=== PATIENT | female | born 1970 | race Caucasian/White ===

== ENCOUNTER 2024-07-17 12:43 | Emergency (ER) | payer OTHER, SELFPAY ==
--- NOTE | ~2024-07-17 | XR_ITS ---
EXAMINATION: XR chest 1V portable DATE: 07/17/2024 13:08 INDICATION: Cough and congestion and shortness of breath. TECHNIQUE: A single frontal view of the chest was obtained. COMPARISON: Chest view 07/08/2024, chest CT 09/29/2015 FINDINGS: There is no pneumonia, pleural effusion, or pneumothorax. The heart size is normal. Calcifi ed mediastinal lymph nodes are consistent with old granulomatous disease. IMPRESSION: 1. No acute cardiopulmonary disease. Reviewed, dictated and finalized at location A. US SECURITY DIRECTOR
[2024-07-17 12:47] VITALS: BP 153/96; PULSE 75; RESP 18; TEMP 36.6; O2SAT 93
[2024-07-17 13:25] LABS: Strep Group A RT-PCR NOT DETECTED (Negative)
[2024-07-17 13:37] LABS: SARS-CoV-2 RNA PCR Negative (Negative)
[2024-07-17 13:38] LABS: Influenza A QL RT-PCR Negative (Negative); Influenza B QL RT-PCR Negative (Negative); RSV RNA, RT-PCR Negative (Negative)
--- NOTE | 2024-07-17 13:50 | ED.URI ---
HPI - URI/Sore Throat General Chief Complaint: Upper Respiratory Infection Stated Complaint: cough Time Seen by Provider: 07/17/24 12:59 Source: patient and family Mode of arrival: ambulatory Limitations: no limitations History of Present Illness HPI Narrative: this is a 53-year-old female that recently diagnosed with an upper respiratory tract infection and finished a course of antibiotics continues to have a cough that is nonproductive with no shortness of breath no wheezing no fever chills. MD elicited complaint: cough Onset (ago): day(s) Consistency: constant Severity: mild Related Data Allergies Allergy/AdvReac Type Severity Reaction Status Date / Time No Known Allergies Allergy Unverified 06/16/17 14:01 Review of Systems Review of Systems: All systems reviewed & are unremarkable except as noted in HPI and below PMFSH Past Medical History Medical History Patient denies medical problems Exam Const: General: healthy appearing Nutritional Appearance: well nourished Orientation/consciousness: patient oriented x3 Limitations: no limitations HENMT: Head: normal to inspection Chest: Chest palpation & inspection: normal inspection of the chest Resp: Effort & Inspection: normal respiratory effort Auscultation: clear to auscultation bilaterally Cardio: Rate: regular rate Rhythm: regular rhythm GI: GI Palp: Yes Soft to palpation Auscultation: normal bowel sounds Course Course Emergency Course: patient had a chest x-ray that shows no acute cardiopulmonary abnormalities, COVID RSV influenza and strep are negative patient recently finished a course of antibiotics and will prescribed Medrol Dosepak ProAir and advised patient to continue cough pills. Vital Signs Vital signs: Vital Signs Temperature 36.6 C 07/17/24 12:47 Pulse Rate 75 07/17/24 12:47 Respiratory Rate 18 07/17/24 12:47 Blood Pressure 153/96 H 07/17/24 12:47 Pulse Oximetry 93 07/17/24 12:47 Oxygen Delivery Room Air 07/17/24 12:47 Temperature 36.6 C 07/17/24 12:47 Pulse Rate 75 07/17/24 12:47 Respiratory Rate 18 07/17/24 12:47 Blood Pressure 153/96 H 07/17/24 12:47 Pulse Oximetry 93 07/17/24 12:47 Oxygen Delivery Room Air 07/17/24 13:21 MDM - URI/Sore Throat Lab Data Labs: Lab Results 07/17/24 Range/Units 13:00 Influenza A (RT-PCR) Negative (Negative) Influenza B (RT-PCR) Negative (Negative) RSV (RT-PCR) Negative (Negative) SARS-CoV-2 RNA (RT-PCR) Negative (Negative) Group A Strep (PCR) Not detected (Negative) Critical Care Time Critical Care Time Critical Care Time: No Discharge Plan Discharge Clinical Impression: Viral infection Patient Disposition: Home, Self-Care Condition: Stable Instructions: Antibiotic Form, Viral Syndrome (ED) Additional Instructions: Advised patient to take medication as prescribed and follow-up with primary symptoms persist or worsen. Patient Language: Thai Prescriptions: New methylprednisolone [Medrol (Arian)] 4 mg tablets,dose pack See Rx Instructions .ROUTE .COMPLEX Qty: 21 0RF Rx Instructions: orally per package directions ProAir RespiClick 90 mcg/actuation aerosol powdr breath activated 2 inh inhalation QID PRN (Reason: shortness of breath) Qty: 1 0RF Follow-up/Referrals: UNKNOWN,DOCTOR [Primary Care Provider] - Time of Disposition: 13:54
[2024-07-17 13:56] VITALS: BP 135/80; PULSE 72; RESP 18; TEMP 36.7; O2SAT 95
--- OUTSIDE RECORDS SUMMARY | 2024-07-24 19:55 | XMS_ITS | Clinical Summary ---
Author Organization [facility] [employer] Address [address] [place] [address] Care Team Providers Care Franchise Broker Name Role Phone Shabnam Clayton MD Primary Care Provider Source Comments [facility] [employer]non-owned Affiliates and Associated Physician Practices is amultiple site organization consisting of ambulatory clinics and hospital sitesin [place], [place], [place] and [place]. This disclosure is being madepursuant to the Care Everywhere program and may not contain all information available regarding this patient. Last updated 18.[facility] [employer] Allergies No known active allergies Medications * Be aware that medications may not be up to date on this document. Alwaysverify current medications with the patient. Medication Sig Dispensed Refills Start Date End Date Status citalopram (CELEXA) 10 MG tablet Take 10 mg by mouth once daily Active Lurasidone HCl (LATUDA PO) Take 10 mg by mouth Acti ve ketoconazole (NIZORAL) 2 % shampooIndications:Ot her seborrheic dermatitis Apply to wet hair, leave on for 3 minutes, then rinse; at least three times weekly. 30 days supply 120 mL 11 06/02/2019 Active fluocinonide (LIDEX) 0.05 % solutionIndications:O ther seborrheic dermatitis Apply to affected area on scalp twice daily as needed. 30 day supply. 60 mL 4 06/02/2019 Active pimecrolimus (ELIDEL) 1 % creamIndications:Rash Apply to face twice a day. 30 days supply. 60 g 5 06/02/2019 Active Active Problems No known active problems Family History Medical History Relation Name Comments Asthma Neg Hx CVA Neg Hx Cancer - Breast Neg Hx Cancer - Other Neg Hx Cancer - Skin, Melanoma Neg Hx Cancer - Skin, Non Melanoma Neg Hx Eczema Neg Hx Hemophilia Neg Hx Psoriasis Neg Hx Social History Tobacco Use Types Packs/Day Years Used Date Smoking Tobacco: Never Smokeless Tobacco: Never Alcohol Use Standard Drinks/Week Comments Not Currently 0 (1 standard drink = 0.6 oz pur e alcohol) Sex and Gender Information Value Date Recorded Sex Assigned at Not on file Gender Identity Not on file Sexual Orientation Not on file Plan of Treatment Health Maintenance Due Date Last Done Comments COLOGUARD (AGES 45-75) - COL ON CA SCREENING 1968 COLON MONITORING 1968 COLONOSCOPY - COLON CA SCREENING 1968 CT COLONOGRAPHY - COLON CA SCREENING 1968 Colorectal Cancer Screening 1968 FIT - COLON CA SCREENING 1968 FLEX SIG - COLON CA SCREENING 1968 LIPID TESTING 1968 MAMMOGRAM 1968 PAP SMEAR 1968 HIV SCREENING 10/08/1983 HEPATITIS C SCREENING 10/03/1986 DTAP/TDAP/TD VACCINES (1 - Tdap) 10/08/1987 HEPATITIS B VACCINE (1 of 3 - 19+ 3-dose series) 10/08/1987 ZOSTER VACCINE (1 of 2) 2018 DEPRESSION SCREENING 07/28/2023 COVID-19 VACCINE (1 - 2023-2 5 season) 2024 INFLUENZA VACCINE (#1) 2024 07/01/2022 HIB VACCINE Aged Out No longer eligi ble based on patient's age to complete this topic HPV VACCINE Aged Out No longer eligi ble based on patient's age to complete this topic MENINGOCOCCAL VACCINE Aged Out No bart juno eligible based on patient's age to complete this topic PNEUMOCOCCAL VACCINE Aged Out No long er eligible based on patient's age to complete this topic Care Teams Franchise Broker Relationship Specialty Start Date End Date Shabnam Clayton MD [address] [place] [phone] PCP - General 05/28/19
--- OUTSIDE RECORDS SUMMARY | 2024-07-24 19:55 | XMS_ITS | Referral Summary ---
Author Organization [facility] [employer] Address [address] [place] [address] Care Team Providers Care Java Programmer Analyst Name Role Phone Shabnam Clayton MD Primary Care Provider [phone] Source Comments [facility],non-owned Affiliates and Associated Physician Practices is amultiple site organization consisting of ambulatory clinics and hospital sitesin [place], [place], [place] and [place]. This disclosure is being madepursuant to the Care Everywhere program and may not contain all information available regarding this patient. Last updated 18.[facility] [employer] Allergies No known active allergies Medications * [...] Active Active Problems No known active problems Social History Tobacco Use Types Packs/Day Years Used Date Smoking Tobacco: Never Smokeless Tobacco: Never Alcohol Use Standard Drinks/Week Comments Not Currently 0 (1 standard drink = 0.6 oz pur e alcohol) Sex and Gender Information Value Date Recorded Sex Assigned at Not on file Gender Identity Not on file Sexual Orientation Not on file Plan of Treatment Not on file Care Teams Java Programmer Analyst Relationship Specialty Start Date End Date Shabnam Clayton MD [address] [place] [phone] PCP - General 05/28/19
--- OUTSIDE RECORDS SUMMARY | 2024-07-24 19:56 | XMS_ITS | Continuity of Care Document ---
Author Organization [facility] Address [address] [place] [address] Phone Care Team Providers Care Carbon Furnace Operator Name Role Phone Yevgeniy Alvarado Unavailable Unavailable Advance Directives Directive Yes / No Effective Date File Name No Information Encounters Encounter Description Practice Location Reason(s) For Visit Diagnoses Date Provider Providers Copied on Encounter [facility], [address], [place], [place], [id number], [place] tel:[phone] [facility] No Information Mar-0 7-200 1 Christiano Vuong. [address] , [address], [place], [address], [place]. tel:[phone] Family History Family Member Type Diagnosis Age At Onset No Information Payers Payer name Insurance type Covered alliance party ID Authoriza tion(s) No Information Social History Type Description Quantity Date Captured Comments Sex Female Smoking Status No Information Chief Complaint And Reason For Visit No Information Reason For Referral Reason For Referral No Information History Of Present Illness Encounter Date Complaint History Of Prese nt Illness No Information Functional Status Date Functional Assessmen t No Information Instructions Date Instruction Additional Infor mation No Information Assessments Type Assessment Date No Information Patient Care Teams Name Effective Dates (start - stop) Status Members No Information
--- OUTSIDE RECORDS SUMMARY | 2024-07-24 19:56 | XMS_ITS | Patient Health Summary ---
Author Organization [facility] Address [address] [place] [address] Care Team Providers Care Water Hauler Name Role Phone Shabnam Clayton MD Primary Care Provider [phone] [facility],non-owned Affiliates and Associated Physician Practices is amultiple site organization consisting of ambulatory clinics and hospital sitesin [place], [place], [place] and [place]. This disclosure is being madepursuant to the Care Everywhere program and may not contain all information available regarding this patient. Last updated 18.[facility] Allergies No known active allergies Medications * Be aware that medications may not be up to date on this document. Alwaysverify current medications with the patient. * citalopram (CELEXA) 10 MG tablet Take 10 mg by mouth once daily * Lurasidone HCl (LATUDA PO) Take 10 mg by mouth * ketoconazole (NIZORAL) 2 % shampoo(Started 06/02/2019) Apply to wet hair, leave on for 3 minutes, then rinse; at least three times weekly. 30 days supply 11 refills remaining * fluocinonide (LIDEX) 0.05 % solution(Started 06/02/2019) Apply to affected area on scalp twice daily as needed. 30 day supply. 4 refills remaining * pimecrolimus (ELIDEL) 1 % cream(Started 06/02/2019) Apply to face twice a day. 30 days supply. 5 refills remaining Active Problems No known active problems Social History Tobacco Use Types Packs/Day Years Used Date Smoking Tobacco: Never Smokeless Tobacco: Never Alcohol Use Standard Drinks/Week Comments Not Currently 0 (1 standard drink = 0.6 oz pur e alcohol) Sex and Gender Information Value Date Recorded Sex Assigned at Not on file Gender Identity Not on file Sexual Orientation Not on file Care Teams Water Hauler Relationship Specialty Start Date End Date Shabnam Clayton MD [address] [place] [phone] PCP - General 05/28/19
--- OUTSIDE RECORDS SUMMARY | 2024-07-24 19:56 | XMS_ITS | Clinical Summary ---
Author Organization [facility] Address [address] [place] [address]. [place] [address] [place] [address] Care Team Providers Care Polls Or Surveys Interviewer Name Role Phone Lynda Duarte NP Primary Care Provider [phone] Allergies No known active allergies Medications lisinopril 10 MG tablet Take 10 mg by mouth daily. Active simvastatin 10 MG tablet Take 10 mg by mouth nightly at bedtime. Active albuterol sulfate HFA (PROAIR HFA) 108 (90 Base) MCG/ACT inhaler Inhale 2 puffs into the lungs every 6 (six) hours as needed for Wheezing. Active omeprazole 40 MG capsule Take 1 capsule (40 mg total) by mouth daily. 30 capsule 02/12/2021 Active Social History Tobacco Use Types Packs/Day Years Used Date Smoking Tobacco: Never Smokeless Tobacco: Never Alcohol Use Standard Drinks/Week Comments Never 0 (1 standard drink = 0.6 oz pur e alcohol) AUDIT-C Answer Date Recorded Q1: How often do you have a drink containing alc ohol? Never 02/11/2021 Average Number of Drinks Not on file 021 Frequency of Binge Drinking Not on file 01/25 Comments No Sex and Gender Information Value Date Recorded Sex Assigned at Not on file Legal Sex Female 5:52 PM CDT Gender Identity Not on file Sexual Orientation Not on file Last Filed Vital Signs Vital Sign Reading Time Taken Comments Blood Pressure 126/58 02/12/2021 12:00 AM CDT Pulse 75 02/12/2021 12:00 AM CDT Temperature 36.2 ??C (97.1 ??F) 02/11/2021 10:57 PM C DT Respiratory Rate 21 02/12/2021 12:00 AM CDT Oxygen Saturation 96% 02/12/2021 12:00 AM CDT Inhaled Oxygen Concentration - - Weight 110.2 kg (243 lb) 02/11/2021 10:57 PM CDT Height 170.2 cm (5' 7 ) 02/11/2021 10:57 PM CDT Body Mass Index 38.06 02/11/2021 10:57 PM CDT Plan of Treatment Health Maintenance Due Date Last Done Comments Cervical Cancer Screening Pa p Smear (Age 30 to 64) Every 3 Years 1968 Colorectal Cancer Screening Colonoscopy (10 Years) 1968 Annual Physical 10/08/1971 Hepatitis C 1986 DTaP, Tdap and Td Vaccines ( 1 - Tdap) 10/08/1987 Hepatitis B Vaccines (1 of 3 - 19+ 3-dose series) 10/08/1987 Cervical Cancer Screening Pa p with HPV Testing (Age 30 to 64) Every 5 Years 1998 Cervical Cancer Screening with HPV 1998 Mammogram Screening 2008 Zoster Vaccines (1 of 2) 2018 COVID-19 Vaccine (2023-2 5 season) 2024 Influenza Adult (#1) 2024 Meningococcal Vaccine Aged Out No bart juno eligible based on patient's age to complete this topic Pneumococcal Vaccine: Pediat rics (0 to 5 Years) and At-Risk Patients (6 to 64 Years) Aged Out No longer eligible b ased on patient's age to complete this topic RSV Immunizations Under 20 Months Aged Out No longer eligible based on patient's age to complete this topic Insurance [facility] Care Teams Polls Or Surveys Interviewer Relationship Specialty Start Date End Date Lynda Duarte NP PCP - General NURSE PRACTITIONER 02/11/21
--- OUTSIDE RECORDS SUMMARY | 2024-07-24 19:56 | XMS_ITS | Encounter Summary ---
Author Organization [facility] Address [address] [place] [address] [place] [address] Care Team Providers Care Cfa Name Role Phone GeraldLynda RECRUITMENT COORDINATOR Primary Care Provider [phone] Reason for Visit * Reason Comments Chest Pain Patient ambulates in with c/o pain in her chest that's happened off and on today. Had 3 episodes in past, feels like pleurisy pain. PCP told her if pains are short, probably not cardiac. Eating dinner tonight, pain would come and go, and getting more frequent. Described the pain as squeezing in her chest. Pain is left chest and into left arm and neck. Pain is dull on arrival. Wants to get heart checked out. Encounter Details Date Type Department Care Team (Late st Contact Info) Description 02/11/2021 10:47 PM CDT - 02/12/2021 12:[address] [facility] Emergency Room [address] [place] [address] [id number] Jose Ramon Rodarte MD [address] [place] [address] Chest Pain (Patient ambulates in with c/o pain in her chest that's happened off and on today. Had 3 episodes in past, feels like pleurisy pain. PCP told her if pains are short, probably not cardiac. Eating dinner tonight, pain would come and go, and getting more frequent. Described the pain as squeezing in her chest. Pain is left chest and into left arm and neck. Pain is dull on arrival. Wants to get heart checked out.) Discharge Disposition: Home or Self Care (Routine Discharge) Social History Tobacco Use Types Packs/Day Years [...] on file Sexual Orientation Not on file COVID-19 Exposure Response Date Recorded In the last month, have you been in contact with someone who was confirmed or suspected to have Coronavirus / COVID-19? No / Unsure 02/11/2021 10:57 PM CDT documented as of this encounter Last Filed Vital Signs Vital Sign Reading [...] Mass Index 38.06 02/11/2021 10:57 PM CDT documented in this encounter Discharge Instructions * Discharge Instructions* Jose Ramon Rodarte MD - 02/12/2021 12:14 AM CDT You should fill the prescription tomorrow and begin taking it at that time. Follow up with your primary care doctor if you have ongoing symptoms despite treatment. * Attachments The following attachments cannot be sent through Care Everywhere. * Acid Reflux and Gastroesophageal Reflux Disease in Adults (Hebrew) documented in this encounter Medications at Time of Discharge albuterol sulfate HFA (PROAIR HFA) 108 (90 Base) MCG/ACT inhaler Inhale 2 puffs into the lungs every 6 (six) hours as needed for Wheezing. lisinopril 10 MG tablet Take 10 mg by mouth daily. omeprazole 40 MG capsule Take 1 capsule (40 mg total) by mouth daily. 30 capsule 02/12/2021 simvastatin 10 MG tablet Take 10 mg by mouth nightly at bedtime. documented as of this encounter ED Notes * Jose Ramon Rodarte MD - 02/12/2021 12:25 AM CDT Chief Complaint Chief Complaint Patient presents with ??? Chest Pain Patient ambulates in with c/o pain in her chest that's happened off and on today. Had 3 episodes inpast, feels like pleurisy pain. PCP told her if pains are short, probably not cardiac. Eating dinner tonight, pain would come and go, and getting more frequent. Described the pain as squeezing in herchest. Pain is left chest and into left arm and neck. Pain is dull on arrival. Wants to get heart checked out. History of Present Illness 50 yo female here with complaints of several days of increasing burning/cramping in chest. Denies fever, dyspnea, nausea, vomiting. Pt has had constant pain since 1030. Pain was worse when drinking hot tea this afternoon. Pain currently 3/10, radiating to left upper chest and neck. Medical History ALLERGIES: No Known Allergies MEDICATIONS: Prior to Admission medications Medication Sig Start Date End Date Taking? Authorizing Provider albuterol sulfate HFA (PROAIR HFA) 108 (90 Base) MCG/ACT inhaler Inhale 2 puffs into the lungs every 6 (six) hours as needed for Wheezing. Yes Doc Abstract lisinopril 10 MG tablet Take 10 mg by mouth daily. Yes Doc Abstract omeprazole 40 MG capsule Take 1 capsule (40 mg total) by mouth daily. 02/12/21 Yes Jose Ramon Rodarte MD simvastatin 10 MG tablet Take 10 mg by mouth nightly at bedtime. Yes Doc Abstract PAST MEDICAL HISTORY: Past Medical History: Diagnosis Date ??? High cholesterol ??? Hypertension PAST SURGICAL HISTORY: History reviewed. No pertinent surgical history. FAMILY HISTORY: No family history on file. SOCIAL HISTORY: Social History Tobacco Use ??? Smoking status: Never Smoker ??? Smokeless tobacco: Never Used Substance Use Topics ??? Alcohol use: Never ??? Drug use: Never Review of Systems Review of Systems Constitutional: Negative. Negative for fever. HENT: Negative. Respiratory: Negative for cough, chest tightness and shortness of breath. Cardiovascular: Positive for chest pain. Gastrointestinal: Negative for abdominal distention and abdominal pain. Musculoskeletal: Negative. Neurological: Negative for seizures and syncope. Psychiatric/Behavioral: Negative. All other systems reviewed and are negative. Physical Exam Filed Vitals: 02/11/21 2257 02/11/21 2300 02/11/21 2330 02/12/21 0000 BP: (!) 146/78 140/78 122/75 126/58 Pulse: 78 81 72 75 Resp: Temp: 97.1 ??F (36.2 ??C) TempSrc: Temporal SpO2: 98% 96% 95% 96% Weight: 110.2 kg (243 lb) Height: 5' 7 (1.702 m) Physical Exam Vitals and nursing note reviewed. Constitutional: General: She is not in acute distress. Appearance: Normal appearance. She is well-developed. HENT: Head: Normocephalic and atraumatic. Right Ear: External ear normal. Left Ear: External ear normal. Nose: Nose normal. Eyes: General: No scleral icterus. Pupils: Pupils are equal, round, and reactive to light. Cardiovascular: Rate and Rhythm: Normal rate and regular rhythm. Pulses: Normal pulses. Heart sounds: Normal heart sounds. Pulmonary: Effort: Pulmonary effort is normal. No respiratory distress. Breath sounds: Normal breath sounds. No stridor. No wheezing. Comments: No ttp of chest. Chest: Chest wall: No tenderness. Abdominal: General: Bowel sounds are normal. There is no distension. Palpations: Abdomen is soft. Musculoskeletal: General: No deformity. Normal range of motion. Cervical back: Normal range of motion and neck supple. Skin: General: Skin is warm and dry. Capillary Refill: Capillary refill takes less than 2 seconds. Findings: No rash. Neurological: Mental Status: She is alert and oriented to person, place, and time. Cranial Nerves: No cranial nerve deficit. Psychiatric: Mood and Affect: Mood normal. Behavior: Behavior normal. Diagnostic Studies / Procedures ELECTROCARDIOGRAMS: Results for orders placed or performed during the hospital encounter of 02/11/21 [address] [facility] Test Date: 2021-02-11 Pat Name: OH CASILLAS Department: Room: [facility] Gender: Female Safety And Occupational Health Manager: PRANAV : 1970 Requested By: JOSE RAMON RODARTE Order Number: [id number] Reading MD: Measurements Intervals [place] Rate: 80 P: 0 [place]: 136 QRS: 7 QRSD: 90 T: 30 QT: 382 QTc: 441 Interpretive Statements SINUS RHYTHM No previous ECG available for comparison EKG interpreted by me at the time of acquisition. NSR. Rate 80, no ectopy. No ischemic change. LABORATORY STUDIES: Results for orders placed or performed during the hospital encounter of 02/11/21 CBC W/DIFF AUTOMATED Result Value Ref Range WBC 8.3 4.8 - 10.8 x10'3/uL RBC 4.01 (L) 4.10 - 5.10 x10'6/uL HGB 12.3 12.0 - 16.0 G/DL HCT 36.9 36 - 46 % MCV 92.0 80 - 100 FL MCH 30.7 26.0 - 34.0 PG MCHC 33.3 31.0 - 37.0 G/DL RDW 12.7 11.5 - 14.5 % PLT 346 150 - 350 x10'3/uL CBC COMMENT AUTOMATED RBC MORPHOLOGY AND PLATELET EVALUATION NORMAL NEUTROPHILS 43.3 (L) 50 - 70 % LYMPHOCYTES 34.5 18 - 42 % MONOCYTES 9.8 2.0 - 11.0 % EOSINOPHILS 11.4 (H) 1.0 - 3.0 % BASOPHILS 1.0 0.0 - 1.0 % ABS. NEUTROPHILS TOTAL 3.57 1.69 - 7.81 x10'3/uL COMPREHENSIVE METABOLIC PANEL Result Value Ref Range GLUCOSE 90 70 - 99 MG/DL BUN 15 7 - 18 MG/DL CREATININE S/P/B 1.00 0.55 - 1.02 MG/DL SODIUM 141 136 - 145 MMOL/L POTASSIUM 4.1 3.5 - 5.1 MMOL/L CHLORIDE S/P/B 105 100 - 108 MMOL/L CO2 29.6 21 - 32 MMOL/L CALCIUM 9.4 8.5 - 10.1 MG/DL BILIRUBIN TOTAL S/P/B 0.6 0.2 - 1.2 MG/DL TOTAL PROTEIN S/P/B 7.4 6.4 - 8.2 G/DL ALBUMIN S/P/B 3.7 3.4 - 5.0 G/DL AST 23 15 - 37 U/L ALT 44 14 - 55 U/L ALKALINE PHOSPHATASE S/P/B 100 50 - 136 U/L ANION GAP 6.4 5 - 15 MMOL/L BUN CREATININE RATIO 15.0 6 - 26 A/G RATIO 1.0 1.0 - 2.0 RATIO eGFR Non-Afr. Amer. 65 (L) >90 ML/MIN/1.73 M2 eGFR Afr. Amer. 75 (L) >90 ML/MIN/1.73 M2 TROPONIN, QUANT Result Value Ref Range TROPONIN I <0.017 0.000 - 0.056 ng/mL. IMAGING STUDIES XR CHEST PORTABLE Final Result by User, [id number] (02/11 8510) Examination: Chest radiograph Exam time: 02/11/2021 10:56 PM Clinical history: Chest pain Comparison: None Technique: One view of the chest obtained. Findings: Lungs are adequately inflated and clear. No pneumothorax or pleural effusions evident. The cardiac silhouette, mediastinal contours, and pulmonary vessels appear within normal limits. No acute osseous abnormality. IMPRESSION: No radiographic evidence of active disease of the chest. Referred By: JOSE RAMON RODARTE Interpreted By: Carmon Lindo MD, 02/11/2021 11:16 PM ED Course / Medical Decision Making 50 yo female here with complaints of chest pain increasing over time. Given brief and unpredictablepattern not associated with exertion ACS is less likely. Heart score 2. Negative trop, cxr and ekg.Pt had complete resolution of symptoms after GI cocktail. Started on omeprazole. Will d/c to home. Clinical Impression Reflux esophagitis (Primary) Disposition: Discharge Jose Ramon Rodarte MD 02/12/21 0128 * Alma Barroso RN - 02/12/2021 12:12 AM CDT Patient states pain in chest improved after GI cocktail, will discontinue toradol. Patient agreeable with plan. * Alma Barroso RN - 02/11/2021 11:[address] Rodarte to bedside to discuss results and plans to medicate for pain. Patient agreeable with plan of care. documented in this encounter Plan of Treatment Not on file documented as of this encounter Procedures Procedure Name Priority Date/Time Associated Diagnosis Comments XR CHEST PORTABLE STAT 02/11/2021 11: 18 PM CDT COMPREHENSIVE METABOLIC PANEL STAT 02/11/2021 11:05 PM CDT CBC W/DIFF AUTOMATED STAT 02/11/2021 11:05 PM CDT TROPONIN, QUANT STAT 02/11/2021 11:05 PM CDT ECG 12-LEAD Routine 02/11/2021 10:58 PM CDT documented in this encounter Results * XR CHEST PORTABLE (02/11/2021 11:18 PM CDT) Anatomical Region Laterality Modality Chest Radiographic Dora ging 02/11/2021 11:1 6 PM CDT Impressions 02/11/2021 11:16 PM CDT IMPRESSION: No radiographic evidence of active disease of the chest. Referred By: JOSE RAMON RODARTE Interpreted By: Camron Lindo MD, 02/11/2021 11:16 PM Narrative 02/11/2021 11:16 PM CDT Examination: Chest radiograph Exam time: 02/11/2021 10:56 PM Clinical history: Chest pain Comparison: None Technique: ??One view of the chest obtained. Findings: Lungs are adequately inflated and clear. No pneumothorax or pleural effusions evident. The cardiac silhouette, mediastinal contours, and pulmonary vessels appear within normal limits. No acute osseous abnormality. ?? Procedure Note Camron Lindo MD - 02/11/2021 Examination: Chest radiograph Exam time: 02/11/2021 10:56 PM Clinical history: Chest pain Comparison: None Technique: One view of the chest obtained. Findings: Lungs are adequately inflated and clear. No pneumothorax orpleural effusions evident. The cardiac silhouette, mediastinal contours,and pulmonary vessels appear within normal limits. No acute osseousabnormality. IMPRESSION: No radiographic evidence of active disease of the chest. Referred By: JOSE RAMON RODARTE Interpreted By: Camron Lindo MD, 02/11/2021 11:16 PM Jose Ramon Rodarte MD GENERAL IMAGING Final Resu lt * TROPONIN, QUANT (02/11/2021 11:05 PM CDT) TROPONIN I <0.017 0.000 - 0.056 ng/mL. 02/11/2021 11:40 PM CDT [facility] Comment: NORMAL: LESS THAN OR EQUAL TO 0.056 NG/ML INDETERMINATE ZONE: 0.057 TO 0.599 NG/ML CONDITIONS RESULTING IN MYOCARDIAL CELL DAMAGE CAN POTENTIALLY INCREASE LEVELS ABOVE THE EXPECTED RANGE. HIGH DOSES OF BIOTIN MAY INTERFERE WITH THIS TEST RESULT. CORRELATION TO CLINICAL HISTORY AND PRESENTATION RECOMMENDED. 02/11/2021 11:0 5 PM CDT us Jose Ramon Rodarte MD LABORATORY Final Resu lt [facility] [address] [place] [address], [place] [phone] * (ABNORMAL) COMPREHENSIVE METABOLIC PANEL (02/11/2021 11:05 PM CDT) [facility] GLUCOSE 90 70 - 99 MG/DL 02/11/2021 11:28 PM T [facility] BUN 15 7 - 18 MG/DL 02/11/2021 11:28 PM T [facility] CREATININE S/P/B 1.00 0.55 - 1.02 MG/DL 02/11/2021 11:28 PM T [facility] SODIUM S/P/B 141 136 - 145 MMOL/L 02/11/2021 11:28 PM T [facility] POTASSIUM S/P/B 4.1 3.5 - 5.1 MMOL/L 02/11/2021 11:28 PM T [facility] CHLORIDE S/P/B 105 100 - 108 MMOL/L 02/11/2021 11:28 PM T [facility] CO2 29.6 21 - 32 MMOL/L 02/11/2021 11:28 PM T [facility] CALCIUM S/P/B 9.4 8.5 - 10.1 MG/DL 02/11/2021 11:28 PM T [facility] BILIRUBIN TOTAL S/P/B 0.6 0.2 - 1.2 MG/DL 02/11/2021 11:28 PM T [facility] Comment: THIS ASSAY IS NOT RECOMMENDED FOR PATIENTS UNDERGOING TREATMENT WITH ELTROMBOPAG DUE TO THE POTENTIAL FOR FALSELY ELEVATED RESULTS. TOTAL PROTEIN S/P/B 7.4 6.4 - 8.2 G/DL 02/11/2021 11:28 PM T [facility] ALBUMIN S/P/B 3.7 3.4 - 5.0 G/DL 02/11/2021 11:28 PM T [facility] AST 23 15 - 37 U/L 02/11/2021 11:28 PM CDT [facility] ALT 44 14 - 55 U/L 02/11/2021 11:28 PM CDT [facility] ALKALINE PHOSPHATASE S/P/B 100 50 - 136 U/L 02/11/2021 11:28 PM CDT [facility] ANION GAP 6.4 5 - 15 MMOL/L 02/11/2021 11:28 PM CDT [facility] BUN CREATININE RATIO 15.0 6 - 26 02/11/2021 11:28 PM T [facility] A/G RATIO 1.0 1.0 - 2.0 RATIO 02/11/2021 11:28 PM T [facility] EGFR NON-AFR. AMER. 65(L) >90 ML/MIN/1.7 3 M2 02/11/2021 11:28 PM T [facility] EGFR AFR. AMER. 75(L) >90 ML/MIN/1.7 3 M2 02/11/2021 11:28 PM T [facility] Comment: NOTE: eGFR is not calculated for patients <18 years of age. This is an estimated GFR (CKD EPI) and should not be used for calculating drug doses. 02/11/2021 11:0 5 PM CDT Jose Ramon Rodarte MD LABORATORY Final Resu lt [facility] [address] [id number], [place] [phone] * (ABNORMAL) CBC W/DIFF AUTOMATED (02/11/2021 11:05 PM CDT) WBC 8.3 4.8 - 10.8 x10'3/uL 02/11/2021 11:19 PM CDT [facility] RBC 4.01(L) 4.10 - 5.10 x10'6/uL 02/11/2021 11:19 PM CDT [facility] HGB 12.3 12.0 - 16.0 G/DL 02/11/2021 11:19 PM CDT [facility] HCT 36.9 36 - 46 % 02/11/2021 11:19 PM CDT [facility] MCV 92.0 80 - 100 FL 02/11/2021 11:19 PM CDT [facility] MCH 30.7 26.0 - 34.0 PG 02/11/2021 11:19 PM CDT [facility] MCHC 33.3 31.0 - 37.0 G/DL 02/11/2021 11:19 PM CDT [facility] RDW 12.7 11.5 - 14.5 % 02/11/2021 11:19 PM CDT [facility] PLT 346 150 - 350 x10'3/uL 02/11/2021 11:19 PM T [facility] CBC COMMENT AUTOMATED RBC MORPHOLOGY AND PLATELET EVALUATION NORMAL 02/11/2021 11:19 PM T [facility] NEUTROPHILS % 43.3(L) 50 - 70 % 02/11/2021 11:19 PM CDT [facility] LYMPHOCYTES % 34.5 18 - 42 % 02/11/2021 11:19 PM CDT [facility] MONOCYTES % 9.8 2.0 - 11.0 % 02/11/2021 11:19 PM T [facility] EOSINOPHILS 11.4(H) 1.0 - 3.0 % 02/11/2021 11:19 PM CDT [facility] BASOPHILS 1.0 0.0 - 1.0 % 02/11/2021 11:19 PM CDT [facility] ABS. NEUTROPHILS TOTAL 3.57 1.69 - 7.81 x10'3/uL 02/11/2021 11:19 PM CDT [facility] 02/11/2021 11:0 5 PM CDT Jose Ramon Rodarte MD LABORATORY Final Resu lt [facility] [address] [place] [address], * ECG 12 lead (02/11/2021 10:58 PM CDT) 02/11/2021 10:5 8 PM CDT Narrative [facility] - 02/13/2021 6:24 AM CDT ?[facility] ? Test Date: ?2021-02-11 Pat Name: ? [place] Department: ? Room: ? T1TR1 Gender: ? F ?Safety And Occupational Health Manager: ?? PHTK : ?1970 ? Requested By: JOSE RAMON RODARTE Order Number: [id number] ? Reading : ?? Inder Garrido ? Measurements Intervals ?[place] ? Rate: ? 80 ? P: ?0 [place]: ? 136 ?QRS: ?7 QRSD: ? 90 ? T: ?30 QT: ? 382 ? QTc: ?441 ? Interpretive Statements SINUS RHYTHM No previous ECG available for comparison Procedure Note Inder Garrido MD - 02/13/2021 [facility] Test Date: 2021-02-11 Pat Name: OH CASILLAS Department: Room: [facility] Gender: F Safety And Occupational Health Manager: ENRIQUETPaulina : 1970 Requested By: JOSE RAMON RODARTE Order Number: [id number] Reading MD: Inder Garrido Measurements Intervals [place] Rate: 80 P: 0 [place]: 136 QRS: 7 QRSD: 90 T: 30 QT: 382 QTc: 441 Interpretive Statements SINUS RHYTHM No previous ECG available for comparison us Jose Ramon Rodarte MD ECG ORDERABLES Final Resu lt [facility] documented in this encounter Visit Diagnoses Diagnosis Reflux esophagitis- Primary documented in this encounter Administered Medications Inactive Administered Medications - up to 3 most recent administrations Medication Order MAR Action Action Date Dose Rate Site aspirin chewable tablet 324 mg 324 mg, Oral, Once, 1 dose, On 02/11/21 at 2300 Given 02/11/2021 11:08 PM CDT 324 mg maalox plus-lidocaine viscous (GI [place]) 45 mL suspension Oral, Once, 1 dose, On 02/12/21 at 0000 Given 02/11/2021 11:59 PM CDT documented in this encounter Active and Recently Administered Medications Times are shown in CDT. Scheduled Medication Order 02/10/2021 02/11/2021 02/12/2021 aspirin chewable tablet 324 mg (COMPLETED) 324 mg, Oral, Once, 1 dose, On 02/11/21 at 2300 2308 (Given - Provider: Alma Barroso, KE) maalox plus-lidocaine viscous (GI [place]) 45 mL suspension (COMPLETED) Oral, Once, 1 dose, On Fri02/12/21 at 0000 2359 (Given - Provider: Alma Barroso RN) documented in this encounter Care Teams Cfa Relationship Specialty Start Date End Date Lynda Duarte NP PCP - General NURSE PRACTITIONER 02/11/21 documented as of this encounter
--- OUTSIDE RECORDS SUMMARY | 2024-07-24 19:56 | XMS_ITS | Encounter Summary ---
Author Organization [facility] Address [facility] [place] [address] [place] [address] Care Team Providers Care Restaurant Assistant Name Role Phone Unavailable Primary Care Provider Unavailabl e Encounter Details Date Type Department Care Team (Late st Contact Info) Description 07/14/1995 Abstract [facility] CONVERSION [address] [place] [address] , Generic Conversion, Social History Tobacco Use Types Packs/Day Years Used Date Smoking Tobacco: Never Assessed Comments Unknown Sex and Gender Information Value Date Recorded Sex Assigned at Not on file Legal Sex Female 5:52 PM CDT Gender Identity Not on file Sexual Orientation Not on file documented as of this encounter Plan of Treatment Not on file documented as of this encounter Visit Diagnoses Not on filedocumented in this encounter
--- OUTSIDE RECORDS SUMMARY | 2024-07-24 19:56 | XMS_ITS | Encounter Summary ---
Author Organization [facility] Address Count includes the [facility] [place] [address] [place] [address] Care Team Providers Care Railroad Signal Operator Name Role Phone Unavailable Primary Care Provider Unavailabl e Encounter Details Date Type Department Care Team (Late st Contact Info) Description 12/01/1995 Abstract [facility] CONVERSION [address] [place] [address] , Generic Conversion, Social History Tobacco Use [...]
--- OUTSIDE RECORDS SUMMARY | 2024-07-24 19:56 | XMS_ITS | Clinical Summary ---
Author Organization [facility] Address [address] [place] [address] Phone Care Team Providers Care Supply Chain Buyer Name Role Phone Darnell Peters MD Primary Care Provider [phone] Allergies No known active allergies Medications Medication Sig Dispensed Refills Start Date End Date Status OLANZapine (ZyPREXA) 10 mg tablet Take 1 Tablet (10 mg) by mouth daily at bedtime. 30 Tablet 2 06/21/2017 Active citalopram (CeleXA) 20 mg tablet Take 1 Tablet (20 mg) by mouth daily. 30 Tablet 2 06/22/2017 Active traZODone (DESYREL) 50 mg tablet Take 1 Tablet (50 mg) by mouth nightly as needed for Insomnia. 30 Tablet 2 06/21/2017 Active Active Problems Problem Noted Date Diagnosed Date Major depressive disorder, s shaheen episode, severe with atypical features 06/18/2017 Routine medical exam 06/18/2017 Social History Tobacco Use Types Packs/Day Years Used Date Smoking Tobacco: Never Smokeless Tobacco: Never Alcohol Use Standard Drinks/Week Comments No 0 (1 standard drink = 0.6 oz pur e alcohol) Sex and Gender Information Value Date Recorded Sex Assigned at Not on file Gender Identity Not on file Sexual Orientation Not on file Last Filed Vital Signs Vital Sign Reading Time Taken Comments Blood Pressure 160/76 06/21/2017 7:59 AM AUTO PARTS COUNTER PERSON Pulse 90 06/21/2017 7:59 AM AUTO PARTS COUNTER PERSON Temperature 36.9 ??C (98.4 ??F) 06/21/2017 7:59 AM CS T Respiratory Rate 18 06/21/2017 7:59 AM AUTO PARTS COUNTER PERSON Oxygen Saturation 96% 06/21/2017 7:59 AM AUTO PARTS COUNTER PERSON Inhaled Oxygen Concentration - - Weight 90.7 kg (200 lb) 06/17/2017 3:55 PM AUTO PARTS COUNTER PERSON Height 170.2 cm (5' 7 ) 06/17/2017 3:55 PM AUTO PARTS COUNTER PERSON Body Mass Index 31.32 06/17/2017 3:55 PM AUTO PARTS COUNTER PERSON Plan of Treatment Health Maintenance Due Date Last Done Comments DTAP/TDAP/TD VACCINES (1 - Tdap) 10/08/1987 HEPATITIS B VACCINES (1 of 3 - 19+ 3-dose series) 10/08/1987 CERVICAL CANCER SCREENING 1998 BREAST CANCER SCREENING 2008 COLORECTAL SCREENING 2013 Colorectal Cancer Screening 2013 FIT-DNA Q 3 years 2013 FIT/FOBT Q 1 year 2013 Flex Sig/CT Colonography Q 5 years 2013 ZOSTER VACCINE (1 of 2) 2018 INFLUENZA VACCINE (#1) 2024 PNEUMOCOCCAL VACCINE 0-64 YEARS Aged Out No longer eligible based on patient's age to complete this topic Care Teams Supply Chain Buyer Relationship Specialty Start Date End Date Darnell Peters MD [address] [place] [address] PCP - General Family Practice 06/17/17
--- OUTSIDE RECORDS SUMMARY | 2024-07-24 19:56 | XMS_ITS | Continuity of Care Document ---
Author Organization [facility] Address [address] [place] [address] Phone Care Team Providers Care Environmental Designer Name Role Phone Unavailable Unavailable Unavailable Procedures Procedure Date Periodontal Scaling And Root Planing- 1- 3 Teeth Per Quadrant Periodontal Scaling And Root Planing- 1- 3 Teeth Per Quadrant Periodontal Scaling And Root Planing- 1- 3 Teeth Per Quadrant Periodontal Scaling And Root Planing- 1- 3 Teeth Per Quadrant Periodontal Scaling And Root Planing- 1- 3 Teeth Per Quadrant Resin Composite, 2 Surfaces, Posterior A Resin Composite, 2 Surfaces, Posterior A Caries Risk Assess & Doc High Risk Comprehensive Oral Evaluation-New/Est Pt Intra-Oral - Complete Series Of Radiogra phic Images Dental Panoramic Radiographic Image Advance Directives Directive Yes / No Effective Date File Name No Information Encounters Encounter Description Practice Location Reason(s) For Visit Diagnoses Date Provider Providers Copied on Encounter [facility] , [address], [place], [place], [id number], tel:[phone] [facility] Encounter for dental exam and cleaning w abnormal findings No Information Referring Provider: Neo Pate, [address], [place], [address] . tel:[phone] [facility] , [address], [place], [place], [id number], tel:[phone] [facility] Encounter for dental exam and cleaning w abnormal findings No Information Referring Provider: Neo [facility], [address], [place], [address] . tel:[phone] [facility] , [address], [place], [place], [id number], tel:[phone] [facility] Encounter for dental exam and cleaning w abnormal findings No Information Referring Provider: Neo Pate, [address], [place], [address] . tel:[phone] [facility] , [address], [place], [place], [id number], [place] tel:[phone] [facility] Dental caries, unspecified No Information [facility] , [address], [place], [place], [id number], [place] tel:[phone] [facility] Encounter for dental exam and cleaning w abnormal findings No Information [facility] , [address], [place], [place], [id number], [place] tel:[phone] Care Guidelines No Information Family History Family Member Type Diagnosis Age At Onset No Information Payers Payer name Insurance type Covered constitution party ID Bob huitron(s) Rebeca [facility] [id number] Social History Type Description Quantity Date Captured [...]
--- OUTSIDE RECORDS SUMMARY | 2024-07-24 19:56 | XMS_ITS | Encounter Summary ---
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 General Dermatology [address] [place] [address] Teresa Justin MD No Information available Other seborrheic dermatitis (Primary Dx); Rash Social History Tobacco Use Types Packs/Day Years Used Date Smoking Tobacco: Never Smokeless Tobacco: Never Alcohol Use Standard Drinks/Week Comments Not Currently 0 (1 standard drink = 0.6 oz pur e alcohol) Sex and Gender Information Value Date Recorded Sex Assigned at Not on file Gender Identity Not on file Sexual Orientation Not on file documented as of this encounter Patient Instructions * Patient Instructions* Charissa Posey MD - 06/02/2019 8:42 AM PRODUCTION LAPPING MACHINE OPERATOR We will start elidel to the face twice daily as needed for itchy, flaky, pink spots. It may burn a bit at first, but that will go away with time. If it is too expensive, please let us know, we have aspecial pharmacy we can send it to. Please use cerave or cetaphil products for cleansing and moisturizing. Do not use anything with salacid or hyaluronic acid in it. We will stop the under eye creams that may have allergens in them For your scalp, we will have you wash scalp with ketoconazole shampoo and then use lidex solution as needed for itch It was a pleasure seeing you in the office today. Please follow up in 6 weeks UCTION LAPPING MACHINE OPERATOR documented in this encounter Progress Notes * Charissa Posey MD - 06/02/2019 8:25 AM CST Chief Complaint Patient presents with ??? Establish Care dry facial skin HPI: Rebecca Patiño a 48 year old female presents for skin rash evaluation. Concerns: Dry skin Patient states that she has had dry skin on face since childhood which use to crack and bleed in childhood Over past two months, face has got considerably worse with dry skin around eyes and on chin Using OTC lotion Denies itching or burning Has never used elidel Also gets dry spots on arms, in winter uses carmen Also had asthma and allergies as a child, never dx as eczema but 'almost ' from itching Concerns: Spots on scalp persistent throughout life, used coal tar shampoo in the past Now using robert giovany oil Very itchy Personal history of skin cancer: none Has a history of psoriasis in daughter who gets it from fathers side Allergies and medications were reviewed and verified. Past medical history, social history and family history were reviewed. ROS: As per HPI above. Patient denies fever, chills; sees OBGYN for night sweats. PE: No acute distress. Mood clear/affect appropriate. Alert and oriented. Mucous membranes moist. Sclera anicteric. Visible skin exam was conducted to include the scalp, face, lips/teeth, lids/conjunctiva, ears, neck, right and left hands and forearms and was normal with the following exceptions: [place] ill defined hyperkeratotic scaly plaque on nuchal scalp with greasy scale throughout scalp Ill defined pink nummular eczematous thin plaques on chin, R cheek, lower eyelids with scattered crusted papule s on chin A/P: Rebecca was seen today for establish care. Diagnoses and all orders for this visit: Other seborrheic dermatitis -discussed disease process - START ketoconazole (NIZORAL) 2 % shampoo; Apply to wet hair, leave on for 3 minutes, then rinse; at least three times weekly. 30 days supply - START fluocinonide (LIDEX) 0.05 % solution; Apply to affected area on scalp twice daily as needed. 30 day supply. Rash, face -suspect ACD/ICD, stop anti aging creams to face, etc -other considerations include periorificial dermatitis (related to ICD), tinea less likely due to appearance and negative AMIE despite daughter's recent diagnosis -discussed bland skin care, switch to cerave only without SA or hyaluronic acid - FUNGUS AMIE - POINT OF CARE (AMB) [facility] - pimecrolimus (ELIDEL) 1 % cream; Apply to face twice a day. 30 days supply. >50% time spent face to face councelling with patient RTC in 6 weeks Charissa Posey MD Dermatology Resident PGY-3 UCTION LAPPING MACHINE OPERATOR Associated attestation - Teresa Justin MD - 06/02/2019 10:46 AM PRODUCTION LAPPING MACHINE OPERATOR I have seen and examined the patient with the resident and I agree with the findings and plan of care as documented by the resident. Date of Service: 06/02/2019 Teresa Justin MD documented in this encounter Plan of Treatment Not on file documented as of this encounter Visit Diagnoses Diagnosis Other seborrheic dermatitis- Primary Rash Rash and other nonspecific skin eruption documented in this encounter Care Teams Adult Live In Caregiver Relationship Specialty Start Date End Date Shabnam Clayton MD [address] [place] [id number] PCP - General 05/28/19 documented as of this encounter
--- OUTSIDE RECORDS SUMMARY | 2024-07-24 19:56 | XMS_ITS | Encounter Summary ---
Author Organization [facility] Address [address] [place] [address] Care Team Providers Care Kitchen Work Supervisor Name Role Phone Darnell Peters MD Primary Care Provider [phone]- [phone] Reason for Visit * Reason Comments Delusional Pt tearful in triage . Pt states she isn't herself. Pt reports increase stress and exhaustion. Pt states yesterday she thought her was trying to kill her and she thought her brother was trying to kill her today, states she feels delusional. Denies SI/ HI. Pt was seen at [facility] yesterday for these same symptoms. Pt calm and cooperative. * Auth/Cert Specialty Diagnoses / Procedures Referred By Katherin cartagena Referred To Contact Emergency Medicine [facility] Emergency Dept [address] [place] [address] Referral ID Status Reason Start Date Expiration Date Visits Re quested Visits Authorized [id number] 1 1 Encounter Details Date Type Department Care Team (Latest Contact Info) Description 06/17/2017 11:12 AM RETORT LOAD EXPEDITER - 06/21/2017 11:45 AM RETORT LOAD EXPEDITER Hospital Encounter [facility] [place] [address] [place] [address] Hussein Linda, Damaso Silverio MD [address] [facility] [place] [address] Akiko Campbell MD NO ADDRESS ON FILE Clovis Johnson MD [address] [place] [address] Major depressive disorder, single episode, severe with atypical features Discharge Disposition: Home or Self Care Social History Tobacco Use Types Packs/Day Years Used Date Smoking Tobacco: Never Smokeless Tobacco: Never Alcohol Use Standard Drinks/Week Comments No 0 (1 standard drink = 0.6 oz pur e alcohol) Sex and Gender Information Value Date Recorded Sex Assigned at Not on file Gender Identity Not on file Sexual Orientation Not on file documented as of this encounter Last Filed Vital Signs Vital Sign Reading Time Taken Comments Blood Pressure 160/76 06/21/2017 7:59 AM RETORT LOAD EXPEDITER Pulse 90 06/21/2017 7:59 AM RETORT LOAD EXPEDITER Temperature 36.9 ??C (98.4 ??F) 06/21/2017 7:59 AM CS T Respiratory Rate 18 06/21/2017 7:59 AM RETORT LOAD EXPEDITER Oxygen Saturation 96% 06/21/2017 7:59 AM RETORT LOAD EXPEDITER Inhaled Oxygen Concentration - - Weight 90.7 kg (200 lb) 06/17/2017 3:55 PM RETORT LOAD EXPEDITER Height 170.2 cm (5' 7 ) 06/17/2017 3:55 PM RETORT LOAD EXPEDITER Body Mass Index 31.32 06/17/2017 3:55 PM RETORT LOAD EXPEDITER documented in this encounter Discharge Summaries * Akiko Campbell MD - 06/21/2017 10:42 AM CST Discharge Summary: ADMIT: 06/17/2017 DISCHARGE: 06/21/2017 Assessment: For specifics prior to admission please refer to admission History & Physical, and Medical consultation. Reason For Hospitalization: paranoia Discharge DX:.Major depressive disorder, single episode, severe with atypical features Labs: No results found for: WBC, MANUALWBC, HGB, HGBPOC, HCT, HCTPOC, PLT, MCV No results found for: NA, K, CL, CO2, CA, BUN, CREAT, GLUCOSE, TOTALPROTEIN, ALBUMIN, BILITOTAL, ALKPHOS, AST, ALT, ANIONGAP, BCRATIO No results found for: CHOLTOT, HDL, LDLCALC, LDLDIRECT, TRIGLYCERIDE Hospital course: Patient was admitted. Patient was treated with individual psychotherapy, group therapy, and inpatient milieu. Patient showed a good response with stabilization of symptoms. Patient was felt to be able to transition to a lower level of care. Patient was provided with education regarding medication effects/ side effects- potential risks/benefits to increase knowledge and understanding to help insure compliance following discharge. Patient was able to contract to safety. Patient agreed to crisis plan. Agreed to return to hospital if signs of decompensation occurs.Patient has available family support. Client is willing to participate in after care plan. Patient was given action/safety plan of resources that are available if an emergency arises after discharge. MSE: Alert O X 3, friendly, cooperative. No psychomotor retardation. No agitation. Speech: normal in tone, volume, rate, and spontaneous. Mood : good Affect: appropriate Thought process: goal directed, logical, no flight of ideas or looseness of association. Thought content: No suicidal ideation, plan , or intent. No Homicidal ideation, plan, or intent. Nodelusions. No auditory or visual hallucinations. Insight: improved. Judgement: improved. Medication List START taking these medications citalopram 20 mg tablet Commonly known as: CeleXA Take 1 Tablet (20 mg) by mouth daily. Start taking on: 06/22/2017 Signed by: Akiko Campbell MD Quantity: 30 Tablet Refills: 2 OLANZapine 10 mg tablet Commonly known as: ZyPREXA Take 1 Tablet (10 mg) by mouth daily at bedtime. Signed by: Akiko Campbell MD Quantity: 30 Tablet Refills: 2 traZODone 50 mg tablet Commonly known as: DESYREL Take 1 Tablet (50 mg) by mouth nightly as needed for Insomnia. Signed by: Akiko Campbell MD Quantity: 30 Tablet Refills: 2 Where to Get Your Medications Information about where to get these medications is not yet available Ask your nurse or doctor about these medications ?? citalopram 20 mg tablet ?? OLANZapine 10 mg tablet ?? traZODone 50 mg tablet Outcome: stable Prognosis: satisfactory Patient Discharged to: home Discharging Physician: Akiko Campbell MD Time Spent: 35 Minutes. Next Level of Care Recommendations: Per brock RT LOAD EXPEDITER documented in this encounter Discharge Instructions * Discharge Instructions* Sherley Vargas LCSW - 06/18/2017 3:08 PM RETORT LOAD EXPEDITER It is recommended that you follow up with an outpatient psychiatrist for medication management. It is recommended that you call to schedule an appointment 1-2 days after discharge. LOCATION: [facility] [address] [place] [address] Option 2 It is recommended that you follow up with an outpatient therapist for additional mental health support. It is recommended that you call to schedule an appointment 1-2 days after discharge. Below is a list of providers who are in-network with your insurance. [facility] [place], [place] [address] [facility] [address] [place], [place] [address] Call Jacqui Funes [phone] [facility], [address] [place], [place] [id number] [facility] [address] [place], [place] [address] Carmen Maya, [facility] [address] [place], [place] [id number] Suicide Prevention/Crisis Hotlines [place] - Behavioral Health Intake Department [phone] [facility] Behavioral Health Intake Department is professionally staffed and offers free, confidential evaluations for anyone needing assistance with a psychiatric, behavioral or addictive disorder. Evaluations, as well as referrals to physicians or community resources, are available 24 hoursa day, 7 days a week. [facility] [phone] ([phone]) [facility] is one of the [facility] suicide prevention and crisis hotlines. [facility] operates 24 hours a day, 7 days a week, 365 days a year. [facility] ([facility]) [phone] (toll free) [facility] ([facility]) is a professionally staffed crisis response service. R provides expert behavioral health, crisis response, and outreach services, 24 hours a day, seven days a week to agencies and companies worldwide. National Suicide Prevention Hotline 2-447-328-TALK (8280) A free, 24-hour hotline available to anyone in suicidal crisis or emotional distress. Your call will be routed to the nearest crisis center to you. National [facility] 0-202-BRCARAK KUTO (Kids Under Twenty-One) Crisis Helpline 9-390-344-NATE (5648) Youth staffed every day after 4pm RETORT LOAD EXPEDITER The [facility] Crisis Helpline is a confidential telephone hotline available to any youth who may be in need of assistance, referral information or crisis services. The [facility] Helpline is one of a handful [facility] staffed exclusively by youth volunteers. [facility] on Mental [facility] ([facility]) [phone] RT LOAD EXPEDITER documented in this encounter Medications at Time of Discharge Medication Sig Dispensed Refills Start Date End Date OLANZapine (ZyPREXA) 10 mg tablet Take 1 Tablet (10 mg) by mouth daily at bedtime. 30 Tablet 2 06/21/2017 citalopram (CeleXA) 20 mg tablet Take 1 Tablet (20 mg) by mouth daily. 30 Tablet 2 06/22/2017 traZODone (DESYREL) 50 mg tablet Take 1 Tablet (50 mg) by mouth nightly as needed for Insomnia. 30 Tablet 2 06/21/2017 documented as of this encounter Progress Notes * Lucila Jacinto RN - 06/21/2017 12:14 PM CST DISCHARGE NOTE Per O/P appointments were not possible because its a week end and therefore the patient was advised to call and make appointments during regular working hours The following items have been completed prior to discharge: []Discharge follow up plan completed by social work, and present in AVS. []Specific follow up appointment made by social work, and contact information in AVS. If the above 2 points are not marked as complete, the following action has been completed. []If discharge plan is incomplete, and group social worker unavailable to see patient prior to discharge,clinical supervisor adult education/charge nurse notified for review of discharge prior to patient leaving. Standard Suicide Risk Assessment (Developed from the [place] Suicide Rating Scale) Rebecca agrees to participate in the following risk assessment. *If Rebecca refuses to cooperate with risk assessment, consider notification of her psychiatrist and the clinical supervisor adult education, also Rebecca may be placed in staff view to provide for a safe environment. 1. Do you wish you were , or could go to sleep and not wake up? no 2. Do you currently have any thoughts of killing yourself? no . (If yes to 2, proceed with a-c. If no proceed to question 3.) a. Are you currently thinking about ways you would kill yourself? No If yes, explain. Not Applicable b. Do you have a detailed plan in place (time, place, method)? No If yes, explain. Not Applicable c. Do you have some intention of acting on this plan? No 3. Have you done anything, started to do anything, or prepared to do anything to end your life? no.If yes, explain. Not Applicable If yes to question 2-a, 2-b, or 2-c proceed to, and complete, High Risk Shift Assessment, and notify psychiatrist. If yes to question 3, consider use of High Risk suicide Assessment. Rebecca???s progress toward care plan and treatment plan goals are adequate for discharge, or have been resolved. Education has been provided to Rebecca in verbal and written form regarding discharge medications, follow up appointments, and outpatient and/or crisis resources available to her. Rebecca and/or caregiver relay understanding of instructions, and she is discharged with belongings to via private means. For patients discharged to an inpatient facility, we have discussed the following four elements with the receiving facility: 24-hour/7-day contact information Contact information pending studies Plan for follow-up care Primary physician, other healthcare professional, or site designated for follow up care RT LOAD EXPEDITER * Akiko Campbell MD - 06/20/2017 11:07 AM CST Chief Complaint: better Subjective: Patient seen - says she feels better - had a good nights sleep -- Less anxious - calmer -- Mood: appropriate to circumstances. Anhedonia: no. Appetite normal. Activity is normal. Sleep normal. Concentration: reduced . Fatigue is varying. Restlessness: none. Suicidal Ideation: no. Plan: no. Intent: no. Homicidal Ideation: no. Hallucinations: no. Delusions:yes. BP (!) 158/72 (BP Location: Left arm, Patient Position (BP): Sitting) Pulse 87 Temp 98.4 ??F (36.9 ??C) (Temporal) Resp 18 Ht 5' 7 (1.702 m) Wt 90.7 kg (200 lb) SpO2 95% ?No BMI 31.32 kg/m?? Mental Status Evaluation: Appearance: age appropriate Behavior: cooperative with exam Speech: pressured Mood: better Affect: approprtiate Thought Process: goal directed Thought Content: appropriate responses to questions asked Sensorium: person and place Cognition: grossly intact Insight & Judgement: limited Assessment: Patient Active Problem List Diagnosis Code ??? Major depressive disorder, single episode, severe with atypical features F32.2 ??? Routine medical exam Z00.00 Paranoia , delusional Plan: Support given. Patient still needs continued inpatient treatment due to above. Patient is tolerating current Medications, and continues to consent to treatment plan. Discussed severity/complexity of Her illness. Time spent: 35 minutes.This may include time with patient , family , nursing staff, social service,consulting physician, treatment team, counseling&/or activities to coordinate the care of the patient . Spent more than 50% time with patient providing support. RT LOAD EXPEDITER * Akiko Campbell MD - 06/19/2017 10:16 AM CST Chief Complaint: not sure Subjective: Patient seen - says not sure if family visited -- says she makes up things inher head says she needs to get grounded -- feels her foundation not secure Mood: anxious. Anhedonia: no. Appetite normal. Activity is normal. Sleep normal. Concentration: reduced . Fatigue is varying. Restlessness: none. Suicidal Ideation: no. Plan: no. Intent: no. Homicidal Ideation: no. Hallucinations: no. Delusions:yes. BP (!) 161/68 (BP Location: Right arm, Patient Position (BP): Sitting) Comment: Notified nurse. Pulse 88 Temp 97.4 ??F (36.3 ??C) (Temporal) Resp 16 Ht 5' 7 (1.702 m) Wt 90.7 kg (200 lb) SpO2 96% ? No BMI 31.32 kg/m?? Mental Status Evaluation: Appearance: age appropriate Behavior: cooperative with exam Speech: pressured Mood: constricted Affect: constricted Thought Process: goal directed and tangential Thought Content: appropriate responses to questions asked Sensorium: person and place Cognition: grossly intact Insight & Judgement: limited Assessment: Patient Active Problem List Diagnosis Code ??? Major depressive disorder, single episode, severe with atypical features F32.2 ??? Routine medical exam Z00.00 Paranoia , delusional Plan: Support given. Patient still needs continued inpatient treatment due to above. Patient is tolerating current Medications, and continues to consent to treatment plan. Discussed severity/complexity of Her illness. Time spent: 35 minutes.This may include time with patient , family , nursing staff, social service,consulting physician, treatment team, counseling&/or activities to coordinate the care of the patient . Spent more than 50% time with patient providing support. RT LOAD EXPEDITER * Taylor Justin - 06/17/2017 2:07 PM CST Intake Evaluation Start Time: 7 Rebecca Patiño is a 46 y.o. female who presents for Behavioral Health intake. Location of eval: ED (06/17/171357). Patient presents:: ( and [id number]) (06/17/171357) and Information obtained from:: Patient;Family member (06/17/171357) Transportation Mode: Family/Friend (06/17/171357) Name of Program Coordinator(s) : (06/17/17 1053) Collateral information obtained from Program Coordinator: Yes; Explain:Spoke with Collateral information obtained from:: Spouse/significant other;Other ([id number]) (06/17/17 135): Yes; Explain:Spoke with and [id number] Release of Info Signed: KHANH signed: No (patient refused) (06/17/171357) Referral Source: Other (Comment) (medical doctor) (06/17/171357) Legal Custody/Guardianship/Durable Power of Revenue Officer: Legal Custody: Self (06/17/171357) CC/RFV: Patient has not been sleeping and is delusional (06/17/17 1354) Narrative Summary/History of Present Illness: Precipitating event(s) within past 24-72 hours leading to presentation to the hospital: states that patient has been under a lot of pressure. 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 alsostates that patient's father has cancer and her sister has breast cancer. Patient states that she has become very paranoid at work and told the er doctor that she has thought about shooting up the place. Patient states that yesterday she was very paranoid of her . Patient states that she washaving feelings that her was going to kill her. states that the paranoia got so badthat the patient went to her brothers and stayed the night with him and his . When the patient got up this morning she thought that her brother was going to kill her so she went back to her . Patient states that she knows when her paranoia is coming. Patient states that I get all tingling , then comes the paranoia. states that patient has not been sleeping and states that she h as not been eating. states that patient has no history of mental health treatment. states that patient got so paranoid yesterday that she [facility] she [facility]. Patient states that they are all out to get me . Patient also states that she believes that her has secret bank accounts, and he is out to kill me . Patient was very suspicious thinking that her and brother were trying to send her away. Major Change/Loss/Stressor: other (work and family) (06/17/17 7093) Risk Assessment Suicidal Ideation (Most Severe in Past Month) 1. Do you currently wish you were or wished you could go to sleep and not wake up? : No (06/17/17 1400) 2. Have you actually had any thoughts of killing yourself? : No (06/17/171399) 3. Have you been thinking about how you might kill yourself? : No (06/17/171399) 4. Have you had these thoughts and had some intention of acting on them? : No (06/17/171399) 5. Have you started to work out or worked out the details of how to kill yourself? Do you intend tocarry out this plan? : No (06/17/171399) 6. Have you ever done anything, started to do anything, or prepared to do anything to end your life?: No (06/17/171399) Suicidal and Self-Injurious Behavior Actual suicide attempt (Past 3 Months): No (06/17/171399) Actual suicide attempt (Lifetime): No (06/17/171399) Interrupted attempt (Past 3 Months): No (06/17/171399) Interrupted attempt (Lifetime): No (06/17/171399) Aborted or Self-Interrupted attempt (Past 3 Months): No (06/17/171399) Aborted or Self-Interrupted attempt (Lifetime): No (06/17/171399) Other preparatory acts to kill self (Past 3 Months): No (06/17/171399) Other preparatory acts to kill self (Lifetime): No (06/17/171399) Self-injurious behavior without suicidal intent (Past 3 Months): No (06/17/171399) Self-injurious behavior without suicidal intent (Lifetime): No (06/17/171399) Activating Events (Recent) Recent loss(es) or other significant negative event(s) (legal, financial, relationship, etc.): Yes (06/17/171399) Description: stress with her parents who are ick and work (06/17/171399) Pending incarceration or homelessness: No (06/17/171399) Current or pending isolation or feeling alone: No (06/17/171399) Treatment History Previous psychiatric diagnoses and treatments: No (06/17/171399) Hopeless or dissatisfied with treatment : No (06/17/171399) Non-compliant with treatment : No (06/17/171399) Not receiving treatment: No (06/17/171399) Clinical Status (Recent) Hopelessness: Yes (06/17/171399) Major depressive episode: Yes (06/17/171399) Mixed affective episode: No (06/17/171399) Command hallucinations to hurt self: No (06/17/171399) Highly impulsive behavior: Yes (06/17/171399) Substance abuse or dependence: No (06/17/171399) Agitation or severe anxiety: Yes (06/17/171399) Perceived burden on family or others: Yes (06/17/171399) Chronic physical pain or other acute medical problem : No (06/17/171399) Aggressive behavior towards others: No (06/17/171399) Method for suicide available: No (06/17/171399) Refuses or feels unable to agree to safety plan: No (06/17/171399) Family history of suicide (lifetime): No (06/17/171399) Protective Factors (Recent) Identifies reasons for living: Yes (06/17/171399) Responsibility to family or others; living with family: Yes (06/17/171399) Supportive social network or family: Yes (06/17/171399) Fear of or dying due to pain and suffering: No (06/17/171399) Belief that suicide is immoral; high spirituality: Yes (06/17/171399) Engaged in work or school: Yes (work) (06/17/171399) Access to Firearms/Weapons: no (06/17/171401) If yes, plan to limit access: denies . Homicidal Ideation: No Impairment in Functioning: moderate Support Sytem: Support System:extended family Family/Support System Program Coordinator(s) : (06/17/171404) Current Providers/(Phone # if available): Psychiatrist: none Therapist: none Other services: none Current diagnosis: none Medical Care Provider: Darnell Peters MD Past Treatment History: Previous psychiatric diagnoses and treatments: No (06/17/171399) Has patient been discharged from a hospital within the last 30 days:no All Current Home Medications (per parent/caregiver report): none Family History of Mental Illness: none Pertinent Psychosocial History: Employment Status: working [employer] or [place] [employer] KHANH Signed: No (06/17/171402) Major Change/Loss/Stressor: other (work and family) (06/17/171402) Current Abuse: abuse screen: Patient refused to answer History of abuse/trauma/agency involvement: refused Explain: refused to answer any questions Substance Abuse Screening: Patient Reported Chemical Use Type of Other Chemicals Use (Chemical #1): (denies) (06/17/171401) Type of Other Chemicals Use (Chemical #2): (denies) (06/17/171401) Type of Other Chemicals Use (Chemical #3): (denies) (06/17/171401) Type of Other Chemicals Use (Chemical #4): (denies) (06/17/171401) Mental Status Evaluation: Appearance: Disheveled (06/17/171402) Behavior: Agitated;Hyperactive;Guarded;Fidgety;Intrusive;Restless (06/17/171402) Observed Emotional State: afraid/fearful;agitated;anxious;sad;restless;frustrated;overwhelmed (06/17/171402) Speech: Pressured speech (06/17/171402) Thought Processes: Blocking;Confused;Racing;Preoccupied;Obsessions;Suspicious (06/17/171402) Social Judgement: Difficulty in problem solving;Poor decisions;Indecisive (06/17/171402) Sensorium/Orientation:person, place, time/date, situation, day of week, month of year and year Cognition:higher than level of education Depression: Symptoms: Appetite change;Change in energy level;Crying;Isolative;Increased irritability;Impaired concentration (06/17/17 135) Anxiety: Symptoms: Generalized;Panic attack;Palpitations;Obsessions (06/17/17 135) Ana: Symptoms: No problems reported or observed (06/17/17 135) Eating Disorders: Hallucination Type: Auditory (06/17/171358) Delusion Type: Persecutory (06/17/171358) Quality of Sleep:fair to poor with difficulty falling asleep and nightime awakenings Sleep Patterns: has not slept in 1 week (06/17/17 1359) Hours of Sleep: 2-3 Changes in Appetite:decreased Special Needs and Services: Plan/Disposition as directed by physician: Recommended Level of Care: Inpatient (06/17/171405) Consulting Physician: Dr. Keating (06/17/171405) Admitted to: Dr. Campbell (06/17/171405) Hand-Off Report Given: yes Provisional Diagnoses: ?? Primary Diagnosis: Major Depression with psychotic features. (F32.3) ?? Additional Diagnosis(es): none ?? Acute Medical: none ?? Psychosocial: occupational, primary Legal Status: Voluntary (06/17/17 1406) Suicide Hotline Resources Provided: no Patient is being admitted. RT LOAD EXPEDITER documented in this encounter H&P Notes * Akiko Campbell MD - 06/18/2017 11:02 AM CST Patient's Name: Rebecca Patiño ADMISSION DATE: 06/17/2017 CHIEF COMPLAINT: ??? paranoia HISTORY OF PRESENT ILLNESS: This is a case of a 46 y.o., female who presents with depression - paranoia - says she is stressed - could not handler everything -- very vague -- present for about days. Patient was admitted to psychiatric unit voluntarily. Per initial assessment, per software developer mid level- states that patient has been under a lot of pressure. 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 also states that patient's father has cancer and her sister has breast cancer. Patient states that she has become very paranoid at work and told the er doctor that she has thought about shooting up the place. Patient states that yesterday she was very paranoid of her . Patient statesthat she was having feelings that her was going to kill her. states that the paranoia got so bad that the patient went to her brothers and stayed the night with him and his . Whenthe patient got up this morning she thought that her brother was going to kill her so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 and response to teaching: Verbalizes understanding RT LOAD EXPEDITER * Care Plan - Oralia Rodriguez RN - 06/20/2017 4:11 PM CST Shift Narrative: Rebecca is cooperative and showing mannerism. Patient is med and meal compliant. Pt went to groups session today. Pt is quiet and not very social with other peers on the unit. Patient is ADL's independent. Encourage shower and oral care. Patient denies SI/HI thoughts. Patient denies thoughts of self harm or harm to others. Patient rates anxiety 0/10; depression 0/10; pain 0/10 at this time. Patient denies hallucinations. And none noted at this time. Patient denies delusions. And none noted at this time. During 1:1 interview, patient states I feel safe . Patient agrees to notify the nurse of any symptoms or when she is not feeling safe. Patient is A&O x 4 and is ambulatory. Encourage patient to attend groups. Precautions/Behavioral Health Precautions: Suicide precautions (06/20/17 153) Summary of Rebecca's problems and interventions: (See flowsheets for more detailed summary) Plan of Care Reviewed with: patient (06/19/17 1200) Patient's Individualized Goal: see doctor and talk with counselor (06/19/17 1200) Rebecca's response to interventions this shift: Accepting Rebecca's perception of symptoms and progress toward goals: improved Discharge follow up plan reviewed/discussed during the 1:1 shift interview: yes Mental Health Assessment:: Since you were last asked, have you actually had thoughts about killing yourself? : No (06/20/17 1535); If yes, see full assessment in flowsheets. Mental Health Assess Major Change/Loss/Stressor: other (work and family) (06/17/17 1403) Behavior: Cooperative (06/20/17 1535) Verbalized Emotional State: acceptance (06/20/17 1535) Observed Emotional State: accepting;cooperative (06/20/17 1535) Speech: Pressured speech (06/17/17 1403) Thought Processes: Alert;Coherent (06/20/17 153) Social Judgement: Difficulty in problem solving (06/20/171534) Appearance: Within normal limits (06/20/171534) Depressive Symptoms: No problems reported or observed (06/20/171534) Anxiety Symptoms: Generalized (06/20/171534) Manic Symptoms: No problems reported or observed (06/20/171534) Hallucination Type: No problems reported or observed (06/20/171534) Delusions (describe): that is trying to kill her (06/17/17 1626) Sleep Hours Night (6p-6a): 9.5 (06/20/17 0600) Medical Issues/New Medication Teaching Rebecca was informed about benefits and any potential clinically significant side effects or other concerns regarding the administration of the medication she was given. See separate notes for any prn medications provided during shift. RT LOAD EXPEDITER * Care Plan - Daiana Quinn (Two) - 06/20/2017 4:11 PM CST Problem: Suicide Risk/Attempt Intervention: Promote Coping Process Group Note Group Topic: art therapy/mandala Length of Group: 1 hour and 30 minutes. During this group, Rebecca discussed issues related to primary treatment goal(s) for this hospitalization/goal of the group:no Staff intervention(s) provided that support in achieving stated goal(s) were as follows: art therapy/mandala process group Narrative of group process and patient's participation: Rebecca fully participated in the creative process by creating a mandala, a tool for easing stress, developing focus, achieving centeredness, lowering blood pressure, stimulating creativity, problem solving and spiritual enlightenment,healing m essage within her mandala; earth- all seeing eye- peaceful inside and chaos outside The following observations were made during this process group: level of participation in this group was excellent, affect was appropriate, behavior was normal, and response to teaching was Verbalizes understanding. RT LOAD EXPEDITER * Care Plan - Missy Malik - 06/20/2017 1:12 PM CST Problem: Suicide Risk/Attempt Intervention: Promote Coping Didactic/Psychoeducation Group: Group topic: goals group Length of Group: 45 minutes During this group, Rebecca discussed issues related to her primary treatment goal(s) for this hospitalization/goal of the group: goal- take a shower-brush my teeth Staff intervention(s) provided that support Rebecca in achieving her stated goal(s) were as follows: offered opportunity to express feelings and set daily goal. The following observations were made during this group: It was noted that Rebecca is making progress toward achieving their stated goal. Rebecca's level of participation in this group was good, affect was appropriate, behavior was normal, and response to teaching was Verbalizes understanding. RT LOAD EXPEDITER * Care Plan - Oralia Rodriguez RN - 06/20/2017 9:47 AM CST Shift Narrative: Rebecca is cooperative and showing mannerism. Patient is med and meal compliant. Patient ate breakfast. Pt states her appetite is okay. Patient is ADL's independent. Encourage shower and oral care. Patient denies SI/HI thoughts. Patient denies thoughts of self harm or harm to others. Patient rates anxiety 0/10; depression 0/10; pain 0/10 at this time. Patient denies hallucinations. And none noted at this time. Patient denies delusions. And none noted at this time. Patient denies any changes in sleep, stated that she feels well rested at this time. During 1:1 interview, patient states I feel safe . Patient agrees to notify the nurse of any symptoms or when she is not feeling safe. Patient is A&O x 4 and is ambulatory. Patient is currently in morning Goal's group session. Encourage patient to attend groups. Precautions/Behavioral Health Precautions: Suicide precautions (06/20/17 0815) Summary of Rebecca's problems and interventions: (See flowsheets for more detailed summary) Plan of Care Reviewed with: patient (06/19/17 1200) Patient's Individualized Goal: see doctor and talk with counselor (06/19/17 1200) Rebecca's response to interventions this shift: Accepting Rebecca's perception of symptoms and progress toward goals: improved Discharge follow up plan reviewed/discussed during the 1:1 shift interview: yes Mental Health Assessment:: Since you were last asked, have you actually had thoughts about killing yourself? : No (06/20/17814); If yes, see full assessment in flowsheets. Mental Health Assess Major Change/Loss/Stressor: other (work and family) (06/17/17 1403) Behavior: Cooperative (06/20/17814) Verbalized Emotional State: acceptance (06/20/17814) Observed Emotional State: accepting;cooperative (06/20/17814) Speech: Pressured speech (06/17/17 1403) Thought Processes: Alert (06/20/17814) Social Judgement: Difficulty in problem solving;Poor decisions (06/20/17814) Appearance: Within normal limits (06/20/17814) Depressive Symptoms: No problems reported or observed (06/20/17814) Anxiety Symptoms: Generalized (06/20/17814) Manic Symptoms: No problems reported or observed (06/20/17814) Hallucination Type: No problems reported or observed (06/20/17814) Delusions (describe): that is trying to kill her (06/17/17 1626) Sleep Hours Night (6p-6a): 9.5 (06/20/17 0600) Medical Issues/New Medication Teaching Rebecca was informed about benefits and any potential clinically significant side effects or other concerns regarding the administration of the medication she was given. See separate notes for any prn medications provided during shift. RT LOAD EXPEDITER * Care Plan - Shira Bhat RN - 06/20/2017 6:29 AM CST Rebecca remained free from harm throughout shift. No signs or reports of discomfort or distress. Rebecca maintained on rounds every fifteen minutes for safety. Staff will continue to monitor Rebecca for safety and provide support as needed. Sleep Hours Night (6p-6a): 9.5 (06/20/17 0600) Sleep/Rest/Relaxation: no problem identified (06/20/17 0600) RT LOAD EXPEDITER * Care Plan - Hanna Fajardo RN - 06/19/2017 7:39 PM CST Shift Narrative: pt and brother visited Went well Pleasant polite manner In room reading Quiet manner Ate well at dinner Reading in room Denies SI Smiles on approach No delusional thoughts voiced Precautions/Behavioral Health Precautions: Suicide precautions (06/19/17 1200) Summary of Rebecca's problems and interventions: (See flowsheets for more detailed summary) Plan of Care Reviewed with: patient (06/19/17 1200) Patient's Individualized Goal: see doctor and talk with counselor (06/19/171199) Rebecca's response to interventions this shift: Accepting Rebecca's perception of symptoms and progress toward goals: improved Discharge follow up plan reviewed/discussed during the 1:1 shift interview: yes Mental Health Assessment:: Since you were last asked, have you actually had thoughts about killing yourself? : No (06/19/17 1200); If yes, see full assessment in flowsheets. Mental Health Assess Major Change/Loss/Stressor: other (work and family) (06/17/17 1403) Behavior: Cooperative (06/19/17 1535) Verbalized Emotional State: acceptance (06/19/17 1535) Observed Emotional State: accepting (06/19/17 1535) Speech: Pressured speech (06/17/17 1403) Thought Processes: Alert (06/19/17 1535) Social Judgement: Difficulty in problem solving (06/19/17 1535) Appearance: Within normal limits (06/19/17 1535) Depressive Symptoms: Change in energy level;Appetite change;Isolative;Loss of interest (06/19/17 1200) Anxiety Symptoms: Generalized;Panic attack (06/19/17 1200) Manic Symptoms: No problems reported or observed (06/19/17 1200) Hallucination Type: No problems reported or observed (06/19/17 1200) Delusions (describe): that is trying to kill her (06/17/17 1626) Sleep Hours Night (6p-6a): 9 (06/19/17 0600) Medical Issues/New Medication Teaching Rebecca was informed about benefits and any potential clinically significant side effects or other concerns regarding the administration of the medication she was given. See separate notes for any prn medications provided during shift. RT LOAD EXPEDITER * Care Plan - Leah Vivar RN - 06/19/2017 12:30 PM CST Shift Narrative: Rebecca denies SI/HI/H anxiety and depression. Her mood is calm, quiet, and cooperative. She does not attend groups or socialize much with other peers. She stays in her room most of the day. She isn't talkative with this RN but answers direct questions. Rebecca is med/meal compliant. No pain or discomfort voiced by patient or observed by staff. Rebecca remained free from harm during shift. Patient rounds maintained every 15 mins for safety. Staff will continue to monitor and provide support. Precautions/Behavioral Health Precautions: Suicide precautions (06/19/17 1200) Summary of Rebecca's problems and interventions: (See flowsheets for more detailed summary) Plan of Care Reviewed with: patient (06/19/171199) Patient's Individualized Goal: see doctor and talk with counselor (06/19/171199) Rebecca's response to interventions this shift: Accepting Rebecca's perception of symptoms and progress toward goals: improved Discharge follow up plan reviewed/discussed during the 1:1 shift interview: yes Mental Health Assessment:: Since you were last asked, have you actually had thoughts about killing yourself? : No (06/19/17 1200); If yes, see full assessment in flowsheets. Mental Health Assess Major Change/Loss/Stressor: other (work and family) (06/17/17 1403) Behavior: Cooperative;Appropriate to situation (06/19/17 1200) Verbalized Emotional State: acceptance (06/19/17 1200) Observed Emotional State: accepting;calm;quiet (06/19/17 1200) Speech: Pressured speech (06/17/17 1403) Thought Processes: Alert (06/19/17 1200) Social Judgement: Difficulty in problem solving (06/19/17 1200) Appearance: Within normal limits (06/19/17 1200) Depressive Symptoms: Change in energy level;Appetite change;Isolative;Loss of interest (06/19/17 1200) Anxiety Symptoms: Generalized;Panic attack (06/19/17 1200) Manic Symptoms: No problems reported or observed (06/19/17 1200) Hallucination Type: No problems reported or observed (06/19/17 1200) Delusions (describe): that is trying to kill her (06/17/17 1626) Sleep Hours Night (6p-6a): 9 (06/19/17 0600) Medical Issues/New Medication Teaching Rebecca was informed about benefits and any potential clinically significant side effects or other concerns regarding the administration of the medication she was given. See separate notes for any prn medications provided during shift. RT LOAD EXPEDITER * Care Plan - Eulalia Green RN - 06/19/2017 6:37 AM CST Rebecca remained free from harm throughout shift. No signs or reports of discomfort or distress. Rebecca maintained on rounds every fifteen minutes for safety. Staff will continue to monitor Rebecca for safety and provide support as needed. Sleep Hours Night (6p-6a): 9 (06/19/17 06) Sleep/Rest/Relaxation: no problem identified (06/19/17599) RT LOAD EXPEDITER * Care Plan - Eulalia Green RN - 06/18/2017 9:40 PM CST During this shift, Rebecca was given the prn medication Trazodone for insomnia, as demonstrated by the following behavior: difficulty falling asleep (See MAR for administration time.) Approximately 1hour after medication administration, Rebecca appeared or reported the following: pt appeared to besleeping RT LOAD EXPEDITER * Care Plan - Leah Vivar RN - 06/18/2017 6:10 PM CST Shift Narrative: Rebecca denies SI/HI/H anxiety and depression. She denies having thoughts of family wanting to hurt her. Her mood and behavior remains unchanged from previous shift note. She is med/meal compliant. Rebecca does not attend groups this afternoon. She keeps to herself but is appropriate with other peers and staff. No pain or discomfort voiced by patient or observed by staff. Pt remained free from harm during the shift. Patient rounds maintained every 15 mins for safety. Staff willcontinue to monitor and provide support. Precautions/Behavioral Health Precautions: Suicide precautions (06/18/171758) Summary of Rebecca's problems and interventions: (See flowsheets for more detailed summary) Plan of Care Reviewed with: patient (06/18/171758) Patient's Individualized Goal: keep getting better (06/18/17945) Rebecca's response to interventions this shift: Accepting Rebecca's perception of symptoms and progress toward goals: not changed Discharge follow up plan reviewed/discussed during the 1:1 shift interview: yes Mental Health Assessment:: Since you were last asked, have you actually had thoughts about killing yourself? : No (06/18/171758); If yes, see full assessment in flowsheets. Mental Health Assess Major Change/Loss/Stressor: other (work and family) (06/17/17 140) Behavior: Cooperative;Appropriate to situation (06/18/171758) Verbalized Emotional State: acceptance (06/18/171758) Observed Emotional State: accepting;calm;cooperative;pleasant;quiet (06/18/171758) Speech: Pressured speech (06/17/17 140) Thought Processes: Alert (06/18/171758) Social Judgement: Difficulty in problem solving (06/18/171758) Appearance: Disheveled (06/18/171758) Depressive Symptoms: Change in energy level;Isolative;Loss of interest;Feelings of helplessness (06/18/171758) Anxiety Symptoms: Generalized;Panic attack (06/18/171758) Manic Symptoms: No problems reported or observed (06/18/171758) Hallucination Type: No problems reported or observed (06/18/171758) Delusions (describe): that is trying to kill her (06/17/17 1626) Sleep Hours Night (6p-6a): 7.5 (06/18/17 5059) Medical Issues/New Medication Teaching Rebecca was informed about benefits and any potential clinically significant side effects or other concerns regarding the administration of the medication she was given. See separate notes for any prn medications provided during shift. RT LOAD EXPEDITER * Care Plan - Sherley Vargas LCSW - 06/18/2017 2:08 PM CST Problem: Discharge Planning Goal: Identify discharge needs upon admission and through discharge Outcome: Progressing Initial Discharge Planning Assessment completed. SW met with pt to review the psychosocial assessment, develop treatment goals as well as initiate dc plans. Patient was agreeable to meet with this jingle writer and reports he/she was referred by PCP for admission. Patient's reported reason for admission and psychosocial stressors include: Pt reports the past couple weeks, things have not been right in my head. Pt reports she has had a lot of things on her plate and it has just been building up. Sw asks pt if she has been feeling overwhelmed and pt responded, I wouldn't say that I've been overwhelmed, but more concerned that I haven't been feeling that way. Per chart, pt and her work in [employer] which is a very stressful environment. In addition to this pt's father and sister are both fighting cancer currently. Per chart pt has become veryparanoid at work and told the ED doctor she was thinking about shooting up the place. Pt denies HI to this jingle writer. Per chart, pt has also been having paranoia in regards to her killing her. Per chart, pt's paranoia got so bad she went to stay at her brother's home with his , and woke upthe next morning paranoid he was going to kill her as well so she went back home. Per chart, pt's reports poor sleep and appetite. Per chart, pt's pt has no hx of mental health tx. Per chart, states pt was so paranoid just prior to admission that she went to a [employer] where she would feel safe due to people being out to get her. Substance Abuse issues: None per pt Hx of substance abuse treatment: None per pt. Patient denies hx of sexual, physical, emotional abuse. Outpatient providers: None per pt/chart Patient reports she/he is compliant with medications. PCP verified as Darnell Peters MD. Patient's insurance verified as Payor: [employer] / Plan: [employer] EPO / Product Type: Commercial / Preferred pharmacy: [facility] in [place], [place] Prior to admission, patient resided at home. Patient lives with her and 3 children. Patient reports that he/she intends to return to this residence at discharge. Patient has /family for transportation at discharge. Support System includes: Supportive family Primary Emergency Contact: Wilber Patiño, Giovanny Legal Custody/Guardianship/Durable Power of Revenue Officer: Pt is her own guardian LG/DPOA Name/Number:??N/A Have legal documents been obtained: N/A If no, explain steps taken to obtain them: N/A Program Coordinator Name and Number: Pt refused to provide CP information and KHANH KHANH Signed: Pt refused Collateral Information from [facility]: Pt refused. Collateral information from other source: Employment/Disability Status: Per chart pt is currently working. Prior to admission, patient's functional level: Decreasing due to increase in mental health symptoms. Prior to admission, patient received assistance no assistance in the home. Durable medical equipment at home: None Patient has not had a stay at an acute care hospital in the last 30 days. Patient is admitted as Voluntary/Involuntary Access to Firearms/Weapons Access to Firearms/Weapons: no (06/17/17 140) Reported by:: family (06/17/17 140) If yes, plan to limit access: N/A Notification Needed: (Duty to Warn, Hotlines, etc): N/A Discussed ELOS and unit programming, pt was willing to sign the tx plan and it was placed in chart. Discharge goals and Needs include: Pt will follow up with an outpatient psychiatrist for medicationmanagement. Pt will follow up with an outpatient therapist for additional mental health support. Char Puller contact information provided. Char Puller will continue to follow and assist as needed. RT LOAD EXPEDITER * Care Plan - Leah Vivar RN - 06/18/2017 9:59 AM CST Shift Narrative: Rebecca denies SI/HI/H anxiety and depression. When asked if she had thoughts/feelings of family wanting to kill her she replied , sorta . Her mood is calm and pleasant and she is appropriate with peers and staff. Rebecca did not attend groups this AM. She is meal compliant and did not have any morning meds. She states she slept like a rock . No pain or discomfort voiced by pt or observed by staff. Patient rounds maintained every 15 mins for safety. Staff will continue to monitor and provide support. Precautions/Behavioral Health Precautions: Suicide precautions (06/18/17945) Summary of Rebecca's problems and interventions: (See flowsheets for more detailed summary) Plan of Care Reviewed with: patient (06/18/17945) Patient's Individualized Goal: keep getting better (06/18/17945) Rebecca's response to interventions this shift: Accepting Rebecca's perception of symptoms and progress toward goals: improved Discharge follow up plan reviewed/discussed during the 1:1 shift interview: yes Mental Health Assessment:: Since you were last asked, have you actually had thoughts about killing yourself? : No (06/18/17945); If yes, see full assessment in flowsheets. Mental Health Assess Major Change/Loss/Stressor: other (work and family) (06/17/171402) Behavior: Cooperative;Appropriate to situation (06/18/17945) Verbalized Emotional State: acceptance (06/18/17945) Observed Emotional State: accepting;calm;cooperative;pleasant;quiet (06/18/17945) Speech: Pressured speech (06/17/17 140) Thought Processes: Alert;Organized;Coherent (06/18/17945) Social Judgement: Difficulty in problem solving (06/18/17945) Appearance: Disheveled (06/18/17945) Depressive Symptoms: Change in energy level;Isolative;Loss of interest;Feelings of helplessness (06/18/17945) Anxiety Symptoms: Generalized;Panic attack (06/18/17945) Manic Symptoms: No problems reported or observed (06/18/17 0946) Hallucination Type: No problems reported or observed (06/18/17 09) Delusions (describe): that is trying to kill her (06/17/17 1626) Sleep Hours Night (6p-6a): 7.5 (06/18/17 0559) Medical Issues/New Medication Teaching Rebecca did not receive medications this shift. See separate notes for any prn medications provided during shift. RT LOAD EXPEDITER * Care Plan - Lucila Jacinto, RN - 06/18/2017 6:18 AM CST Rebecca remained free from harm throughout shift. No signs or reports of discomfort or distress. Rebecca maintained on rounds every fifteen minutes for safety. Staff will continue to monitor Rebecca for safety and provide support as needed. Sleep Hours Night (6p-6a): 7.5 (06/18/17 0559) Sleep/Rest/Relaxation: no problem identified (06/18/17558) RT LOAD EXPEDITER * Care Plan - Alex Mcgrath RN - 06/17/2017 4:22 PM CST Arrival date and time to the floor: 1520 06/17/2017 Accompanied by: ED Staff/Intake counselor and Security Legal Status on Admission: Pt has been admitted voluntarily Chief Complaint/Reason for Admission: Chief Complaint Patient presents with ??? Delusional Pt tearful in triage. Pt states she isn't herself. Pt reports increase stress and exhaustion. Pt states yesterday she thought her was trying to kill her and she thought her brother was tryingto kill her today, states she feels delusional. Denies SI/ HI. Pt was seen at [facility] yesterday for these same symptoms. Pt calm and cooperative. Admission Note: Pt arrived to from the ED. Upon arrival to the unit, pt was tearful and anxious.This nurse offered nutrition, vitals were taken and safety check was completed per protocol. Pt states that the reason for admission is that she has been growing increasingly paranoid over the last week, last night she believed that her was trying to kill her. Pt states that she has been under increased pressure at work lately and believes that is what set her on the path of paranoia. Pt denies thoughts of SI and HI at this time. Staff will continue to monitor for any changes. Rebecca was cooperative with the admission process. Nourishment offered. Rebecca oriented to the inpatient unit, handbook, explanation of rights and responsibilities provided to patient. Search of belongings and person completed per policy. Rebecca does not require isolation precautions. Staff willcontinue to monitor Rebecca for safety and provide support as needed. Patient Search completed by: Gunnar Lala RN Patient Belongings inventoried by: N/A Adalgisa and Assess performed by Dai DEMPSEY and Rebecca does not have skin breakdown. Wound care consult was not initiated. Admission Behavioral Assessment: Mental Health Assess Major Change/Loss/Stressor: other (work and family) (06/17/17 140) Behavior: Agitated;Hyperactive;Guarded;Fidgety;Intrusive;Restless (06/17/17 140) Verbalized Emotional State: anxiety;depression;sadness;hopelessness (06/17/17 140) Observed Emotional State: afraid/fearful;agitated;anxious;sad;restless;frustrated;overwhelmed (06/17/17 140) Speech: Pressured speech (06/17/171402) Thought Processes: Blocking;Confused;Racing;Preoccupied;Obsessions;Suspicious (06/17/17 140) Social Judgement: Difficulty in problem solving;Poor decisions;Indecisive (06/17/17 140) Appearance: Disheveled (06/17/17 140) Depressive Symptoms: Appetite change;Change in energy level;Crying;Isolative;Increased irritability;Impaired concentration (06/17/17 1359) Anxiety Symptoms: Generalized;Panic attack;Palpitations;Obsessions (06/17/17 1359) Manic Symptoms: No problems reported or observed (06/17/17 135) Hallucination Type: Auditory (06/17/17 1359) VITALS Last BP: (!) 160/75 (Nurse notified.) (06/17/17 1555) Last Pulse: (!) 111 (Nurse notified.) (06/17/171554) Last Temp: 98.1 ??F (36.7 ??C) (06/17/171554) Last Resp: 18 (06/17/171554) Safety precautions initiated: Safety precautions maintained per physician order and unit protocols. RT LOAD EXPEDITER documented in this encounter Plan of Treatment Not on file documented as of this encounter Procedures Procedure Name Priority Date/Time Associated Diagnosis Comments URINALYSIS WITH REFLEX CULTURE Stat 06/17/2017 12:32 PM RETORT LOAD EXPEDITER DRUG SCREEN, URINE Stat 06/17/2017 12 :31 PM RETORT LOAD EXPEDITER documented in this encounter Results * (ABNORMAL) URINALYSIS WITH REFLEX CULTURE (06/17/2017 12:32 PM RETORT LOAD EXPEDITER) COLOR UA Yellow Pale to Dark Yellow 06/17/2017 12:51 PM RETORT LOAD EXPEDITER [facility] CLARITY UA Clear Clear 06/17/2017 12:51 PM RETORT LOAD EXPEDITER [facility] SPECIFIC GRAVITY UA 1.011 1.003 - 1.035 06/17/2017 12:51 PM RETORT LOAD EXPEDITER [facility] PH UA 7.0 5.0 - 8.0 06/17/2017 12:51 PM RETORT LOAD EXPEDITER [facility] LEUKOCYTE ESTERASE UA Negative Negative 06/17/2017 12:51 PM RETORT LOAD EXPEDITER [facility] NITRITE UA Negative Negative 06/17/2017 12:51 PM RETORT LOAD EXPEDITER [facility] PROTEIN UA Negative Negative 06/17/2017 12:51 PM RETORT LOAD EXPEDITER [facility] GLUCOSE UA Negative Negative 06/17/2017 12:51 PM RETORT LOAD EXPEDITER [facility] KETONES UA Negative Negative 06/17/2017 12:51 PM RETORT LOAD EXPEDITER [facility] UROBILINOGEN UA Normal <2.0 mg/dL 7 12:51 PM RETORT LOAD EXPEDITER [facility] BILIRUBIN UA Negative Negative 06/17/2017 12:51 PM RETORT LOAD EXPEDITER [facility] BLOOD UA 1+(A) Negative 06/17/2017 12:51 PM RETORT LOAD EXPEDITER [facility] WBC UA 0-2 0 - 2 /hpf 06/17/2017 12:51 PM [facility] - . [facility] RBC UA 0-2 0 - 2 /hpf 06/17/2017 12:51 PM [facility] - . [facility] BACTERIA UA Negative Negative /hpf 06/17/2017 12:51 PM [facility] - [facility] EPITHELIAL CELLS, URINE 0-5 0 - 5 /hpf 06/17/2017 12:51 PM [facility] [employer] [facility] Urine URINE SPECIMEN OBTAINED BY CLEAN CATCH PROCEDURE / Unknown Collection / Unknown 06/17/2017 12:32 PM RETORT LOAD EXPEDITER 06/17/2017 12:35 PM RETORT LOAD EXPEDITER Protocol [facility] URINE ORDERA BLES [facility]# [id number] [facility] [place] [address] * DRUG SCREEN, URINE (06/17/2017 12:31 PM RETORT LOAD EXPEDITER) AMPHETAMINE QUAL, URINE Negative Negative 06/17/2017 1:16 PM [facility] [employer] [facility] BARBITURATE QUAL, URINE Negative Negative 06/17/2017 1:16 PM [facility] [employer] [facility] BENZODIAZEPINE QUAL, URINE Negative Negative 06/17/2017 1:16 PM [facility] [employer] [facility] COCAINE QUAL URINE Negative Negative 2016 1:16 PM [facility] [employer] [facility] OPIATE QUAL, URINE Negative Negative 2016 1:16 PM [facility] [employer] [facility] CANNABINOIDS QUAL, URINE Negative Negative 06/17/2017 1:16 PM [facility] [employer] [facility] PCP QUAL, URINE Negative Negative 7 1:16 PM [facility] [employer] [facility] CREATININE, URINE 99.4 29.0 - 226.0 mg/dL 06/17/2017 1:16 PM [facility] [employer] [facility] Comment: Reference Range varies with fluid intake and diet. Urine URINE SPECIMEN OBTAINED BY CLEAN CATCH PROCEDURE / Unknown Collection / Unknown 06/17/2017 12:31 PM RETORT LOAD EXPEDITER 06/17/2017 12:35 PM RETORT LOAD EXPEDITER Narrative [facility] - [facility] - 06/17/2017 1:16 PM RETORT LOAD EXPEDITER ANDREW INTERP: Urine sample was not handled as a legal specimen and was received without a chain of custody. ??The result should be used only for medical purposes. False positive and erroneous results can occur due to cross-reacting substances and other factors. Depending on the clinical context, confirmation of all presumptive positive results by a more specific alternate method is recommended. ??A negative result indicates the analyte, if present, is below the screening threshold. Drug ? Ref. Range ?Screening Threshold Amphetamines ?Negative ?1000 ng/mL Barbiturates ?Negative ? 200 ng/mL Benzodiazepines ? Negative ? 300 ng/mL Cannabinoids ?Negative ?50 ng/mL Cocaine Metabolites ?? Negative ? 300 ng/mL Opiates ? Negative ? 300 ng/mL Phencyclidine ? Negative ?25 ng/mL Protocol [facility] MD URINE ORDERA ANTHONY [facility]# [id number] [address] [place] [address] documented in this encounter Visit Diagnoses Diagnosis Major depressive disorder, single episode, severe with atypical features- Primary Severe single current episode of major depressive disorder, with psychotic features Routine medical exam Routine general medical examination at a health care facility documented in this encounter Administered Medications Inactive Administered Medications - up to 3 most recent administrations Medication Order MAR Action Action Date Dose Rate Site acetaminophen (TYLENOL) tablet 650 mg 650 mg, Oral, EVERY 6 HOURS PRN, Starting on Fri06/17/17 at 1654, Until 06/21/17 at 1421, Pain, Routine aluminum - magnesium - simethicone (MYLANTA) 200-200-20 mg/5 mL oral suspension 30 mL 30 mL, Oral, EVERY 6 HOURS PRN, Starting on Fri06/17/17 at 1654, Until 06/21/17 at 1421, Other (See Comment), GI Upset, Routine citalopram (CeleXA) tablet 20 mg 20 mg, Oral, DAILY, First dose on Fri06/18/17 at 1130, Until Discontinued, Routine Given 06/21/2017 8:09 AM RETORT LOAD EXPEDITER 20 mg Given 06/20/2017 8:06 AM RETORT LOAD EXPEDITER 20 mg Given 06/19/2017 8:21 AM RETORT LOAD EXPEDITER 20 mg LORazepam (ATIVAN) tablet 1 mg 1 mg, Oral, ONE TIME ONLY, 1 dose, On Fri06/17/17 at 1300, Routine Given 06/17/2017 1:12 PM RETORT LOAD EXPEDITER 1 mg magnesium hydroxide (MILK OF MAGNESIA) oral suspension 30 mL 30 mL, Oral, EVERY 12 HOURS PRN, Starting on Fri06/17/17 at 1654, Until 06/21/17 at 1421, Constipation, Routine OLANZapine (ZyPREXA) tablet 10 mg 10 mg, Oral, DAILY AT BEDTIME, First dose on Fri06/17/17 at 2100, Until Discontinued, Routine Given 06/20/2017 9:44 PM RETORT LOAD EXPEDITER 10 mg Given 06/19/2017 8:07 PM RETORT LOAD EXPEDITER 10 mg Given 06/18/2017 8:39 PM RETORT LOAD EXPEDITER 10 mg traZODone (DESYREL) tablet 50 mg 50 mg, Oral, NIGHTLY PRN, Starting on Fri06/17/17 at 1653, Until 06/21/17 at 1421, Insomnia, Routine Given 06/18/2017 8:39 PM RETORT LOAD EXPEDITER 50 mg Given 06/17/2017 9:55 PM RETORT LOAD EXPEDITER 50 mg documented in this encounter Active and Recently Administered Medications Times are shown in RETORT LOAD EXPEDITER. Scheduled Medication Order 06/19/2017 06/20/2017 06/21/2017 citalopram (CeleXA) tablet 20 mg 20 mg, Oral, DAILY, First dose on Fri06/18/17 at 1130, Until Discontinued, Routine 0821 (Given - Provider: Leah Vivar, RN) 0806 (Given - Provider: Oralia Rodriguez, RN) 0809 (Given - Provider: Lucila Jacinto RN) OLANZapine (ZyPREXA) tablet 10 mg 10 mg, Oral, DAILY AT BEDTIME, First dose on Fri06/17/17 at 2100, Until Discontinued, Routine 2006 (Given - Provider: Hanna Fajardo, KE) 2143 (Given - Provider: Joey Hairston, KE) PRN Medication Order 06/19/2017 06/20/2017 06/21/2017 acetaminophen (TYLENOL) tablet 650 mg 650 mg, Oral, EVERY 6 HOURS PRN, Starting on Fri06/17/17 at 1654, Until 06/21/17 at 1421, Pain, Routine aluminum - magnesium - simethicone (MYLANTA) 200-200-20 mg/5 mL oral suspension 30 mL 30 mL, Oral, EVERY 6 HOURS PRN, Starting on Fri06/17/17 at 1654, Until 06/21/17 at 1421, Other (See Comment), GI Upset, Routine magnesium hydroxide (MILK OF MAGNESIA) oral suspension 30 mL 30 mL, Oral, EVERY 12 HOURS PRN, Starting on Fri06/17/17 at 1654, Until 06/21/17 at 1421, Constipation, Routine traZODone (DESYREL) tablet 50 mg 50 mg, Oral, NIGHTLY PRN, Starting on Fri06/17/17 at 1653, Until 06/21/17 at 1421, Insomnia, Routine documented in this encounter Care Teams Kitchen Work Supervisor Relationship Specialty Start Date End Date Darnell Peters MD [address] [place] [address] PCP - General Family Practice 06/17/17 documented as of this encounter
--- OUTSIDE RECORDS SUMMARY | 2024-07-24 19:56 | XMS_ITS | Encounter Summary ---
Author Organization [facility] Address [facility] [place] [address] [place] [address] Care Team Providers Care Audio Visual Manager Name Role Phone Unavailable Primary Care Provider Unavailabl e Encounter Details Date Type Department Care Team (Late st Contact Info) Description 06/09/1995 Abstract [facility] CONVERSION [address] [place] [address] , Generic Conversion, Social History Tobacco Use [...]
--- OUTSIDE RECORDS SUMMARY | 2024-07-24 19:56 | XMS_ITS | Encounter Summary ---
Author Organization [facility] Address [address] [place] [address]. [place], [place] [id number] [place] [address] Care Team Providers Care Register In Chancery Name Role Phone Lynda Duarte INSTRUCTOR INDUSTRIAL DESIGN Primary Care Provider [phone] Encounter Details Date Type Department Care Team (Latest Contact Info) Description 02/11/2021 Travel Social History Tobacco Use Types Packs/Day Years [...] PM CDT documented as of this encounter Plan of Treatment Not on file documented as of this encounter Visit Diagnoses Not on filedocumented in this encounter Care Teams Register In Chancery Relationship Specialty Start Date End Date Lynda Duarte, INSTRUCTOR INDUSTRIAL DESIGN PCP - General NURSE PRACTITIONER 02/11/21 documented as of this encounter
--- OUTSIDE RECORDS SUMMARY | 2024-07-24 19:56 | XMS_ITS | Encounter Summary ---
Author Organization [facility] Address [facility] [place] [address] [place] [address] Care Team Providers Care Trout Farmer Name Role Phone Unavailable Primary Care Provider Unavailabl e Encounter Details Date Type Department Care Team (Late st Contact Info) Description 06/26/1995 Abstract [facility] CONVERSION [address] [place] [address] , Generic Conversion, Social History Tobacco Use [...]
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
--- OUTSIDE RECORDS SUMMARY | 2024-07-24 19:57 | XMS_ITS | Encounter Summary ---
Author Organization [facility] Address [address] [place] [address] Phone Care Team Providers Care Ship Worker Name Role Phone Bertin Crenshaw MD Primary Care Provider Sumi Love MD Unavailable [phone] Arlet Love MD Unavailable Yasemin Churchill MD Unavailable Romeo Lindsay MD Unavailable Charissa Juarez MD Unavailable Arlet Ballard RN Unavailable Unavailable Encounter Details Date Type Department Care Team (Late st Contact Info) Description 12/02/2023 Telephone [id number] [place] [address] Richelle Chase Social History Tobacco Use Types Packs/Day Years [...] on file Legal Sex Female 8:57 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 Strauss last seen 11/11/23 Sched brayan/ alexia perez documented in this encounter Plan of Treatment Not on file documented as of this encounter Visit Diagnoses Not on filedocumented in this encounter Care Teams Ship Worker Relationship Specialty Start Date End Date Bertin Crenshaw MD [address] [address] PCP - General Internal Medicine 02/04/22 Sumi Love MD [address] [place] [address] Referring Physician Psychiatry 02/04/22 Arlet Love MD [address] [facility] [address] [place] [address] Consulting Physician Obstetrics and Gynecology 02/04/22 Yasemin Churchill MD [address] [facility] [address] [place] [address] Referring Physician Internal Medicine 02/05/23 Romeo Lindsay MD [address] [place] [address] Referring Physician Dermatology 02/05/23 Charissa Juarez MD [address] [facility] [address] [place] [address] Consulting Physician Psychiatry 02/05/23 Arlet Ballard, RN [facility] Breast Risk Program Nurse 05/19/23 documented as of this encounter
--- OUTSIDE RECORDS SUMMARY | 2024-07-24 19:57 | XMS_ITS | Encounter Summary ---
Author Organization [facility] Healthcare Address [address] [place] [address] Care Team Providers Care Facing Baster Name Role Phone Bertin Crenshaw MD Primary Care Provider Sumi Love MD Unavailable Arlet Love MD Unavailable [phone] Yasemin Churchill MD Unavailable Romeo Lindsay MD Unavailable Charissa Juarez MD Unavailable Arlet Ballard RN Unavailable Unavailable Reason for Referral * Diagnostic Imaging (Routine) - Closed Specialty Diagnoses / Procedures Referred By Katherin t Referred To Contact Diagnoses Screening mammogram, encounter for Procedures Screening Mammogram Bilateral W Cameron Screening Mammogram, Self [facility] [address] [place] [address] Referral ID Status Reason Start Date Expiration Date Visits Re quested Visits Authorized [id number] Closed 02/12/2024 03/13/2025 1 1 * Diagnostic Imaging (Routine) - Closed Specialty Diagnoses / Procedures Referred By Contac t Referred To Contact Diagnoses Screening mammogram, encounter for Procedures Screening Mammogram Bilateral W Cameron Screening Mammogram, Self [facility] [address] [place] [address] Referral ID Status Reason Start Date Expiration Date Visits Re quested Visits Authorized [id number] Closed 02/12/2024 03/13/2025 1 1 Reason for Visit * Diagnostic Imaging (Routine) - Closed Specialty Diagnoses / Procedures Referred By Katherin t Referred To Contact Diagnoses Screening mammogram, encounter for Procedures Screening Mammogram Bilateral W Cameron Screening Mammogram, Self [facility] [address] [place] [address] Referral ID Status Reason Start Date Expiration Date Visits Re quested Visits Authorized [id number] Closed 02/12/2024 03/13/2025 1 1 Encounter Details Date Type Department Care Team (Latest Contact Info) Description 02/24/2024 8:26 AM CDT - 02/24/2024 11:59 PM CDT Hospital Encounter [facility] - Imaging [address] [facility] [address] [place] [address] Screening mammogram, encounter for Discharge Disposition: Discharge to home or self care Social History Tobacco Use Types Packs/Day Years [...] on file 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 Gender Identity Not on file Sexual Orientation Not on file 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[employer], 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 Not on file Not on file Not on file documented as of this encounter Medications at Time of Discharge albuterol HFA (PROVENTIL HFA,VENTOLIN HFA,PROAIR HFA) 90 mcg/actuation inhaler Inhale 2 puffs every 6 (six) hours as needed atorvastatin (LIPITOR) 20 mg tabletIndications:O ther hyperlipidemia TAKE ONE TABLET BY MOUTH AT BEDTIME 90 tablet 1 02/16/2024 cetirizine (ZyrTEC) 10 mg tablet Take 10 mg by mouth daily escitalopram (LEXAPRO) 10 mg tablet TAKE ONE TABLET BY MOUTH DAILY 90 tablet 1 01/19/2024 ruxolitinib (Opzelura) 1.5 % cream Apply 1 Application topically 2 (two) times a day 600 g 6 11/21/2022 tacrolimus (PROTOPIC) 0.1 % ointmentIndications :Eyelid eczema, left Apply thin layer BID to AA eyelid PRN rash 100 g 3 10/21/2023 triamcinolone (KENALOG) 0.1 % creamIndications:Ot her eczema Apply thin layer BID to AA torso and extremities PRN rash 80 g 3 10/21/2023 ARIPiprazole (ABILIFY) 2 mg tablet Take 1 tablet (2 mg total) by mouth daily 90 tablet 1 07/30/2023 07/05/20 24 losartan (COZAAR) 25 mg tabletIndications:H ypertension, essential TAKE ONE TABLET BY MOUTH DAILY 30 tablet 11 03/24/2023 04/29/20 24 omeprazole (PriLOSEC) 40 mg capsuleIndications: Gastroesophageal reflux disease without esophagitis TAKE ONE CAPSULE BY MOUTH DAILY 30 capsule 11 05/27/2023 07/05/20 24 documented as of this encounter Discharge Disposition Disposition Code Departure Means Destination Discharge to home or self care documented in this encounter Plan of Treatment Not on file documented as of this encounter Procedures Procedure Name Priority Date/Time Associated Diagnosis Comments SCREENING MAMMOGRAM BILATERAL W CAMERON Schedule Routine, Read Routine (OP Routine) 02/24/2024 8:50 AM CDT Screening mammogram, encounter for documented in this encounter Results * Screening Mammogram Bilateral W Cameron (02/24/2024 8:50 AM CDT) Anatomical Region Laterality Modality Breast Bilateral Mammography Narrative 02/25/2024 6:50 AM CDT Examination: Screening Mammogram Bilateral W Cameron: 02/24/24 Clinical: Screening mammogram, encounter for. Prior Study Comparisons: Comparison was made to the prior available relevant studies at the time of interpretation. Findings: Bilateral No significant masses, malignant type calcifications, skin thickening, nipple retraction, or significant lymphadenopathy is noted in either breast. ??The CAD review showed no significant findings. The breasts are heterogeneously dense, which may obscure small masses. The patient will be notified of results by letter. Impression: BI-RADS?? ATLAS category (overall): 2 - Benign ?? There is no mammographic evidence of malignancy. Routine Screening Mammogram in 1 Yr is recommended for bilateral Overall Assessment: 2 - Benign us Self Screening Mammogram IMG MAMMO PROCEDURES Fi nal Result documented in this encounter Visit Diagnoses Diagnosis Screening mammogram, encounter for documented in this encounter Care Teams Facing Baster Relationship Specialty Start Date End Date Bertin Crenshaw MD [address] [facility] [address] [place] [address] PCP - General Internal Medicine 02/04/22 Sumi Love MD [address] [facility] [address] [place] [address] Referring Physician Psychiatry 02/04/22 Arlet Love MD [address] [facility] [address] [place] [address] Consulting Physician Obstetrics and Gynecology 02/04/22 Yasemin Churchill MD [address] [facility] [address] [place] [address] Referring Physician Internal Medicine 02/05/23 Romeo Lindsay MD [address] [facility] [address] [place] [address] Referring Physician Dermatology 02/05/23 Charissa Juarez MD [address] [facility] [address] [place] [address] Consulting Physician Psychiatry 02/05/23 Arlet Ballard RN [facility] Breast Risk Program Nurse 05/19/23 documented as of this encounter
--- OUTSIDE RECORDS SUMMARY | 2024-07-24 19:57 | XMS_ITS | Encounter Summary ---
Author Organization [facility] Address [address] [place] [address] Care Team Providers Care Armored Cable Machine Operator Name Role Phone Bertin Crenshaw MD Primary Care Provider Sumi Love MD Unavailable [phone] Arlet Love MD Unavailable Yasemin Churchill MD Unavailable [phone] Romeo Lindsay MD Unavailable Charissa Juarez MD Unavailable [phone] Arlet Ballard RN Unavailable Unavailable Reason for Referral * Diagnostic Imaging (Routine) - Pending Review Specialty Diagnoses / Procedures Referred By Katherin cartagena Referred To Contact Diagnoses Skin lump of leg, right Procedures US Lower Extremity Right Limited Bertin Crenshaw MD [address] [address] Phone: tel: fax: [facility] (All Locations) Referral ID Status Reason Start Date Expiration Date V isits Requested Visits Authorized [id number] Pending Review 04/28/2024 05/28/2025 1 1 Encounter Details Date Type Department Care Team (Late st Contact Info) Description 04/28/2024 10:45 AM CDT Office Visit [facility] [address] [id number] Bertin Crenshaw MD [address] [address] Skin lump of leg, right (Primary Dx) Social History Tobacco Use Types Packs/Day Years [...] on file 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 Gender Identity Not on file Sexual Orientation Not on file 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[employer], 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 Not on file Not on file Not on file documented as of this encounter Last Filed Vital Signs Vital Sign Reading Time Taken Comments Blood Pressure 133/80 04/28/2024 10:47 AM CDT Pulse 78 04/28/2024 10:47 AM CDT Temperature 36.3 ??C (97.4 ??F) 04/28/2024 10:47 AM C DT Respiratory Rate - - Oxygen Saturation 97% 04/28/2024 10:47 AM CDT Inhaled Oxygen Concentration - - Weight 118.8 kg (262 lb) 04/28/2024 10:47 AM CDT Height 170.2 cm (5' 7 ) 04/28/2024 10:47 AM CDT Body Mass Index 41.04 04/28/2024 10:47 AM CDT documented in this encounter Progress Notes * Bertin Crenshaw MD - 04/28/2024 10:45 AM CDT Subjective/Objective Patient ID: Rebecca Santacruz is a 53 y.o. female. Chief Complaint leg lump HPI Rebecca Santacruz was last seen 10/31/23. Today she notes that she has had a lump on her leg for several years. She has had lumps in other areas of her body and has brought this up to doctors in the past. She was told that this is something that she could just watch and keep an eye on. She has been monitoring this each month with her self breast exams. She feels like it has increased in size slowly over time. She was had ganglion cysts and this was mentioned as possible sebaceous cyst. She feels like this has increased in size by doubling over the last 17 years (found it when her daughter was born). She also notes that it was round and now feels more rectangular in shape. She feels like it is hard. She is also worried with significant family history of cancer. Current Outpatient Medications: albuterol HFA (PROVENTIL HFA,VENTOLIN HFA,PROAIR HFA) 90 mcg/actuation inhaler, Inhale 2 puffs every 6 (six) hours as needed, Disp: , Rfl: ARIPiprazole (ABILIFY) 2 mg tablet, Take 1 tablet (2 mg total) by mouth daily, Disp: 90 tablet, Rfl: 1 atorvastatin (LIPITOR) 20 mg tablet, TAKE ONE TABLET BY MOUTH AT BEDTIME, Disp: 90 tablet, Rfl: 1 cetirizine (ZyrTEC) 10 mg tablet, Take 10 mg by mouth daily, Disp: , Rfl: escitalopram (LEXAPRO) 10 mg tablet, TAKE ONE TABLET BY MOUTH DAILY, Disp: 90 tablet, Rfl: 1 losartan (COZAAR) 25 mg tablet, TAKE ONE TABLET BY MOUTH DAILY, Disp: 30 tablet, Rfl: 11 meloxicam (MOBIC) 15 mg tablet, Take 1 tablet (15 mg total) by mouth daily for 20 days, Disp: 20 tablet, Rfl: 0 omeprazole (PriLOSEC) 40 mg capsule, TAKE ONE CAPSULE BY MOUTH DAILY, Disp: 30 capsule, Rfl: 11 ruxolitinib (Opzelura) 1.5 % cream, Apply 1 Application topically 2 (two) times a day, Disp: 600 g,Rfl: 6 tacrolimus (PROTOPIC) 0.1 % ointment, Apply thin layer BID to AA eyelid PRN rash, Disp: 100 g, Rfl:3 triamcinolone (KENALOG) 0.1 % cream, Apply thin layer BID to AA torso and extremities PRN rash, Disp: 80 g, Rfl: 3 Allergies Allergen Reactions Benzalkonium Chloride Rash 1+ Cetrimonium Hope Rash 1+ Other Rash P-Phenylenediamine (PPD) 2+ Shellac Rash 1+ Sodium Benzoate Rash 1+ Review of Systems All other systems reviewed and are negative. BP 133/80 Pulse 78 Temp 36.3 ??C (97.4 ??F) (Temporal) Ht 170.2 cm (5' 7 ) Wt 118.8 kg (262lb) SpO2 97% BMI 41.04 kg/m?? Physical Exam Constitutional: General: She is not in acute distress. Appearance: Normal appearance. HENT: Head: Normocephalic and atraumatic. Nose: Nose normal. Eyes: Extraocular Movements: Extraocular movements intact. Pulmonary: Effort: Pulmonary effort is normal. Musculoskeletal: General: Normal range of motion. Cervical back: Normal range of motion. Skin: Findings: Lesion (right anterior medial upper thigh with 1.5x1 cm soft, mobile rubbery nodule, wellcircumscribed) present. Neurological: General: No focal deficit present. Mental Status: She is alert and oriented to person, place, and time. Mental status is at baseline. Psychiatric: Mood and Affect: Mood normal. Behavior: Behavior normal. Thought Content: Thought content normal. Judgment: Judgment normal. Assessment/Plan Diagnoses and all orders for this visit: Skin lump of leg, right (Primary) Comments: suspect lipoma. we will move forward with US due to change in size and shape. discussed anticipatednatural course and surgical options Orders: - US Lower Extremity Right Limited; Future Follow up TBD or sooner PRN Bertin Crenshaw MD documented in this encounter Plan of Treatment Not on file documented as of this encounter Results * US Lower Extremity Right Limited (05/25/2024 11:24 AM CDT) Anatomical Region Laterality Modality Lower Extremities Right Ultrasound 05/25/2024 11:3 1 AM CDT Impressions 05/25/2024 11:31 AM CDT Benign subcutaneous lipoma involving the anterior right thigh. Electronically signed by: Randall Dominguez MD Narrative 05/25/2024 11:31 AM CDT EXAMINATION: US LOWER EXTREMITY RIGHT LIMITED HISTORY: Palpable abnormality, right thigh FINDINGS: Multiple real-time sonographic images of the right thigh, targeted at the site of palpable abnormality, were obtained, including a limited color Doppler examination. No comparison. Involving the superficial subcutaneous tissues of the anterior right thigh, there is an approximately 3.2 x 2 x 0.9 cm hyperechoic ovoid mass without internal flow. ??No focal drainable fluid collection. Procedure Note Randall Dominguez MD - 05/25/2024 EXAMINATION: US LOWER EXTREMITY RIGHT LIMITED HISTORY: Palpable abnormality, right thigh FINDINGS: Multiple real-time sonographic images of the right thigh, targeted at the site of palpable abnormality, were obtained, including a limited color Doppler examination. No comparison. Involving the superficial subcutaneous tissues of the anterior right thigh, there is an approximately 3.2 x 2 x 0.9 cm hyperechoic ovoid mass without internal flow. No focal drainable fluid collection. IMPRESSION: Benign subcutaneous lipoma involving the anterior right thigh. Electronically signed by: Randall Dominguez MD us Bertin Crenshaw MD IMG US PROCEDURES Roshni l Result documented in this encounter Visit Diagnoses Diagnosis Skin lump of leg, right- Primary Skin lump of leg, right documented in this encounter Care Teams Armored Cable Machine Operator Relationship Specialty Start Date End Date Bertin Crenshaw MD [address] [facility] [address] [place] [address] PCP - General Internal Medicine 02/04/22 Sumi Love MD [facility] [address] [place] [address] Referring Physician Psychiatry 02/04/22 Arlet Love MD [address] [facility] [address] [place] [address] Consulting Physician Obstetrics and Gynecology 02/04/22 Yasemin Churchill MD [address] [facility] [address] [place] [address] Referring Physician Internal Medicine 02/05/23 Romeo Lindsay MD [address] [facility] [address] [place] [address] Referring Physician Dermatology 02/05/23 Charissa Juarez MD [address] [facility] [address] [place] [address] Consulting Physician Psychiatry 02/05/23 Arlet Ballard, [facility] Breast Risk Program Nurse 05/19/23 documented as of this encounter
--- OUTSIDE RECORDS SUMMARY | 2024-07-24 19:57 | XMS_ITS | Encounter Summary ---
Author Organization [facility] Address [address] [place] [address] Phone Care Team Providers Care Care Team Coordinator Scheduler Name Role Phone Bertin Crenshaw MD Primary Care Provider Sumi Love MD Unavailable [phone] Arlet Love MD Unavailable Yasemin Churchill MD Unavailable Romeo Lindsay MD Unavailable [phone] Charissa Juarez MD Unavailable Arlet Ballard RN Unavailable Unavailable Reason for Visit * Reason Comments Follow-up Psychotherapy Encounter Details Date Type Department Care Team (Late st Contact Info) Description 03/19/2024 8:00 AM CDT Office Visit [facility] Department of Psychiatry [address] [facility] [address] [place] [id number] Jaky Love LPC [address] [facility] [address] [place] [address] Major depressive disorder, recurrent episode, moderate (HCC) [...] on file 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 female who presented to the office for a scheduled monthly therapy session for depression. This is the patient's 9th psychotherapy visit with the provider. Patient may also be referred to as Pt throughout this note. S:Patient Report/Update and Recent Stressors: Pt reported she has been busy with her kids making sure they are settled in school. Pt reported things are starting to stabilize more with her children. She stated one passed her remediation this Summer for her medical school program and one was accepted into college on a soccer scholarship. Pt reported her high schoolers is seeing a therapist to learn how to confront her father more confidently.Pt reported she is still working on getting plans in place to leave her eventually. She stated she has good days and bad days with her mood. Pt reported on the bad days she is less confident in her ability to leave him. Pt reported it can be addictive when her is nice to her. Pt reported she is afraid to lose the ability to be a buffer for her kids between her and her 's narcissistic behavior. Pt gave an example of a time recently that her family was going to a wedding together and her got mad at one of their daughters for coming home late. Pt stated her didn't tell their daughter directly that he was mad at her. Pt stated she then had to explain to the daughter gently what was going on. Pt stated she worries if they divorce she won't be able to be as affective as a buffer. Pt admitted she needs to set better boundaries. Pt reported she spent about 12 hours on the phone with her daughter due to her having ADHD and wanting her mom to be on thephone with her while she was studying for medical school to hold her accountable. Pt stated she thinks ultimately she does still need to leave her . She stated she doesn't want to be on her bed having regrets for her life. Pt stated she has noticed some anger lately toward her ,but she thinks it may be positive. She stated she has taken some action and their bank accounts and has built up a network of at least 10 good friends. Mental Status Exam Orientation: appropriate for age, person, date, situation, and place General appearance and behavior: appears stated age, normal psychomotor activity, good eye contact,and cooperative Speech: appropriate for age and intelligible Flow of Thought: logical, sequential, and goal-directed Content of Thought: no auditory hallucinations, no visual hallucinations, no delusions, and no homicidal ideation Mood: Depressed Affect: mood congruent, low mood, and angry Attention/Concentration: normal based on conversation/exam Memory: normal based on conversation/exam Insight: good Judgment: good Eye Contact: Maintained Eye Contact SI/HI: No SI/HI Interventions Provided During This Session: Therapist had Pt process through her journaling and her stressors. Therapist provided empathetic listening and validation. Therapist provided motivational interviewing to determine Pt's barriers for providing boundaries with her family and leaving her . Therapist validated Pt's effort thus far for having steps in place to leave her and building her support network. Therapist encouraged her to take additional actions steps when she is feeling angry. Therapist informed Pt about theresource Focus mate for her daughter to help her with her ADHD. Plans for Homework and Next Session: Homework: document times/situations when a boundary needs to be put in place Next Session: 4 weeks Patient Response to Treatment: The patient's symptoms are improving. Diagnosis Diagnosis Plan 1. Major depressive disorder, recurrent episode, moderate (HCC) 2. Anxiety Problem List Major depressive disorder, recurrent episode, moderate (HCC) - Primary Overview Pt reported, I want to find more ways to find friends. I have horrible social anxiety. Also the whole motivation thing. I need to figure out some ways to get off the couch and get motivated. Current Assessment & Plan By the end of the 16 sessions, Pt will learn at least 3 new CBT and interpersonal communication skills in order to decrease her social anxiety and depression by at least 60 percent. She will build upher support network and take the steps she needs to in order to gain confidence. Date of Service: 03/19/2024 Patient visit Start time: 802 and Stop time: 900. Jaky Love LPC Staff Therapist [facility] Department of Psychiatry Martina Hart [facility] [address] [place] [address] documented in this encounter Miscellaneous Notes * Assessment & Plan Note - Jaky Love LPC - 03/19/2024 9:47 AM CDT Associated Problem(s): Major depressive disorder, recurrent episode, moderate (HCC) By the end of the 16 sessions, Pt will learn at least 3 new CBT and interpersonal communication skills in order to decrease her social anxiety and depression by at least 60 percent. She will build upher support network and take the steps she needs to in order to gain confidence. documented in this encounter Plan of Treatment Not on file documented as of this encounter Visit Diagnoses Diagnosis Major depressive disorder, recurrent episode, moderate (HCC)- Primary Major depressive disorder, recurrent episode, moderate Anxiety Anxiety state, unspecified documented in this encounter Care Teams Care Team Coordinator Scheduler Relationship Specialty Start Date End Date Bertin Crenshaw MD [address] [facility] [address] [place] [address] PCP - General Internal Medicine 02/04/22 Sumi Love MD [address] [facility] [address] [place] [address] Referring Physician Psychiatry 02/04/22 Arlet Love MD [address] [facility] [address] [place] [address] Consulting Physician Obstetrics and Gynecology 02/04/22 Yasemin Churchill MD [address] [facility] [address] [place] [address] Referring Physician Internal Medicine 02/05/23 Romeo Lindsay MD [address] [facility] [address] [place] [address] Referring Physician Dermatology 02/05/23 Charissa Juarez MD [address] [facility] [address] [place] [address] Consulting Physician Psychiatry 02/05/23 Arlet Ballard, KE [facility] Breast Risk Program Nurse 05/19/23 documented as of this encounter
--- OUTSIDE RECORDS SUMMARY | 2024-07-24 19:57 | XMS_ITS | Encounter Summary ---
Author Organization [facility] Address [address] [place] [address] Phone Care Team Providers Care Watch Adjuster Name Role Phone Bertin Crenshaw MD Primary Care Provider Sumi Love MD Unavailable Arlet Love MD Unavailable [phone] Yasemin Churchill MD Unavailable Romeo Lindsay MD Unavailable Charissa Juarez MD Unavailable [phone] Arlet Ballard RN Unavailable Unavailable Reason for Visit * Reason Comments PT Initial Eval * Consultation (Routine) - Authorized Specialty Diagnoses / Procedures Referred By Contac t Referred To Contact Physical Therapy Diagnoses Knee pain, unspecified chronicity, unspecified laterality Bertin Crenshaw MD [address] [address] Phone: tel: fax: [facility] (All Locations) Referral ID Status Reason Start Date Expiration Date Visits Requested Visits Authorized [id number] Authorized Specialty Services Required 11/01/2023 10/31/2024 24 24 Encounter Details Date Type Department Care Team (Late st Contact Info) Description 01/23/2024 11:00 AM CDT Therapy [facility] Physical Therapy [address] [facility] 1st Floor [address] [place] [id number] Jaky Herrera, DPT [address] [facility] [address] [place] [address] Knee pain, unspecified chronicity, unspecified laterality (Primary Dx); Chronic pain of left knee Social History Tobacco Use Types Packs/Day Years [...] on file 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 female Bertin Crenshaw MD [address] [facility] [address] [place] [address] ICD-10-CM 1. Knee pain, unspecified chronicity, unspecified laterality M25.569 Ambulatory referral order to Physical Therapy - 2. Chronic pain of left knee M25.562 G89.29 Date of Service: 01/23/2024 Subjective History: Involved Side: left History of current complaint: Pt reports that knee pain started working out last year. Started her weight loss journey, is down 25lbs. Did some online youtube videos, was working on doing 1k steps and in May started to have pain. Was providing care for her dad from June to September and took abreak from workouts, but was still having pain. Was prescribed meloxicam and knee pain is almost angelic e. Has been pain free since meloxicam but has not done any walking or repetitive stepping from previous workout videos. Pts goal is to get a personal health coach, wants to make sure she is moving correctly without increasing pain. When she stands she favors the RLE more, if she rides in the car too long feels tense. Symptoms were located over pes anserine region, did not ice, tried a knee brace but did not feel stable. Diagnostic testing: Impression per chart Mild tricompartmental left knee osteoarthritis. 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 Sports/Leisure/Fitness activities: get back to physical activity, walking, KB routine, biking - wasdoing every day - weekend off, 30 min step, strength 15 min then ball exercises 15 Goal(s): focus on movement pattern, recommendations for fitness Objective Appearance: good quadriceps bulk bilaterally Edema: minimal- over pes anserine Palpation: TTP pes anserine Standing Alignment Lumbar spine: lordosis Pelvis: anterior tilt Iliac crest height (preferred): level Iliac crest height (feet apart): level Hip Right femoral medial rotation Left femoral medial rotation Knee Right hyperextended Left hyperextended Tibial torsion Right No Left No Ankle/Foot Right normal Left normal Patellar Alignment Right WNL- slightly lateral Left WNL- slightly lateral Movement Testing Single Leg Stance Movement Pattern Symptoms Symptoms Modifable with Correction? Right femoral medial rotation, knee hyperextension, and trunk sidebend no change N/A Left femoral medial rotation and knee hyperextension no change N/A Partial Squat Movement Pattern Symptoms Symptoms Modifable with Correction? Right hip adduction/medial rotation no change N/A Left hip adduction/medial rotation no change N/A Sitting knee extension Movement Pattern Symptoms Symptoms Modifable with Correction? Muscle length Right normal no change N/A Hamstrings: WFL Gastroc: WFL Left normal no change N/A Hamstrings: WFL Gastroc: WFL Knee Range of Motion Right Extension WNL Flexion: WNL Left Extension WNL Flexion: WNL Prone hip extension with knee extension Movement Pattern Right hamstring > gluteus sandra Left hamstring > gluteus sandra MMT Right Left Quads 5 5 Hamstrings Deep hip LR (hip flexed) Deep hip LR (hip extended) Posterior gluteus medius 3+ 3+ Gluteus sandra 3+ 3+ Joint Mobility Right Left Superior patellar glide Mobility: WFL Pain: No Mobility: WFL Pain: No Inferior patellar glide Mobility: WFL Pain: No Mobility: WFL Pain: No Medial patellar glide Mobility: WFL Pain: No Mobility: WFL Pain: No Lateral patellar glide Mobility: WFL Pain: No Mobility: WFL Pain: No Functional Mobility Preferred Sitting: feet flat on floor Gait Pain: Yes Movement pattern: avoid knee hyperextension from heel strike to stance, squeeze glutes Patient-Reported Questionnaires: Lower Extremity Functional Scale (LEFS): to be filled out next visit Treatment Provided: Done today HEP THERAPEUTIC EXERCISE Parameters Comments x x Single leg balance x x Squatting Blue band x x Side stepping Blue band THERAPEUTIC ACTIVITY PARAMETERS x x PATIENT EDUCATION/FUNCTIONAL ACTIVITIES Movement system diagnosis: knee hyperextension syndrome HEP Sleeping positions Sitting posture Standing posture Gait Icing: over pes anserine area to decrease swelling and inflammation Patient was educated about the following activities: direction susceptible to movement and movement pattern correction, tissue stress reduction, body mechanics, lifting, ice, posture, and gym program and weight-lifting Assessment/Plan: Chief Complaint PT Initial Eval Patient is a 53 y.o.-year-old female with primary c/o left knee pain. Demonstrates knee hyperextension syndrome. Contributing factors include over activation of quadriceps, decreased strength and activation of the gluteals, preference to hyperextend knees in WB and with all activities that require going from knee flexion to extension. Assessed stepping activity pt typically performs for exercise and demonstrates increased knee hyperextension on the L and almost immediately elicited pain. Instructed pt to hold off on performing stepping at this time, will gradually introduce pt to a strengthening program to avoid reoccurrence of pain and to improve functional mobility. Will benefit from PT fo r patient education, strengthening, stretching, ROM, HEP, taping PRN, modalities PRN, functional mobility training, joint mobilization, and soft tissue mobilization. Excellent prognosis. Patient consented to treatment and plan. Active The patient will decrease c/o pain with functional activitities to 0/10 at worst. Start: 01/27/24 Expected End: 04/16/24 The patient will demonstrate improved static posture in standing, avoiding knee hyperextension on the L. Start: 01/27/24 Expected End: 03/05/24 The patient will demonstrate improved movement pattern with repetitive stepping, decreasing knee hyperextension to improve functional mobility with single leg activities. Start: 01/27/24 Expected End: 03/05/24 Patient will improve gluteal strength by at least 1 MMT grade to improve movement pattern and functional mobility. Start: 01/27/24 Expected End: 04/16/24 The patient will demonstrate HEP with minimal guidance. Start: 01/27/24 Expected End: 03/05/24 The patient will perform the following functional activities without pain: gait, stair navigation, sitting, standing. Start: 01/27/24 Expected End: 03/05/24 The patient will be independent with strategies designed to help manage symptoms with the followingactivities: rec activities as desired Start: 01/27/24 Expected End: 04/16/24 The patient will be independent with final HEP needed for sustained correction of movement impairments. Start: 01/27/24 Expected End: 04/16/24 Frequency/Duration: 1x every other week for 8 weeks. Time-Based Code Calculator Minutes for Ther Ex/Ther Procedure (85493):: 15 minutes Minutes for Ther Act (97321):: 20 minutes Timed Code Treatment Minutes:: 35 minutes Total Treatment Time: 60 Jaky Herrera DPT documented in this encounter Plan of Treatment Not on file documented as of this encounter Visit Diagnoses Diagnosis Knee pain, unspecified chronicity, unspecified laterality- Primary documented in this encounter Orders Outpatient Referral Count Last Ordered Date Ordered Date AMB REFERRAL ORDER TO PHYSICAL THERAPY 1 documented in this encounter Care Teams Watch Adjuster Relationship Specialty Start Date End Date Bertin Crenshaw MD [address] [facility] [address] [place] [address] PCP - General Internal Medicine 02/04/22 Sumi Love MD [address] [facility] [address] [place] [address] Referring Physician Psychiatry 02/04/22 Arlet Love MD [address] [place] [address] Consulting Physician Obstetrics and Gynecology 02/04/22 Yasemin Churchill MD [address] [place] [address] Referring Physician Internal Medicine 02/05/23 Romeo Lindsay MD [address] [facility] [address] [place] [address] Referring Physician Dermatology 02/05/23 Charissa Juarez MD [address] [place] [address] Consulting Physician Psychiatry 02/05/23 Arlet Ballard, RN [facility] Breast Risk Program Nurse 05/19/23 documented as of this encounter
--- OUTSIDE RECORDS SUMMARY | 2024-07-24 19:57 | XMS_ITS | Encounter Summary ---
Author Organization [facility] Address [address] [place] [address] Phone Care Team Providers Care Senior Accountant Cpa Name Role Phone Bertin Crenshaw MD Primary Care Provider Sumi Love MD Unavailable [phone] Arlet Love MD Unavailable [phone] Yasemin Churchill MD Unavailable [phone] Romeo Lindsay MD Unavailable [phone] Charissa Juarez MD Unavailable [phone] Arlet Ballard RN Unavailable Unavailable Reason for Visit * Reason Comments PT Treatment * Consultation (Routine) - Authorized Specialty Diagnoses / Procedures Referred By Contac t Referred To Contact Physical Therapy Diagnoses Knee pain, unspecified chronicity, unspecified laterality Bertin Crenshaw MD [address] [address] Phone: tel: fax: [facility] (All Locations) Referral ID Status Reason Start Date Expiration Date Visits Requested Visits Authorized [id number] Authorized Specialty Services Required 11/01/2023 10/31/2024 24 24 Encounter Details Date Type Department Care Team (Late st Contact Info) Description 02/04/2024 11:15 AM CDT Therapy [facility] Physical Therapy [address] [facility] 1st [address] [place] [id number] Jaky Herrera, DPT [address] [facility] [address] [place] [address] Knee pain, unspecified chronicity, unspecified laterality (Primary Dx); Chronic pain of left knee Social History Tobacco Use Types Packs/Day Years Used Date Smoking Tobacco: Never Smokeless Tobacco: Never AUDIT-C Answer Date Recorded Frequency of Alcohol Consumption Not on file 04/25/2022 Q2: How many drinks containi ng alcohol do you have on a typical day when you are drinking? 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 Knee pain, unspecified chronicity, unspecified laterality M25.569 2. Chronic pain of left knee M25.562 G89.29 Last PT Progress note: Date PT Care Plan Established or Reviewed: 01/23/2024 Total therapy visits: 2 Subjective:Pt reports that things have been feeling good. Struggling with SLS. Squats and side stepping has been fine. Pain level has been fine. Did clean basement and took a couple days off. Most worried about leg balance and walking. Has been icing. Overall pain has been 0-1. Is unable to balancewithout holding on. HEP compliance: compliant does have questions about HEP Objective: There were no vitals filed for this visit. Pain: 0-1 Treatment Provided: Done today HEP THERAPEUTIC EXERCISE Parameters Comments x x Single leg balance Multiple bouts Utilize mirror for visual feedback x x Squatting 10x Blue band 10 lb DB x x Side stepping 10x Blue band 10lb DB x x Step taps 20x 4 inch step Mirror in front x x Lateral step up 10x SANDIE 4 inch step Mirror in front x x Hip hinging 10x Bar in front Focus on glute activation to return THERAPEUTIC ACTIVITY PARAMETERS x x PATIENT EDUCATION/FUNCTIONAL ACTIVITIES Movement system diagnosis: knee hyperextension syndrome HEP Sleeping positions Sitting posture Standing posture Gait: reviewed mechanics, decreasing knee hyperextension Icing: over pes anserine area to decrease swelling and inflammation Assessment: Pt presents to PT with decreased knee pain. Noted improvement in movement pattern with gait and standing this session, pt required no cues for proper performance. Progressed strengtheningexercises by adding weights which pt tolerated well. Added stepping activities with a step forward and lateral to focus on avoiding knee hyperextension. Pt able to perform well with a mirror for visual feedback. Pt slightly out of breath following stepping activities, discussed utilizing these exercises as progression for cardiovascular fitness as well. Pt tolerated session without complaint. Plan to progress strengthening and movement pattern to decrease pain and optimize function. Plan:Continue PT per POC to progress toward goals per patient tolerance Plan to progress exercises as tolerated next visit. Time-Based Code Calculator Minutes for Ther Ex/Ther Procedure (71601):: 25 minutes Minutes for Ther Act (89174):: 15 minutes Timed Code Treatment Minutes:: 40 minutes Total Treatment Time: 43 Jaky Herrera DPT documented in this encounter Plan of Treatment Not on file documented as of this encounter Visit Diagnoses Diagnosis Knee pain, unspecified chronicity, unspecified laterality- Primary documented in this encounter Care Teams Senior Accountant Cpa Relationship Specialty Start Date End Date Bertin Crenshaw MD [address] [facility] [address] [place] [address] PCP - General Internal Medicine 02/04/22 Sumi Love MD [address] [facility] [address] [place] [address] Referring Physician Psychiatry 02/04/22 Arlet Love MD [address] [facility] [facility] [address] [place] [address] Consulting Physician Obstetrics and Gynecology 02/04/22 Yasemin Churchill MD [address] [facility] [address] [place] [address] Referring Physician Internal Medicine 02/05/23 Romeo Lindsay MD [address] [facility] [address] [place] [address] Referring Physician Dermatology 02/05/23 Charissa Juarez MD [address] [facility] [address] [place] [address] Consulting Physician Psychiatry 02/05/23 Arlet Ballard, KE [facility] Breast Risk Program Nurse 05/19/23 documented as of this encounter
--- OUTSIDE RECORDS SUMMARY | 2024-07-24 19:57 | XMS_ITS | Encounter Summary ---
Author Organization [facility] Address [address] [place] [address] Phone Care Team Providers Care Battery Builder Name Role Phone Bertin Crenshaw MD Primary Care Provider Sumi Love MD Unavailable Arlet Love MD Unavailable [phone] Yasemin Churchill MD Unavailable [phone] Romeo Lindsay MD Unavailable [phone] Charissa Juarez MD Unavailable [phone] Arlet Ballard RN Unavailable Unavailable Reason for Visit * Reason Comments PT Treatment * Consultation (Routine) - Authorized Specialty Diagnoses / Procedures Referred By Contac t Referred To Contact Physical Therapy Diagnoses Knee pain, unspecified chronicity, unspecified laterality Bertin Crenshaw MD [address] [address] Phone: tel: fax: [facility] (All Locations) Referral ID Status Reason Start Date Expiration Date Visits Requested Visits Authorized [id number] Authorized Specialty Services Required 11/01/2023 10/31/2024 24 24 Encounter Details Date Type Department Care Team (Late st Contact Info) Description 06/10/2024 8:30 AM 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 Knee pain, unspecified chronicity, unspecified laterality M25.569 2. Chronic pain of left knee M25.562 G89.29 Last PT Progress note: Date PT Care Plan Established or Reviewed: 01/23/2024 Total therapy visits: 5 Subjective: Pt reports that the knees are feeling really good. Has not gotten the mat in yet. Is getting new monalisa in the basement. Did practice a lot walking backwards. Did that instead of her stepping classes. Did normal stuff, didn't want to do the hardcore stepping without the new mat. Has signed up for a personal computer specialist, has not had a formal session yet. HEP compliance: compliant does have questions about HEP Objective: There were no vitals filed for this visit. Pain: 0 Treatment Provided: Done today HEP THERAPEUTIC EXERCISE Parameters Comments x Single leg balance- add airex Multiple bouts Utilize mirror for visual feedback x Squatting 10x Blue band 10 lb DB x Side stepping 10x Blue band 10lb DB x Step taps - fwd and lateral 20x 4 inch step Mirror in front x Lateral step up- add airex 4 inch step 10x SANDIE 4 inch step Mirror in front 5 lb weight in opposite hand of step up x Hip hinging 10x Bar in front Focus on glute activation to return Two 5 lb DB x Standing hip abduction - no band 10x SANDIE Light hip LR, avoid trunk side bend - improvement in lateral trunk side bend X Standing marching - add foam 10x SANDIE Alternating to challenge stability THERAPEUTIC ACTIVITY PARAMETERS x x PATIENT EDUCATION/FUNCTIONAL ACTIVITIES Movement system diagnosis: knee hyperextension syndrome HEP Sleeping positions Sitting posture Standing posture Gait: reviewed mechanics, decreasing knee hyperextension Icing: over pes anserine area to decrease swelling and inflammation x Return to step classes- start at an abbreviated amount, avoid knee hyperextension when moving backwards Foam mat for gym floor - to impact with exercise Shoe replacing- every 6-8 months x x Cycling: drive with heel down to increase glute activation Elliptical: avoid knee hyperextension when pushing knee down focus on core activation , keep feet forward Stepping class: improvement in backwards stepping, decreased knee hyperextension, pt to focus on this when she returns to step class Assessment: Pt has good response to therapy. Addressed biking and elliptical working on proper mechanics and activation. Discussed principles of movement pattern avoiding knee hyperextension and activating gluteals with all exercises that she may start with her personal computer specialist. Will f/u in 6 weeksto assess progress and need for skilled services. Plan:Continue PT per POC to progress toward goals per patient tolerance Plan to progress exercises as tolerated next visit. Time-Based Code Calculator Minutes for Ther Act (08308):: 25 minutes Timed Code Treatment Minutes:: 25 minutes Total Treatment Time: 30 Jaky Herrera DPT L SANDER OPERATOR documented in this encounter Plan of Treatment Not on file documented as of this encounter Visit Diagnoses Diagnosis Knee pain, unspecified chronicity, unspecified laterality- Primary documented in this encounter Care Teams Battery Builder Relationship Specialty Start Date End Date Bertin Crenshaw MD [address] [address] PCP - General Internal Medicine 02/04/22 Sumi Love MD [address] [facility] [address] [place] [address] Referring Physician Psychiatry 02/04/22 Arlet Love MD [address] [facility] [address] [place] [address] Consulting Physician Obstetrics and Gynecology 02/04/22 Yasemin Churchill MD [address] [facility] [address] [place] [address] Referring Physician Internal Medicine 02/05/23 Romeo Lindsay MD [address] [facility] [address] [place] [address] Referring Physician Dermatology 02/05/23 Charissa Juarez MD [address] [facility] [address] [place] [address] Consulting Physician Psychiatry 02/05/23 Arlet Ballard RN [facility] Breast Risk Program Nurse 05/19/23 documented as of this encounter
--- OUTSIDE RECORDS SUMMARY | 2024-07-24 19:57 | XMS_ITS | Encounter Summary ---
Author Organization [facility] Address [address] [place] [address] Phone Care Team Providers Care Claim Specialist Name Role Phone Bertin Crenshaw MD Primary Care Provider Sumi Love MD Unavailable Arlet Love MD Unavailable [phone] Yasemin Churchill MD Unavailable Romeo Lindsay MD Unavailable Charissa Juarez MD Unavailable Arelt Ballard RN Unavailable Unavailable Encounter Details Date Type Department Care Team (Late st Contact Info) Description 05/18/2024 Immunization [facility] Occupational Health [address] [facility] 5th [address] [place] [id number] Marlene Pablo Social History Tobacco Use Types Packs/Day Years [...] on file 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 Gender Identity Not on file Sexual Orientation Not on file 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[employer], 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 Not on file Not on file Not on file documented as of this encounter Plan of Treatment Not on file documented as of this encounter Visit Diagnoses Not on filedocumented in this encounter Orders Immunization/Injection Count Last Ordered Date First Ordered Date FLU VACCINE TRI MDCK (6 MOS +) PF - FLUCELVAX 1 05/18/2024 documented in this encounter Care Teams Claim Specialist Relationship Specialty Start Date End Date Bertin Crenshaw MD [address] [facility] [address] [place] [address] PCP - General Internal Medicine 02/04/22 Sumi Love MD [address] [facility] [address] [place] [address] Referring Physician Psychiatry 02/04/22 Arlet Love MD [address] [facility] [address] [place] [address] Consulting Physician Obstetrics and Gynecology 02/04/22 Yasemin Churchill MD [address] [facility] [address] [place] [address] Referring Physician Internal Medicine 02/05/23 Romeo Lindsay MD [address] [facility] [address] [place] [address] Referring Physician Dermatology 02/05/23 Charissa Juarez MD [address] [facility] [address] [place] [address] Consulting Physician Psychiatry 02/05/23 Arlet Ballard RN [facility] Breast Risk Program Nurse 05/19/23 documented as of this encounter
--- OUTSIDE RECORDS SUMMARY | 2024-07-24 19:57 | XMS_ITS | Clinical Summary ---
Author Organization [facility] Address [address] [place] [address] [place] [address] Care Team Providers Care Systems Mechanic Name Role Phone Bertin Crenshaw MD Primary Care Provider Sumi Love MD Unavailable Arlet Love MD Unavailable Yasemin Churchill MD Unavailable Romeo Lindsay MD Unavailable Charissa Juarez MD Unavailable Arlet Ballard RN Unavailable Unavailable Allergies Active Allergy Reactions Criticality Noted Date Comments Benzalkonium Chloride Rash Medium 11/21/2022 1+ Cetrimonium [place] Rash Medium 11/21/2022 1+ Other Rash Medium 11/21/2022 P-Phenylenediamine (PPD) 2+ Shellac Rash Medium 11/21/2022 1+ Sodium Benzoate Rash Medium 11/21/2022 1+ Medications albuterol HFA (PROVENTIL HFA,VENTOLIN HFA,PROAIR HFA) 90 mcg/actuation inhaler Inhale 2 puffs every 6 (six) hours as needed Active cetirizine (ZyrTEC) 10 mg tablet Take 10 mg by mouth daily Active ruxolitinib (Opzelura) 1.5 % cream Apply 1 Application topically 2 (two) times a day 600 g 6 023 Active tacrolimus (PROTOPIC) 0.1 % ointmentIndicatio ns:Eyelid eczema, left Apply thin layer BID to AA eyelid PRN rash 100 g 3 024 Active triamcinolone (KENALOG) 0.1 % creamIndications: Other eczema Apply thin layer BID to AA torso and extremities PRN rash 80 g 3 024 Active meloxicam (MOBIC) 15 mg tablet Take 1 tablet (15 mg total) by mouth daily for 20 days 20 tablet 024 Active escitalopram (LEXAPRO) 10 mg tablet TAKE ONE TABLET BY MOUTH DAILY 90 tablet 1 024 Active atorvastatin (LIPITOR) 20 mg tabletIndications :Other hyperlipidemia TAKE ONE TABLET BY MOUTH AT BEDTIME 90 tablet 1 024 Active losartan (COZAAR) 25 mg tabletIndications :Hypertension, essential TAKE ONE TABLET BY MOUTH DAILY 30 tablet 11 024 Active omeprazole (PriLOSEC) 40 mg capsuleIndication s:Gastroesophagea l reflux disease without esophagitis TAKE ONE CAPSULE BY MOUTH DAILY 30 capsule 11 024 Active ARIPiprazole (ABILIFY) 2 mg tablet TAKE ONE TABLET BY MOUTH DAILY 90 tablet 1 024 Active omeprazole (PriLOSEC) 40 mg capsuleIndication s:Gastroesophagea l reflux disease without esophagitis TAKE ONE CAPSULE BY MOUTH DAILY 30 capsule 11 023 2023 Discontinued ARIPiprazole (ABILIFY) 2 mg tablet Take 1 tablet (2 mg total) by mouth daily 90 tablet 1 024 2023 Discontinued Active Problems Problem Noted Date Diagnosed Date Major depressive disorder, recurrent episode, mo derate 03/19/2024 Overview (03/19/2024): Pt reported, I want to find more ways to find friends. I have horrible social anxiety. Also the whole motivation thing. I need to figure out some ways to get off the couch and get motivated. Assessment & Plan (03/19/2024 9:47 AM CDT): By the end of the 16 sessions, Pt will learn at least 3 new CBT and interpersonal communication skills in order to decrease her social anxiety and depression by at least 60 percent. She will build up her support network and take the steps she needs to in order to gain confidence. Anxiety disorder 04/28/2023 Recurrent major depressive disorder, in partial remission 02/04/2022 Gastroesophageal reflux disease without esophagi tis 02/04/2022 Other hyperlipidemia 02/04/2022 Hypertension, essential 02/04/2022 Environmental allergies 02/04/2022 Class 3 severe obesity due t o excess calories without serious comorbidity with body mass index (BMI) of 40.0 to 44.9 in adult 08/04/2018 Assessment & Plan (11/10/2018 5:43 PM CDT): Obesity is improving with lifestyle modifications. Behavioral treatment: Continuing Wt Mgmt Program. Diet interventions: per RD. Regular aerobic exercise program discussed. Assessment & Plan (10/30/2018 4:40 PM CDT): Obesity is improving with lifestyle modifications. Behavioral treatment: wt mgmt program. Diet interventions: per RD. Regular aerobic exercise program discussed. Assessment & Plan (09/01/2018 5:37 PM BILINGUAL OFFICE ASSISTANT): Obesity is improving with lifestyle modifications. Commended on weight loss to date and discussed anticipated health benefits/risk reduction with this degree of loss. Behavioral treatment: continue WMP. Diet interventions: per RD. Regular aerobic exercise program discussed. Assessment & Plan (08/09/2018 12:00 PM BILINGUAL OFFICE ASSISTANT): Obesity is improving with lifestyle modifications. Behavioral treatment: WMP. Diet interventions: per RD. Regular aerobic exercise program discussed. Assessment & Plan (08/04/2018 5:18 PM BILINGUAL OFFICE ASSISTANT): Obesity is unchanged. General weight loss/lifestyle modification strategies discussed (elicit support from others; identify saboteurs; non-food rewards, etc). Behavioral treatment: WMP. Diet interventions: per RD. Informal exercise measures discussed, e.g. taking stairs instead of elevator. Regular aerobic exercise program discussed. Resolved Problems Problem Noted Date Diagnosed Date Resolved Date Colon cancer screening 04/11/202202/05 Overview (04/11/2022): Added automatically from request for surgery [id number] Flank pain 11/10/2018 02/05/2023 Assessment & Plan (11/10/2018 5:44 PM CDT): UA, rib series if pain persists. F/U PCP. Weight loss counseling, encounter for 08/04/2018 02/04/2022 Assessment & Plan (11/10/2018 5:41 PM CDT): Continue plan per Weight Management Program; calorie restriction, meal replacements per RD. Continue food diary. Assessment & Plan (10/30/2018 4:40 PM CDT): Continue plan per Weight Management Program; calorie restriction, meal replacements per RD. Continue food diary. Reviewed importance of adequate protein intake of 1-1.2 g/kg IBW/day. Assessment & Plan (09/01/2018 5:29 PM BILINGUAL OFFICE ASSISTANT): Continue plan per Weight Management Program; calorie restriction, meal replacements per RD. Continue food diary. Assessment & Plan (08/09/2018 11:58 AM BILINGUAL OFFICE ASSISTANT): Continue plan per Weight Management Program; calorie restriction, meal replacements per RD. Continue food diary. Assessment & Plan (08/04/2018 5:16 PM BILINGUAL OFFICE ASSISTANT): Appropriate candidate for Weight Management Program with no contraindications to participating. Diet recommendations, meal replacements per program RD. Discussed relatively small, but significant role of exercise in weight loss; importance in weight management as shown in Look Ahead study and National Weight Control Registry. Metabolic and nutritional disorder 08/04/2018 02/04/2022 Assessment & Plan (10/30/2018 4:40 PM CDT): Reviewed labs with her. Assessment & Plan (09/01/2018 5:36 PM BILINGUAL OFFICE ASSISTANT): She will have labs done tomorrow. Assessment & Plan (08/09/2018 11:59 AM BILINGUAL OFFICE ASSISTANT): Labs Assessment & Plan (08/04/2018 5:16 PM BILINGUAL OFFICE ASSISTANT): Labs. Encounters Date Type Department Care Team Description 07/13/2024 9:00 AM BILINGUAL OFFICE ASSISTANT Office Visit [facility] Department of Psychiatry [address] [phone] Marylin Gibbons NP Anxiety (Primary Dx); Major depressive disorder, recurrent episode, mild (HCC) 06/10/2024 8:30 AM BILINGUAL OFFICE ASSISTANT Therapy [facility] Physical Therapy [address] [place] [address] Floor [address] [place] [phone] Jaky Herrera, DPT Knee pain, unspecified chronicity, unspecified laterality (Primary Dx); Chronic pain of left knee 05/27/2024 9:30 AM CDT Therapy [facility] Physical Therapy [address] [place] [address] [place] [phone] Jaky Herrera, DPT Knee pain, unspecified chronicity, unspecified laterality (Primary Dx) 05/25/2024 10:53 AM CDT - 05/25/2024 11:59 PM CDT Hospital Encounter [facility] [address] [place] [address] Skin lump of leg, right Discharge Disposition: Discharge to home or self care 05/18/2024 Immunization [facility] Occupational Health [facility] 5th Floor [address] [place] [phone] Marlene Pablo Encounter for vaccination (Primary Dx) 05/18/2024 Immunization [place] [address] [facility] 5th Floor [address] [place] [phone] Marlene Pablo 04/28/2024 10:45 AM CDT Office Visit [address] [phone] Bertin Crenshaw MD Skin lump of leg, right (Primary Dx) 04/27/2024 2:30 PM CDT Office Visit [facility] Department of Psychiatry [address] [place] [phone] Marylin Gibbons NP Major depressive disorder, recurrent episode, moderate (HCC) (Primary Dx); Anxiety from Last 3 Months Immunizations Name Administration Dates Next Due COVID-19 mRNA (RacerTimes) 0.3 m L (30 mcg) vaccine (12 years and up) 05/18/2024 Influenza, Trivalent, Cell C ulture-based MDCK, Preservative Free, Antibiotic Free, Intramuscular 05/18/2024 Influenza, Trivalent, IM (MDV) 06/14/2013 Influenza, Unspecified 04/27/2021 Pfizer SARS-CoV-2 Monovalent Vaccination (12+ Yrs) PURPLE 08/23/2020 Tdap 02/04/2022 Typhoid Inactivated 11/19/2021 ZOSTER Recombinant 04/29/2022,02/04/2022 Surgical History Surgery Date Site/Laterality Comments CYST REMOVAL Left hand CYST REMOVAL foot Medical History Medical History Date Comments Seasonal allergies Vaginal delivery Asthma Hypertension GERD (gastroesophageal reflux disease) High cholesterol Family History Medical History Relation Name Comments Prostate cancer Brother 1 Danyel Testicular cancer Brother 1 Danyel No Known Problems Brother 2 ADD / ADHD Daughter 1 Scoliosis Daughter 1 ADD / ADHD Daughter 2 Psoriasis Daughter 2 Scoliosis Daughter 2 ADD / ADHD Daughter 3 Psoriasis Daughter 3 Bladder Cancer Father Alfredo Burnett non-smoker Depression Father Alfredo Grossmanacci Heart attack Father Alfredo Grossmanacci Heart disease Father Alfredo Grossmanacci Hypertension Father Alfredo Grossmanacci Alzheimer's disease Father's Sister 1 Preston Ricardo No Known Problems Father's Sister 2 Heart attack Maternal Grandfather Michelle Sauceda Heart disease Maternal Grandfather Michelle Sauceda Alzheimer's disease Maternal Grandmother Carol Sauceda Alzheimer's disease Mother Zara Grossmanacci Miscarriages / Stillbirths Mother Zara Grossmanacci Ovarian cancer Mother Zara Antonacci Brain cancer Mother's Sister Breast cancer Mother's Sister No Known Problems Paternal Grandfather No Known Problems Paternal Grandmother BRCA1 Negative Sister Roma Germain BRCA2 Negative Sister Roma Germain Breast cancer Sister Roma Germain Colon cancer Neg Hx Relation Name Status Comments Brother 1 Danyel Alive Brother 2 Alive Daughter 1 Alive Daughter 2 Alive Daughter 3 Alive Father Alfredo Grossmanprietoi Alive Father's Sister 1 Preston Ricardo (Age 80) Father's Sister 2 Alive Maternal Grandfather Michelle Sauceda Maternal Grandmother Carol Sauceda (Age 87) Mother Zara Burnett Mother's Sister (Age 68) Paternal Grandfather Paternal Grandmother (Age 65) Sister Roma Germain Alive Social History Tobacco Use Types Packs/Day Years Used Date Smoking Tobacco: Never Smokeless Tobacco: Never Tobacco Cessation:Counseling Given: Not Answered AUDIT-C Answer Date Recorded Frequency of Alcohol [...] on file Legal Sex Female 8:57 AM BILINGUAL OFFICE ASSISTANT Gender Identity Not on file Sexual Orientation Not on file 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[employer], 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 Not on file Not on file Not on file Obstetrics History Last Filed Vital Signs Vital Sign Reading Time Taken Comments Blood Pressure 133/80 04/28/2024 10:47 AM CDT Pulse 78 04/28/2024 10:47 AM CDT Temperature 36.3 ??C (97.4 ??F) 04/28/2024 10:47 AM C DT Respiratory Rate 16 04/25/2022 9:55 AM CDT Oxygen Saturation 97% 04/28/2024 10:47 AM CDT Inhaled Oxygen Concentration - - Weight 118.8 kg (262 lb) 04/28/2024 10:47 AM CDT Height 170.2 cm (5' 7 ) 04/28/2024 10:47 AM CDT Body Mass Index 41.04 04/28/2024 10:47 AM CDT Plan of Treatment Health Maintenance Due Date Last Done Comments Cervical Cancer Screening 1970 Hepatitis C Screening 1970 Depression Screening 02/06/2024 02/05/2023, 02/05/20 22 Regular Well Visit/Exam 18-64 02/06/2024 02/05/2023, 02/05/2023, 02/04/2022, Additional history exists Breast Cancer Screening-Mammogram 02/23/2025 02/24/2024, 05/24/2022, 04/13/2020, Additional history exists DTaP/Tdap/Td Vaccine (3 - Td or Tdap) 02/05/2032 02/04/2022, 08/25/2019 Colon Cancer Screening-Colonoscopy 04/25/2032 04/25/2022 Colon Cancer Screening-CT Colonography Discontinued 04/25/2022 Colon Cancer Screening-DNA Stool Discontinued 04/25/2022 Colon Cancer Screening-FIT Discontinued 04/25/2022 Colon Cancer Screening-Sigmoidoscopy Discontinued 04/25/2022 Zoster Vaccine Completed 04/29/2022, 02/04/2022 Covid-19 Vaccine Completed 05/18/2024, 06/2023, 09/13/2020, Additional history exists Influenza Vaccine Completed 05/18/2024, , 06/14/2013 Pneumococcal vaccine <65 Aged Out No longer eligible based on patient's age to complete this topic Procedures Procedure Name Priority Date/Time Associated Diagnosis Comments US LOWER EXTREMITY RIGHT LIMITED Schedule Routine, Read Routine (OP Routine) 05/25/2024 11:24 AM CDT Skin lump of leg, right SCREENING MAMMOGRAM BILATERAL W CAMERON Schedule Routine, Read Routine (OP Routine) 02/24/2024 8:50 AM CDT Screening mammogram, encounter for COLONOSCOPY 04/25/2022 8:56 AM CDT from Last 3 Months or Most Recently Relevant to Health Maintenance Results * US Lower Extremity Right Limited (05/25/2024 11:24 AM CDT) Anatomical Region Laterality Modality Lower Extremities Right Ultrasound 05/25/2024 11:3 1 AM CDT Impressions 05/25/2024 11:31 AM CDT Benign subcutaneous lipoma involving the anterior right thigh. Electronically signed by: MD Matt Duffy 05/25/2024 11:31 AM CDT EXAMINATION: US LOWER [...] thigh. Electronically signed by: Randall Dominguez MD Bertin Crenshaw MD IMG US PROCEDURES Roshni l Result * Screening Mammogram Bilateral W Cameron (02/24/2024 [...] Mammogram IMG MAMMO PROCEDURES Fi nal Result * COLONOSCOPY (04/25/2022 8:56 AM CDT) Anatomical Region Laterality Modality Other Narrative Procedure Note Bertin Borja MD - 04/25/2022 8:56 AM CDT [facility] Patient Name: Rebecca Pino Procedure Date: 04/25/2022 8:56 AM Date of : 1970 Admit Type: Outpatient Age: 51 Gender: Female Attending MD: Bertin Borja M.D. Room: [facility] ENDOSCOPY ROOM 8 Note Status: Finalized Procedure: Colonoscopy Indications: Screening for colorectal malignant neoplasm Referring MD: Bertin Crenshaw M.D. Providers: Bertin Borja M.D. Medicines: Monitored Anesthesia Care Complications: No immediate complications. Estimated Blood Loss: Estimated blood loss was minimal. Procedure: Pre-Anesthesia Assessment: - The risks and benefits of the procedure and the sedation options and risks were discussed with the patient. All questions were answered and informed consent was obtained. - Immediately prior to administration ofmedications, the patient was re-assessed for adequacy to receive sedatives. The benefits, risks and alternatives of theprocedure and sedation were discussed and informed consentwas obtained. All questions were answered. Please referto the signed informed consent document in the medical record. The scope was passed under direct vision.The CF [id number] endoscope was introduced through the anus and advanced to the terminal ileum, with identification of the appendiceal orifice and IC valve. The colonoscopy was performed without difficulty. The patient tolerated the procedurewell. The quality of the bowel preparation was evaluated using the BBPS (Bandy Bowel Preparation Scale)with scores of: Right Colon = 3, Transverse Colon = 3and Left Colon = 3 (entire mucosa seen well with no residual staining, small fragments of stool oropaque liquid). The total BBPS score equals 9. The qualityof the bowel preparation was excellent. The bowel preparation used was polyethylene glycol (PEG) via split dose instruction. Findings: Small thrombosed hemorrhoid found on perianal exam. The terminal ileum appeared normal. The appendiceal orifice and ileocecal valve appeared normal. A 4 mm polyp was found in the transverse colon. The polyp wassessile. The polyp was removed with a cold snare. Resection and retrieval were complete. A 4 mm polyp was found in the descending colon. The polyp wassessile. The polyp was removed with a cold snare. Resection and retrieval were complete. Multiple small and large-mouthed diverticula were found in thesigmoid colon. Non-bleeding external hemorrhoids were found during retroflexion. The exam was otherwise without abnormality on direct and retroflexion views. Impression: - Small thrombosed hemorrhoid found on perianalexam. - The examined portion of the ileum was normal. - One 4 mm polyp in the transverse colon, removedwith a cold snare. Resected and retrieved. - One 4 mm polyp in the descending colon, removedwith a cold snare. Resected and retrieved. - Diverticulosis in the sigmoid colon. - Non-bleeding external hemorrhoids. - The examination was otherwise normal on directand retroflexion views. Recommendation: - Observe patient in GI recovery unit. - Await pathology results. - Repeat colonoscopy for surveillance based on pathology results. - Return to referring physician as previously scheduled. - In the unusual situation that you developabdominal pain, bleeding or other significant problems in the days following this procedure please call my office [phone]). After hours and eveningsplease call [phone] and speak to the GI fellow oncekaterina. Please tell the fellow that Dr. Borja did your procedure and that you were instructed to have the fellow call me or the physician covering for me to discuss the management of your condition. If youhave an urgent problem, please go to the nearestemergency room and have the ER doctor call my office duringthe day or the GI fellow after hours and weekends to arrange admission or transfer to our facility.Please bring this report with you if you go to theemergency room. Electronically signed by Bertin Borja MD Bertin Borja M.D. 04/25/2022 9:34:42 AM . Number of Addenda: 0 Note Initiated On: 04/25/2022 8:56 AM Recognized by the [employer] for promoting quality in endoscopy us Bertin Borja MD ENDOSCOPY PROCEDURES Fi nal Result from Last 3 Months or Most Recently Relevant to Health Maintenance Insurance [facility] [place] [address] [facility] [employer] [facility] [employer] [facility] [employer] [facility] [employer] [facility] [employer] Advance Directives For more information, please contact: [phone] * Full Code (Latest Code Status on File) Date Activated Date Inactivated Comments 04/25/2022 8:20 AM 04/25/2022 2:24 PM Care Teams Systems Mechanic Relationship Specialty Start Date End Date Bertin Crenshaw MD [address] [address] PCP - General Internal Medicine 02/04/22 Sumi Love MD [address] [address] Referring Physician Psychiatry 02/04/22 Arlet Love MD [address] [place] [address] Consulting Physician Obstetrics and Gynecology 02/04/22 Yasemin Churchill MD [address] [facility] [address] [place] [address] Referring Physician Internal Medicine 02/05/23 Romeo Lindsay MD [address] [facility] [address] [place] [address] Referring Physician Dermatology 02/05/23 Charissa Juarez MD [address] [facility] [address] [place] [address] Consulting Physician Psychiatry 02/05/23 Arlet Ballard, [facility] Breast Risk Program Nurse 05/19/23
--- OUTSIDE RECORDS SUMMARY | 2024-07-24 19:57 | XMS_ITS | Encounter Summary ---
Author Organization [facility] Address [address] [place] [address] Phone Care Team Providers Care Personal Banker Name Role Phone Bertin Crenshaw MD Primary Care Provider Sumi Love MD Unavailable [phone] Arlet Love MD Unavailable [phone] Yasemin Churchill MD Unavailable [phone] Romeo Lindsay MD Unavailable Charissa Juarez MD Unavailable [phone] Arlet Ballard RN Unavailable Unavailable Reason for Visit * Reason Comments PT Treatment * Consultation (Routine) - Authorized Specialty Diagnoses / Procedures Referred By Contac t Referred To Contact Physical Therapy Diagnoses Knee pain, unspecified chronicity, unspecified laterality Bertin Crenshaw MD [address] [address] Phone: tel: fax: [facility] (All Locations) Referral ID Status Reason Start Date Expiration Date Visits Requested Visits Authorized [id number] Authorized Specialty Services Required 11/01/2023 10/31/2024 24 24 Encounter Details Date Type Department Care Team (Late st Contact Info) Description 03/09/2024 10:45 AM CDT Therapy [facility] Physical Therapy [address] [facility] [address]st [address] [place] [id number] Jaky Herrera, DPT [address] [address] Knee pain, unspecified chronicity, unspecified laterality (Primary Dx) Social History Tobacco Use Types [...] on file Legal 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 Knee pain, unspecified chronicity, unspecified laterality M25.569 Last PT Progress note: Date PT Care Plan Established or Reviewed: 01/23/2024 Total therapy visits: 3 Subjective:Pt reports that she started off strong maintaining HEP, fell off and did every other day. Bought a 10lb bar for strengthening which has been going really great. Symptoms hutchinson has been doing well. Cleaned out her dog pen and over did it on Friday. Knee is a little tender today. HEP compliance: compliant does have questions about HEP Objective: There were no vitals filed for this visit. Pain: 0-1 Treatment Provided: Done today HEP THERAPEUTIC EXERCISE Parameters Comments x x Single leg balance- add airex Multiple bouts Utilize mirror for visual feedback x Squatting 10x Blue band 10 lb DB x x Side stepping 10x Blue band 10lb DB x x Step taps - fwd and lateral 20x 4 inch step Mirror in front x x Lateral step up- add airex 4 inch step 10x SANDIE 4 inch step Mirror in front x x Hip hinging 10x Bar in front Focus on glute activation to return x x Standing hip abduction - no band 10x SANDIE Light hip LR, avoid trunk side bend x x Standing marching 10x SANDIE Alternating to challenge stability THERAPEUTIC ACTIVITY PARAMETERS x x PATIENT EDUCATION/FUNCTIONAL ACTIVITIES Movement system diagnosis: knee hyperextension syndrome HEP Sleeping positions Sitting posture Standing posture Gait: reviewed mechanics, decreasing knee hyperextension Icing: over pes anserine area to decrease swelling and inflammation Assessment: Pt has good response to therapy. Progressed single leg strengthening which pt toleratedwithout complaint. Pt able to tolerate additional resistance to exercises without exacerbation of symptoms and good muscular endurance. Pt required less breaks between exercises this date which demonstrates improvement in muscular strength and endurance. Will continue to progress strengthening and movement pattern to decrease pain and optimize function. Plan:Continue PT per POC to progress toward goals per patient tolerance Plan to progress exercises as tolerated next visit. Time-Based Code Calculator Minutes for Ther Ex/Ther Procedure (15745):: 30 minutes Minutes for Ther Act (48763):: 10 minutes Timed Code Treatment Minutes:: 40 minutes Total Treatment Time: 43 Jaky Herrera DPT documented in this encounter Plan of Treatment Not on file documented as of this encounter Visit Diagnoses Diagnosis Knee pain, unspecified chronicity, unspecified laterality- Primary documented in this encounter Care Teams Personal Banker Relationship Specialty Start Date End Date Bertin Crenshaw MD [address] [facility] [address] [place] [address] PCP - General Internal Medicine 02/04/22 Sumi Love MD [facility] [address] [place] [address] Referring Physician Psychiatry 02/04/22 Arlet Love MD [address] [facility] [address] [place] [address] Consulting Physician Obstetrics and Gynecology 02/04/22 Yasemin Churchill MD [address] [place] [address] Referring Physician Internal Medicine 02/05/23 Romeo Lindsay MD [address] [place] [address] Referring Physician Dermatology 02/05/23 Charissa Juarez MD [address] [place] [address] Consulting Physician Psychiatry 02/05/23 Arlet Ballard, RN [facility] Breast Risk Program Nurse 05/19/23 documented as of this encounter
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
--- OUTSIDE RECORDS SUMMARY | 2024-07-24 19:57 | XMS_ITS | Encounter Summary ---
Author Organization [facility] Address [address] [place] [address] Phone Care Team Providers Care Public Area Attendant Name Role Phone Bertin Crenshaw MD Primary Care Provider Sumi Love MD Unavailable [phone] Arlet Love MD Unavailable Yasemin Churchill MD Unavailable Romeo Lindsay MD Unavailable [phone] Charissa Juarez MD Unavailable Arlet Ballard RN Unavailable Unavailable Encounter Details Date Type Department Care Team (Late st Contact Info) Description 01/27/2024 Plan of Care Documentation [facility] Physical Therapy [address] [facility] 1st [address] [place] [address] Social History Tobacco Use Types Packs/Day Years [...] on file Legal 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 Gender Identity Not on file Sexual Orientation Not on file 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[employer], 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 Not on file Not on file Not on file documented as of this encounter Plan of Treatment Not on file documented as of this encounter Visit Diagnoses Not on filedocumented in this encounter Care Teams Public Area Attendant Relationship Specialty Start Date End Date Bertin Crenshaw MD [address] [facility] [address] [place] [address] PCP - General Internal Medicine 02/04/22 Sumi Love MD [address] [facility] [address] [place] [address] Referring Physician Psychiatry 02/04/22 Arlet Love MD [address] [place] [address] Consulting Physician Obstetrics and Gynecology 02/04/22 Yasemin Churchill MD [address] [place] [address] Referring Physician Internal Medicine 02/05/23 Romeo Lindsay MD [address] [place] [address] Referring Physician Dermatology 02/05/23 Charissa Juarez MD [address] [place] [address] Consulting Physician Psychiatry 02/05/23 Arlet Ballard, KE [facility] Breast Risk Program Nurse 05/19/23 documented as of this encounter
--- OUTSIDE RECORDS SUMMARY | 2024-07-24 19:57 | XMS_ITS | Encounter Summary ---
Author Organization [facility] Healthcare Address [address] [place] [address] Care Team Providers Care Chicken Hatchery Helper Name Role Phone Bertin Crenshaw MD Primary Care Provider Sumi Love MD Unavailable [phone] Arlet Love MD Unavailable [phone] Yasemin Churchill MD Unavailable [phone] Romeo Lindsay MD Unavailable [phone] Charissa Juarez MD Unavailable Arlet Ballard RN Unavailable Unavailable Reason for Referral * Diagnostic Imaging (Routine) - Pending Review Specialty Diagnoses / Procedures Referred By Contac t Referred To Contact Diagnoses Skin lump of leg, right Procedures US Lower Extremity Right Limited Bertin Crenshaw MD [address] [address] Phone: tel: fax: [facility] (All Locations) Referral ID Status Reason Start Date Expiration Date V isits Requested Visits Authorized [id number] Pending Review 04/28/2024 05/28/2025 1 1 Reason for Visit * Diagnostic Imaging (Routine) - Pending Review Specialty Diagnoses / Procedures Referred By Contac t Referred To Contact Diagnoses Skin lump of leg, right Procedures US Lower Extremity Right Limited Bertin Crenshaw MD [address] [employer] [address] [address] Phone: tel: fax: [facility] (All Locations) Referral ID Status Reason Start Date Expiration Date V isits Requested Visits Authorized [id number] Pending Review 04/28/2024 05/28/2025 1 1 Encounter Details Date Type Department Care Team (Latest Contact Info) Description 05/25/2024 10:53 AM CDT - 05/25/2024 11:59 PM CDT Hospital Encounter [facility] Imaging [id number] [address] Skin lump of leg, right Discharge Disposition: [...] on file Legal Sex Female 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 Gender Identity Not on file Sexual Orientation Not on file 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[employer], 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 Not on file Not on file Not [...] BY MOUTH DAILY 90 tablet 1 01/19/2024 losartan (COZAAR) 25 mg tabletIndications:H ypertension, essential TAKE ONE TABLET BY MOUTH DAILY 30 tablet 11 04/29/2024 ruxolitinib (Opzelura) 1.5 % cream Apply 1 [...] daily 90 tablet 1 07/30/2023 07/05/20 24 omeprazole (PriLOSEC) 40 mg capsuleIndications: Gastroesophageal [...] AM CDT Skin lump of leg, right documented in this encounter Results * US Lower Extremity [...] Visit Diagnoses Diagnosis Skin lump of leg, right documented in this encounter Care Teams Chicken Hatchery Helper Relationship Specialty Start Date End Date Bertin Crenshaw MD [address] [facility] [address] [place] [address] PCP - General Internal Medicine 02/04/22 Sumi Love MD [address] [facility] [address] [place] [address] Referring Physician Psychiatry 02/04/22 Arlet Love MD [address] [facility] [address] [place] [address] Consulting Physician Obstetrics and Gynecology 02/04/22 Yasemin Churchill MD [address] [facility] [address] [place] [address] Referring Physician Internal Medicine 02/05/23 Romeo Lindsay MD [address] [facility] [address] [place] [address] Referring Physician Dermatology 02/05/23 Charissa Juarez MD [address] [place] [address] Consulting Physician Psychiatry 02/05/23 Arlet Ballard, RN [facility] Breast Risk Program Nurse 05/19/23 documented as of this encounter
--- OUTSIDE RECORDS SUMMARY | 2024-07-24 19:57 | XMS_ITS | Encounter Summary ---
Author Organization [facility] Address [address] [place] [address] Phone Care Team Providers Care Pier Runner Name Role Phone Bertin Crenshaw MD Primary Care Provider Sumi Love MD Unavailable [phone] Arlet Love MD Unavailable Yasemin Churchill MD Unavailable Romeo Lindsay MD Unavailable Charissa Juarez MD Unavailable Arlet Ballard RN Unavailable Unavailable Encounter Details Date Type Department Care Team (Late st Contact Info) Description 05/18/2024 Immunization [facility] [address] [facility] 5th Floor [address] [place] [phone] Marlene Pablo Encounter for vaccination (Primary Dx) Social History Tobacco Use Types [...] on file Legal 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 Gender Identity Not on file Sexual Orientation Not on file 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[employer], 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 Not on file Not on file Not on file documented as of this encounter Plan of Treatment Not on file documented as of this encounter Visit Diagnoses Diagnosis Encounter for vaccination- Primary documented in this encounter Orders Immunization/Injection Count Last Ordered Date First Ordered Date COVID-19 MRNA (PFIZER) 0.3 M L (30 MCG) VACCINE (12 YEARS AND UP) 1 05/18/2024 documented in this encounter Care Teams Pier Runner Relationship Specialty Start Date End Date Bertin Crenshaw MD [address] [facility] [address] [place] [address] PCP - General Internal Medicine 02/04/22 Sumi Love MD [address] [facility] [address] [place] [address] Referring Physician Psychiatry 02/04/22 Arlet Love MD [address] [facility] [address] [place] [address] Consulting Physician Obstetrics and Gynecology 02/04/22 Yasemin Churchill MD [address] [facility] [address] [place] [address] Referring Physician Internal Medicine 02/05/23 Romeo Lindsay MD [address] [facility] [address] [place] [address] Referring Physician Dermatology 02/05/23 Charissa Juarez MD [address] [facility] [address] [place] [address] Consulting Physician Psychiatry 02/05/23 Arlet Ballard RN [facility] Breast Risk Program Nurse 05/19/23 documented as of this encounter
--- OUTSIDE RECORDS SUMMARY | 2024-07-24 19:57 | XMS_ITS | Encounter Summary ---
Author Organization [facility] Address [address] [place] [address] Phone Care Team Providers Care Steel Rule Die Maker Apprentice Name Role Phone Bertin Crenshaw MD Primary Care Provider Sumi Love MD Unavailable Arlet Love MD Unavailable [phone] Yasemin Churchill MD Unavailable [phone] Romeo Lindsay MD Unavailable Charissa Juarez MD Unavailable [phone] Arlet Ballard RN Unavailable Unavailable Reason for Visit * Reason Comments PT Treatment * Consultation (Routine) - Authorized Specialty Diagnoses / Procedures Referred By Contac t Referred To Contact Physical Therapy Diagnoses Knee pain, unspecified chronicity, unspecified laterality Bertin Crenshaw MD [address] [address] Phone: tel: fax: [facility] (All Locations) Referral ID Status Reason Start Date Expiration Date Visits Requested Visits Authorized [id number] Authorized Specialty Services Required 11/01/2023 10/31/2024 24 24 Encounter Details Date Type Department Care Team (Late st Contact Info) Description 05/27/2024 9:30 AM CDT Therapy [facility] Physical Therapy [address] [facility] 1st Floor [phone] Jaky Herrera, DPT [address] [facility] [address] [id number] Knee pain, unspecified chronicity, unspecified laterality (Primary [...] on file Legal Sex Female 8:57 AM DAILY RELEASE 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 Knee pain, unspecified chronicity, unspecified laterality M25.569 Last PT Progress note: Date PT Care Plan Established or Reviewed: 01/23/2024 Total therapy visits: 4 Subjective:Pt reports that she wasn't as good with exercises as she could have been. Was traveling most of March. Things have been feeling really good, feels that exercises has been helping. Has not had any pain in the knee at all. Has been practicing not hyperextending her knees. Has been doing KB routine, heel taps, step ups, side stepping, SLS, squats, hip hinging. Has been using weight bar. Has found 2 gyms, planning on getting a personal driver, will be talking to a couple of CPTs to progress. Has avoided high impact things. HEP compliance: compliant does have questions about [...] in opposite hand of step up x x Hip hinging 10x Bar in front Focus on glute activation to return Two 5 lb DB x x Standing hip abduction - no band 10x SANDIE Light hip LR, avoid trunk side bend - improvement in lateral trunk side bend x X Standing marching - add foam 10x SANDIE Alternating to challenge stability THERAPEUTIC ACTIVITY PARAMETERS x x PATIENT EDUCATION/FUNCTIONAL ACTIVITIES Movement system diagnosis: knee hyperextension syndrome HEP Sleeping positions Sitting posture Standing posture Gait: reviewed mechanics, decreasing knee hyperextension Icing: over pes anserine area to decrease swelling and inflammation x x Return to step classes- start at an abbreviated amount, avoid knee hyperextension when moving backwards Foam mat for gym floor - to impact with exercise Shoe replacing- every 6-8 months Assessment: Pt has good response to therapy. Progressed program by increasing resistance. Discussedreturning to step class, obtaining new shoes, and a foam mat for her repetitive stepping to decrease impact. Pt demonstrates improvement in stability and proximal hip control. Pt to resume stepping, starting at 5-10 minute increments to assess symptom response. Will reassess progress next visit with potential discharge pending symptoms. Plan:Continue PT per POC to progress toward goals per patient tolerance Plan to progress exercises as tolerated next visit. Time-Based Code Calculator Minutes for Ther Ex/Ther Procedure (33804):: 13 minutes Minutes for Ther Act (34775):: 25 minutes Timed Code Treatment Minutes:: 38 minutes Total Treatment Time: 40 Jaky Herrera DPT documented in this encounter Plan of Treatment Not on file documented as of this encounter Visit Diagnoses Diagnosis Knee pain, unspecified chronicity, unspecified laterality- Primary documented in this encounter Care Teams Steel Rule Die Maker Apprentice Relationship Specialty Start Date End Date Bertin Crenshaw MD [address] [address] PCP - General Internal Medicine 02/04/22 Sumi Love MD [address] [facility] [address] [address] Referring Physician Psychiatry 02/04/22 Arlet Love MD [address] [facility] [address] [address] Consulting Physician Obstetrics and Gynecology 02/04/22 Yasemin Churchill MD [address] [facility] [address] [address] Referring Physician Internal Medicine 02/05/23 Romeo Lindsay MD [address] [facility] [address] [address] Referring Physician Dermatology 02/05/23 Charissa Juarez MD [address] [facility] [address] [address] Consulting Physician Psychiatry 02/05/23 Arlet Ballard RN [facility] Breast Risk Program Nurse 05/19/23 documented as of this encounter
--- OUTSIDE RECORDS SUMMARY | 2024-07-24 19:57 | XMS_ITS | Referral Summary ---
Author Organization [facility] Address [address] [facility] [place] [address] Care Team Providers Care Night Supervisor Name Role Phone Bertin Crenshaw MD Primary Care Provider Sumi Love MD Unavailable Arlet Love MD Unavailable Yasemin Churchill MD Unavailable Romeo Lindsay MD Unavailable Charissa Juarez MD Unavailable [phone] Arlet Ballard RN Unavailable Unavailable Encounters Date Type Department Care Team Description 07/13/2024 9:00 AM YARN BLEACHING MACHINE OPERATOR Office Visit [facility] Department of Psychiatry [address] [facility] [address] [place] [address] Marylin Gibbons NP Anxiety (Primary Dx); Major depressive disorder, recurrent episode, mild (HCC) 06/10/2024 8:30 AM YARN BLEACHING MACHINE OPERATOR Therapy [facility] Physical Therapy [address] [place] [address] Floor [address] [place] [phone] Jaky Herrera DPT Knee pain, unspecified chronicity, unspecified laterality (Primary Dx); Chronic pain of left knee 05/27/2024 9:30 AM CDT Therapy [facility] Physical Therapy [address] [place] [address] Floor [address] [place] [phone] Jaky Herrera DPT Knee pain, unspecified chronicity, unspecified laterality (Primary Dx) 05/25/2024 10:53 AM CDT - 05/25/2024 11:59 PM CDT Hospital Encounter [facility] Imaging [address] [address] [address] Skin lump of leg, right Discharge Disposition: Discharge to home or self care 05/18/2024 Immunization [facility] [address] [facility] 5th Floor [address] [place] [address] Marlene Pablo Encounter for vaccination (Primary Dx) 05/18/2024 Immunization [facility] [address] 5[address] [place] [address] Marlene Pablo 04/28/2024 10:45 AM CDT Office Visit [facility] [address] [address] Bertin Crenshaw MD Skin lump of leg, right (Primary Dx) 04/27/2024 2:30 PM CDT Office Visit [facility] Department of Psychiatry [address] [facility] [address] [place] [address] Marylin Gibbons NP Major depressive disorder, recurrent episode, moderate (HCC) (Primary Dx); Anxiety from Last 3 Months Allergies Active Allergy Reactions Criticality Noted Date Comments Benzalkonium Chloride Rash Medium 11/21/2022 1+ Cetrimonium [place] Rash Medium 11/21/2022 1+ Other Rash Medium [...] discussed. Assessment & Plan (09/01/2018 5:37 PM YARN BLEACHING MACHINE OPERATOR): Obesity is improving with lifestyle modifications. Commended on weight loss to date and discussed anticipated health benefits/risk reduction with this degree of loss. Behavioral treatment: continue WMP. Diet interventions: per RD. Regular aerobic exercise program discussed. Assessment & Plan (08/09/2018 12:00 PM YARN BLEACHING MACHINE OPERATOR): Obesity is improving with lifestyle modifications. Behavioral treatment: WMP. Diet interventions: per RD. Regular aerobic exercise program discussed. Assessment & Plan (08/04/2018 5:18 PM YARN BLEACHING MACHINE OPERATOR): Obesity is unchanged. General weight loss/lifestyle modification strategies discussed (elicit support from others; identify saboteurs; non-food rewards, etc). Behavioral treatment: WMP. Diet interventions: per RD. Informal exercise measures discussed, e.g. taking stairs instead of elevator. Regular aerobic exercise program discussed. Resolved Problems Problem Noted Date Diagnosed Date Resolved Date Colon cancer screening 04/11/202202/05 Overview (04/11/2022): Added automatically from request for surgery [id number] Flank pain 11/10/2018 02/05/2023 Assessment & Plan [...] IBW/day. Assessment & Plan (09/01/2018 5:29 PM YARN BLEACHING MACHINE OPERATOR): Continue plan per Weight Management Program; calorie restriction, meal replacements per RD. Continue food diary. Assessment & Plan (08/09/2018 11:58 AM YARN BLEACHING MACHINE OPERATOR): Continue plan per Weight Management Program; calorie restriction, meal replacements per RD. Continue food diary. Assessment & Plan (08/04/2018 5:16 PM YARN BLEACHING MACHINE OPERATOR): Appropriate candidate for Weight Management Program with [...] her. Assessment & Plan (09/01/2018 5:36 PM YARN BLEACHING MACHINE OPERATOR): She will have labs done tomorrow. Assessment & Plan (08/09/2018 11:59 AM YARN BLEACHING MACHINE OPERATOR): Labs Assessment & Plan (08/04/2018 5:16 PM YARN BLEACHING MACHINE OPERATOR): Labs. Immunizations Name Administration Dates Next Due COVID-19 mRNA (PFIZER) 0.3 m L (30 mcg) vaccine (12 years and up) 05/18/2024 Influenza, Trivalent, Cell C ulture-based MDCK, Preservative Free, Antibiotic Free, Intramuscular 05/18/2024 Influenza, Trivalent, IM (MDV) 06/14/2013 Influenza, Unspecified 04/27/2021 Pfizer SARS-CoV-2 Monovalent Vaccination (12+ Yrs) PURPLE 08/23/2020 Tdap 02/04/2022 Typhoid Inactivated 11/19/2021 ZOSTER Recombinant 04/29/2022,02/04/2022 Social History Tobacco Use Types Packs/Day Years [...] on file Legal Sex Female 8:57 AM YARN BLEACHING MACHINE OPERATOR Gender Identity Not on file Sexual Orientation Not on file 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 Room: [facility] ENDOSCOPY ROOM 8 Note Status: Finalized [...] The scope was passed under direct vision.The [id number] endoscope was introduced through the anus and advanced to the terminal ileum, with identification of the appendiceal orifice and IC valve. The colonoscopy was performed without difficulty. The patient tolerated the procedurewell. The quality of the bowel preparation was evaluated using the BBPS ([place] Bowel Preparation Scale)with scores of: Right Colon [...] following this procedure please call my office [phone]). After hours and eveningsplease call [phone] and speak to the GI fellow osito. Please tell the fellow that Dr. Borja [...] On: 04/25/2022 8:56 AM Recognized by the [place] for promoting quality in endoscopy Bertin Borja MD ENDOSCOPY PROCEDURES Fi nal Result from Last 3 Months or Most Recently Relevant to Health Maintenance Insurance [employer] [employer] [address] [place] [id number] [facility] EMPLOYEES [employer] Advance Directives For more information, please contact: [phone] * Full Code (Latest Code Status on File) Date Activated Date Inactivated Comments 04/25/2022 8:20 AM 04/25/2022 2:24 PM Care Teams Night Supervisor Relationship Specialty Start Date End Date Bertin Crenshaw MD [address] [address] PCP - General Internal Medicine 02/04/22 Sumi Love MD [facility] [address] [place] [address] Referring Physician Psychiatry 02/04/22 Arlet Love MD [address] [facility] [address] [place] [address] Consulting Physician Obstetrics and Gynecology 02/04/22 Yasemin Churchill MD [address] [facility] [address] [place] [address] Referring Physician Internal Medicine 02/05/23 Romeo Lindsay MD [address] [facility] [address] [place] [address] Referring Physician Dermatology 02/05/23 Charissa Juarez MD [address] [facility] [address] [place] [address] Consulting Physician Psychiatry 02/05/23 Arlet Ballard, [facility] Breast Risk Program Nurse 05/19/23
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
--- OUTSIDE RECORDS SUMMARY | 2024-07-24 19:57 | XMS_ITS | Encounter Summary ---
Author Organization [facility] Address [address] [place] [address] Care Team Providers Care Data Warehousing Architect Name Role Phone Bertin Crenshaw MD Primary Care Provider Sumi Love MD Unavailable [phone] Arlet Love MD Unavailable Yasemin Churchill MD Unavailable [phone] Romeo Lindsay MD Unavailable Charissa Juarez MD Unavailable [phone] Arlet Ballard RN Unavailable Unavailable Encounter Details Date Type Department Care Team (Late st Contact Info) Description 01/23/2024 Telephone [facility] [address] [place] [address] Bertin Crenshaw MD [address] [id number] Social History Tobacco Use Types Packs/Day Years [...] on file Legal Sex Female 8:57 AM ADJUNCT PHYSICAL EDUCATION INSTRUCTOR Gender Identity Not on file Sexual Orientation Not on file 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 documented in this encounter Plan of Treatment Not on file documented as of this encounter Visit Diagnoses Not on filedocumented in this encounter Care Teams Data Warehousing Architect Relationship Specialty Start Date End Date Bertin Crenshaw MD [address] [facility] [address] [place] [address] PCP - General Internal Medicine 02/04/22 Sumi Love MD [address] [facility] [address] [place] [address] Referring Physician Psychiatry 02/04/22 Arlet Love MD [address] [facility] [address] [place] [address] Consulting Physician Obstetrics and Gynecology 02/04/22 Yasemin Churchill MD [address] [facility] [address] [place] [address] Referring Physician Internal Medicine 02/05/23 Romeo Lindsay MD [address] [facility] [address] [place] [address] Referring Physician Dermatology 02/05/23 Charissa Juarez MD [address] [facility] [address] [place] [address] Consulting Physician Psychiatry 02/05/23 Arlet Ballard, RN [facility] Breast Risk Program Nurse 05/19/23 documented as of this encounter
--- OUTSIDE RECORDS SUMMARY | 2024-07-24 19:58 | XMS_ITS | Encounter Summary ---
Author Organization [facility] Address [address] [place] [address] Phone Care Team Providers Care Cesspool Cleaner Name Role Phone Bertin Crenshaw MD Primary Care Provider Sumi Love MD Unavailable [phone] Arlet Love MD Unavailable [phone] Reason for Visit * Reason Onset Date Comments Med Management 12/04/2022 PA for Opzelura 1.5% Cr Encounter Details Date Type Department Care Team (Late st Contact Info) Description 12/04/2022 Telephone [facility] Dermatology [address] [facility] [address] [place] [address] 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 How do you want to proceed? documented in this encounter Plan of Treatment Not on file documented as of this encounter Visit Diagnoses Not on filedocumented in this encounter Care Teams Cesspool Cleaner Relationship Specialty Start Date End Date Bertin Crenshaw MD [address] [facility] [address] [place] [address] PCP - General Internal Medicine 02/04/22 Sumi Love MD [facility] [address] [place] [address] Referring Physician Psychiatry 02/04/22 Arlet Love MD [address] [facility] [address] [place] [address] Consulting Physician Obstetrics and Gynecology 02/04/22 documented as of this encounter
--- OUTSIDE RECORDS SUMMARY | 2024-07-24 19:58 | XMS_ITS | Encounter Summary ---
Author Organization [facility] Healthcare Address [address] [place] [address] Care Team Providers Care Completion Manager Name Role Phone Bertin Crenshaw MD Primary Care Provider Sumi Love MD Unavailable [phone] Arlet Love MD Unavailable [phone] Yasemin Churchill MD Unavailable [phone] Romeo Lindsay MD Unavailable [phone] Charissa Juarez MD Unavailable Arlet Ballard RN Unavailable Unavailable Reason for Referral * Diagnostic Imaging (Routine) - Closed Specialty Diagnoses / Procedures Referred By Katherin cartagena Referred To Contact Diagnoses Chronic pain of left knee Procedures XR Knee Left 3 Views Bertin Crenshaw MD [address] [employer] [address] [address] Phone: tel: fax: [address] [address] Referral ID Status Reason Start Date Expiration Date Visits Re quested Visits Authorized [id number] Closed 10/31/2023 11/29/2024 1 1 Reason for Visit * Diagnostic Imaging (Routine) - Closed Specialty Diagnoses / Procedures Referred By [facility] Referred To Contact Diagnoses Chronic pain of left knee Procedures XR Knee Left 3 Views Bertin Crenshaw MD [address] [address] Phone: tel: fax: [facility] [address] [place] [address] Referral ID Status Reason Start Date Expiration Date Visits Re quested Visits Authorized [id number] Closed 10/31/2023 11/29/2024 1 1 Encounter Details Date Type Department Care Team (Latest Contact Info) Description 10/31/2023 1:57 PM CDT - 10/31/2023 11:59 PM CDT Hospital Encounter 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 Not on file Not on file Not on file documented as of this encounter Medications at Time of Discharge albuterol HFA (PROVENTIL HFA,VENTOLIN HFA,PROAIR HFA) 90 mcg/actuation inhaler Inhale 2 puffs every 6 (six) hours as needed cetirizine (ZyrTEC) 10 mg tablet Take 10 mg by mouth daily meloxicam (MOBIC) 15 mg tablet Take 1 tablet (15 mg total) by mouth daily for 20 days 20 tablet 10/31/2023 ruxolitinib (Opzelura) 1.5 % cream Apply 1 [...] daily 90 tablet 1 07/30/2023 07/05/20 24 atorvastatin (LIPITOR) 20 mg tabletIndications:O ther hyperlipidemia TAKE ONE TABLET BY MOUTH AT BEDTIME 90 tablet 1 08/22/2023 02/16/20 24 escitalopram (LEXAPRO) 10 mg tablet Take 1 tablet (10 mg total) by mouth daily 90 tablet 1 07/30/2023 01/19/20 24 losartan (COZAAR) 25 mg tabletIndications:H ypertension, essential TAKE ONE TABLET BY MOUTH DAILY 30 tablet 11 03/24/2023 04/29/20 24 omeprazole (PriLOSEC) 40 mg capsuleIndications: Gastroesophageal reflux disease without esophagitis TAKE ONE CAPSULE BY MOUTH DAILY 30 capsule 11 05/27/2023 07/05/20 24 traZODone (DESYREL) 50 mg tablet Take 0.5-1.5 tablets (25-75 mg total) by mouth nightly 45 tablet 10/01/2023 11/11/19 24 documented as of this encounter Discharge Disposition Disposition Code Departure Means Destination Discharge to home or self care documented in this encounter Plan of Treatment Not on file documented as of this encounter Procedures Procedure Name Priority Date/Time Associated Diagnosis Comments XR KNEE LEFT 3 VIEWS Schedule Routine, Read Routine (OP Routine) 10/31/2023 2:09 PM CDT Chronic pain of left knee documented in this encounter Results * XR Knee Left 3 Views (10/31/2023 2:09 PM CDT) Anatomical Region Laterality Modality Lower Extremities, Knee Left Computed Radiography 10/31/2023 2:53 PM CDT Impressions 10/31/2023 4:06 PM CDT Mild tricompartmental left knee osteoarthritis. Dictated by: Ovi Olmedo M.D. The radiology attending physician has personally reviewed this study, and had reviewed and/or edited this written report and agrees with it. Electronically signed by: Damon Simental MD Narrative 10/31/2023 4:06 PM CDT EXAMINATION: XR KNEE LEFT 3 VIEWS HISTORY: Knee pain COMPARISON: None. FINDINGS: 3 radiographs of the left knee are submitted for interpretation. Mild patellofemoral compartment predominant tricompartmental osteoarthritis of the left knee. ??No left knee joint effusion. Alignment is normal. ??No acute fracture. Procedure Note Damon Simental MD - 10/31/2023 EXAMINATION: XR KNEE LEFT 3 VIEWS HISTORY: Knee pain COMPARISON: None. FINDINGS: 3 radiographs of the left knee are submitted for interpretation. Mild patellofemoral compartment predominant tricompartmental osteoarthritis of the left knee. No left knee joint effusion. Alignment is normal. No acute fracture. IMPRESSION: Mild tricompartmental left knee osteoarthritis. Dictated by: Ovi Olmedo M.D. The radiology attending physician has personally reviewed this study, and had reviewed and/or edited this written report and agrees with it. Electronically signed by: Damon Simental MD Bertin Crenshaw MD IMG XR PROCEDURES Roshni l Result documented in this encounter Visit Diagnoses Diagnosis Chronic pain of left knee documented in this encounter Care Teams Completion Manager Relationship Specialty Start Date End Date Bertin Crenshaw MD [address] [facility] [address] [place] [address] PCP - General Internal Medicine 02/04/22 Sumi Love MD [address] [facility] [address] [place] [address] Referring Physician Psychiatry 02/04/22 Arlet Love MD [address] [facility] [address] [place] [address] Consulting Physician Obstetrics and Gynecology 02/04/22 Yasemin Churchill MD [address] [place] [address] Referring Physician Internal Medicine 02/05/23 Romeo Lindsay MD [address] [facility] [address] [place] [address] Referring Physician Dermatology 02/05/23 Charissa Juarez MD [address] [place] [address] Consulting Physician Psychiatry 02/05/23 Arlet Ballard, KE [facility] Breast Risk Program Nurse 05/19/23 documented as of this encounter
--- OUTSIDE RECORDS SUMMARY | 2024-07-24 19:58 | XMS_ITS | Encounter Summary ---
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 Left a message with call back number. JADE Fonseca, RN [facility] Breast Risk Program Nurse [phone] documented in this encounter Plan of Treatment Not on file documented as of this encounter Visit Diagnoses Not on filedocumented in this encounter Care Teams Condominium Association Manager Relationship Specialty Start Date End Date Bertin Crenshaw MD [address] [facility] [address] [place] [address] PCP - General Internal Medicine 02/04/22 Sumi Love MD [address] [facility] [address] [place] [address] Referring Physician Psychiatry 02/04/22 Arlet Love MD [address] [facility] [address] [place] [address] Consulting Physician Obstetrics and Gynecology 02/04/22 documented as of this encounter
--- OUTSIDE RECORDS SUMMARY | 2024-07-24 19:58 | XMS_ITS | Encounter Summary ---
Author Organization [facility] Healthcare Address [address] [place] [address] Care Team Providers Care Social Service Technician Name Role Phone Bertin Crenshaw MD Primary Care Provider Sumi Love MD Unavailable [phone] Arlet Love MD Unavailable [phone] Reason for Visit * Auth/Cert Specialty Diagnoses / Procedures Referred By Katherin cartagena Referred To Contact Diagnoses Colon cancer screening Colon cancer screening [Z12.11] Procedures TN COLONOSCOPY FLX DX W/COLLJ SPEC WHEN PFRMD TN COLONOSCOPY W/BIOPSY SINGLE/MULTIPLE COLONOSCOPY Referral ID Status Reason Start Date Expiration Date Visits Re quested Visits Authorized [id number] 1 1 Encounter Details Date Type Department Care Team (Late st Contact Info) Description 04/25/2022 8:54 AM CDT Anesthesia Event [facility] [address] [place] [address] Claudy Valdes MD [address] [facility] [address] [id number] [place] [address] Anesthesia Record Procedure Summary Procedure Name Responsible Anesthesiologist Anesthesia Start Time Anesthesia Stop Time COLON REMOVAL SNARE (Colon) Claudy Valdes MD 04/25/22 0854 04/25/22 0936 Events Date Time Event Comment 04/25/2022 0839 0854 An Start 0857 An Start Data 0857 In Room 0900 Start Supplemental O2 0901 Patient Positioned Laterally 0901 An Induction The patient was reevaluated immediately before moderate or deep sedation use and before anesthesia induction. 0903 Anesthesia Ready 0904 Proc Start 0927 Proc Fin 0931 an stop data 0931 Out of Room 0936 Handoff to RN I completed my handoff to the receiving nurse during which we: 1. Patient identified 2. Responsible provider identified 3. Pertinent medical history reviewed 4. Procedure type and surgical course discussed 5. Intraoperative anesthetic management and any significant issues discussed 6. Expectations and concerns for postop period discussed 7. Questions solicited from receiving nurse 8. Patient disposition at the time of handoff: PACU,phase II 0936 An Stop Meds Name Total lidocaine (cardiac) syringe 2 % 100 mg propofol 140 mg propofol 460.65 mg sodium chloride 0.9% infusion 200 mL * Agents Name O2% N2O O2 * Blood No blood administrations on file. 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 Not on file Not on file Not on file documented as of this encounter OR Notes * Anesthesia Postprocedure Evaluation - Claudy Valdes MD - 04/25/2022 9:53 AM CDT Patient: Rebecca Santacruz Procedure Summary Date: 04/25/22 Room / Location: [facility] ROOM 8 / [facility] Anesthesia Start: 853 Anesthesia Stop: 935 Procedure: COLON REMOVAL SNARE (Colon) Diagnosis: Colon cancer screening (Colon cancer screening [Z12.11]) Providers: Bertin Borja MD Responsible Provider: Claudy Valdes MD Anesthesia Type: MAC ASA Status: 2 Anesthesia Type: MAC Last vitals BP 124/94 Pulse 77 Temp 36.3 ??C (97.3 ??F) (Skin) Resp 16 SpO2 97% Anesthesia Post Evaluation Patient location during evaluation: PACU Patient participation: complete - patient participated Level of consciousness: fully awake Pain management: adequate Airway patency: adequate Cardiovascular status: acceptable and hemodynamically stable Respiratory status: acceptable and room air Hydration status: euvolemic Pt is: normothermic Nausea/Vomiting status: none No notable events documented. * Anesthesia Preprocedure Evaluation - Claudy Valdes MD - 04/25/2022 8:39 AM CDT Images from the original note were not included. Anesthesia Evaluation Rebecca Santacruz is a 51 y.o. female Procedure(s): COLONOSCOPY Pre-Op Diagnosis Codes: * Colon cancer screening [Z12.11] Patient Active Problem List Diagnosis ??? Class 2 obesity due to excess calories without serious comorbidity with body mass index (BMI) of 37.0 to 37.9 in adult ??? Flank pain ??? Recurrent major depressive disorder, in partial remission (HCC) ??? Gastroesophageal reflux disease without esophagitis ??? Other hyperlipidemia ??? Hypertension, essential ??? Environmental allergies ??? Colon cancer screening Past Medical History: Diagnosis Date ??? Seasonal allergies ??? Vaginal delivery Past Surgical History: Procedure Laterality Date ??? CYST REMOVAL Left hand ??? CYST REMOVAL foot OB History No obstetric history on file. No Known Allergies Taking? Last Dose Start Date End Date Provider albuterol HFA (PROVENTIL HFA,VENTOLIN HFA,PROAIR HFA) 90 mcg/actuation inhaler Past Week -- -- Provider, Historical, MD ARIPiprazole (ABILIFY) 10 mg tablet Past Week -- -- Matheus Samuel MD atorvastatin (LIPITOR) 20 mg tablet Past Week 02/04/22 -- Bertin Crenshaw MD Take 1 tablet (20 mg total) by mouth daily cholecalciferol (VITAMIN D-3) 50,000 unit capsule Past Week -- -- Matheus Samuel MD escitalopram (LEXAPRO) 10 mg tablet Past Week -- -- Matheus Samuel MD ketoconazole (NIZORAL) 2 % shampoo Past Week 06/02/19 -- Matheus Samuel MD losartan (COZAAR) 25 mg tablet Past Week 02/04/22 -- Bertin Crenshaw MD Take 1 tablet (25 mg total) by mouth daily omeprazole (PriLOSEC) 40 mg capsule Past Week 02/04/22 -- Bertin Crenshaw MD Take 1 capsule (40 mg total) by mouth daily pimecrolimus (ELIDEL) 1 % cream Past Week 06/02/19 -- Matheus Samuel MD Current Facility-Administered Medications: ??? ondansetron (ZOFRAN) injection 4 mg, 4 mg, intravenous, Q6H PRN ??? sodium chloride 0.9% flush 0.5-20 mL, 0.5-20 mL, intra-catheter, PRN ??? sodium chloride 0.9% infusion, 30 mL/hr, intravenous, Continuous Social History Tobacco Use Smoking Status Never Smokeless Tobacco Never Alcohol Use: Unknown ??? Frequency of Alcohol Consumption: Not on file ??? Average Number of Drinks: Patient does not drink ??? Frequency of Binge Drinking: Not on file Substance and Sexual Activity Drug Use Yes ??? Types: Alcohol Comment: 1 drink per week Family History Problem Relation Age of Onset ??? Ovarian cancer Mother 45 ??? Alzheimer's disease Mother ??? Bladder Cancer Father 70 non-smoker ??? Breast cancer Sister 50 ??? BRCA2 Negative Sister ??? BRCA1 Negative Sister ??? Testicular cancer Brother 45 ??? Prostate cancer Brother 47 ??? No Known Problems Brother ??? Alzheimer's disease Maternal Grandmother ??? Heart disease Maternal Grandfather ??? Heart attack Maternal Grandfather ??? No Known Problems Paternal Grandmother ??? No Known Problems Paternal Grandfather ??? ADD / ADHD Daughter ??? Scoliosis Daughter ??? ADD / ADHD Daughter ??? Scoliosis Daughter ??? Psoriasis Daughter ??? ADD / ADHD Daughter ??? Psoriasis Daughter ??? Breast cancer Mother's Sister 45 ??? Brain cancer Mother's Sister ??? Alzheimer's disease Father's Sister ??? No Known Problems Father's Sister ??? Colon cancer Neg Hx Vitals: 04/25/22 0819 BP: 125/61 Pulse: 67 Resp: 16 Temp: 36.2 ??C (97.2 ??F) SpO2: 98% PT: No results found for requested labs within last 720 hours. INR: No results found for requested labs within last 720 hours. APTT: No results found for requested labs within last 720 hours. Hgb A1C: No results found for requested labs within last 720 hours. CBC RBC: No results found for requested labs within last 720 hours. RDW: No results found for requested labs within last 720 hours. MCHC: No results found for requested labs within last 720 hours. MCH: No results found for requested labs within last 720 hours. MCV: No results found for requested labs within last 720 hours. Hct: No results found for requested labs within last 720 hours. Hgb: No results found for requested labs within last 720 hours. WBC: No results found for requested labs within last 720 hours. MPV: No results found for requested labs within last 720 hours. Platelets: No results found for requested labs within last 720 hours. RDW CV: No results found for requested labs within last 720 hours. RDW Sd: No results found for requested labs within last 720 hours. BMP Glucose: No results found for requested labs within last 720 hours. Calcium: No results found for requested labs within last 720 hours. Sodium: No results found for requested labs within last 720 hours. Potassium: No results found for requested labs within last 720 hours. CO2: No results found for requested labs within last 720 hours. Chloride: No results found for requested labs within last 720 hours. BUN: No results found for requested labs within last 720 hours. Creatinine: No results found for requested labs within last 720 hours. DOS Physical Exam Medical history, medications, and allergies reviewed. Attestation: With today's edits, I endorse the findings of the anesthesia pre-evaluation assessment dated: 04/25/2022. Airway Exam: Mallampati: II Cervical ROM: FROM TM distance: normal Cardiovascular Exam: Rate: regular Rhythm: regular Pulmonary Exam: LCTA Dental Exam: Appears intact Current state: Patient's current state is cooperative and interactive. Anesthesia Plan ASA 2 My patient is approved for the Anesthesia Controlled Medication protocol when under care of a MARBLEIZER Planned anesthesia: MAC Induction: Induction: intravenous. Postoperative Plan: Postoperative administration opioids intended. No postoperative mechanical ventilation intended. No trial extubation planned. Informed Consent: Anesthesia plan and risks discussed with patient. Plan and Consent Comments: MAC anesthetic including potential risk for converting to a general anesthetic with airway placement were discussed with the patient. All questions answered. Expectation for the possibility of awareness during MAC established with the patient. NPO times appropriate. Consent and Attending signature: I and/or my designee have discussed the anesthesia plan, benefits, possible alternatives, parental presence at time of induction (if indicated), and clinically relevant risks that may include dental injury, unintentional awareness, and/or other complications. The patient and/or parent/legal guardian understand, and agree to proceed. All questions answered. documented in this encounter Plan of Treatment Not on file documented as of this encounter Visit Diagnoses Not on filedocumented in this encounter Administered Medications Inactive Administered Medications - up to 3 most recent administrations Medication Order MAR Action Action Date Dose Rate Site lidocaine (cardiac) (XYLOCAINE) preservative free injection intravenous, As needed, Starting on Becca 04/25/22 at 0901, Anesthesia Intra-op, Indications: Ventricular ArrhythmiasIndications :Ventricular Arrhythmias Given 04/25/2022 9:01 AM CDT 100 mg propofoL (DIPRIVAN) 10 mg/mL IV intravenous, Continuous PRN, Starting on Becca 04/25/22 at 0901, Anesthesia Intra-op Rate/Dose Change 04/25/2022 9:11 AM CDT 165 mcg/kg/min 107.811 mL/hr Rate/Dose Change 04/25/2022 9:08 AM CDT 175 mcg/kg/min 114 .345 mL/hr Rate/Dose Change 04/25/2022 9:07 AM CDT 165 mcg/kg/min 107 .811 mL/hr propofoL (DIPRIVAN) 10 mg/mL IV intravenous, As needed, Starting on Becca 04/25/22 at 0906, Anesthesia Intra-op Given 04/25/2022 9:08 AM CDT 20 mg Given 04/25/2022 9:06 AM CDT 20 mg Given 04/25/2022 9:01 AM CDT 100 mg sodium chloride 0.9% infusion 30 mL/hr, intravenous, Continuous, Starting on Becca 04/25/22 at 0900 New Bag 04/25/2022 8:54 AM CDT 30 mL/hr documented in this encounter Care Teams Social Service Technician Relationship Specialty Start Date End Date Bertin Crenshaw MD [address] [facility] [address] [place] [address] PCP - General Internal Medicine 02/04/22 Sumi Love MD [address] [facility] [address] [place] [address] Referring Physician Psychiatry 02/04/22 Arlet Love MD [address] [facility] [address] [place] [address] Consulting Physician Obstetrics and Gynecology 02/04/22 documented as of this encounter
--- OUTSIDE RECORDS SUMMARY | 2024-07-24 19:58 | XMS_ITS | Encounter Summary ---
Author Organization [facility] Address [address] [place] [address] Phone Care Team Providers Care Quarry Boss Name Role Phone Lynda Duarte NP Primary Care Provider [phone] Encounter Details Date Type Department Care Team (Late st Contact Info) Description 03/20/2021 9:00 AM CDT [facility] Advanced Medicine [facility]) - [facility] Urology [address] 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 The patient visit started at 9:06 AM and ended at 9:12 AM. My total encounter time on 03/20/2021 was 10 minutes which was spent in the activities documented in the note. This includes time spentprior to the visit and after the visit in direct care of the patient. This time does not include time spent in any separately reportable services.. The patient has been informed that the visit may not be secure and acknowledged the information. I have explained the option of participating in a telephone or video visit during the COVID-19 public health emergency to the patient. After being given an opportunity to ask questions about and discussthis type of visit, the patient verbally consented to proceeding with the telephone/video visit. The patient understands that this service replaces an office visit and they may be billed and/or responsible for any applicable copayments. Corey Sainz MD Chief Complaint: renal mass I am seeing Rebecca Blanca Noam today in consultation at the request of DERRICK Duarte for evaluation of renal mass. History of Present Illness: Rebecca Santacruz is a 50 y.o. female w/ renal mass - Location: right kidney - Quality: asymptomatic - Severity: reportedly 1.7 cm in size - Duration: diagnosed on ultrasound in the last month - Modifying factors: strong family history of cancer - Associated signs/symptoms: no hematuria, UTI symptoms Subjective The patient's Past Medical, Social and Family History have been reviewed and can be found in the chart. Review of systems: A complete review of systems was conducted and was negative except for as explicitly listed in the History of Present Illness. Objective Lab/Radiology/Diagnostic Review: CT 02/2021 - No lesions; ?4 mm cyst in the right kidney I have reviewed and independently examined the CT images. My findings are given above with the associated imaging tests. Review of Records: I have reviewed and independently examined the medical records of this patient provided by DERRICK Duarte. This information was incorporated into the medical decision-making provided in the assessment and plan for this patient. Assessment/Plan It was a pleasure speaking with Rebecca Blanca Noam today. Rebecca Santacruz is a 50 y.o. female w/ reported renal mass - Discussed the natural history of small renal masses - Discussed the AUA guidelines for small renal masses - Discussed the limited role of renal mass biopsy, particularly the 8-19% non- diagnostic rate in the literature - Discussed treatment options: surveillance, ablation, partial or radical nephrectomy - In her case, we discussed that the CT did not definitively show a renal mass - Discussed re-review of her ultrasound report and images - May consider a repeat US in 1 year if there is a discrepancy - Otherwise, given the normal CT appearance, would consider follow-up PRN Thank you for allowing us to participate in the care of this patient. Please do not hesitate to contact us should you have any questions or concerns at [phone]. documented in this encounter Plan of Treatment Not on file documented as of this encounter Visit Diagnoses Diagnosis Renal mass- Primary Unspecified disorder of kidney and ureter documented in this encounter Discontinued Medications Medication Sig Discontinue Reason Start Date End Da te citalopram (CeleXA) 20 mg tablet Take 10 mg by mouth daily 06/22/2017 03/20/2021 lurasidone (LATUDA) 20 mg tablet Take 1 tablet (20 mg total) by mouth daily. 08/11/2018 03/20/2021 traZODone (DESYREL) 50 mg tablet Take 50 mg by mouth nightly as needed 06/21/2017 03/20/2021 documented as of this encounter Care Teams Quarry Boss Relationship Specialty Start Date End Date Lynda Duarte NP PCP - General 10/24/20 02/03/22 documented as of this encounter
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
--- OUTSIDE RECORDS SUMMARY | 2024-07-24 19:58 | XMS_ITS | Encounter Summary ---
Author Organization [facility] Address [address] [place] [address] Care Team Providers Care Workers' Compensation Magistrate Name Role Phone Bertin Crenshaw MD Primary Care Provider Sumi Love MD Unavailable [phone] Arlet Love MD Unavailable [phone] Yasemin Churchill MD Unavailable [phone] Romeo Lindsay MD Unavailable [phone] Charissa Juarez MD Unavailable [phone] Arlet Ballard RN Unavailable Unavailable Encounter Details Date Type Department Care Team (Late st Contact Info) Description 08/19/2023 [facility] Breast Risk Subsequent Outreach [facility] 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 Not on file Not on file Not on file documented as of this encounter Plan of Treatment Not on file documented as of this encounter Visit Diagnoses Not on filedocumented in this encounter Care Teams Workers' Compensation Magistrate Relationship Specialty Start Date End Date Bertin Crenshaw MD [address] [facility] [address] [place] [address] PCP - General Internal Medicine 02/04/22 Sumi Love MD [address] [facility] [address] [place] [address] Referring Physician Psychiatry 02/04/22 Arlet Love MD [address] [place] [address] Consulting Physician Obstetrics and Gynecology 02/04/22 Yasemin Churchill MD [address] [place] [address] Referring Physician Internal Medicine 02/05/23 Romeo Lindsay MD [address] [place] [address] Referring Physician Dermatology 02/05/23 Charissa Juarez MD [address] [place] [address] Consulting Physician Psychiatry 02/05/23 Arlet Ballard, KE [facility] Breast Risk Program Nurse 05/19/23 documented as of this encounter
--- OUTSIDE RECORDS SUMMARY | 2024-07-24 19:58 | XMS_ITS | Encounter Summary ---
Author Organization [facility] Address [address] [place] [address] Phone Care Team Providers Care Professor Criminal Justice Name Role Phone Bertin Crenshaw MD Primary Care Provider Sumi Love MD Unavailable [phone] Arlet Love MD Unavailable [phone] Encounter Details Date Type Department Care Team (Late st Contact Info) Description 04/30/2022 Documentation [facility] Gastroenterology [address] [facility] Advanced Medicine 12th [place] [address] [place] [address] Charissa Gonzalez LPN Social History Tobacco Use Types Packs/Day Years [...] on file Legal Sex Female 8:57 AM SNUFF CONTAINER INSPECTOR Gender Identity Not on file Sexual Orientation Not on file 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 Borja. He adv a repeat appt in 10years. Sent pathology report and procedure report to PCP on file. Set reminder to have repeat appt scheduled. documented in this encounter Plan of Treatment Not on file documented as of this encounter Visit Diagnoses Not on filedocumented in this encounter Care Teams Professor Criminal Justice Relationship Specialty Start Date End Date Bertin Crenshaw MD [address] [facility] [address] [place] [address] PCP - General Internal Medicine 02/04/22 Sumi Love MD [address] [facility] [address] [place] [address] Referring Physician Psychiatry 02/04/22 Arlet Love MD [address] [facility] [address] [place], [place] [id number] Consulting Physician Obstetrics and Gynecology 02/04/22 documented as of this encounter
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
--- OUTSIDE RECORDS SUMMARY | 2024-07-24 19:58 | XMS_ITS | Encounter Summary ---
Author Organization [facility] Healthcare Address [address] [place] [address] Care Team Providers Care Behavioral Therapy Coordinator Name Role Phone Bertin Crenshaw MD Primary Care Provider Sumi Love MD Unavailable [phone] Arlet Love MD Unavailable [phone] Yasemin Churchill MD Unavailable [phone] Romeo Lindsay MD Unavailable [phone] Charissa Juarez MD Unavailable [phone] Arlet Ballard RN Unavailable Unavailable Reason for Referral * MRI/CAT/PET Scan (Routine) - Closed Specialty Diagnoses / Procedures [facility] Referred To Contact Radiology Diagnoses At high risk for breast cancer Family history of breast cancer Procedures MRI Breast Bilateral W WO Contrast Arlet Love MD [address] [facility] [address] [place] [address] Phone: tel: fax: [facility] [address] [place] [address] Referral ID Status Reason Start Date Expiration Date Visits Re quested Visits Authorized [id number] Closed 05/13/2023 06/11/2024 1 1 Reason for Visit * MRI/CAT/PET Scan (Routine) - Closed Specialty Diagnoses / Procedures Referred By [facility] Referred To Contact Radiology Diagnoses At high risk for breast cancer Family history of breast cancer Procedures MRI Breast Bilateral W Arlet Frausto MD [address] [facility] [address] [place] [address] Phone: tel: fax: [facility] [address] [place] [address] Referral ID Status Reason Start Date Expiration Date Visits Re quested Visits Authorized [id number] Closed 05/13/2023 06/11/2024 1 1 Encounter Details Date Type Department Care Team (Latest Contact Info) Description 05/19/2023 6:41 AM CDT - 05/19/2023 11:59 PM CDT Hospital Encounter [facility] - Imaging [address] [place] [address] At high risk for breast cancer; Family history of breast cancer Discharge Disposition: Discharge to home or self [...] on file 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 Gender Identity Not on file Sexual Orientation Not on file 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[employer], 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 Not on file Not on file Not on file documented as of this encounter Medications at Time of Discharge albuterol HFA (PROVENTIL HFA,VENTOLIN HFA,PROAIR HFA) 90 mcg/actuation inhaler Inhale 2 puffs every 6 (six) hours as needed cetirizine (ZyrTEC) 10 mg tablet Take 10 mg by mouth daily ruxolitinib (Opzelura) 1.5 % cream Apply 1 Application topically 2 (two) times a day 600 g 6 11/21/2022 ARIPiprazole (ABILIFY) 2 mg tablet Take 1 tablet (2 mg total) by mouth daily 90 tablet 1 07/17/2022 06/03/20 23 atorvastatin (LIPITOR) 20 mg tabletIndications:O ther hyperlipidemia Take 1 tablet (20 mg total) by mouth daily 30 tablet 11 02/04/2022 08/22/19 24 escitalopram (LEXAPRO) 5 mg tablet TAKE ONE TABLET BY MOUTH DAILY 90 tablet 1 01/24/2023 07/30/19 24 losartan (COZAAR) 25 mg tabletIndications:H ypertension, essential TAKE ONE TABLET BY MOUTH DAILY 30 tablet 11 03/24/2023 04/29/20 24 loteprednol etabonate 0.5 % ointment Apply to both eyelids twice daily 3.5 g 2 08/29/2022 07/30/19 24 omeprazole (PriLOSEC) 40 mg capsuleIndications: Gastroesophageal reflux disease without esophagitis Take 1 capsule (40 mg total) by mouth daily 30 capsule 02/04/2022 05/27/20 23 documented as of this encounter Discharge Disposition Disposition Code Departure Means Destination Discharge to home or self care documented in this encounter Plan of Treatment Not on file documented as of this encounter Procedures Procedure Name Priority Date/Time Associated Diagnosis Comments MRI BREAST BILATERAL W WO CONTRAST Schedule Routine, Read Routine (OP Routine) 05/19/2023 9:26 AM CDT At high risk for breast cancer Family history of breast cancer documented in this encounter Results * MRI Breast Bilateral W WO Contrast (05/19/2023 9:26 AM CDT) Anatomical Region Laterality Modality Breast Bilateral Magnetic Resonan ce 05/19/2023 12:1 2 PM CDT Impressions 05/19/2023 12:12 PM CDT No MRI evidence of malignancy. BI-RADS ??Category 2: Benign Recommendation: The patient is currently due for annual screening mammography. Annual MRI is recommended as an adjunct to screening mammography. Electronically signed by: Hanna Bond M.D. Narrative 05/19/2023 12:12 PM CDT BILATERAL BREAST MRI WITH AND WITHOUT CONTRAST CLINICAL HISTORY: 52-year-old woman with 30% estimated lifetime risk of breast cancer. ??MRI screening examination. COMPARISON:MRI of 11/01/2020, 05/14/2019, 08/21/2017. ??Prior screening mammograms most recent 05/24/2022. TECHNIQUE: Bilateral dynamic breast MRI was performed using a dedicated breast coil. ??Images were obtained prior to and following intravenous administration of 20 mL's of gadoterate meglumine contrast. ??Subtraction images, 3-D and multiplanar reconstructions were performed and reviewed. [employer] software was utilized. BREAST COMPOSITION: Scattered fibroglandular tissue densities. BACKGROUND PARENCHYMAL ENHANCEMENT: There is mild to moderate background parenchymal enhancement increased slightly from prior study, which lowers the sensitivity of the examination. FINDINGS: There are no focally suspicious findings to suggest malignancy in either breast. ??There are no abnormally enlarged lymph nodes in the visualized portions of the right or left axilla. Arlet Love MD IMG MRI PROCEDURES Roshni l Result documented in this encounter Visit Diagnoses Diagnosis At high risk for breast cancer Family history of breast cancer Family history of malignant neoplasm of breast documented in this encounter Administered Medications Inactive Administered Medications - up to 3 most recent administrations Medication Order MAR Action Action Date Dose Rate Site gadoterate meglumine injection 20 mL 20 mL, intravenous, Once in imaging, contrast, Starting on 05/19/23 at 0716, For 1 dose Contrast Given 05/19/2023 7:41 AM CDT 20 mL documented in this encounter Orders Medications Ordered That Dominick ht Not Have Been Administered Count Last Ordered Date First Ordered Date gadoterate meglumine injection 20 mL 1 04/28 documented in this encounter Care Teams Behavioral Therapy Coordinator Relationship Specialty Start Date End Date Bertin Crenshaw MD [address] [facility] [address] [place] [address] PCP - General Internal Medicine 02/04/22 Sumi Love MD [address] [facility] [address] [place] [address] Referring Physician Psychiatry 02/04/22 Arlet Love MD [address] [facility] [address] [place] [address] Consulting Physician Obstetrics and Gynecology 02/04/22 Yasemin Churchill MD [address] [facility] [address] [place] [address] Referring Physician Internal Medicine 02/05/23 Romeo Lindsay MD [address] [facility] [address] [place] [address] Referring Physician Dermatology 02/05/23 Charissa Juarez MD [address] [facility] [address] [place] [address] Consulting Physician Psychiatry 02/05/23 Arlet Ballard, [facility] Breast Risk Program Nurse 05/19/23 documented as of this encounter
--- OUTSIDE RECORDS SUMMARY | 2024-07-24 19:58 | XMS_ITS | Encounter Summary ---
Author Organization [facility] Address [address] [place] [address] Phone Care Team Providers Care Inspector Government Property Name Role Phone Bertin Crenshaw MD Primary Care Provider Sumi Love MD Unavailable [phone] Arlet Love MD Unavailable [phone] Encounter Details Date Type Department Care Team (Late st Contact Info) Description 11/21/2022 2:30 PM CDT Office Visit [facility] Dermatology [address] [place] [address] [address] [place] [address] Romeo Lindsay MD [address] [place] [address] [address] [place] [address] 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 Dx) Social History Tobacco Use Types [...] on file 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 female (referred by Dr. Amezquita) with a history of eczema, eyelid dermatitis who presents today for a final reading. The patient had been treating with Zyrtec and Lotemax (prescribed by Dr. Amezquita), however she has since discontinued Lotemax and is using Opzulera (prescribed by senior technical support analyst in [place]). The patient had been seen by ophthalmology for discussion regarding surgery for ptosis and the physician reportedly believed the patient could have eyeliddermatitis. The patient reports having switched to Vanicream products without much improvement. She does note flaring on her arm where her watch band sits as well. Patient also notes having used Lysol with a rash developing on her arm shortly after - patient notes she rarely uses Lysol. 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 No mouth or genital sores. PHYSICAL EXAM: Patch Test Results: 2+ para-phenylenediamine (black dyes, blue dyes, hair dyes, highlights, low lights, black rubber, hydrochlorothiazide) 1+ Cetrimonium bromide (many hair shampoos and conditioners) - soft shiy no fly away 1+ Benzalkonium chloride (antibacterial soaps including Dial, Lysol, household surface cleansers) 1+ Sodium benzoate (salad dressings, jams, juices, condiments, carbonated drinks) 1+ Shellac (shiny and glossy finishes; food grade shiny finish on cakes, candies, and cookies; shiny coating on pharmaceutical medications; hair sprays, body sprays, and even some makeup products) Otherwise: GENERAL: Appears well. No acute distress. ORIENTATION: Alert and oriented x3. MOOD/AFFECT: Normal affect. FACE: No abnormalities noted. EARS: No abnormalities noted. SCALP/HAIR: No abnormalities noted. EYES/EYELIDS: No scleral icterus. No abnormalities noted of conjunctiva or eyelids. LIPS/ORAL MUCOSA: No abnormalities noted. NECK: No abnormalities noted. CHEST: No abnormalities noted. BACK: No abnormalities noted. ABDOMEN: No abnormalities noted. EXTREMITIES (RUE): No abnormalities noted. EXTREMITIES (LUE): No abnormalities noted. EXTREMITIES (RLE): No abnormalities noted. EXTREMITIES (LLE): No abnormalities noted. DIGITS/NAILS: No cyanosis, clubbing, or nail abnormality. GENITALIA, GROIN, BUTTOCKS: No abnormalities noted. CARDIOVASCULAR: No edema or varicosities noted. ECCRINE: No hyperhidrosis. LYMPH: No adenopathy cervical, supraclavicular, occipital, axillary, inguinal, popliteal. ASSESSMENT AND PLAN: Allergic Contact Dermatitis due to other agents: Patch Test Results: # 2+ para-phenylenediamine (black dyes, blue dyes, hair dyes, highlights, low lights, black rubber,hydrochlorothiazide) ## 1+ Cetrimonium bromide (many hair shampoos and conditioners) - soft shiy no fly away ### 1+ Benzalkonium chloride (antibacterial soaps including Dial, Lysol, household surface cleansers) ####1+ Sodium benzoate (salad dressings, jams, juices, condiments, carbonated drinks) #####1+ Shellac (shiny and glossy finishes; food grade shiny finish on cakes, candies, and cookies;shiny coating on pharmaceutical medications; hair sprays, body sprays, and even some makeup products) # discussed with patient that para-phenylenediamine is found in many hair products and hair dyes, including those used for highlights, low lights, black dyes, and blue dyes. Also discussed with patient that this chemical is found in black rubber and hydrochlorothiazide - patient does no believe sheis taking this medication. ## discussed that cetrimonium bromide is a compound found in a wide variety of shampoos and, even more so, in conditioners as this is the compound that gives hair the soft, shy look and prevents fly away hairs. Patient notes having already switched to Vanicream products and has not noticed much improvement - discussed that it may take a few weeks for the product change to take effect. ### discussed with patient that benzalkonium chloride is found in many antibacterial soaps, including Dial soap, as well as Lysol and household surface cleansers. The patient notes she rarely uses Lysol, however she sprayed some about 1 month ago after someone left it at her house and she noted a rash flaring to her right forearm shortly after. Recommended patient avoid Lysol and antibacterial soaps - recommended she use Vanicream soaps. #### discussed that sodium benzoate is commonly found in salad dressings, jams, juices, condiments,and carbonated drinks, including sodas and fizzy jackson. ##### discussed with patient that shellac is found in a large variety of both every day objects/products, as well as ingestible food-grade products with a shiny, glossy appearance including cakes, cookies, candies, and the coatings found on pharmaceutical medications. Also discussed that shellac isfound in hairspray, body spray, and some makeup products. Patient will provide an e-mail for use to send a safe list of products to her for reference PROCEDURES: RTC follow up with Dr. Alirio MEZA ATTESTATION By signing my name, I, Saira Parikh, attest that this documentation has been prepared under the direction and in the presence of Dr. Lindsay. 11/21/22 Scribe Attestation: The above is an accurate record of my words and actions during the patient visit. Romeo Lindsay MD documented in this encounter Plan of Treatment Not on file documented as of this encounter Visit Diagnoses Diagnosis Allergic contact dermatitis due to other agents- Primary documented in this encounter Care Teams Inspector Government Property Relationship Specialty Start Date End Date Bertin Crenshaw MD [address] [address] PCP - General Internal Medicine 02/04/22 Sumi Love MD [address] [facility] [address] [place] [address] Referring Physician Psychiatry 02/04/22 Arlet Love MD [address] [facility] [address] [place], [place] [id number] Consulting Physician Obstetrics and Gynecology 02/04/22 documented as of this encounter
--- OUTSIDE RECORDS SUMMARY | 2024-07-24 19:58 | XMS_ITS | Encounter Summary ---
Author Organization [facility] Address [address] [place] [address] Phone Care Team Providers Care Gas Compressor Turbine Operator Name Role Phone Bertin Crenshaw MD Primary Care Provider Sumi Love MD Unavailable [phone] Arlet Love MD Unavailable Yasemin Churchill MD Unavailable Romeo Lindsay MD Unavailable Charissa Juarez MD Unavailable Arlet Ballard RN Unavailable Unavailable Encounter Details Date Type Department Care Team (Late st Contact Info) Description 10/01/2023 Orders Only [facility] Department of Psychiatry [address] [facility] [address] [place] [address] aRmona Strauss MD PhD [address] [facility] [address] [place] [address] Social History Tobacco Use Types Packs/Day Years [...] on file 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 Gender Identity Not on file Sexual Orientation Not on file 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[employer], 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 Not on file Not on file Not on file documented as of this encounter Ordered Prescriptions Prescription Sig Dispense Quantity Refills Last Filled Start Date End Date traZODone (DESYREL) 50 mg tablet Take 0.5-1.5 tablets (25-75 mg total) by mouth nightly 45 tablet 10/01/2023 4 documented in this encounter Plan of Treatment Not on file documented as of this encounter Visit Diagnoses Not on filedocumented in this encounter Care Teams Gas Compressor Turbine Operator Relationship Specialty Start Date End Date Bertin Crenshaw MD [address] [facility] [address] [place] [address] PCP - General Internal Medicine 02/04/22 Sumi Love MD [address] [facility] [address] [place] [address] Referring Physician Psychiatry 02/04/22 Arlet Love MD [address] [facility] [address] [place] [address] Consulting Physician Obstetrics and Gynecology 02/04/22 Yasemin Churchill MD [address] [facility] [address] [place] [address] Referring Physician Internal Medicine 02/05/23 Romeo Lindsay MD [address] [facility] [address] [place] [address] Referring Physician Dermatology 02/05/23 Charissa Juarez MD [address] [facility] [address] [place] [address] Consulting Physician Psychiatry 02/05/23 Arlet Ballard, RN [facility] Breast Risk Program Nurse 05/19/23 documented as of this encounter
--- OUTSIDE RECORDS SUMMARY | 2024-07-24 19:58 | XMS_ITS | Encounter Summary ---
Author Organization [facility] Address [address] [place] [address] Care Team Providers Care Recreation Director Name Role Phone Bertin Crenshaw MD Primary Care Provider Sumi Love MD Unavailable [phone] Arlet Love MD Unavailable [phone] Yasemin Churchill MD Unavailable Romeo Lindsay MD Unavailable Charissa Juarez MD Unavailable [phone] Reason for Visit * Reason Comments Preventative Care Encounter Details Date Type Department Care Team (Late st Contact Info) Description 02/05/2023 1:00 PM CDT Office Visit [facility] [address] [id number] Bertin Crenshaw MD [address] [address] Preventative health care (Primary Dx); Other hyperlipidemia; Recurrent major depressive disorder, in partial remission (HCC); Hypertension, essential; Class 3 severe obesity due to excess calories without serious comorbidity with body mass index (BMI) of 40.0 to 44.9 in adult (HCC); Encounter for screening mammogram for malignant neoplasm of breast; Colon cancer screening; Screening for diabetes mellitus; Screening for thyroid disorder; Screening for metabolic disorder; Screening for deficiency anemia Social History Tobacco Use Types Packs/Day Years [...] on file Legal 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 Gender Identity Not on file Sexual Orientation Not on file 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[employer], 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 Not on file Not on file Not on file documented as of this encounter Last Filed Vital Signs Vital Sign Reading Time Taken Comments Blood Pressure 125/81 02/05/2023 12:45 PM CDT Pulse 82 02/05/2023 12:45 PM CDT Temperature 36.8 ??C (98.2 ??F) 02/05/2023 1 2:45 PM CDT Respiratory Rate - - Oxygen Saturation 97% 02/05/2023 12: 45 PM CDT Inhaled Oxygen Concentration - - Weight 119.6 kg (263 lb 9.6 oz) 023 12:45 PM CDT Height 171 cm (5' 7.32 ) 02/05/2023 12: 45 PM CDT Body Mass Index 40.89 02/05/2023 12:45 PM CDT documented in this encounter Progress Notes * Bertin Crenshaw MD - 02/05/2023 1:00 PM CDT PREVENTATIVE VISIT/COMPLETE PHYSICAL EXAMINATION Subjective/Objective Patient ID: Rebecca Santacruz is a 52 y.o. female. CC: Well visit HPI Rebecca Santacruz was seen 02/04/22 for new patient PHE. Today she notes that she tried working with [employer] my way to healthy weight but this was not successful for her. She since has started working with [facility] [employer] She likes this as you set a diet and this has set her meals and you can substitute them and even generates her grocery list. She is using scale from her insurance too. She has lost about 15 lbs since using this. She was struggling withmeal plans and recipes but this is given to her and makes it easy. She had gained a lot of weight prior to starting this. The insurance has [employer] plan and this has lessons about approaches to healthyeating; creating grab and go list. She had 3 year plan to lose 100 lbs. She was suggested to have both positive and negative motivators; she has done this and has found it effective. She has given upsodas and all sweeteners. She finds that the kerwin is teaching her how to cook and how to cook healthier. She has started meeting with counselor at [facility] recently too. She is struggling with getting up andmoving/exercising. She can have weeks where she does well and other weeks where she just cannot getup and going. Patient Active Problem List Diagnosis Date Noted Recurrent major depressive disorder, in partial remission (HCC) 02/04/2022 Gastroesophageal reflux disease without esophagitis 02/04/2022 Other hyperlipidemia 02/04/2022 Hypertension, essential 02/04/2022 Environmental allergies 02/04/2022 Flank pain 11/10/2018 Class 2 obesity due to excess calories without serious comorbidity with body mass index (BMI) of 37.0 to 37.9 in adult 08/04/2018 Past Medical History: Diagnosis Date Anxiety Asthma Depression GERD (gastroesophageal reflux disease) Hypertension Seasonal allergies Vaginal delivery Past Surgical History: Procedure Laterality Date CYST REMOVAL Left hand CYST REMOVAL foot Family History Problem Relation Age of Onset [...] Sister Cancer Brother Colon cancer Neg Hx Social History Tobacco Use Smoking status: Never Smokeless tobacco: Never Substance and Sexual Activity Drug use: Yes Types: Alcohol Comment: 1 drink per week Sexual activity: Yes Partners: Male control/protection: Post-menopausal Social History Social History Narrative Kids: three girls 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[employer], [place], 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 Exercise: starting biking, treadmill 30 minutes daily, resistance Current Outpatient Medications: albuterol HFA (PROVENTIL HFA,VENTOLIN HFA,PROAIR HFA) 90 mcg/actuation inhaler, Inhale 2 puffs every 6 (six) hours as needed, Disp: , Rfl: ARIPiprazole (ABILIFY) 2 mg tablet, Take 1 tablet (2 mg total) by mouth daily, Disp: 90 tablet, Rfl: 1 atorvastatin (LIPITOR) 20 mg tablet, Take 1 tablet (20 mg total) by mouth daily, Disp: 30 tablet, Rfl: 11 cetirizine (ZyrTEC) 10 mg tablet, Take 10 mg by mouth daily, Disp: , Rfl: cholecalciferol (VITAMIN D-3) 50,000 unit capsule, Take 50,000 Units by mouth once a week, Disp: , Rfl: escitalopram (LEXAPRO) 5 mg tablet, TAKE ONE TABLET BY MOUTH DAILY, Disp: 90 tablet, Rfl: 1 losartan (COZAAR) 25 mg tablet, Take 1 tablet (25 mg total) by mouth daily, Disp: 30 tablet, Rfl: 11 loteprednol etabonate 0.5 % ointment, Apply to both eyelids twice daily, Disp: 3.5 g, Rfl: 2 omeprazole (PriLOSEC) 40 mg capsule, Take 1 capsule (40 mg total) by mouth daily, Disp: 30 capsule,Rfl: 11 ruxolitinib (Opzelura) 1.5 % cream, Apply 1 Application topically 2 (two) times a day, Disp: 600 g,Rfl: 6 Allergies Allergen Reactions Benzalkonium Chloride Rash 1+ Cetrimonium Bend Rash 1+ Other Rash P-Phenylenediamine (PPD) 2+ Shellac Rash 1+ Sodium Benzoate Rash 1+ Immunization History Administered Date(s) Administered Influenza, Trivalent, Intramuscular 06/14/2013 Influenza, Unspecified 04/27/2021 Cloakroom SARS-CoV-2 Monovalent Vaccination (12+ Yrs) PURPLE 08/23/2020, 09/13/2020 Tdap 02/04/2022 Typhoid Inactivated 11/19/2021 ZOSTER Recombinant 02/04/2022, 04/29/2022 Review of Systems All other systems reviewed and are negative. Physical Exam BP 125/81 Pulse 82 Temp 36.8 ??C (98.2 ??F) Ht 171 cm (5' 7.32 ) Wt 119.6 kg (263 lb 9.6 oz) SpO2 97% BMI 40.89 kg/m?? Physical Exam Vitals reviewed. Constitutional: General: She is not in acute distress. Appearance: She is well-developed. She is not diaphoretic. HENT: Head: Normocephalic and atraumatic. Right Ear: External ear normal. Left Ear: External ear normal. Nose: Nose normal. Eyes: Conjunctiva/sclera: Conjunctivae normal. Pupils: Pupils are equal, round, and reactive to light. Neck: Thyroid: No thyromegaly. Cardiovascular: Rate and Rhythm: Normal rate and regular rhythm. Heart sounds: Normal heart sounds. No murmur heard. No friction rub. No gallop. Pulmonary: Effort: Pulmonary effort is normal. No respiratory distress. Breath sounds: Normal breath sounds. No wheezing or rales. Chest: Chest wall: No tenderness. Abdominal: General: Bowel sounds are normal. There is no distension. Palpations: Abdomen is soft. There is no mass. Tenderness: There is no abdominal tenderness. There is no guarding. Musculoskeletal: General: No swelling. Normal range of motion. Cervical back: Normal range of motion and neck supple. Lymphadenopathy: Cervical: No cervical adenopathy. Skin: General: Skin is warm and dry. Findings: No erythema or rash. Neurological: Mental Status: She is alert and oriented to person, place, and time. Cranial Nerves: No cranial nerve deficit. Sensory: No sensory deficit. Deep Tendon Reflexes: Reflexes normal. Psychiatric: Behavior: Behavior normal. Thought Content: Thought content normal. Judgment: Judgment normal. Patient Care Team: Bertin Crenshaw MD as PCP - General (Internal Medicine) Sumi Love MD as Referring Physician (Psychiatry) rAlet Love MD as Consulting Physician (Obstetrics and Gynecology) Yasemin Churchill MD as Referring Physician (Internal Medicine) HEALTH MAINTENANCE: Cervical Cancer Screening: discussed screening recommendations and recommended Breast Cancer Screening: discussed screening recommendations and up to date Colon Cancer Screening: discussed screening recommendations and up to date Vaccines: Influenza: discussed recommendations and recommended annually Tdap: discussed recommendations and up to date Shingrix: discussed recommendations, up to date, and completed vaccination COVID: discussed recommendations and up to date Health Maintenance Topic Date Due Cervical Cancer Screening-Pap and HPV Never done Covid-19 Vaccine (3 - Pfizer series) 11/08/2020 Influenza Vaccine (1) 03/28/2023 Breast Cancer Screening-Mammogram 05/24/2023 Depression Screening-PHQ 02/06/2024 Regular Well Visit/Exam 18-64 02/06/2024 DTaP/Tdap/Td Vaccine (2 - Td or Tdap) 02/05/2032 Colon Cancer Screening-Colonoscopy 04/25/2032 Zoster Vaccines Completed Pneumococcal vaccine <65 Aged Out Colon Cancer Screening-DNA Stool Discontinued Colon Cancer Screening-CT Colonography Discontinued Colon Cancer Screening-FIT Discontinued Colon Cancer Screening-Sigmoidoscopy Discontinued Colon Cancer Screening-FOBT Discontinued Assessment/Plan Diagnoses and all orders for this visit: Preventative health care (Primary) Comments: discussed vaccinations, health screening and encouraged regular cardiovascular exercise Orders: - CBC with auto differential; Future - Comprehensive metabolic panel; Future - Hemoglobin A1c; Future - Lipid panel; Future - TSH reflex to free T4; Future - Iron profile w/ IBC; Future - Ferritin; Future Other hyperlipidemia Comments: tolerating statin, update lipids and LFTs Orders: - Comprehensive metabolic panel; Future - Lipid panel; Future - TSH reflex to free T4; Future Recurrent major depressive disorder, in partial remission (HCC) Comments: followed by psychiatry, mood is doing well Orders: - TSH reflex to free T4; Future Hypertension, essential Comments: BP well controlled, continue current therapy. Orders: - Comprehensive metabolic panel; Future - TSH reflex to free T4; Future Class 3 severe obesity due to excess calories without serious comorbidity with body mass index (BMI) of 40.0 to 44.9 in adult (HCC) Comments: working weight loss with [employer] [facility] and having success, encouraged continued efforts Orders: - Hemoglobin A1c; Future - Lipid panel; Future - TSH reflex to free T4; Future Encounter for screening mammogram for malignant neoplasm of breast Comments: discussed screening recommendations, she has been recommended to do breast MRI as well and is overdue, encouraged updating. Colon cancer screening Comments: polyps found but hyperplastic, 10 years for next screening. Screening for diabetes mellitus - Hemoglobin A1c; Future Screening for thyroid disorder - TSH reflex to free T4; Future Screening for metabolic disorder - Comprehensive metabolic panel; Future Screening for deficiency anemia - CBC with auto differential; Future - Iron profile w/ IBC; Future - Ferritin; Future Follow up in 1 year or sooner CARLI Crenshaw MD documented in this encounter Plan of Treatment Not on file documented as of this encounter Results * Ferritin (10/31/2023 4:23 PM CDT) Pathologist [facility] Ferritin 103 13 - 150 ng/mL Blood 10/31/2023 4:23 PM CDT 10/31/2023 4:38 PM CDT Bertin Crenshaw MD LAB BLOOD ORDERABLES F inal Result Performing Organization Address [facility] Co de Phone Number [facility] Department [place] [address] * Iron profile w/ IBC (10/31/2023 4:23 PM CDT) [facility] Iron 63 35 - 145 mcg/dL TIBC 255 250 - 400 mcg/dL [facility] Transferrin saturation 25 20 - 50 % [facility] Blood 10/31/2023 4:23 PM CDT 10/31/2023 4:38 PM CDT Result [facility] Bertin Crenshaw MD LAB BLOOD ORDERABLES F inal Result Performing Organization Address City/[facility] Co de Phone Number [facility] [place] [address] * Thyroid Function [place] (10/31/2023 4:23 PM CDT) [facility] TSH 3.50 0.30 - 4.20 mcIUnit/mL Blood 10/31/2023 4:23 PM CDT 10/31/2023 4:38 PM CDT Bertin Crenshaw MD LAB BLOOD ORDERABLES F inal Result ERICA QUESADA [facility] [place] [address] * (ABNORMAL) Lipid panel (10/31/2023 4:23 PM CDT) Cholesterol 157 30 - 199 mg/dL Comment: Interpretive Data Ages < or = 19 years ??Acceptable: ? <170 mg/dL ??Borderline high: ??170-199 mg/dL ??High: ? >or= 200 mg/dL Ages > or = 20 years ??Desirable: ?<200 mg/dL ??Borderline high: ??200-239 mg/dL ??High: ? >or= 240 mg/dL Literature References: 1. Expert Panel on Integrated Guidelines for Cardiovascular Health and Risk Reduction in Children and Adolescents. Pediatrics 2011;128:S213 2. NCEP Expert Panel. Circulation 2004;110:227 Current Interpretive Data was last revised on 2018. Triglycerides 219(H) <=149 mg/dL ERICA MENDIOLA Comment: Interpretive Data Ages < or = 9 years ??Acceptable: ? <75 mg/dL ??Borderline high: ??75-99 mg/dL ??High: ? >or= 100 mg/dL Ages 10 to 20 years ??Acceptable: ? <90 mg/dL ??Borderline high: ??90-129 mg/dL ??High: ? >or= 130 mg/dL Ages > or = 20 years ??Desirable: ?<150 mg/dL ??Borderline high: ??150-199 mg/dL ??High: ? 200-499 mg/dL ?Very high: ?? >or= 499 mg/dL Literature References: 1. Expert Panel on Integrated Guidelines for Cardiovascular Health and Risk Reduction in Children and Adolescents. Pediatrics 2011;128:S213 2. NCEP Expert Panel. Circulation 2004;110:227 Current Interpretive Data was last revised on 2018. HDL 47 >=40 mg/dL [facility] Comment: Interpretive Data Ages < or = 19 years ??Acceptable: ? >45 mg/dL ??Borderline low: ?? 40-45 mg/dL ??Low: ? <40 mg/dL Ages > or = 20 years ??Desirable: ?>or= 60 mg/dL ??Low: ? <40 mg/dL Literature References: 1. Expert Panel on Integrated Guidelines for Cardiovascular Health and Risk Reduction in Children and Adolescents. Pediatrics 2011;128:S213 2. NCEP Expert Panel. Circulation 2004;110:227 Current Interpretive Data was last revised on 2018. LDL, calculated 66 <=129 mg/dL [facility] Comment: Interpretive Data Ages < or = 19 years ??Acceptable: ? <110 mg/dL ??Borderline high: ??110-129 mg/dL ??High: ?>or= 130 mg/dL Ages > or = 20 years ??Optimal: ? <100 mg/dL ??Near optimal: ?100-129 mg/dL ??Borderline high: ?? 130-159 mg/dL ??High: ?>160 mg/dL Literature References: 1. Expert Panel on Integrated Guidelines for Cardiovascular Health and Risk Reduction in Children and Adolescents. Pediatrics 2011;128:S213 2. NCEP Expert Panel. Circulation 2004;110:227 Current Interpretive Data was last revised on 2018. Non-HDL Cholesterol 110 mg/dL [facility] Comment: Interpretive Data Ages < or = 19 years ??Acceptable: ?<120 mg/dL ??Borderline high: ??120-144 mg/dL ??High: ?>145 mg/dL Ages > or = 20 years ??When triglycerides are >200 mg/dL, Non-HDL cholesterol is a secondary target of ? therapy with treatment goals that are 30 mg/dL greater than the LDL cholesterol target. ? Literature References: 1. Expert Panel on Integrated Guidelines for Cardiovascular Health and Risk Reduction in Children and Adolescents. Pediatrics 2011;128:S213 2. NCEP Expert Panel. Circulation 2004;110:227 Current Interpretive Data was last revised on 2018. Chol/HDL ratio 3 [facility] Blood 10/31/2023 4:23 PM CDT 10/31/2023 4:38 PM CDT Bertin Crenshaw MD LAB BLOOD ORDERABLES F inal Result Performing Organization Address [facility] de Phone Number [facility] [place] [address] * (ABNORMAL) Hemoglobin A1c (10/31/2023 4:23 PM CDT) Hgb A1C 5.8(H) 4.0 - 5.6 % Estimated Average Glucose 120 mg/dL [facility] Comment: The ADA recommends reporting an estimated Average Glucose (eAG) with all Hemoglobin A1c results using the equation derived from a study of 507 normal and diabetic adults. ??Minority populations were underrepresented and children were not included. ?? (Diabetes Care 2020; 43(S1): S66-S76). ??The eAG is not equivalent to a fasting glucose. Blood 10/31/2023 4:23 PM CDT 10/31/2023 4:38 PM CDT Bertin Crenshaw MD LAB BLOOD ORDERABLES F inal Result Performing Organization Address [facility] Co de Phone Number [facility] [place] [address] * Comprehensive metabolic panel (10/31/2023 4:23 PM CDT) Sodium 140 135 - 145 mmol/L Potassium, pl 3.9 3.3 - 4.9 mmol/L [facility] Chloride 103 97 - 110 mmol/L [facility] CO2 28 22 - 32 mmol/L [facility] Anion gap 9 2 - 15 mmol/L [facility] BUN 12 6 - 25 mg/dL [facility] Creatinine 0.94 0.60 - 1.10 mg/dL [facility] Glucose 75 70 - 199 mg/dL [facility] Comment: Interpretive Data Fasting glucose >/= 126 mg/dl is diagnostic for diabetes. ?? Fasting is defined as no caloric intake for at least 8 hours. Fasting glucose between 100 mg/dl to 125 mg/dl is diagnostic of prediabetes. In a patient with classic symptoms of hyperglycemia or hyperglycemic crisis, a random glucose >/= 200 mg/dl is diagnostic for diabetes. In the absence of unequivocal hyperglycemia, results should be confirmed by repeat testing. The classification and Diagnosis of Diabetes Diabetes Care 2021; 46: S19-S40. Current interpretive data was last revised 2022. Calcium 9.7 8.5 - 10.3 mg/dL [facility] Bilirubin, total 0.8 0.1 - 1.2 mg/dL [facility] Protein, pl 7.3 6.5 - 8.5 g/dL [facility] Albumin 4.3 3.5 - 5.0 g/dL [facility] Alk phos 105 40 - 130 Units/L [facility] ALT 33 7 - 45 Units/L [facility] AST 24 10 - 45 Units/L [facility] Blood 10/31/2023 4:23 PM CDT 10/31/2023 4:38 PM CDT us Bertin Crenshaw MD LAB BLOOD ORDERABLES F inal Result [facility] [place] [address] * (ABNORMAL) CBC with auto differential (10/31/2023 4:23 PM CDT) [facility] WBC 7.5 3.8 - 9.9 K/cumm Hgb 11.4(L) 11.9 - 15.5 g/dL [facility] Hct 34.7(L) 35.6 - 45.5 % [facility] Plt 321 150 - 400 K/cumm [facility] MPV 10.3 9.1 - 12.3 fL [facility] RBC 3.82(L) 3.90 - 5.20 M/cumm [facility] MCV 90.8 81.3 - 96.4 fL [facility] MCH 29.8 27.1 - 33.3 pg [facility] MCHC 32.9 32.3 - 35.7 g/dL [facility] RDW CV 12.3 11.1 - 14.9 % [facility] RDW SD 40.2 35.7 - 48.1 fL [facility] NRBC abs 0.00 0.00 - 0.01 K/cumm [facility] Blood 10/31/2023 4:23 PM CDT 10/31/2023 4:38 PM CDT us Bertin Crenshaw MD LAB BLOOD ORDERABLES F inal Result [facility] [place] [address] documented in this encounter Visit Diagnoses Diagnosis Preventative health care- Primary Routine general medical examination at a health care facility Other hyperlipidemia Recurrent major depressive disorder, in partial remission (HCC) Hypertension, essential Unspecified essential hypertension Class 3 severe obesity due to excess calories without serious comorbidity with body mass index (BMI) of 40.0 to 44.9 in adult (HCC) Encounter for screening mammogram for malignant neoplasm of breast Colon cancer screening Special screening for malignant neoplasms, colon Screening for diabetes mellitus Screening for thyroid disorder Screening for metabolic disorder Screening for deficiency anemia Screening for other and unspecified deficiency anemia documented in this encounter Discontinued Medications Medication Sig Discontinue Reason Start Date End Da te ketoconazole (NIZORAL) 2 % shampoo Apply to wet hair, leave on for 3 minutes, then rinse; at least three times weekly. 30 days supply 06/02/2019 02/05/2023 pimecrolimus (ELIDEL) 1 % cream Apply to face twice a day. 30 days supply. 06/02/2019 02/05/2023 cholecalciferol (VITAMIN D-3) 50,000 unit capsule Take 50,000 Units by mouth once a week 02/05/2023 documented as of this encounter Care Teams Recreation Director Relationship Specialty Start Date End Date Bertin Crenshaw MD [address] [facility] [address] [place] [address] PCP - General Internal Medicine 02/04/22 Sumi Love MD [address] [facility] [address] [place] [address] Referring Physician Psychiatry 02/04/22 Arlet Love MD [address] [facility] [address] [place] [address] Consulting Physician Obstetrics and Gynecology 02/04/22 Yasemin Churchill MD [address] [facility] [address] [place] [address] Referring Physician Internal Medicine 02/05/23 Romeo Lindsay MD [address] [facility] [address] [place] [address] Referring Physician Dermatology 02/05/23 Charissa Juarez MD [address] [facility] [address] [place] [address] Consulting Physician Psychiatry 02/05/23 documented as of this encounter
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
--- OUTSIDE RECORDS SUMMARY | 2024-07-24 19:58 | XMS_ITS | Encounter Summary ---
Author Organization [facility] Address [address] [place] [address] Phone Care Team Providers Care Public Speaking Teacher Name Role Phone Bertin Crenshaw MD Primary Care Provider Kiersten Pickens MD Unavailable [phone] Arlet Pickens MD Unavailable [phone] Yasemin Churchill MD Unavailable [phone] Romeo Lindsay MD Unavailable [phone] Charissa Juarez MD Unavailable Arlet Ballard RN Unavailable Unavailable Reason for Visit * Reason Comments Initial Psychiatric Evaluation Encounter Details Date Type Department Care Team (Late st Contact Info) Description 07/30/2023 8:00 AM CATH LAB Office Visit 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 female with a date of of 1970. Chief Complaint Initial Psychiatric Evaluation HPI 52 y.o. F with hx of trauma, depression, anxiety, and paranoia presenting for transfer of care. Shewas previously followed by Dr. Kathi Pickens and then Dr. Juarez here (for only one visit). Current symptoms Pt of dr. Juarez, last seen by her over a year ago. Only saw for one visit - currently seeing jaky [facility]yl [facility] - per chart review: Pt presents for [...] at the time, too. She checked into [employer] for 5 days and then reset. 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 - daugher is going back to school tomorrow. Abilify- mostly I take 1mg, I will take 2mg if I feel paranoid - maybe 2-3x in the year- for one week each time Thoughts that [[place] were trying to hurt me. Intrusive thoughts. Triggered by the news. Paranoia- yesterday. I went to [employer], what if someone follows me home and [...] years. Trying t omake healthy lifestyle cristi, [facility] diet thing, recipes. - small changes - [...] with her. 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 - 14 almost 15- [...] poverty of content Planning for future Mood: not the best Affect: euthymic, full range, normal amount, appropriate to conversation/situation, stable, and mood-congruent Insight: good Judgment: good Sensorium: alert, awake, and oriented x 3 Calculations: not done/clinically indicated Abstraction: not done/clinically indicated Language: average vocabulary Attention: normal based on conversation/exam Memory: normal based on conversation/exam Fund of Knowledge: normal or above average based on conversation/exam Musculoskeletal Exam Motor: Grossly normal based on ability to move all 4 extremities Station and Gait: normal Assessment/Plan Diagnoses and all orders for this visit: Recurrent major depressive disorder, in partial remission (HCC) (Primary) Anxiety disorder, unspecified type Other orders - escitalopram (LEXAPRO) 10 mg tablet; Take 1 tablet (10 mg total) by mouth daily - ARIPiprazole (ABILIFY) 2 mg tablet; Take 1 tablet (2 mg total) by mouth daily 52 y.o. F with hx of depression, anxiety, [...] socialanxieyt that is better since seeing jaky. We discussed her lexapro dose if quite low. She doesn't feel sad but she doesn't have a lot of motivation, which is unlike her. She is interested in increasing. Plan: Medication - Increase lexapro to 10mg - continue abilify 1mg [...] the ED with urgent issues. # RTC: 2 months LAB documented in this encounter Plan of Treatment Not on file documented as of this encounter Visit Diagnoses Diagnosis Recurrent major depressive disorder, in partial remission (HCC)- Primary Anxiety disorder, unspecified type documented in this encounter Discontinued Medications Medication Sig Discontinue Reason Start Date End Da te loteprednol etabonate 0.5 % ointment Apply to both eyelids twice daily 08/29/2022 07/30/2023 escitalopram (LEXAPRO) 5 mg tablet TAKE ONE TABLET BY MOUTH DAILY Reorder 01/24/2023 07/30/2023 ARIPiprazole (ABILIFY) 2 mg tablet TAKE ONE TABLET BY MOUTH DAILY Reorder 06/03/2023 07/30/2023 documented as of this encounter Care Teams Public Speaking Teacher Relationship Specialty Start Date End Date Bertin Crenshaw MD [address] [facility] [address] [place] [address] PCP - General Internal Medicine 02/04/22 Kiersten Pickens MD [facility] [address] [place] [address] Referring Physician Psychiatry 02/04/22 Arlet Pickens MD [address] [facility] [address] [place] [address] Consulting Physician Obstetrics and Gynecology 02/04/22 Yasemin Churchill MD [address] [facility] [address] [address] [place] [address] Referring Physician Internal Medicine 02/05/23 Roemo Lindsay MD [address] [place] [address] Referring Physician Dermatology 02/05/23 Charissa Juarez MD [address] [place] [address] Consulting Physician Psychiatry 02/05/23 Arlet Ballard, [facility] Breast Risk Program Nurse 05/19/23 documented as of this encounter
--- OUTSIDE RECORDS SUMMARY | 2024-07-24 19:58 | XMS_ITS | Encounter Summary ---
Author Organization 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 Recommend allergic dermatology patch testing, will arrange appt with Dr. Lindsay. Lotemax ointment BID both eyes (OU) Discussed possible need for ptosis repair in the future but given the amount of eyelid inflammation, I am concerned about her healing following surgery. RTC 4-6 weeks. AGE WORKER documented in this encounter Plan of Treatment Not on file documented as of this encounter Visit Diagnoses Diagnosis Eyelid dermatitis, allergic/contact, unspecified laterality- Primary Myogenic ptosis of eyelid of both eyes documented in this encounter Eye Exam Visual Acuity (Snellen - Linear) Right eye Left eye Dist cc 20/40 -1 20/30 -1 Dist ph cc 20/25 20/25 Correction: Glasses Tonometry (Tonopen, 12:00 PM) Right eye Left eye Pressure 15 18 Pupils Dark Light Shape React APD Right eye 4.5 3.5 Round Brisk None Left eye 4.5 3.5 Round Brisk None Visual Almonte (Counting fingers) Right eye Left eye Full Full Extraocular Movement Right eye Left eye Full Full Neuro/Psych Oriented x3: Yes Mood/Affect: Normal Severe allergic dermatitis upper lid (UL) and lower lid (LL) Slit Lamp Exam Right eye Left eye Lids/Lashes Normal Normal Conjunctiva/Sclera White and quiet White and pelon et Cornea Clear Clear Anterior Chamber Deep and quiet Deep and quiet Iris Round and reactive Round and emmanuel ctive Lens Nuclear sclerosis Nuclear sclero sis Anterior Vitreous Normal Normal External Right eye Left eye MRD1 2 mm 2 mm Levator 12 mm 12 mm Care Teams Showcase Trimmer Relationship Specialty Start Date End Date Bertin Crenshaw MD [address] [facility] [address] [place] [address] PCP - General Internal Medicine 02/04/22 Sumi Love MD [facility] [address] [place] [address] Referring Physician Psychiatry 02/04/22 Arlet Love MD [address] [facility] [address] [place] [address] Consulting Physician Obstetrics and Gynecology 02/04/22 documented as of this encounter
--- OUTSIDE RECORDS SUMMARY | 2024-07-24 19:58 | XMS_ITS | Encounter Summary ---
Author Organization [facility] Address [address] [place] [address] Care Team Providers Care Senior Caregiver Name Role Phone Bertin Crenshaw MD Primary Care Provider Sumi Love MD Unavailable [phone] Arlet Love MD Unavailable [phone] Yasemin Churchill MD Unavailable [phone] Romeo Lindsay MD Unavailable [phone] Charissa Juarez MD Unavailable [phone] Arlet Ballard RN Unavailable Unavailable Encounter Details Date Type Department Care Team (Late st Contact Info) Description 05/19/2023 [facility] Breast Risk Subsequent Outreach [facility] Cancer Risk Program 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 Arlet Spicer RN Breast Risk Program Nurse [phone] documented in this encounter Plan of Treatment Not on file documented as of this encounter Visit Diagnoses Not on filedocumented in this encounter Care Teams Senior Caregiver Relationship Specialty Start Date End Date Bertin Crenshaw MD [address] [facility] [address] [place] [address] PCP - General Internal Medicine 02/04/22 Sumi Love MD [facility] [address] [place] [address] Referring Physician Psychiatry 02/04/22 Arlet Love MD [address] [facility] [address] [place] [address] Consulting Physician Obstetrics and Gynecology 02/04/22 Yasemin Churchill MD [address] [facility] [address] [place] [address] Referring Physician Internal Medicine 02/05/23 Romeo Lindsay MD [address] [facility] [address] [place] [address] Referring Physician Dermatology 02/05/23 Charissa Juarez MD [address] [facility] [address] [place] [address] Consulting Physician Psychiatry 02/05/23 Arlet Balalrd, RN [facility] Breast Risk Program Nurse 05/19/23 documented as of this encounter
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
--- OUTSIDE RECORDS SUMMARY | 2024-07-24 19:58 | XMS_ITS | Encounter Summary ---
Author Organization [facility] Address [address] [place] [address] Phone Care Team Providers Care Catalogue Clerk Name Role Phone Bertin Crenshaw MD Primary Care Provider Sumi Love MD Unavailable [phone] Arlet Love MD Unavailable Yasemin Churchill MD Unavailable Romeo Lindsay MD Unavailable Charissa Juarez MD Unavailable Arlet Ballard RN Unavailable Unavailable Reason for Visit * Reason Comments Dermatitis eyelid Encounter Details Date Type Department Care Team (Late st Contact Info) Description 10/21/2023 8:30 AM CDT Office Visit [facility] Dermatology [address] 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 [id number] CC: eyelid rash HPI: Rebecca Santacruz is a 53 y.o. female patient who presents for evaluation. Previously seenby Dr. Lindsay for eczema and eyelid dermatitis; was patch tested with several positives. Rash on eyelids. Eliminated several possible allergies from patch test results; gave up sodas, ketchup, antibacterial soaps for last six months, mostly not improved. Opzulera BID does not help, Lotemax (steroid) does. Lotemax prescribed by Dr. Amezquita, not to be used long-term. Machine Filler said eyes are fine, suggested TMC for the eyelid to be discussed today. In the mornings, eyes are more irritated and stuck together. Not itchy on eyelids or eyebrows. Rash spreads up to eyebrow. Flaky. Red crease on left eyelid, gets inflamed. Area of mouth covered by CPAP machine is fine. Other issues discussed today: Eczema, diagnosed as a child. Worse in the winter, but flares all year around. On arms, chest, legs. Patch Test Results: 2+ para-phenylenediamine 1+ Cetrimonium bromide 1+ Benzalkonium chloride 1+ Sodium benzoate 1+ Shellac MEDICATIONS/ALLERGIES/FAMILY HX/SOCIAL HX: Reviewed in chart ROS: Per HPI. PHYSICAL EXAM: GENERAL: Appears well. No acute distress. ORIENTATION: Alert and oriented x3. MOOD/AFFECT: Normal affect. Skin exam: Inspected the Scalp/Hair Head/Face Ears Conjunctivae/Lids Lips Neck R. Upper Extremity L. Upper Extremity. Examination normal with the following exceptions: Erythema and lichenification at left upper and lower eyelids, R eyelid clear Two excoriated papules on left forearm Few hyperpigmented macules at right forearm ASSESSMENT AND PLAN: Eczematous dermatitis, eyelid Likely component of ACD, possible contribution of intrinsic atopic dermatitis as well. Patch testing completed by Dr. Lindsay shows several positives for allergens. History of atopic dermatitis. Stop Lotemax, concern for possible contribution to condition. TMC not indicated for use at eyelids. Start tacrolimus 0.1% ointment BID to AA eyelids if rash present. Patient should observe for possible allergens coming into contact with the her hands that can transfer to eyelids. Atopic dermatitis Start triamcinolone 0.1% cream BID to AA torso and extremities if rash present. Discussed can consider systemic medications such as dupilimab if condition does not improve. RTC: 6-9 months Ana Hong MD PhD Instructor of Dermatology, Department of Internal Medicine [facility] 10/21/23, 9:20 AM SCRIBE ATTESTATION By signing my name, I, Adela Camacho, attest that this documentation has been prepared under the direction and in the presence of Dr. Hong 10/21/23 7:58 AM ATTENDING ATTESTATION I personally performed the services described in this documentation, reviewed and edited the documentation which was dictated to the scribe in my presence, and it accurately records my words and actions. Ana Hong MD PhD, 10/21/2023 documented in this encounter Plan of Treatment Not on file documented as of this encounter Visit Diagnoses Diagnosis Other eczema- Primary Eyelid eczema, left documented in this encounter Care Teams Catalogue Clerk Relationship Specialty Start Date End Date Bertin Crenshaw MD [address] [facility] [address] [place] [address] PCP - General Internal Medicine 02/04/22 Sumi Love MD [facility] [facility] [address] [place] [address] Referring Physician Psychiatry 02/04/22 Arlet Love MD [address] [facility] [address] [place] [address] Consulting Physician Obstetrics and Gynecology 02/04/22 Yasemin Churchill MD [address] [facility] [address] [place] [address] Referring Physician Internal Medicine 02/05/23 Romeo Lindsay MD [address] [facility] [address] [place] [address] Referring Physician Dermatology 02/05/23 Charissa Juarez MD [address] [facility] [address] [place] [address] Consulting Physician Psychiatry 02/05/23 Arlet Ballard RN [facility] Breast Risk Program Nurse 05/19/23 documented as of this encounter
--- OUTSIDE RECORDS SUMMARY | 2024-07-24 19:58 | XMS_ITS | Encounter Summary ---
Author Organization [facility] Address [address] [place] [address] Care Team Providers Care Business Systems Analyst Name Role Phone Bertin Crenshaw MD Primary Care Provider Sumi Love MD Unavailable [phone] Arlet Love MD Unavailable [phone] Reason for Referral * Diagnostic Imaging (Routine) - Closed Specialty Diagnoses / Procedures Referred By Katherin t Referred To Contact Diagnoses Encounter for screening mammogram for malignant neoplasm of breast Procedures Screening Mammogram Bilateral W Bertin Byrne MD [address] [address] Phone: tel: fax: [address] [phone] Referral ID Status Reason Start Date Expiration Date Visits Re quested Visits Authorized [id number] Closed 02/04/2022 03/06/2023 1 1 Encounter Details Date Type Department Care Team (Late st Contact Info) Description 02/04/2022 1:15 PM CDT Office Visit [facility] [address] [phone] Bertin Crenshaw MD [address] [address] Preventative health care (Primary Dx); Irritable bowel syndrome with diarrhea; Family history of cancer; Hypertension, essential; Gastroesophageal reflux disease without esophagitis; Other hyperlipidemia; Class 2 obesity due to excess calories without serious comorbidity with body mass index (BMI) of 37.0 to 37.9 in adult; Encounter for screening mammogram for malignant neoplasm of breast; Colon cancer screening; Need for aycrxmmfmx-mpaahow-wq rtussis (Tdap) vaccine; Need for shingles vaccine; Screening for diabetes mellitus; Screening for deficiency anemia; Screening for metabolic disorder; Screening for thyroid disorder Social History Tobacco Use Types Packs/Day Years Used Date Smoking Tobacco: Never Smokeless Tobacco: Never PHQ-2 Answer Date Recorded PHQ-2 Total Score (If total score is 3 or more points, staff should administer the PHQ-9) 0 02/04/2022 Comments No Sex and Gender Information Value Date Recorded Sex Assigned at Not on file Legal Sex Female 8:57 AM WOUND CARE RN Gender Identity Not on file Sexual Orientation Not on file 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[employer], 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 Not on file Not on file Not on file documented as of this encounter Last Filed Vital Signs Vital Sign Reading Time Taken Comments Blood Pressure 120/84 02/04/2022 1:50 PM CDT Pulse 88 02/04/2022 12:57 PM CDT Temperature 36.2 ??C (97.2 ??F) 02/04/2022 12:57 PM C DT Respiratory Rate - - Oxygen Saturation 96% 02/04/2022 12:57 PM CDT Inhaled Oxygen Concentration - - Weight 108.9 kg (240 lb) 02/04/2022 12:57 PM CDT Height 170.2 cm (5' 7 ) 02/04/2022 12:57 PM CDT Body Mass Index 37.59 02/04/2022 12:57 PM CDT documented in this encounter Ordered Prescriptions Prescription Sig Dispense Quantity Refills Last Filled Start Date End Date omeprazole (PriLOSEC) 40 mg capsuleIndications:G astroesophageal reflux disease without esophagitis Take 1 capsule (40 mg total) by mouth daily 30 capsule 02/04/2022 3 losartan (COZAAR) 25 mg tabletIndications:Hy pertension, essential Take 1 tablet (25 mg total) by mouth daily 30 tablet 02/04/2022 3 atorvastatin (LIPITOR) 20 mg tabletIndications:Ot her hyperlipidemia Take 1 tablet (20 mg total) by mouth daily 30 tablet 11 02/04/2022 4 documented in this encounter Progress Notes * Bertin Crenshaw MD - 02/04/2022 1:15 PM CDT NEW PATIENT VISIT Subjective/Objective Patient ID: Rebecca Santacruz is a 51 y.o. female. CC: establish care Previous PCP: Lynda Duarte WAITER/WAITRESS [place] Last visit with prior PCP: Few months ago HPI Today she notes that she was traveling to [facility] but returned and had some GI issues that landed herin the ER. She was given medication for this but her symptoms which improved but have not normalized. She has continued with some intermittent symptoms and this was the purpose of her last visit withher prior provider. She went as a school trip after graduating with her executive [employer] through [facility]. She tried a lot of different foods while she was there. She is not aware of anyone else on the trip with problems. She returned back home and [place] the [place] 1 [place] before she had nausea,vomiting, diarrhea and fever up to 102 F. She went to local ER and was given metal tasting antibiotic. She recalls having C diff testing. She was getter for 1 week but then symptoms started to return. She feels that things have not been as bad but not resolved. She now just returned from [place] and she would have to throw up after eating. She had some horrible diarrhea too. She felt overall ok just had these prominent GI symptoms. She has tried to simplify her diet with no caffeine, bland diet and eating yogurt to replete her gut bacteria. She was having yellow mucus and watery stools.She has noticed stools continue to be thin. She is working with [facility] wellness program for weight loss. She has lost about 10 lbs in the last 9weeks and recently had some dietary changes with them. She had a nervous breakdown in 2017. She collapsed because life was just too much. She sees psychiatry and once asked for a formal diagnosis. 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 She is onher current regimen for 3-4 years and it works very well for her. She sees Dr. Sumi Love in psychiatry and now only every 6 months. Patient Active Problem List Diagnosis Date Noted ??? Recurrent major depressive disorder, in partial remission (HCC) 02/04/2022 ??? Gastroesophageal reflux disease without esophagitis 02/04/2022 ??? Other hyperlipidemia 02/04/2022 ??? Hypertension, essential 02/04/2022 ??? Environmental allergies 02/04/2022 ??? Flank pain 11/10/2018 ??? Class 2 obesity due to excess calories without serious comorbidity with body mass index (BMI) of 37.0 to 37.9 in adult 08/04/2018 Past Medical History: Diagnosis Date ??? Seasonal allergies ??? Vaginal delivery Past Surgical History: Procedure Laterality Date ??? CYST REMOVAL Left hand ??? CYST REMOVAL foot Family History Problem Relation [...] Father's Sister ??? Colon cancer Neg Hx Social History Tobacco Use ??? Smoking status: Never Smoker ??? Smokeless tobacco: Never Used Substance and Sexual Activity ??? Drug use: Yes Types: Alcohol Comment: 1 drink per week ??? 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 albuterol HFA (PROVENTIL HFA,VENTOLIN HFA,PROAIR HFA) 90 mcg/actuation inhaler, Inhale 2 puffs every 6 (six) hours as needed, Disp: , Rfl: ??? ARIPiprazole (ABILIFY) 10 mg tablet, Take 10 mg by mouth daily, Disp: , Rfl: ??? cholecalciferol (VITAMIN D-3) 50,000 unit capsule, Take 50,000 Units by mouth once a week, Disp: , Rfl: ??? escitalopram (LEXAPRO) 10 mg tablet, Take 10 mg by mouth daily, Disp: , Rfl: ??? ketoconazole (NIZORAL) 2 % shampoo, Apply to wet hair, leave on for 3 minutes, then rinse; at least three times weekly. 30 days supply, Disp: , Rfl: ??? pimecrolimus (ELIDEL) 1 % cream, Apply to face twice a day. 30 days supply., Disp: , Rfl: ??? atorvastatin (LIPITOR) 20 mg tablet, Take 1 tablet (20 mg total) by mouth daily, Disp: 30 tablet, Rfl: 11 ??? losartan (COZAAR) 25 mg tablet, Take 1 tablet (25 mg total) by mouth daily, Disp: 30 tablet, Rfl: 11 ??? omeprazole (PriLOSEC) 40 mg capsule, Take 1 capsule (40 mg total) by mouth daily, Disp: 30 capsule, Rfl: 11 No Known Allergies Immunization History Administered Date(s) Administered ??? Influenza, Trivalent, Intramuscular 06/14/2013 ??? Influenza, Unspecified 04/27/2021 ??? Pfizer SARS-CoV-2 Vaccination (12+ yrs) PURPLE 08/23/2020, 09/13/2020 ??? Typhoid Inactivated 11/19/2021 Review of Systems Gastrointestinal: Positive for abdominal distention, diarrhea and nausea. All other systems reviewed and are negative. Physical Exam BP 120/84 (BP Location: Left arm, Patient Position: Sitting) Pulse 88 Temp 36.2 ??C (97.2 ??F) (Temporal) Ht 170.2 cm (5' 7 ) Wt 108.9 kg (240 lb) SpO2 96% BMI 37.59 kg/m?? Physical Exam Vitals reviewed. Constitutional: General: She is not in acute distress. Appearance: She is well-developed. She is not diaphoretic. HENT: Head: Normocephalic and atraumatic. Right Ear: External ear normal. Left Ear: External ear normal. Nose: Nose normal. Mouth/Throat: Pharynx: No oropharyngeal exudate. Eyes: Conjunctiva/sclera: Conjunctivae normal. Pupils: Pupils are [...] is no distension. Palpations: Abdomen is soft. Tenderness: There is no abdominal tenderness. Musculoskeletal: General: Normal range of motion. Cervical [...] Sumi Love MD as Referring Physician (Psychiatry) Arlet Love MD as Consulting Physician (Obstetrics and Gynecology) HEALTH MAINTENANCE: Cervical Cancer Screening: discussed screening recommendations and recommended Breast Cancer Screening: discussed screening recommendations, overdue, recommended and ordered and encouraged Colon Cancer Screening: discussed screening recommendations, recommended and ordered and encouraged Vaccines: Influenza: discussed recommendations, up to date and recommended annually Tdap: discussed recommendations, recommended, ordered and encouraged and given today Shingrix: discussed recommendations, recommended, ordered and encouraged and given today COVID: discussed recommendations Health Maintenance Topic Date Due ??? Cervical Cancer Screening-Pap and HPV Never done ??? Colon Cancer Screening-Colonoscopy Never done ??? DTaP/Tdap/Td Vaccine (1 - Tdap) Never done ??? Zoster Vaccines Never done ??? Covid-19 Vaccine (3 - Booster for Pfizer series) 02/10/2021 ??? Breast Cancer Screening-Mammogram 11/08/2021 ??? Influenza Vaccine (1) 03/28/2022 ??? Depression Screening-PHQ 02/04/2023 ??? Regular Well Visit/Exam 18-64 02/04/2023 ? ? 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 Due for colonoscopy. Stop dairy and change to pill probiotic. report back in 1-2 weeks. Family history of cancer Comments: discussed having genetic testing done. she is interested, we will refer to genetics. Orders: - Ambulatory referral to Pediatric Genetics; Future Hypertension, essential Comments: BP good here today (on recheck). continue current regimen. Update blood work Orders: - losartan (COZAAR) 25 mg tablet; Take 1 tablet (25 mg total) by mouth daily Gastroesophageal reflux disease without esophagitis Comments: controlled on PPI. continue Orders: - omeprazole (PriLOSEC) 40 mg capsule; Take 1 capsule (40 mg total) by mouth daily Other hyperlipidemia Comments: worried cholesterol will be high. On abilify. recheck lipids Orders: - atorvastatin (LIPITOR) 20 mg tablet; Take 1 tablet (20 mg total) by mouth daily - Lipid panel; Future - TSH reflex to free T4; Future Class 2 obesity due to excess calories without serious comorbidity with body mass index (BMI) of 37.0 to 37.9 in adult Comments: working with [facility] weight management program. having some success, encouraged continued follow up and efforts. Encounter for screening mammogram for malignant neoplasm of breast Comments: was doing Q6 months screening (MRI/mammogram alternating). overdue. Mammogram ordered and encouraged Orders: - Screening Mammogram Bilateral W Cameron; Future Colon cancer screening Comments: due for screening, may need biopsies if diarrhea continues Orders: - Direct Scheduling Case Request: COLONOSCOPY Need for ovpmpyhynl-fqgxdwu-vrsdkbprh (Tdap) vaccine Comments: discused vaccination, opted to update today Orders: - Tdap vaccine greater than or equal to 7yo IM Need for shingles vaccine Comments: discussed vaccination, opted to start series today Orders: - Varicella-zoster HZV IM Screening for diabetes mellitus - Hemoglobin A1c; Future Screening for deficiency anemia - CBC with auto differential; Future Screening for metabolic disorder - Hemoglobin A1c; Future Screening for thyroid disorder - TSH reflex to free T4; Future Follow up in 1 year or sooner PRN Bertin Crenshaw MD * Jonas Nguyen CMA - 02/04/2022 1:15 PM CDT Rebecca Blanca Santacruz presents for lab work per orders of Bertin Crenshaw MD Blood collected from right arm antecubital site using a 21 gauge needle 1 light green tubes 1 lavender tubes Tubes labeled and verified in presence of patient Pt tolerated well Blood work sent to [facility] lab for processing After obtaining informed consent TDAP and Shingrix#1 Injection given per Bertin Crenshaw MD orders RD and LD Injection site Pt tolerated well documented in this encounter Plan of Treatment Not on file documented as of this encounter Results * Screening Mammogram Bilateral W Cameron (05/24/2022 7:41 AM CDT) Anatomical Region Laterality Modality Breast Bilateral Mammography Narrative 05/27/2022 12:31 PM CDT Mammogram Technique: Bilateral Digital Breast Tomosynthesis, Bilateral C-view 2D Screening mammogram. ??Views obtained: ??bilateral craniocaudal and bilateral mediolateral oblique. ??Computer Aided Detection was performed. Mammogram Findings: The present examination has been compared to prior imaging studies performed on 06/29/2014, 08/30/2016, 03/16/2018 and 04/13/2020. There are scattered areas of fibroglandular density. There is no suspicious abnormality in either breast. There are no significant changes from the prior study. Impression: Finding is benign. Annual screening mammography is recommended. OVERALL FINAL ASSESSMENT: BI-RADS CATEGORY 2: ??Benign. Procedure Note Fabienne Jackson MD - 05/27/2022 Mammogram Technique: Bilateral Digital Breast Tomosynthesis, Bilateral C-view 2D Screening mammogram. Views obtained: bilateral craniocaudal and bilateral mediolateral oblique. Computer Aided Detection was performed. Mammogram Findings: The present examination has been compared to prior imaging studies performed on 06/29/2014, 08/30/2016, 03/16/2018 and 04/13/2020. There are scattered areas of fibroglandular density. There is no suspicious abnormality in either breast. There are no significant changes from the prior study. Impression: Finding is benign. Annual screening mammography is recommended. OVERALL FINAL ASSESSMENT: BI-RADS CATEGORY 2: Benign. Bertin Crenshaw MD IMG MAMMO PROCEDURES F inal Result * TSH reflex to free T4 (02/04/2022 2:47 PM CDT) TSH 1.38 0.30 - 4.20 mcIUnit/mL [facility] Blood 02/04/2022 2:47 PM CDT 02/04/2022 3:50 PM CDT Bertin Crenshaw MD LAB BLOOD ORDERABLES F inal Result [facility] Department [place] [address] * (ABNORMAL) Lipid panel (02/04/2022 2:47 PM CDT) Cholesterol 160 30 - 199 mg/dL [facility] Comment: Interpretive Data Ages < or = [...] Data was last revised on 2018. Triglycerides 186(H) <=149 mg/dL [facility] Comment: Interpretive Data Ages < or = [...] Data was last revised on 2018. HDL 50 >=40 mg/dL [facility] Comment: Interpretive Data Ages < or = [...] was last revised on 2018. LDL, calculated 73 <=129 mg/dL [facility] Comment: Interpretive Data Ages < or = [...] on 2018. Non-HDL Cholesterol 110 mg/dL [facility] Comment: Interpretive Data Ages < or = [...] last revised on 2018. Chol/HDL ratio 3 [facility] Blood 02/04/2022 2:47 PM CDT 02/04/2022 3:50 PM CDT us Bertin Crenshaw MD LAB BLOOD ORDERABLES F inal Result [facility] Department [place] [address] * Hemoglobin A1c (02/04/2022 2:47 PM CDT) Hgb A1C 5.6 4.0 - 5.6 % [facility] Estimated Average Glucose 114 mg/dL [facility] Comment: The ADA recommends reporting an estimated Average Glucose (eAG) with all Hemoglobin A1c results using the equation derived from a study of 507 normal and diabetic adults. ??Minority populations were underrepresented and children were not included. ?? (Diabetes Care 2020; 43(S1): S66-S76). ??The eAG is not equivalent to a fasting glucose. Blood 02/04/2022 2:47 PM CDT 02/04/2022 3:50 PM CDT us Bertin Crenshaw MD LAB BLOOD ORDERABLES F inal Result [facility] Department [place] [address] * (ABNORMAL) Comprehensive metabolic panel (02/04/2022 2:47 PM CDT) Sodium 143 135 - 145 mmol/L [facility] Potassium, pl 3.9 3.3 - 4.9 mmol/L [facility] Chloride 103 97 - 110 mmol/L [facility] CO2 33(H) 22 - 32 mmol/L [facility] Anion gap 7 2 - 15 mmol/L [facility] BUN 16 8 - 25 mg/dL [facility] Creatinine 0.89 0.60 - 1.10 mg/dL [facility] Glucose 89 70 - 199 mg/dL [facility] Comment: Interpretive Data Fasting glucose >/= 126 [...] classification and Diagnosis of Diabetes Diabetes Care 2017;40 (Suppl. 1):S11. Current interpretive data was last revised 2017. Calcium 9.6 8.5 - 10.3 mg/dL [facility] Bilirubin, total 0.6 0.1 - 1.2 mg/dL [facility] Protein, pl 7.1 6.5 - 8.5 g/dL [facility] Albumin 4.3 3.5 - 5.0 g/dL [facility] Alk phos 85 40 - 130 Units/L [facility] ALT 27 7 - 45 Units/L [facility] AST 23 10 - 45 Units/L [facility] Blood 02/04/2022 2:47 PM CDT 02/04/2022 3:50 PM CDT us Bertin Crenshaw MD LAB BLOOD ORDERABLES F inal Result [facility] Department [place] [address] * (ABNORMAL) CBC with auto differential (02/04/2022 2:47 PM CDT) Pathologist [facility] WBC 6.7 3.8 - 9.9 K/cumm [facility] Hgb 11.0(L) 11.9 - 15.5 g/dL [facility] Hct 34.8(L) 35.6 - 45.5 % [facility] Plt 379 150 - 400 K/cumm [facility] MPV 9.6 9.1 - 12.3 fL [facility] RBC 3.83(L) 3.90 - 5.20 M/cumm [facility] MCV 90.9 81.3 - 96.4 fL [facility] MCH 28.7 27.1 - 33.3 pg [facility] MCHC 31.6(L) 32.3 - 35.7 g/dL [facility] RDW CV 13.2 11.1 - 14.9 % [facility] RDW SD 43.8 35.7 - 48.1 fL [facility] NRBC abs 0.00 0.00 - 0.01 K/cumm [facility] Blood 02/04/2022 2:47 PM CDT 02/04/2022 3:50 PM CDT us Bertin Crenshaw MD LAB BLOOD ORDERABLES F inal Result [facility] [place] [address] documented in this encounter Visit Diagnoses Diagnosis Preventative health care- Primary Routine general medical examination at a health care facility Irritable bowel syndrome with diarrhea Irritable bowel syndrome Family history of cancer Family history of unspecified malignant neoplasm Hypertension, essential Unspecified essential hypertension Gastroesophageal reflux disease without esophagitis Esophageal reflux Other hyperlipidemia Class 2 obesity due to excess calories without serious comorbidity with body mass index (BMI) of 37.0 to 37.9 in adult Encounter for screening mammogram for malignant neoplasm of breast Colon cancer screening Special screening for malignant neoplasms, colon Need for wbrurmvufn-rehjmgs-urrgnhuif (Tdap) vaccine Need for prophylactic vaccination with combined cobavlrszc-yiglcpk-ylfbmzteg (DTP) vaccine Need for shingles vaccine Need for prophylactic vaccination and inoculation against varicella Screening for diabetes mellitus Screening for deficiency anemia Screening for other and unspecified deficiency anemia Screening for metabolic disorder Screening for thyroid disorder Encounter for screening mammogram for malignant neoplasm of breast documented in this encounter Discontinued Medications Medication Sig Discontinue Reason Start Date End Da te omeprazole (PriLOSEC) 40 mg capsule Take 40 mg by mouth daily Reorder 02/12/2021 02/04/2022 losartan (COZAAR) 25 mg tablet Take 25 mg by mouth daily Reorder 02/04/2022 atorvastatin (LIPITOR) 20 mg tablet Take 20 mg by mouth daily Reorder 02/04/2022 documented as of this encounter Historical Medications * This list may reflect changes made after this encounter. albuterol HFA (PROVENTIL HFA,VENTOLIN HFA,PROAIR HFA) 90 mcg/actuation inhaler Inhale 2 puffs every 6 (six) hours as needed escitalopram (LEXAPRO) 10 mg tablet Take 10 mg by mouth daily 07/17/2022 cholecalciferol (VITAMIN D-3) 50,000 unit capsule Take 50,000 Units by mouth once a week 02/05/2023 atorvastatin (LIPITOR) 20 mg tablet Take 20 mg by mouth daily 02/04/2022 losartan (COZAAR) 25 mg tablet Take 25 mg by mouth daily 02/04/2022 ARIPiprazole (ABILIFY) 10 mg tablet Take 2 mg by mouth daily 07/17/2022 omeprazole (PriLOSEC) 40 mg capsule Take 40 mg by mouth daily 02/12/2021 02/04/2022 added in this encounter Orders Immunization/Injection Count Last Ordered Date First Ordered Date TDAP VACCINE GREATER THAN OR EQUAL TO 7YO IM 1 02/04/2022 ZOSTER (SHINGLES) HZV IM 1 02/04/2022 Case Request Count Last Ordered Date First Orde red Date GI DIRECT ACCESS CASE REQUEST 1 02/04/2022 documented in this encounter Care Teams Business Systems Analyst Relationship Specialty Start Date End Date Bertin Crenshaw MD [address] [facility] [address] [place] [address] PCP - General Internal Medicine 02/04/22 Sumi Love MD [address] [facility] [address] [place] [address] Referring Physician Psychiatry 02/04/22 Arlet Love MD [address] [facility] [address] [place] [address] Consulting Physician Obstetrics and Gynecology 02/04/22 documented as of this encounter
--- OUTSIDE RECORDS SUMMARY | 2024-07-24 19:58 | XMS_ITS | Encounter Summary ---
Author Organization [facility] Address [address] [place] [address] Phone Care Team Providers Care Conference Services Coordinator Name Role Phone Bertin rCenshaw MD Primary Care Provider Sumi Love MD Unavailable [phone] Arlet Love MD Unavailable [phone] Encounter Details Date Type Department Care Team (Late st Contact Info) Description 10/04/2022 12:00 PM UNDERGROUND FOREMAN Office Visit [facility] Dermatology [address] [address] [address] [place] [address] Romeo Lindsay MD [address] [place] [address] [address] [place] [address] Allergic contact dermatitis, unspecified trigger (Primary Dx); Eczema, unspecified type Social History Tobacco Use Types [...] on file Legal Sex Female 8:57 AM UNDERGROUND FOREMAN Gender Identity Not on file Sexual Orientation Not on file 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 female with a history of eczema, eyelid dermatitis who presents for dermatitis of the eyelids. Today: States that she has always had sensitive skin, Gets rashes occasionally in flexural areas Went to ophthalmology for consideration of eyelid surgery for ptosis. Was thought to have eyelid dermatitis. Eyes burn, itch, and water for a couple of hours every morning Takes zyrtec daily Has cats and dogs at home, uses hair dye Marketing Support Manager in [place] gave opzelura for rash on face (corners of mouth) Using lotemax on eyelids prescribed by dr. Amezquita. Does not use any products on skin, no moisturizers. Personal history of skin cancer: No Family history of melanoma: No Otherwise, she has not noticed any non-healing sores, new/changing moles, or rashes. Other History: Medications and allergies reviewed in chart Past medical, family, and social history reviewed and noncontributory unless noted in HPI. ROS: Other than described in HPI, denies any new sores, bleeding lesions, fever, unintentional weight loss. PHYSICAL EXAM: GENERAL: Well-developed and well-nourished. No acute distress. NEURO: Alert and oriented x3. PSYCH: Appropriate affect. SKIN: Hyperpigmented and erythematous scaly plaques bilateral eyelids Otherwise: FACE: No abnormalities noted. EARS: No abnormalities noted. SCALP/HAIR: No abnormalities noted. EYES/EYELIDS: No scleral icterus. No abnormalities noted of conjunctiva or eyelids. LIPS: No abnormalities noted. NECK: No abnormalities noted. CHEST: No abnormalities noted. ASSESSMENT AND PLAN: Allergic contact dermatitis severe Eczema - in usual areas suspect acd and atopic dermatitis Worst on the eyelids, improved after topical steroids. Will plan to switch to steroid sparing agent(pt already has opzelura), and plan for patch testing - STOP Lotemax to eyelids - START opzelura to eyelids - Plan for patch testing to evaluate for allergic contact dermatitis RTC for patch testing Adonis Slaughter MD, [facility] Dermatology Resident, PGY-2 October 04, 2022 ATTESTATION: I interviewed and examined the patient. I agree with the residents findings as documented in the note. Romeo Lindsay MD documented in this encounter Plan of Treatment Not on file documented as of this encounter Visit Diagnoses Diagnosis Allergic contact dermatitis, unspecified trigger- Primary Eczema, unspecified type documented in this encounter Care Teams Conference Services Coordinator Relationship Specialty Start Date End Date Bertin Crenshaw MD [address] [facility] [address] [place] [address] PCP - General Internal Medicine 02/04/22 Sumi Love MD [address] [facility] [address] [place] [address] Referring Physician Psychiatry 02/04/22 Arlet Love MD [address] [facility] [address] [place] [address] Consulting Physician Obstetrics and Gynecology 02/04/22 documented as of this encounter
--- OUTSIDE RECORDS SUMMARY | 2024-07-24 19:58 | XMS_ITS | Encounter Summary ---
Author Organization [facility] Address [address] [place] [address] Phone Care Team Providers Care Configuration Management Architect Name Role Phone Bertin Crenshaw MD Primary Care Provider Sumi Love MD Unavailable Arlet Love MD Unavailable Yasemin Churchill MD Unavailable Romeo Lindsay MD Unavailable Charissa Juarez MD Unavailable Reason for Visit * Reason Comments Follow-up Psychotherapy Encounter Details Date Type Department Care Team (Late st Contact Info) Description 03/19/2023 4:00 PM CDT Office Visit [facility] Department of Psychiatry [address] [place] [address] [address] [place] [address] Jaky Love LPC [address] [facility] [address] [place] [address] Recurrent major depressive disorder, in partial remission [...] on file Legal Sex Female 8:57 AM DIRECTOR [employer]CHOOL [employer] Gender Identity Not on file Sexual Orientation Not on file 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 Pt reported she has been doing her journaling and her thought records and they are all helpful. Pt reported she did a thought record when she felt like shedidn't have enough friends. She stated she saw that she actually does, but she hasn't been good about reaching out to them. Pt reported she has still been trying to do something for herself everyday,even if it is just for 15 minutes and that helps as well. Pt reported she is still struggling with people pleasing and low self esteem. She stated she wants to do something more intellectual at work,but she doesn't know if she can. She reported she struggles to talk to her co-worker about how she could delegate better at meeting. Pt explained due to her past experience she is paranoid at times of being fired. She stated she also has a hard time telling her family how she feels. Pt reported clarice made a comment recently that it ruined her Senior year when her mom was in the hospital with a mental breakdown. Pt reported her daughter didn't think about how that was hard for Pt. Mental Status Exam: General appearance and behavior: good eye contact and cooperative Speech: regular Flow of thought: logical, sequential, goal-directed Content of thought: no auditory hallucinations, no visual hallucinations, no delusions, no suicidalideation , no homicidal ideation, and no obsessions/ruminations Mood: anxious Affect: mood congruent Insight: good Judgement: good Sensorium: alert and oriented x 4 Questionnaire Results: N/A Assessment: Diagnosis Plan 1. Recurrent major depressive disorder, in partial remission (HCC) Interventions: Therapist followed up on interventions including Pt's journaling and thought records. Therapist provided empathic listening and reflective summaries throughout. Therapist encouraged Ptto keep using them. Therapist also suggested Pt focus on a DBT skill called Build Mastery where shepicks activities to build a sense of accomplishment. Therapist encouraged her to make a list. Therapist also encouraged Pt to slowly tell people how she feels in situations and re-frame it at times as a teaching moment in the example of her daughters. Patient Response: The patient's symptoms are somewhat improved. Plan: Patient will return in two week(s) for continued individual psychotherapy. Jaky Love LPC documented in this encounter Plan of Treatment Not on file documented as of this encounter Visit Diagnoses Diagnosis Recurrent major depressive disorder, in partial remission (HCC)- Primary documented in this encounter Care Teams Configuration Management Architect Relationship Specialty Start Date End Date Bertin Crenshaw MD [address] [address] PCP - General Internal Medicine 02/04/22 Sumi Love MD [facility] [address] [address] Referring Physician Psychiatry 02/04/22 Arlet Love MD [address] [address] Consulting Physician Obstetrics and Gynecology 02/04/22 Yasemin Churchill MD [address] [address] Referring Physician Internal Medicine 02/05/23 Romeo Lindsay MD [address] [address] Referring Physician Dermatology 02/05/23 Charissa Juarez MD [address] [facility] [address] [place] [address] Consulting Physician Psychiatry 02/05/23 documented as of this encounter
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
--- OUTSIDE RECORDS SUMMARY | 2024-07-24 19:58 | XMS_ITS | Encounter Summary ---
Author Organization [facility] Address [address] [place] [address] Phone Care Team Providers Care Temperature Inspector Name Role Phone Bertin Crenshaw MD Primary Care Provider Sumi Love MD Unavailable Arlet Love MD Unavailable Yasemin Churchill MD Unavailable Romoe iLndsay MD Unavailable Charissa Juarez MD Unavailable Reason for Visit * Reason Comments Follow-up Psychotherapy Encounter Details Date Type Department Care Team (Late st Contact Info) Description 03/05/2023 8:00 AM CDT Office Visit [facility] Department of Psychiatry [address] [place] [address] [address] [place] [address] Jaky Love LPC [address] [facility] [address] [place] [address] Recurrent major depressive disorder, in partial remission [...] on file Legal 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 Pt reported she has been journaling consistently. She stated it helps to get her emotions out but she is not sure what to do with the journaling. Pt reported she has noticed that she has a lot of stressful situations going on around her. Pt reported her middle daughter is worried about testing positive for drug use at a wedding for medical school. Pt reported her youngest had an issue with marijuana at one point. Pt reported she is trying to help carefor her dad, who is very critical. She also explained how invalidating he was growing up. Pt reported she needs to set boundaries and tell her dad she doesn't have time to do everything for him, especially since she has this white coat ceremony coming up with her daughter. She stated she also needs to tell her boss that there is too much on her plate. Pt stated she also tends to pay for everything for her daughters. She stated when they were all just in [place] visiting her oldest she paid foreverything. Pt reported she can't afford to do that. Pt reported she also does her daughter's laundry etc. Pt reported she is afraid if she doesn't do these things they will not like her or want to spend time with her. Pt reported helping her dad has also improved their relationship and she has learned a lot about him. Pt stated she has been trying to do more for herself and has bee exercising a couple times a week through [employer] videos. Mental Status Exam: General appearance and behavior: normal psychomotor activity and cooperative Speech: regular Flow of thought: [...] (HCC) Interventions: Therapist followed up on Pt's journaling as well as her goal to do something for herself at least once a week. Therapist provided empathic listening and reflective summaries throughout. Therapist validated all she is doing. Therapist explained that journaling can help to regulate heremotions as well as cause her to notice themes of what she wants to change. Therapist provided motivational interviewing to see what helping others is doing for her. Therapist challenged the notion abit behind the assumption that people would stop liking her if she stops helping them. Therapist asked what Pt's goal is in setting boundaries and encouraged her to start small. Therapist also encouraged Pt to try thought records and informed her she would send an example. Patient Response: The patient's symptoms are stable. Plan: Patient will return in two week(s) for continued individual psychotherapy. Pt will try setting a boundary at work and also try thought records. Jaky Love LPC documented in this encounter Plan of Treatment Not on file documented as of this encounter Visit Diagnoses Diagnosis Recurrent major depressive disorder, in partial remission (HCC)- Primary documented in this encounter Care Teams Temperature Inspector Relationship Specialty Start Date End Date Bertin Crenshaw MD [address] [facility] [address] [place] [address] PCP - General Internal Medicine 02/04/22 Sumi Love MD [facility] [address] [place] [address] Referring Physician Psychiatry 02/04/22 Arlet Love MD [address] [facility] [address] [place] [address] Consulting Physician Obstetrics and Gynecology 02/04/22 Yasemin Churchill MD [address] [facility] [address] [place], [place] [id number] Referring Physician Internal Medicine 02/05/23 Romeo Lindsay MD [address] [facility] [address] [place] [address] Referring Physician Dermatology 02/05/23 Charissa Juarez MD [address] [facility] [address] [place] [address] Consulting Physician Psychiatry 02/05/23 documented as of this encounter
--- OUTSIDE RECORDS SUMMARY | 2024-07-24 19:58 | XMS_ITS | Encounter Summary ---
Author Organization [facility] Healthcare Address [address] [place] [id number] Care Team Providers Care Patient Care Specialist Name Role Phone Bertin Crenshaw MD Primary Care Provider Sumi Love MD Unavailable [phone] Arlet Love MD Unavailable [phone] Encounter Details Date Type Department Care Team (Late st Contact Info) Description 04/09/2022 Telephone [facility] Specialty Services [address] [place] [phone] Emily Burdick, RN Social History Tobacco Use Types Packs/Day Years Used Date Smoking Tobacco: Never Smokeless Tobacco: Never PHQ-2 Answer Date Recorded PHQ-2 Total Score (If total score is 3 or more points, staff should administer the PHQ-9) 0 02/04/2022 Comments No Sex and Gender Information Value Date Recorded Sex Assigned at Not on file Legal Sex Female 8:57 AM 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 4000 mL 04/11/2022 04/25/2022 documented in this encounter Miscellaneous Notes * Addendum Note - Emily Burdick RN - 04/11/2022 3:00 PM CDTAddended by: EMILY BURDICK on: 04/11/2022 03:00 PM Modules accepted: Orders * Telephone Encounter - Tiara Lacey - 04/11/2022 2:32 PM CDT Procedure information Date of procedure: 04-25-22 Time of procedure: 844 Arrival time:744 Location: [facility] Proceduralist: Sj Instructions Method of instructions: Christine 04/11/2022 [x]Confirmation of ride/veneer matcher [x]Post anesthesia restrictions given [x]NPO Instructions: [x]Diet Instructions: [x]Take non-blood thinner prescription meds that morning [x]Bring med list, photo ID, insurance card, no valuables [x]Bring COVID vaccination card (if vaccinated) Bowel Prep Prep prescribed: Nulytely Method of Bowel Prep (RX): E-Scribe Copy04/11/2022 [facility] in [facility] On 04/24/2022 at 6 PM, drink 1/2 jug of the Nulytely/Golytely, then on 04/25/2022 at 4:45 AM drink the other 1/2 jug of the Nulytely/Golytely. * Telephone Encounter - Tiara Lacey - 04/11/2022 12:05 PM CDT Left message on patient's voicemail to call back to schedule colonoscopy. 2nd call * Telephone Encounter - Tiara Lacey - 04/09/2022 9:38 AM CDT Left message on patient's voicemail to call back to schedule colonoscopy. 1st call * Telephone Encounter - Emily Burdick RN - 04/09/2022 8:46 AM CDT OnFeb 04, 2022 a referral received from Bertin Crenshaw MD for colonoscopy for Colon cancer screening (Z12.11) PROCEDURE Type: Colonoscopy Indication: Colon cancer screening (Z12.11) Referring Physician: Bertin Crenshaw MD Date Referred: 02/04/2022 CLINICAL ASSESSMENT []COVID Screening questions [] Covid vaccination yes []BMI>45, Weight >350 lbs (if yes, note restrictions below) BMI Readings from Last 1 Encounters: 02/04/22 37.59 kg/m?? Wt Readings from Last 1 Encounters: 02/04/22 108.9 kg (240 lb) [] Patient had GI procedure/CPAP clinic/GI clinic <30 days (if Yes, no medical screening questions needed unless new clinical issues in last 30 days) Medical screening questions: BMI/Weight: NA CARDIOVASCULAR: NoneHTN, Hyperlipedemia RESPIRATORY/LUNG: None RENAL/LIVER/GI: NoneGERD, IBS with diarrhea BLEEDING/CLOTTING: None NEUROLOGICAL: None ENDOCRINE: None PRIOR PROCEDURE ISSUES: None ANCIENT ART CURATOR/: NA IMPLANTS.: None Notes:Depression DIABETIC MEDS Y/N: No/NA []Yes- Discuss diabetes medication management with prescribing physician DIALYSIS Y/N: No/NA []HD- Schedule on non-HD day, see protocol []PD- Drain PD fluid AM of procedure, if colonoscopy order AB ppx, see protocol PACEMAKER/ICD Y/N: No/NA Device info: Last documented device check: Any shocks since last cards visit (if yes must see cardiology for procedure clearance): BLOOD THINNERS/ANTICOAG/ANTIPLATELET (BESIDES ASA) Medication: NONE Physician contacted for hold order/date sent: Hold order Method sent: Date hold received: Hold instructions: CONTINUE ASPIRIN INFORMATION REQUESTED []Imaging: []Medical Progress Note/H&P []Medication list []Other: PATIENT OPTIMIZATION []Physician reviewing escalation: []CPAP: Date scheduled: Outcome : [] Location limitations: Scheduling Scheduling location limitations: Answering Service Telephone Operator needed [] NA Language: POA [] NA Name: SPECIAL PROCEDURE INSTRUCTIONS documented in this encounter Plan of Treatment Not on file documented as of this encounter Visit Diagnoses Not on filedocumented in this encounter Care Teams Patient Care Specialist Relationship Specialty Start Date End Date Bertin Crenshaw MD [address] [facility] [address] [place] [address] PCP - General Internal Medicine 02/04/22 Sumi Love MD [address] [facility] [address] [place] [address] Referring Physician Psychiatry 02/04/22 Arlet Love MD [address] [facility] [address] [place] [address] Consulting Physician Obstetrics and Gynecology 02/04/22 documented as of this encounter
--- OUTSIDE RECORDS SUMMARY | 2024-07-24 19:58 | XMS_ITS | Encounter Summary ---
Author Organization [facility] Healthcare Address [address] [place] [address] Care Team Providers Care Chief Communications Officer Name Role Phone Bertin Crenshaw MD Primary Care Provider Sumi Love MD Unavailable [phone] Arlet Love MD Unavailable [phone] Encounter Details Date Type Department Care Team (Latest Contact Info) Description 02/04/2022 1:58 PM CDT - 02/04/2022 11:59 PM CDT Hospital Encounter [place] [id number] Preventative health care; Other hyperlipidemia; Screening for thyroid disorder; Screening for diabetes mellitus; Screening for metabolic disorder; Screening for deficiency anemia Discharge Disposition: Discharge to home or self [...] on file 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 Gender Identity Not on file Sexual Orientation Not on file 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[employer], 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 Not on file Not on file Not on file documented as of this encounter Medications at Time of Discharge albuterol HFA (PROVENTIL HFA,VENTOLIN HFA,PROAIR HFA) 90 mcg/actuation inhaler Inhale 2 puffs every 6 (six) hours as needed ARIPiprazole (ABILIFY) 10 mg tablet Take 2 mg by mouth daily 2 atorvastatin (LIPITOR) 20 mg tabletIndications:Ot her hyperlipidemia Take 1 tablet (20 mg total) by mouth daily 30 tablet 02/04/2022 4 cholecalciferol (VITAMIN D-3) 50,000 unit capsule Take 50,000 Units by mouth once a week 3 escitalopram (LEXAPRO) 10 mg tablet Take 10 mg by mouth daily 2 ketoconazole (NIZORAL) 2 % shampoo Apply to wet hair, leave on for 3 minutes, then rinse; at least three times weekly. 30 days supply 06/02/2019 3 losartan (COZAAR) 25 mg tabletIndications:Hy pertension, essential Take 1 tablet (25 mg total) by mouth daily 30 tablet 02/04/2022 3 omeprazole (PriLOSEC) 40 mg capsuleIndications:G astroesophageal reflux disease without esophagitis Take 1 capsule (40 mg total) by mouth daily 30 capsule 02/04/2022 3 pimecrolimus (ELIDEL) 1 % cream Apply to face twice a day. 30 days supply. 06/02/2019 3 documented as of this encounter Discharge Disposition Disposition Code Departure Means Destination Discharge to home or self care documented in this encounter Plan of Treatment Not on file documented as of this encounter Procedures Procedure Name Priority Date/Time Associated Diagnosis Comments EGFR Routine 02/04/2022 2:47 PM CDT Preventative health care DIFFERENTIAL AUTO Routine 02/04/2022 2:4 7 PM CDT Preventative health care Screening for deficiency anemia THYROID FUNCTION CASCADE Routine 02/04/2022 2:47 PM CDT Preventative health care Other hyperlipidemia Screening for thyroid disorder CBC WITH AUTO DIFFERENTIAL Routine 02/04/2022 2:47 PM CDT Preventative health care Screening for deficiency anemia HEMOGLOBIN A1C Routine 02/04/2022 2:47 PM CDT Preventative health care Screening for diabetes mellitus Screening for metabolic disorder LIPID PANEL Routine 02/04/2022 2:47 PM CDT Preventative health care Other hyperlipidemia COMPREHENSIVE METABOLIC PANEL Routine 02/04/2022 2:47 PM CDT Preventative health care documented in this encounter Results * (ABNORMAL) eGFR (02/04/2022 2:47 PM CDT) eGFR 77(L) 90 - 130 mL/min/1. 73 m2 ERICA QUESADA Comment: Interpretive Data Reference Interval Normal ?>/= 90 mL/min/1.73m2 Mildly decreased* ? 60 - 89 mL/min/1.73m2 Mildly to moderately decreased ?45 - 59 mL/min/1.73m2 Moderately to severely decreased ??30 - 44 mL/min/1.73m2 Severely decreased ?15 - 29 mL/min/1.73m2 Kidney Failure ?< 15 ??mL/min/1.73m2 *Relative to young adult level Estimated glomerular filtration rate is determined by the 2020 CKD-EPI equation recommended by the National Kidney Foundation (A Unifying Approach to GFR Estimation: Recommendations of the NKF-ASK Task Force on Reassessing the Inclusion of Race in Diagnosing Kidney Disease, JASN 2020). The CKD-EPI equation should not be used for patients with unstable renal function and has not been validated in children and those over 70. Current interpretive data was last reviewed 2021. Blood 02/04/2022 2:47 PM CDT 02/04/2022 4:04 PM CDT us Bertin Crenshaw MD LAB BLOOD ORDERABLES F inal Result ERICA QUESADA [facility] Department [place] [address] * (ABNORMAL) Differential, auto (02/04/2022 2:47 PM CDT) Neutrophil abs 4.0 1.7 - 6.5 K/cumm [facility] Imm gran abs 0.0 0.0 - 0.1 K/cumm [facility] Lymphocyte abs 1.3 0.8 - 3.3 K/cumm [facility] Monocyte abs 0.7 0.2 - 0.8 K/cumm [facility] Eosinophil abs 0.6(H) 0.0 - 0.5 K/cumm [facility] Basophil abs 0.1 0.0 - 0.1 K/cumm [facility] Neutrophil pct 59.3 % [facility] Comment: Interpretive Data Percent cell count reference ranges are not reported, since discordance with absolute values may lead to misinterpretation of CBC data. Current Interpretive Data was last revised on 2017. Imm gran pct 0.6 % [facility] Comment: Interpretive Data Percent cell count reference ranges are not reported, since discordance with absolute values may lead to misinterpretation of CBC data. Current Interpretive Data was last revised on 2017. Lymphocyte pct 19.7 % [facility] Comment: Interpretive Data Percent cell count reference ranges are not reported, since discordance with absolute values may lead to misinterpretation of CBC data. Current Interpretive Data was last revised on 2017. Monocyte pct 11.0 % [facility] Comment: Interpretive Data Percent cell count reference ranges are not reported, since discordance with absolute values may lead to misinterpretation of CBC data. Current Interpretive Data was last revised on 2017. Eosinophil pct 8.6 % [facility] Comment: Interpretive Data Percent cell count reference ranges are not reported, since discordance with absolute values may lead to misinterpretation of CBC data. Current Interpretive Data was last revised on 2017. Basophil pct 0.8 % [facility] Comment: Interpretive Data Percent cell count reference ranges are not reported, since discordance with absolute values may lead to misinterpretation of CBC data. Current Interpretive Data was last revised on 2017. Blood 02/04/2022 2:47 PM CDT 02/04/2022 3:50 PM CDT Bertin Crenshaw MD LAB BLOOD ORDERABLES F inal Result Performing Organization Address [facility] Co de Phone Number [facility] Department [place] [address] * (ABNORMAL) CBC with auto differential (02/04/2022 2:47 PM CDT) [facility] WBC 6.7 3.8 - 9.9 K/cumm [facility] Hgb 11.0(L) 11.9 - 15.5 g/dL [facility] Hct 34.8(L) 35.6 - 45.5 % [facility] Plt 379 150 - 400 K/cumm [facility] MPV 9.6 9.1 - 12.3 fL [facility] RBC 3.83(L) 3.90 - 5.20 M/cumm [facility] MCV 90.9 81.3 - 96.4 fL [facility] MCH 28.7 27.1 - 33.3 pg [facility] MCHC 31.6(L) 32.3 - 35.7 g/dL [facility] RDW CV 13.2 11.1 - 14.9 % [facility] RDW SD 43.8 35.7 - 48.1 fL [facility] NRBC abs 0.00 0.00 - 0.01 K/cumm [facility] Blood 02/04/2022 2:47 PM CDT 02/04/2022 3:50 PM CDT us Bertin Crenshaw MD LAB BLOOD ORDERABLES F inal Result Performing Organization Address [facility]/ZIP Co de Phone Number [facility] Department of Laboratories [place], [place] [id number] * (ABNORMAL) Comprehensive metabolic panel (02/04/2022 2:47 PM CDT) Sodium 143 135 - 145 mmol/L [facility] Potassium, pl 3.9 3.3 - 4.9 mmol/L [facility] Chloride 103 97 - 110 mmol/L [facility] CO2 33(H) 22 - 32 mmol/L [facility] Anion gap 7 2 - 15 mmol/L [facility] BUN 16 8 - 25 mg/dL [facility] Creatinine 0.89 0.60 - 1.10 mg/dL [facility] Glucose 89 70 - 199 mg/dL [facility] Comment: Interpretive Data Fasting glucose >/= [...] 2017. Calcium 9.6 8.5 - 10.3 mg/dL [facility] Bilirubin, total 0.6 0.1 - 1.2 mg/dL [facility] Protein, pl 7.1 6.5 - 8.5 g/dL [facility] Albumin 4.3 3.5 - 5.0 g/dL [facility] Alk phos 85 40 - 130 Units/L [facility] ALT 27 7 - 45 Units/L [facility] AST 23 10 - 45 Units/L [facility] Blood 02/04/2022 2:47 PM CDT 02/04/2022 3:50 PM CDT us Bertin Crenshaw MD LAB BLOOD ORDERABLES F inal Result [facility] [place] [address] * Hemoglobin A1c (02/04/2022 2:47 PM CDT) Pathologist [facility] Hgb A1C 5.6 4.0 - 5.6 % [facility] Estimated Average Glucose 114 mg/dL ERICA QUESADA Comment: The ADA recommends reporting an estimated [...] LAB BLOOD ORDERABLES F inal Result ERICA [facility] [place] [address] * (ABNORMAL) Lipid panel (02/04/2022 2:47 PM CDT) Cholesterol 160 30 - 199 mg/dL [facility] QUESADA Comment: Interpretive Data Ages [...] revised on 2018. Triglycerides 186(H) <=149 mg/dL [facility] Comment: Interpretive Data Ages [...] revised on 2018. HDL 50 >=40 mg/dL ERICA [facility] Comment: Interpretive Data Ages < or [...] 2018. LDL, calculated 73 <=129 mg/dL ERICA [facility] Comment: Interpretive Data Ages < or [...] revised on 2018. Non-HDL Cholesterol 110 mg/dL [facility] Comment: Interpretive Data Ages < or [...] last revised on 2018. Chol/HDL ratio 3 [facility] Blood 02/04/2022 2:47 PM CDT 02/04/2022 3:50 PM CDT Bertin Crenshaw MD LAB BLOOD ORDERABLES F inal Result Performing Organization Address City/[facility] Co de Phone Number [facility] [place] [address] * TSH reflex to free T4 (02/04/2022 2:47 PM CDT) TSH 1.38 0.30 - 4.20 mcIUnit/mL [facility] Blood 02/04/2022 2:47 PM CDT 02/04/2022 3:50 PM CDT Bertin Crenshaw MD LAB BLOOD ORDERABLES F inal Result Performing Organization Address City/[facility] Co de Phone Number [facility] [place] [address] documented in this encounter Visit Diagnoses Diagnosis Preventative health care Routine general medical examination at a health care facility Other hyperlipidemia Screening for thyroid disorder Screening for diabetes mellitus Screening for metabolic disorder Screening for deficiency anemia Screening for other and unspecified deficiency anemia documented in this encounter Care Teams Chief Communications Officer Relationship Specialty Start Date End Date Bertin Crenshaw MD [address] [facility] [address] [place] [address] PCP - General Internal Medicine 02/04/22 Sumi Love MD [address] [facility] [address] [place] [address] Referring Physician Psychiatry 02/04/22 Arlet Love MD [address] [facility] [address] [place] [address] Consulting Physician Obstetrics and Gynecology 02/04/22 documented as of this encounter
--- OUTSIDE RECORDS SUMMARY | 2024-07-24 19:58 | XMS_ITS | Encounter Summary ---
Author Organization [facility] Address [address] [place] [address] Phone Care Team Providers Care Fabricating Machine Operator Name Role Phone Bertin Crenshaw MD Primary Care Provider Sumi Love MD Unavailable [phone] Arlet Love MD Unavailable [phone] Reason for Visit * Reason Onset Date Comments PA Needed 11/25/2022 PA needed for Op zelura 1.5% cream Encounter Details Date Type Department Care Team (Late st Contact Info) Description 11/25/2022 Telephone [facility] [address] [facility] [address] [place] [address] Romeo Lindsay MD [address] [facility] [address] [place] [address] PA Needed (PA needed for Opzelura 1.5% cream) Social History Tobacco Use Types Packs/Day Years [...] on file 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 See list of alternatives. * Telephone Encounter - Charissa Keating - 11/25/2022 11:20 AM CDT Opzelura 1.5% cream Status: Denied Pt must have trial history of preferred products [employer] Shah: [id number] Coverage is provided in situations where the patient has tried at least one topical calcineurin inhibitor; AND at least one topical calcineurin inhibitor was applied daily for at least 28 consecutive days; AND according to the prescriber, inadequate efficacy was demonstrated with at least one topical calcineurin inhibitor. Examples of topical calcineurin inhibitors include tacrolimus ointment (Protopic, generics) and pimecrolimus cream (Elidel, generics). Coverage cannot be authorized at this time. * Telephone Encounter - Becka Johnson RMA - 11/25/2022 8:38 AM CDT PA needed for the following: Opzelura 1.5% cream Shah: [id number] Patient: RICHI : 66 documented in this encounter Plan of Treatment Not on file documented as of this encounter Visit Diagnoses Not on filedocumented in this encounter Care Teams Fabricating Machine Operator Relationship Specialty Start Date End Date Bertin Crenshaw MD [address] [address] PCP - General Internal Medicine 02/04/22 Sumi Love MD [address] [facility] [address] [place] [address] Referring Physician Psychiatry 02/04/22 Arlet Love MD [address] [facility] [address] [place] [address] Consulting Physician Obstetrics and Gynecology 02/04/22 documented as of this encounter
--- OUTSIDE RECORDS SUMMARY | 2024-07-24 19:58 | XMS_ITS | Encounter Summary ---
Author Organization [facility] Address [address] [place] [address] Care Team Providers Care Brim Buster Name Role Phone Bertin Crenshaw MD Primary Care Provider Sumi Love MD Unavailable Arlet Love MD Unavailable [phone] Yasemin Churchill MD Unavailable Romeo Lindsay MD Unavailable Charissa Juarez MD Unavailable [phone] Arlet Ballard RN Unavailable Unavailable Encounter Details Date Type Department Care Team (Late st Contact Info) Description 11/03/2023 Orders Only [facility] [address] [facility] [place] [address] Bertin Crenshaw MD [address] [facility] [address] [place] [address] Chronic pain of left knee (Primary Dx) Social History Tobacco Use Types [...] on file 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 Gender Identity Not on file Sexual Orientation Not on file 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[employer], 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 Not on file Not on file Not on file documented as of this encounter Plan of Treatment Not on file documented as of this encounter Visit Diagnoses Diagnosis Chronic pain of left knee- Primary documented in this encounter Care Teams Brim Buster Relationship Specialty Start Date End Date Bertin Crenshaw MD [address] [facility] [address] [place] [address] PCP - General Internal Medicine 02/04/22 Sumi Love MD [address] [facility] [address] [place] [address] Referring Physician Psychiatry 02/04/22 Arlet Love MD [address] [facility] [address] [place] [address] Consulting Physician Obstetrics and Gynecology 02/04/22 Yasemin Churchill MD [address] [facility] [address] [place] [address] Referring Physician Internal Medicine 02/05/23 Romeo Lindsay MD [address] [facility] [address] [place] [address] Referring Physician Dermatology 02/05/23 Charissa Juarez MD [address] [facility] [address] [place] [address] Consulting Physician Psychiatry 02/05/23 Arlet Ballard RN [facility] Breast Risk Program Nurse 05/19/23 documented as of this encounter
--- OUTSIDE RECORDS SUMMARY | 2024-07-24 19:58 | XMS_ITS | Encounter Summary ---
Author Organization [facility] Address [address] [place] [address] Care Team Providers Care Supervisor Pumping Station Name Role Phone Bertin Crenshaw MD Primary Care Provider Sumi Love MD Unavailable [phone] Arlet Love MD Unavailable [phone] Encounter Details Date Type Department Care Team (Late st Contact Info) Description 02/06/2022 Orders Only [facility] [address] [facility] [address] [place] [id number] Bertin Crenshaw MD [address] [id number] Abnormal CBC (Primary Dx) Social History Tobacco Use Types Packs/Day Years Used Date Smoking Tobacco: Never Smokeless Tobacco: Never PHQ-2 Answer Date Recorded PHQ-2 Total Score (If total score is 3 or more points, staff should administer the PHQ-9) 0 02/04/2022 Comments No Sex and Gender Information Value Date Recorded Sex Assigned at Not on file 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 Gender Identity Not on file Sexual Orientation Not on file 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[employer], 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 Not on file Not on file Not on file documented as of this encounter Plan of Treatment Not on file documented as of this encounter Visit Diagnoses Diagnosis Abnormal CBC- Primary Other abnormal blood chemistry documented in this encounter Care Teams Supervisor Pumping Station Relationship Specialty Start Date End Date Bertin Crenshaw MD [address] [address] PCP - General Internal Medicine 02/04/22 Sumi Love MD [address] [facility] [address] [place] [address] Referring Physician Psychiatry 02/04/22 Arlet Love MD [address] [facility] [address] [place] [address] Consulting Physician Obstetrics and Gynecology 02/04/22 documented as of this encounter
--- OUTSIDE RECORDS SUMMARY | 2024-07-24 19:58 | XMS_ITS | Encounter Summary ---
Author Organization [facility] Address [address] [place] [address] Phone Care Team Providers Care Clinical Specialist Medical Device Name Role Phone Bertin Crenshaw MD Primary Care Provider Sumi Love MD Unavailable [phone] Arlet Love MD Unavailable Encounter Details Date Type Department Care Team (Late st Contact Info) Description 11/15/2022 11:45 AM CDT Office Visit [facility] Dermatology [address] [place] [address] [address] [place] [address] Romeo Lindsay MD [address] [place] [address] [address] [place] [address] Allergic contact dermatitis due to other agents [...] on file 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 Gender Identity Not on file Sexual Orientation Not on file 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 No acute distress. [...] abnormalities noted. EXTREMITIES (LUE): No abnormalities noted. Right lower extremity - no abnormalities noted Left lower extremity - no abnormalities noted DIGITS/NAILS: No cyanosis, clubbing, or nail abnormality. ASSESSMENT AND PLAN: Rash Eyelid dermatitis - mod/severe Allergic contact deramtitis Patch testing today; 90 allergens placed; Acds core series plus 23 hair allergens given severity onhead/eyelids Risks, side effects, limitations and expectations of patch testing were discussed including, but not limited to, possible: itching, discomfort, negative results, positive results that might not be relevant, positive results do not guarantee clinical improvement, negative results do not fully rule out allergic reactions, positive results might require changes in lifestyle and/or product use to improve rash, we do not test for all possible allergens and an allergy can still be cause of rash even though this test was negative, financial obligations related to test Romeo Lindsay MD documented in this encounter Plan of Treatment Not on file documented as of this encounter Visit Diagnoses Diagnosis Allergic contact dermatitis due to other agents- Primary documented in this encounter Care Teams Clinical Specialist Medical Device Relationship Specialty Start Date End Date Bertin Crenshaw MD [address] [facility] [address] [place] [address] PCP - General Internal Medicine 02/04/22 Sumi Love MD [address] [facility] [address] [place] [address] Referring Physician Psychiatry 02/04/22 Arlet Love MD [address] [facility] [address] [place] [address] Consulting Physician Obstetrics and Gynecology 02/04/22 documented as of this encounter
--- OUTSIDE RECORDS SUMMARY | 2024-07-24 19:58 | XMS_ITS | Encounter Summary ---
Author Organization [facility] Address [address] [place] [address] Care Team Providers Care Plastics Heat Welder Name Role Phone Bertin Crenshaw MD Primary Care Provider Sumi Love MD Unavailable [phone] Arlet Love MD Unavailable Yasemin Churchill MD Unavailable [phone] Romeo Lindsay MD Unavailable Charissa Juarez MD Unavailable [phone] Arlet Ballard RN Unavailable Unavailable Encounter Details Date Type Department Care Team (Late st Contact Info) Description 10/31/2023 Orders Only [facility] [address] [place] [id number] Bertin Crenshaw MD [address] [facility] [address] [place] [address] Social History Tobacco Use Types Packs/Day Years [...] on file 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 Gender Identity Not on file Sexual Orientation Not on file 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[employer], 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 Not on file Not on file Not on file documented as of this encounter Ordered Prescriptions Prescription Sig Dispense Quantity Refills Last Filled Start Date End Date meloxicam (MOBIC) 15 mg tablet Take 1 tablet (15 mg total) by mouth daily for 20 days 20 tablet 10/31/2023 documented in this encounter Plan of Treatment Not on file documented as of this encounter Visit Diagnoses Not on filedocumented in this encounter Care Teams Plastics Heat Welder Relationship Specialty Start Date End Date Bertin Crenshaw MD [address] [address] PCP - General Internal Medicine 02/04/22 Sumi Love MD [facility] [address] [address] Referring Physician Psychiatry 02/04/22 Arlet Love MD [address] [place] [address] Consulting Physician Obstetrics and Gynecology 02/04/22 Yasemin Churchill MD [address] [place] [address] Referring Physician Internal Medicine 02/05/23 Romeo Lindsay MD [address] [facility] [address] [place] [address] Referring Physician Dermatology 02/05/23 Charissa Juarez MD [address] [facility] [address] [place] [address] Consulting Physician Psychiatry 02/05/23 Arlet Ballard, RN [facility] Breast Risk Program Nurse 05/19/23 documented as of this encounter
--- OUTSIDE RECORDS SUMMARY | 2024-07-24 19:58 | XMS_ITS | Encounter Summary ---
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 Gender Identity Not on file Sexual Orientation Not on file 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[employer], 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 Not on file Not on file Not on file documented as of this encounter Progress Notes * Jonas Nguyen CMA - 04/29/2022 1:30 PM CDT After obtaining informed consent Shingrix Injection given per Bertin Crenshaw MD orders LD Injection site Pt tolerated well documented in this encounter Plan of Treatment Not on file documented as of this encounter Visit Diagnoses Diagnosis Need for shingles vaccine- Primary Need for prophylactic vaccination and inoculation against varicella documented in this encounter Orders Immunization/Injection Count Last Ordered Date First Ordered Date ZOSTER (SHINGLES) HZV IM 1 04/29/2022 documented in this encounter Care Teams Pharmacognosist Relationship Specialty Start Date End Date Bertin Crenshaw MD [address] [facility] [address] [place] [address] PCP - General Internal Medicine 02/04/22 Sumi Love MD [address] [facility] [address] [place] [address] Referring Physician Psychiatry 02/04/22 Arlet Love MD [address] [facility] [address] [place] [address] Consulting Physician Obstetrics and Gynecology 02/04/22 documented as of this encounter
--- OUTSIDE RECORDS SUMMARY | 2024-07-24 19:58 | XMS_ITS | Encounter Summary ---
Author Organization [facility] Address [address] [place] [address] Phone Care Team Providers Care Cloth Printer Helper Name Role Phone Bertin Crenshaw MD Primary Care Provider Sumi Love MD Unavailable [phone] Arlet Love MD Unavailable [phone] Reason for Visit * Reason Comments eyelid dermatitis Encounter Details Date Type Department Care Team (Late st Contact Info) Description 10/03/2022 9:30 AM COMMUNITY SERVICE ORGANIZATION DIRECTOR Office Visit [facility] Ophthalmology [address] [facility] 6th [place] [address] Serg Amezquita MD [address] [facility] DEPT OPHTHALMOLOGY, [address] [address] Eyelid dermatitis, allergic/contact, unspecified laterality (Primary Dx) Social History Tobacco [...] on file Legal Sex Female 8:57 AM COMMUNITY SERVICE ORGANIZATION DIRECTOR Gender Identity Not on file Sexual Orientation Not on file 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 RTC 4-6 weeks. UNITY SERVICE ORGANIZATION DIRECTOR documented in this encounter Plan of Treatment Not on file documented as of this encounter Visit Diagnoses Diagnosis Eyelid dermatitis, allergic/contact, unspecified laterality- Primary documented in this encounter Historical Medications * This list may reflect changes made after this encounter. cetirizine (ZyrTEC) 10 mg tablet Take 10 mg by mouth daily added in this encounter Eye Exam Visual Acuity (Snellen - Linear) Right eye Left eye Dist cc 20/20 20/20 Tonometry (Tonopen, 10:04 AM) Right eye Left eye Pressure 13 15 Pupils Dark Light Shape React APD Right eye 4 3 Round Brisk None Left eye 4 3 Round Brisk None Visual Almonte (Counting fingers) Right eye Left eye Full Full Extraocular Movement Right eye Left eye Full, Ortho Full, Ortho Neuro/Psych Oriented x3: Yes Mood/Affect: Normal Improved but not resolved I have seen/examined the patient, personally formulated the plan, and I agree with findings/plan ofthe Resident/Fellow. Slit Lamp Exam Right eye Left eye Lids/Lashes Improved eyelid nara a, periocular skin darkening, no pap/follicular reaction Improved eyelid edema, periocular skin darkening, no pap/follicular reaction Conjunctiva/Sclera White and quiet White and pelon et Cornea Clear Clear Anterior Chamber Deep and quiet Deep and quiet Iris Round and reactive Round and emmanuel ctive Lens Nuclear sclerosis Nuclear sclero sis Anterior Vitreous Normal Normal Care Teams Cloth Printer Helper Relationship Specialty Start Date End Date Bertin Crenshaw MD [address] [facility] [address] [place] [address] PCP - General Internal Medicine 02/04/22 Sumi Love MD [facility]0 [facility] [address] [place], [place] [address] Referring Physician Psychiatry 02/04/22 Arlet Love MD [address] [facility] [address] [place] [address] Consulting Physician Obstetrics and Gynecology 02/04/22 documented as of this encounter
--- OUTSIDE RECORDS SUMMARY | 2024-07-24 19:58 | XMS_ITS | Encounter Summary ---
Author Organization [facility] Address [address] [place] [address] Care Team Providers Care Electronics Parts Sales Representative Name Role Phone Lynda Duarte NP Primary Care Provider [phone] Reason for Referral * Diagnostic Imaging (Routine) - Closed Specialty Diagnoses / Procedures Referred By Contac t Referred To Contact Diagnoses Research exam Procedures US Guided Fine Needle Aspiration 1st Lesion Celi Gilbert MD PhD [address] [place] [address] Phone: tel: fax: [address] [address] Referral ID Status Reason Start Date Expiration Date Visits Re quested Visits Authorized [id number] Closed 07/16/2021 08/15/2022 1 1 H MEASURER MACHINE Reason for Visit * Diagnostic Imaging (Routine) - Closed Specialty Diagnoses / Procedures Referred By Contac t Referred To Contact Diagnoses Research exam Procedures US Guided Fine Needle Aspiration 1st Lesion Celi Gilbert MD PhD [address] [place] [address] Phone: tel: fax: [address] [address] Referral ID Status Reason Start Date Expiration Date Visits Re quested Visits Authorized [id number] Closed 07/16/2021 08/15/2022 1 1 Encounter Details Date Type Department Care Team (Latest Contact Info) Description 07/17/2021 8:19 AM CLOTH MEASURER MACHINE - 07/17/2021 11:59 PM CLOTH MEASURER MACHINE Hospital Encounter [facility] Radiology [address] [facility] [place] [address] Celi Gilbert MD PhD [address] [facility] [address] [place] [address] Research exam Discharge Disposition: Discharge to home or self care Social History Tobacco Use Types Packs/Day Years Used Date Smoking Tobacco: Never Comments No Sex and Gender Information Value Date Recorded Sex Assigned at Not on file Legal Sex Female 8:57 AM CLOTH MEASURER MACHINE Gender Identity Not on file Sexual Orientation Not on file documented as of this encounter Medications at Time of Discharge ketoconazole (NIZORAL) 2 % shampoo Apply to wet hair, leave on for 3 minutes, then rinse; at least three times weekly. 30 days supply 06/02/2019 02/05/2023 omeprazole (PriLOSEC) 40 mg capsule Take 40 mg by mouth daily 02/12/2021 02/04/2022 pimecrolimus (ELIDEL) 1 % cream Apply to face twice a day. 30 days supply. 06/02/2019 02/05/2023 documented as of this encounter Discharge Disposition Disposition Code Departure Means Destination Discharge to home or self care documented in this encounter Plan of Treatment Not on file documented as of this encounter Procedures Procedure Name Priority Date/Time Associated Diagnosis Comments US GUIDED FINE NEEDLE ASPIRATION 1ST LESION Schedule Routine, Read Routine (OP Routine) 07/17/2021 1:12 PM CLOTH MEASURER MACHINE Research exam documented in this encounter Results * US Guided Fine Needle Aspiration 1st Lesion (07/17/2021 1:12 PM CLOTH MEASURER MACHINE) Anatomical Region Laterality Modality Body N/A Ultrasound 07/17/2021 2:11 PM CLOTH MEASURER MACHINE Impressions 07/17/2021 2:11 PM CLOTH MEASURER MACHINE 1. Successful ultrasound-guided fine needle aspiration of right axillary lymph node. Electronically signed by: Adonis Monroe M.D. Narrative 07/17/2021 2:11 PM CLOTH MEASURER MACHINE EXAMINATION: ULTRASOUND-GUIDED RIGHT AXILLARY LYMPH NODE FINE NEEDLE ASPIRATION BIOPSY COVID STUDY HISTORY: ??COVID-19 vaccine immune response study. ??Booster dose. ??1st FNA. COMPARISON: ??None FINDINGS: Sampled lymph node size: 28 mm x 8 point mm x 15 mm ((length x AP diameter x transverse diameter) Cortical thickness (measure where the lymph node is thickest on a short axis image): 2.1 mm Vascularity on color Doppler: hilar flow only Location: not adjacent to axillary vessels. ??Distance from axillary vein could not be determined because both structures cannot be reviewed simultaneously. Depth from skin surface: 22 mm TECHNIQUE: ??The procedure for ultrasound-guided fine needle aspiration (FNA) was explained to and discussed with the patient. Risks were explained to include, but not be limited to, hemorrhage, infection, injury to adjacent organs, non-diagnostic specimen and adverse reaction to medications administered. The patient voiced understanding and wished to proceed. The patient's overlying skin was prepped and draped in the usual sterile fashion. ?? FNA: A site was localized for fine needle aspiration. The patient's overlying skin was prepped and draped in the usual sterile fashion. Local anesthesia was achieved via subcutaneous and deep administration with 5 mL of Lidocaine 1%. Under realtime ultrasound guidance, the needle was advanced into lymph node ??and 6 passes were made with 25 gauge needles. The patient's skin was cleaned and dressed. The patient tolerated the entire procedure well without immediate complications. Dr. Adonis Monroe M.D., the attending radiologist, was present from the beginning to the end of the procedure. Dr. Monroe performed the biopsy. Procedure Note Adonis Monroe MD - 07/17/2021 EXAMINATION: ULTRASOUND-GUIDED RIGHT AXILLARY LYMPH NODE FINE NEEDLE ASPIRATION BIOPSY COVID STUDY HISTORY: COVID-19 vaccine immune response study. Booster dose. 1st FNA. COMPARISON: None FINDINGS: Sampled lymph node size: 28 mm x 8 point mm x 15 mm ((length x AP diameter x transverse diameter) Cortical thickness (measure where the lymph node is thickest on a short axis image): 2.1 mm Vascularity on color Doppler: hilar flow only Location: not adjacent to axillary vessels. Distance from axillary vein could not be determined because both structures cannot be reviewed simultaneously. Depth from skin surface: 22 mm TECHNIQUE: The procedure for ultrasound-guided fine needle aspiration (FNA) was explained to and discussed with the patient. Risks were explained to include, but not be limited to, hemorrhage, infection, injury to adjacent organs, non-diagnostic specimen and adverse reaction to medications administered. The patient voiced understanding and wished to proceed. The patient's overlying skin was prepped and draped in the usual sterile fashion. FNA: A site was localized for fine needle aspiration. The patient's overlying skin was prepped and draped in the usual sterile fashion. Local anesthesia was achieved via subcutaneous and deep administration with 5 mL of Lidocaine 1%. Under realtime ultrasound guidance, the needle was advanced into lymph node and 6 passes were made with 25 gauge needles. The patient's skin was cleaned and dressed. The patient tolerated the entire procedure well without immediate complications. Dr. Adonis Monroe M.D., the attending radiologist, was present from the beginning to the end of the procedure. Dr. Monroe performed the biopsy. IMPRESSION: 1. Successful ultrasound-guided fine needle aspiration of right axillary lymph node. Electronically signed by: Adonis Monroe M.D. Celi Gilbert MD PhD IMG US PROCEDURES Final Result documented in this encounter Visit Diagnoses Diagnosis Research exam documented in this encounter Administered Medications Inactive Administered Medications - up to 3 most recent administrations Medication Order MAR Action Action Date Dose Rate Site lidocaine PF (XYLOCAINE) 10 mg/mL (1 %) preservative free injection 50 mg 50 mg (5 mL), subcutaneous, Once, On Fri07/17/21 at 1300, For 1 dose Given 07/17/2021 12:45 PM CLOTH MEASURER MACHINE 50 mg Right Upper Arm documented in this encounter Orders Medications Ordered That Dominick ht Not Have Been Administered Count Last Ordered Date First Ordered Date lidocaine PF (XYLOCAINE) 10 mg/mL (1 %) preservative free injection 50 mg 1 07/17/2021 documented in this encounter Care Teams Electronics Parts Sales Representative Relationship Specialty Start Date End Date Lynda Duarte NP PCP - General 10/24/20 02/03/22 documented as of this encounter
--- OUTSIDE RECORDS SUMMARY | 2024-07-24 19:58 | XMS_ITS | Encounter Summary ---
Author Organization [facility] Healthcare Address [address] [place] [address] Care Team Providers Care Rehabilitation Tech Name Role Phone Bertin Crenshaw MD Primary Care Provider Sumi Love MD Unavailable [phone] Arlet Love MD Unavailable Yasemin Churchill MD Unavailable [phone] Romeo Lindsay MD Unavailable [phone] Charissa Juarez MD Unavailable Arlet Ballard RN Unavailable Unavailable Encounter Details Date Type Department Care Team (Latest Contact Info) Description 10/31/2023 1:42 PM CDT - 10/31/2023 11:59 PM CDT Hospital Encounter [address] [address] Preventative health care; Screening for deficiency anemia; Other hyperlipidemia; Recurrent major depressive disorder, in partial remission (HCC); Hypertension, essential; Class 3 severe obesity due to excess calories without serious comorbidity with body mass index (BMI) of 40.0 to 44.9 in adult (HCC); Screening for thyroid disorder; Screening for diabetes mellitus; Screening for metabolic disorder Discharge Disposition: Discharge to home or self [...] on file Legal Sex Female 8:57 AM [employer] Gender Identity Not on file Sexual Orientation Not on file 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[employer], 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 Not on file Not on file [...] Priority Date/Time Associated Diagnosis Comments EGFR Routine 10/31/2023 4:23 PM CDT Preventative health care Other hyperlipidemia Hypertension, essential Screening for metabolic disorder DIFFERENTIAL AUTO Routine 10/31/2023 4:2 3 PM CDT Preventative health care Screening for deficiency anemia THYROID FUNCTION CASCADE Routine 10/31/2023 4:23 PM CDT Preventative health care Other hyperlipidemia Recurrent major depressive disorder, in partial remission (HCC) Hypertension, essential Class 3 severe obesity due to excess calories without serious comorbidity with body mass index (BMI) of 40.0 to 44.9 in adult ([facility]) Screening for thyroid disorder IRON PROFILE W/ IBC Routine 10/31/2023 4 :23 PM CDT Preventative health care Screening for deficiency anemia CBC WITH AUTO DIFFERENTIAL Routine 10/31/2023 4:23 PM CDT Preventative health care Screening for deficiency anemia HEMOGLOBIN A1C Routine 10/31/2023 4:23 PM CDT Preventative health care Class 3 severe obesity due to excess calories without serious comorbidity with body mass index (BMI) of 40.0 to 44.9 in adult ([facility]) Screening for diabetes mellitus FERRITIN Routine 10/31/2023 4:23 PM CDT Preventative health care Screening for deficiency anemia LIPID PANEL Routine 10/31/2023 4:23 PM CDT Preventative health care Other hyperlipidemia Class 3 severe obesity due to excess calories without serious comorbidity with body mass index (BMI) of 40.0 to 44.9 in adult ([facility]) COMPREHENSIVE METABOLIC PANEL Routine 10/31/2023 4:23 PM CDT Preventative health care Other hyperlipidemia Hypertension, essential Screening for metabolic disorder documented in this encounter Results * eGFR (10/31/2023 4:23 PM CDT) eGFR 72 >=60 mL/min/1. 73 m2 Comment: Interpretive Data Reference Interval Normal ?>/= [...] interpretive data was last reviewed 2021. Blood 10/31/2023 4:23 PM CDT 10/31/2023 4:57 PM CDT us Bertin Crenshaw MD LAB BLOOD ORDERABLES F inal Result [facility] Department of Laboratories [place], [place] [id number] * (ABNORMAL) Differential, auto (10/31/2023 4:23 PM CDT) Neutrophil abs 3.8 1.5 - 6.5 K/cumm Imm gran abs 0.0 0.0 - 0.1 K/cumm [facility] Lymphocyte abs 2.3 0.8 - 3.3 K/cumm [facility] Monocyte abs 0.6 0.2 - 0.8 K/cumm [facility] Eosinophil abs 0.7(H) 0.0 - 0.5 K/cumm [facility] Basophil abs 0.1 0.0 - 0.1 K/cumm [facility] Neutrophil pct 51.3 % [facility] Comment: Interpretive Data Percent cell count reference ranges are not reported, since discordance with absolute values may lead to misinterpretation of CBC data. Current Interpretive Data was last revised on 2017. Imm gran pct 0.3 % [facility] Comment: Interpretive Data Percent cell count reference ranges are not reported, since discordance with absolute values may lead to misinterpretation of CBC data. Current Interpretive Data was last revised on 2017. Lymphocyte pct 30.3 % [facility] Comment: Interpretive Data Percent cell count reference ranges are not reported, since discordance with absolute values may lead to misinterpretation of CBC data. Current Interpretive Data was last revised on 2017. Monocyte pct 8.2 % [facility] Comment: Interpretive Data Percent cell count reference ranges are not reported, since discordance with absolute values may lead to misinterpretation of CBC data. Current Interpretive Data was last revised on 2017. Eosinophil pct 9.1 % [facility] Comment: Interpretive Data Percent cell count reference ranges are not reported, since discordance with absolute values may lead to misinterpretation of CBC data. Current Interpretive Data was last revised on 2017. Basophil pct 0.8 % [facility] Comment: Interpretive Data Percent cell count reference ranges are not reported, since discordance with absolute values may lead to misinterpretation of CBC data. Current Interpretive Data was last revised on 2017. Blood 10/31/2023 4:23 PM CDT 10/31/2023 4:38 PM CDT Bertin Crenshaw MD LAB BLOOD ORDERABLES F inal Result Performing Organization Address [facility] Co de Phone Number [facility] Department [place] [address] * (ABNORMAL) CBC with auto differential (10/31/2023 4:23 PM CDT) [facility] WBC 7.5 3.8 - 9.9 K/cumm Hgb 11.4(L) 11.9 - 15.5 g/dL [facility] Hct 34.7(L) 35.6 - 45.5 % [facility] Plt 321 150 - 400 K/cumm [facility] MPV 10.3 9.1 - 12.3 fL [facility] RBC 3.82(L) 3.90 - 5.20 M/cumm [facility] MCV 90.8 81.3 - 96.4 fL [facility] MCH 29.8 27.1 - 33.3 pg [facility] MCHC 32.9 32.3 - 35.7 g/dL [facility] RDW CV 12.3 11.1 - 14.9 % [facility] RDW SD 40.2 35.7 - 48.1 fL [facility] NRBC abs 0.00 0.00 - 0.01 K/cumm [facility] Blood 10/31/2023 4:23 PM CDT 10/31/2023 4:38 PM CDT Bertin Crenshaw MD LAB BLOOD ORDERABLES F inal Result Performing Organization Address [facility]/ZIP Co de Phone Number [facility] Department [place] [address] * Comprehensive metabolic panel (10/31/2023 4:23 PM CDT) Pathologist [facility] Sodium 140 135 - 145 mmol/L Potassium, pl 3.9 3.3 - 4.9 mmol/L [facility] Chloride 103 97 - 110 mmol/L [facility] CO2 28 22 - 32 mmol/L [facility] Anion gap 9 2 - 15 mmol/L [facility] BUN 12 6 - 25 mg/dL [facility] Creatinine 0.94 0.60 - 1.10 mg/dL [facility] Glucose 75 70 - 199 mg/dL [facility] Comment: Interpretive Data Fasting glucose >/= [...] classification and Diagnosis of Diabetes Diabetes Care 202; 46: S19-S40. Current interpretive data was last revised 2022. Calcium 9.7 8.5 - 10.3 mg/dL [facility] Bilirubin, total 0.8 0.1 - 1.2 mg/dL [facility] Protein, pl 7.3 6.5 - 8.5 g/dL [facility] Albumin 4.3 3.5 - 5.0 g/dL [facility] Alk phos 105 40 - 130 Units/L [facility] ALT 33 7 - 45 Units/L [facility] AST 24 10 - 45 Units/L [facility] Blood 10/31/2023 4:23 PM CDT 10/31/2023 4:38 PM CDT Bertin Crenshaw MD LAB BLOOD ORDERABLES F inal Result [facility] Department [place] [address] * (ABNORMAL) Hemoglobin A1c (10/31/2023 4:23 PM CDT) Hgb A1C 5.8(H) 4.0 - 5.6 % Estimated Average Glucose 120 mg/dL [facility] Comment: The ADA recommends reporting an [...] MD LAB BLOOD ORDERABLES F inal Result [facility] Department [place] [address] * (ABNORMAL) Lipid panel (10/31/2023 4:23 PM [...] on 2018. Triglycerides 219(H) <=149 mg/dL [facility] Comment: Interpretive Data Ages < or = [...] revised on 2018. HDL 47 >=40 mg/dL [facility] Comment: Interpretive Data Ages < or [...] on 2018. LDL, calculated 66 <=129 mg/dL [facility] Comment: Interpretive Data Ages < or [...] revised on 2018. Non-HDL Cholesterol 110 mg/dL [facility] Comment: Interpretive Data Ages < or [...] last revised on 2018. Chol/HDL ratio 3 [facility] Blood 10/31/2023 4:23 PM CDT 10/31/2023 4:38 PM CDT Bertin Crenshaw MD LAB BLOOD ORDERABLES F inal Result Performing Organization Address City/[facility] Co de Phone Number [facility] [place] [address] * Thyroid Function [place] (10/31/2023 4:23 PM CDT) TSH 3.50 0.30 - 4.20 mcIUnit/mL Blood 10/31/2023 4:23 PM CDT 10/31/2023 4:38 PM CDT Bertin Crenshaw MD LAB BLOOD ORDERABLES F inal Result Performing Organization Address [facility] Co de Phone Number [facility] Department [place] [address] * Iron profile w/ IBC (10/31/2023 4:23 PM CDT) Iron 63 35 - 145 mcg/dL TIBC 255 250 - 400 mcg/dL [facility] Transferrin saturation 25 20 - 50 % [facility] Blood 10/31/2023 4:23 PM CDT 10/31/2023 4:38 PM CDT Bertin Crenshaw MD LAB BLOOD ORDERABLES F inal Result Performing Organization Address [facility] Co de Phone Number [facility] Department [place] [address] * Ferritin (10/31/2023 4:23 PM CDT) Ferritin 103 13 - 150 ng/mL Blood 10/31/2023 4:23 PM CDT 10/31/2023 4:38 PM CDT Result [facility] Bertin Crenshaw MD LAB BLOOD ORDERABLES F inal Result Performing Organization Address [facility] de Phone Number [facility] Department [place] [address] documented in this encounter Visit Diagnoses Diagnosis Preventative health care Routine general medical examination at a health care facility Screening for deficiency anemia Screening for other and unspecified deficiency anemia Other hyperlipidemia Recurrent major depressive disorder, in partial remission (HCC) Hypertension, essential Unspecified essential hypertension Class 3 severe obesity due to excess calories without serious comorbidity with body mass index (BMI) of 40.0 to 44.9 in adult (HCC) Screening for thyroid disorder Screening for diabetes mellitus Screening for metabolic disorder documented in this encounter Care Teams Rehabilitation Tech Relationship Specialty Start Date End Date Bertin Crenshaw MD [address] [facility] [address] [place] [address] PCP - General Internal Medicine 02/04/22 Sumi Love MD [facility] [address] [place] [address] Referring Physician Psychiatry 02/04/22 Arlet Love MD [address] [facility] [address] [place] [address] Consulting Physician Obstetrics and Gynecology 02/04/22 Yasemin Churchill MD [address] [facility] [address] [place] [address] Referring Physician Internal Medicine 02/05/23 Romeo Lindsay MD [address] [facility] [address] [place] [address] Referring Physician Dermatology 02/05/23 Charissa Juarez MD [address] [facility] [address] [place] [address] Consulting Physician Psychiatry 02/05/23 Arlet Ballard, [facility] Breast Risk Program Nurse 05/19/23 documented as of this encounter
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
--- OUTSIDE RECORDS SUMMARY | 2024-07-24 19:58 | XMS_ITS | Encounter Summary ---
Author Organization [facility] Address [address] [place] [address] Phone Care Team Providers Care Gasoline Pump Installer Name Role Phone Bertin Crenshaw MD Primary Care Provider Sumi Love MD Unavailable [phone] Arlet Love MD Unavailable Encounter Details Date Type Department Care Team (Late st Contact Info) Description 09/24/2022 Telephone [facility] Ophthalmology [address] [facility] Outpatient Health 6th [place] [address] Serg Amezquita MD [address] [facility] DEPT OPHTHALMOLOGY, [address] [address] Social History Tobacco Use Types Packs/Day Years [...] on file Legal Sex Female 8:57 AM DIGITAL CONTENT COORDINATOR Gender Identity Not on file Sexual Orientation Not on file 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 Amezquita. TAL CONTENT COORDINATOR documented in this encounter Plan of Treatment Not on file documented as of this encounter Visit Diagnoses Not on filedocumented in this encounter Care Teams Gasoline Pump Installer Relationship Specialty Start Date End Date Bertin Crenshaw MD [address] [facility] [address] [place] [address] PCP - General Internal Medicine 02/04/22 Sumi Love MD [address] [facility] [address] [place] [address] Referring Physician Psychiatry 02/04/22 Arlet Love MD [address] [facility] [address] [place] [address] Consulting Physician Obstetrics and Gynecology 02/04/22 documented as of this encounter
--- OUTSIDE RECORDS SUMMARY | 2024-07-24 19:58 | XMS_ITS | Encounter Summary ---
Author Organization [facility] Address [address] [place] [address] Care Team Providers Care Baker Pastry Name Role Phone Bertin Crenshaw MD Primary Care Provider Sumi Love MD Unavailable [phone] Arlet Love MD Unavailable [phone] Yasemin Churchill MD Unavailable [phone] Romeo Lindsay MD Unavailable [phone] Charissa Juarez MD Unavailable [phone] Arlet Ballard RN Unavailable Unavailable Reason for Referral * Consultation (Routine) - Authorized Specialty Diagnoses / Procedures Referred By Katherin cartagena Referred To Contact Physical Therapy Diagnoses Knee pain, unspecified chronicity, unspecified laterality Bertin Crenshaw MD [address] [address] Phone: tel: fax: [facility] (All Locations) Referral ID Status Reason Start Date Expiration Date Visits Requested Visits Authorized [id number] Authorized Specialty Services Required 11/01/2023 10/31/2024 24 24 Question Answer PTRFR PT Evaluate and Treat Reason for Visit knee pain Therapy options discussed with patient? 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[employer], 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 Not on file Not on file Not on file documented as of this encounter Plan of Treatment Scheduled Referrals Name Type Priority Associated Diagnoses Orde r Schedule Ambulatory referral order to Physical Therapy - Outpatient Referral Routine Knee pain, unspecified chronicity, unspecified laterality Expected: 11/15/2023 (Approximate), Expires: 10/31/2024 documented as of this encounter Visit Diagnoses Diagnosis Knee pain, unspecified chronicity, unspecified laterality- Primary documented in this encounter Care Teams Baker Pastry Relationship Specialty Start Date End Date Bertin Crenshaw MD [address] [address] PCP - General Internal Medicine 02/04/22 Sumi Love MD [address] [address] Referring Physician Psychiatry 02/04/22 Arlet Love MD [address] [facility] [address] [place] [address] Consulting Physician Obstetrics and Gynecology 02/04/22 Yasemin Churchill MD [address] [facility] [address] [place] [address] Referring Physician Internal Medicine 02/05/23 Romeo Lindsay MD [address] [facility] [address] [place] [address] Referring Physician Dermatology 02/05/23 Charissa Juarez MD [address] [facility] [address] [place] [address] Consulting Physician Psychiatry 02/05/23 Arlet Ballard, [facility] Breast Risk Program Nurse 05/19/23 documented as of this encounter
--- OUTSIDE RECORDS SUMMARY | 2024-07-24 19:58 | XMS_ITS | Encounter Summary ---
Author Organization [facility] Address [address] [place] [address] Phone Care Team Providers Care Early Childhood Services Coordinator Name Role Phone Bertin Crenshaw MD Primary Care Provider Sumi Love MD Unavailable Arlet Love MD Unavailable [phone] Yasemin Churchill MD Unavailable [phone] Romeo Lindsay MD Unavailable Charissa Juarez MD Unavailable Arlet Ballard RN Unavailable Unavailable Reason for Visit * Reason Onset Date Comments Prior Auth 10/21/2023 Encounter Details Date Type Department Care Team (Late st Contact Info) Description 10/21/2023 Telephone [facility] Dermatology [address] [facility] Outpatient Health [address] [place] [address] Ana Hong MD PhD [address] [facility] [address] [place] [address] Prior Auth Social History Tobacco Use Types Packs/Day Years [...] on file Legal Sex Female 8:57 AM STORY READER Gender Identity Not on file Sexual Orientation Not on file 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 No further PA activity needed * Telephone Encounter - Rebeca Michael - 10/21/2023 10:19 AM CDT Fax received PA needed for tacrolimus (PROTOPIC) 0.1 % ointment documented in this encounter Plan of Treatment Not on file documented as of this encounter Visit Diagnoses Not on filedocumented in this encounter Care Teams Early Childhood Services Coordinator Relationship Specialty Start Date End Date Bertin Crenshaw MD [address] [facility] [address] [place] [address] PCP - General Internal Medicine 02/04/22 Sumi Love MD [address] [facility] [address] [place] [address] Referring Physician Psychiatry 02/04/22 Arlet Love MD [address] [facility] [address] [place] [address] Consulting Physician Obstetrics and Gynecology 02/04/22 Yasemin Churchill MD [address] [facility] [address] [place] [address] Referring Physician Internal Medicine 02/05/23 Romeo Lindsay MD [address] [facility] [address] [place] [address] Referring Physician Dermatology 02/05/23 Charissa Juarez MD [address] [facility] [address] [place] [address] Consulting Physician Psychiatry 02/05/23 Arlet Ballard, [facility] Breast Risk Program Nurse 05/19/23 documented as of this encounter
--- OUTSIDE RECORDS SUMMARY | 2024-07-24 19:58 | XMS_ITS | Encounter Summary ---
Author Organization [facility] Healthcare Address [address] [place] [address] Care Team Providers Care Zoning Engineer Name Role Phone Bertin Crenshaw MD Primary Care Provider Sumi Love MD Unavailable [phone] Arlet Love MD Unavailable [phone] Reason for Referral * Diagnostic Imaging (Routine) - Closed Specialty Diagnoses / Procedures Referred By Katherin cartagena Referred To Contact Diagnoses Encounter for screening mammogram for malignant neoplasm of breast Procedures Screening Mammogram Bilateral W Bertin Byrne MD [address] [address] Phone: tel: fax: [address] [phone] Referral ID Status Reason Start Date Expiration Date Visits Re quested Visits Authorized [id number] Closed 02/04/2022 03/06/2023 1 1 Reason for Visit * Diagnostic Imaging (Routine) - Closed Specialty Diagnoses / Procedures Referred By Katherin cartagena Referred To Contact Diagnoses Encounter for screening mammogram for malignant neoplasm of breast Procedures Screening Mammogram Bilateral W Bertin Byrne MD [address] [address] Phone: tel: fax: [address] [phone] Referral ID Status Reason Start Date Expiration Date Visits Re quested Visits Authorized [id number] Closed 02/04/2022 03/06/2023 1 1 Encounter Details Date Type Department Care Team (Latest Contact Info) Description 05/24/2022 7:28 AM CDT - 05/24/2022 11:59 PM CDT Hospital Encounter [facility] Breast Imaging 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 us Bertin Crenshaw MD IMG MAMMO PROCEDURES F inal Result documented in this encounter Visit Diagnoses Diagnosis Encounter for screening mammogram for malignant neoplasm of breast documented in this encounter Care Teams Zoning Engineer Relationship Specialty Start Date End Date Bertin Crenshaw MD [address] [facility] [address] [place] [address] PCP - General Internal Medicine 02/04/22 Sumi Love MD [facility] [address] [place] [address] Referring Physician Psychiatry 02/04/22 Arlet Love MD [address] [facility] [address] [place] [address] Consulting Physician Obstetrics and Gynecology 02/04/22 documented as of this encounter
--- OUTSIDE RECORDS SUMMARY | 2024-07-24 19:58 | XMS_ITS | Encounter Summary ---
Author Organization [facility] Address [address] [place] [address] Care Team Providers Care Provider Education Specialist Name Role Phone Bertin Crenshaw MD Primary Care Provider Sumi Love MD Unavailable [phone] Arlet Love MD Unavailable Yasemin Churchill MD Unavailable Romeo Lindsay MD Unavailable Charissa Juarez MD Unavailable [phone] Arlet Ballard RN Unavailable Unavailable Reason for Referral * Diagnostic Imaging (Routine) - Closed Specialty Diagnoses / Procedures Referred By Katherin t Referred To Contact Diagnoses Chronic pain of left knee Procedures XR Knee Left 3 Views Bertin Crenshaw MD [address] [address] Phone: tel: fax: [address] [phone] Referral ID Status Reason Start Date Expiration Date Visits Re quested Visits Authorized [id number] Closed 10/31/2023 11/29/2024 1 1 Encounter Details Date Type Department Care Team (Late st Contact Info) Description 10/31/2023 1:15 PM CDT Office Visit [facility] [address] [phone] Bertin Crenshaw MD [address] [address] Chronic pain of left knee (Primary Dx); Leg edema; Hypertension, essential; Screening for deficiency anemia; Screening for metabolic disorder; Screening for thyroid disorder; Screening for diabetes mellitus; Other hyperlipidemia Social History Tobacco Use Types Packs/Day Years [...] on file Legal Sex Female 8:57 AM FELLER HAND Gender Identity Not on file Sexual Orientation Not on file 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[employer], 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 Not on file Not on file Not on file documented as of this encounter Last Filed Vital Signs Vital Sign Reading Time Taken Comments Blood Pressure 130/83 10/31/2023 1:11 PM CDT Pulse 69 10/31/2023 1:11 PM CDT Temperature 36.7 ??C (98.1 ??F) 10/31/2023 1:11 PM CD T Respiratory Rate - - Oxygen Saturation 96% 10/31/2023 1:11 PM CDT Inhaled Oxygen Concentration - - Weight 119.3 kg (263 lb) 10/31/2023 1:11 PM CDT Height 170.1 cm (5' 6.96 ) 10/31/2023 1:11 PM CD T Body Mass Index 41.24 10/31/2023 1:11 PM CDT documented in this encounter Progress Notes * Bertin Crenshaw MD - 10/31/2023 1:15 PM CDT Subjective/Objective Patient ID: Rebecca Santacruz is a 53 y.o. female. Chief Complaint Leg and feet swelling HPI Rebecca Santacruz was last seen 02/05/23 for PHE. Today she notes that in April 2023 she had some issues with her left knee bothering her. She thought it was due to working out on the concrete floor and getting her 10k daily. She ended up taking abreak to let things heal up. She got distracted by her father illness and eventually lost him in early September. She then had her daughter is in medical school felt that her legs were swollen, both legsand feet. She finds that her legs are more swollen and she is up and on them then when sitting. She usually works at home. She has ongoing pain with her left knee. She finds that this is bad when getting up and the more she is on it the worse it gets. She finds she has to be slow with moving due to this. She tried takingOTC medication such has aleve, advil, APAP (one at a time) but these did not work. This has been going on for nearly 6 months and just getting worse since then. Current Outpatient Medications: albuterol HFA (PROVENTIL HFA,VENTOLIN [...] , Rfl: escitalopram (LEXAPRO) 10 mg tablet, Take 1 tablet (10 mg total) by mouth daily, Disp: 90 tablet, Rfl: 1 losartan (COZAAR) 25 mg tablet, TAKE ONE TABLET BY MOUTH DAILY, Disp: 30 tablet, Rfl: 11 omeprazole (PriLOSEC) 40 mg capsule, TAKE ONE CAPSULE BY MOUTH DAILY, Disp: 30 capsule, Rfl: 11 ruxolitinib (Opzelura) 1.5 % cream, Apply 1 Application topically 2 (two) times a day, Disp: 600 g,Rfl: 6 tacrolimus (PROTOPIC) 0.1 % ointment, Apply thin layer BID to AA eyelid PRN rash, Disp: 100 g, Rfl:3 traZODone (DESYREL) 50 mg tablet, Take 0.5-1.5 tablets (25-75 mg total) by mouth nightly, Disp: 45 tablet, Rfl: 0 triamcinolone (KENALOG) 0.1 % cream, Apply thin layer BID to AA torso and extremities PRN rash, Disp: 80 g, Rfl: 3 Allergies Allergen Reactions Benzalkonium Chloride Rash 1+ Cetrimonium Estero Rash 1+ Other Rash P-Phenylenediamine (PPD) 2+ Shellac Rash 1+ Sodium Benzoate Rash 1+ Review of Systems Cardiovascular: Positive for leg swelling. Musculoskeletal: Positive for arthralgias. All other systems reviewed and are negative. BP 130/83 (BP Location: Left arm, Patient Position: Sitting) Pulse 69 Temp 36.7 ??C (98.1 ??F) (Temporal) Ht 170.1 cm (5' 6.96 ) Wt 119.3 kg (263 lb) SpO2 96% BMI 41.24 kg/m?? Physical Exam Vitals reviewed. Constitutional: General: She is not in acute distress. Appearance: Normal appearance. She is well-developed. She is not diaphoretic. HENT: Head: Normocephalic and atraumatic. Nose: Nose normal. Eyes: Extraocular Movements: Extraocular movements intact. Cardiovascular: Rate and Rhythm: Normal rate and regular rhythm. Heart sounds: Normal heart sounds. No murmur heard. No friction rub. No gallop. Pulmonary: Effort: Pulmonary effort is normal. No respiratory distress. Breath sounds: Normal breath sounds. No wheezing or rales. Musculoskeletal: General: Swelling (bilateral lower extremities with 1+ pitting edema to mid schmidt) present. Normal range of motion. Cervical back: Normal range of motion and neck supple. Comments: positive exam findings: + anserine bursa tenderness and walks with a limp negative exam findings: no effusion, no erythema, ACL stable, PCL stable, MCL stable, LCL stable, Kervin's negative, Berto negative, anterior drawer negative, no crepitus, FROM, and able to weight bear Skin: General: Skin is warm and dry. Findings: No rash. Neurological: General: No focal deficit present. Mental Status: She is alert and oriented to person, place, and time. Mental status is at baseline. Psychiatric: Mood and Affect: Mood normal. Behavior: Behavior normal. Thought Content: Thought content normal. Judgment: Judgment normal. Assessment/Plan Diagnoses and all orders for this visit: Chronic pain of left knee (Primary) Comments: I think OA. start with xray and consider scheduled NSAIDs (waiting labs) and PT vs ortho Orders: - XR Knee Left 3 Views; Future Leg edema Comments: could considering adding HCTZ but need labs first. routine labs to rule out renal dysfunction, thyroid issues or anemia Hypertension, essential Comments: BP a bit high here today. We could increase losartan or consider adding HCTZ but waiting on updatedlabs first. Screening for deficiency anemia Screening for metabolic disorder Screening for thyroid disorder Screening for diabetes mellitus Other hyperlipidemia Follow up TBD or sooner PRN Bertin Crenshaw MD * Katalina Ojeda RMA - 10/31/2023 1:15 PM CDT Rebecca Santacruz presents for lab work per orders of Bertin Crenshaw MD Blood collected from left arm antecubital site using a 21 gauge Straight needle 2 Mint tubes 1 Lavender tubes Tubes labeled and verified in presence of patient Pt tolerated well Blood work sent to [facility] lab for processing documented in this encounter Plan of Treatment Not on file documented as of this encounter Results * XR Knee Left [...] Diagnosis Chronic pain of left knee- Primary Leg edema Edema Hypertension, essential Unspecified essential hypertension Screening for deficiency anemia Screening for other and unspecified deficiency anemia Screening for metabolic disorder Screening for thyroid disorder Screening for diabetes mellitus Other hyperlipidemia Chronic pain of left knee documented in this encounter Care Teams Provider Education Specialist Relationship Specialty Start Date End Date Bertin Crenshaw MD [address] [facility] [address] [place] [address] PCP - General Internal Medicine 02/04/22 Sumi Love MD [address] [facility] [address] [place] [address] Referring Physician Psychiatry 02/04/22 Arlet Love MD [address] [place] [address] Consulting Physician Obstetrics and Gynecology 02/04/22 Yasemin Churchill MD [address] [facility] [address] [place] [address] Referring Physician Internal Medicine 02/05/23 Romeo Lindsay MD [address] [facility] [address] [place] [address] Referring Physician Dermatology 02/05/23 Charissa Juarez MD [address] [facility] [address] [place] [address] Consulting Physician Psychiatry 02/05/23 Arlet Ballard, [facility] Breast Risk Program Nurse 05/19/23 documented as of this encounter
--- OUTSIDE RECORDS SUMMARY | 2024-07-24 19:58 | XMS_ITS | Encounter Summary ---
Author Organization [facility] Healthcare Address [address] [place] [address] Care Team Providers Care Refrigeration Houseman Name Role Phone Bertin Crenshaw MD Primary Care Provider Sumi Love MD Unavailable [phone] Arlet Love MD Unavailable [phone] Reason for Visit * Auth/Cert Specialty Diagnoses / Procedures Referred By Katherin t Referred To Contact Diagnoses Colon cancer screening Colon cancer screening [Z12.11] Procedures NH COLONOSCOPY FLX DX W/COLLJ SPEC WHEN PFRMD NH COLONOSCOPY W/BIOPSY SINGLE/MULTIPLE COLONOSCOPY Referral ID Status Reason Start Date Expiration Date Visits Re quested Visits Authorized [id number] 1 1 Encounter Details Date Type Department Care Team (Latest Contact Info) Description 04/25/2022 7:25 AM CDT - 04/25/2022 10:15 AM CDT Hospital Encounter [facility] [place] [address] [facility] [address] [place] [address] Zoraida Gustafson MD [address] [place] [address] Bertin Borja MD [address] [place] [address] Colon cancer screening Discharge Disposition: Discharge to home or self [...] on file 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 Gender Identity Not on file Sexual Orientation Not on file 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[employer], 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 Not on file Not on file Not on file documented as of this encounter Last Filed Vital Signs Vital Sign Reading Time Taken Comments Blood Pressure 125/86 04/25/2022 9:55 AM CDT Pulse 81 04/25/2022 9:55 AM CDT Temperature 36.3 ??C (97.3 ??F) 04/25/2022 9:35 AM CD T Respiratory Rate 16 04/25/2022 9:55 AM CDT Oxygen Saturation 96% 04/25/2022 9:55 AM CDT Inhaled Oxygen Concentration - - Weight 108.9 kg (240 lb) 04/25/2022 8:19 AM CDT Height 170.2 cm (5' 7 ) 04/25/2022 8:19 AM CDT Body Mass Index 37.59 04/25/2022 8:19 AM CDT documented in this encounter Medications at Time [...] or self care documented in this encounter H&P Notes * Bertin Borja MD - 04/25/2022 8:55 AM CDT Pre Endoscopy History and Physical Oh Stoddard is a 51 y.o. female who is here for Procedure(s): COLONOSCOPY The indication(s) for the procedure(s): Encounter for screening for cancer of colon. . Past Medical History: Diagnosis Date Seasonal allergies Vaginal delivery Past Surgical History: Procedure Laterality Date CYST REMOVAL Left hand CYST REMOVAL foot Social History Tobacco Use Smoking status: Never Smokeless tobacco: Never Substance and Sexual Activity Drug use: Yes Types: Alcohol Comment: 1 drink per week Sexual activity: None Alcohol Use: Unknown Frequency of Alcohol Consumption: Not on file [...] Problems Father's Sister Colon cancer Neg Hx No Known Allergies Prior to Admission medications Medication Sig Start Date End Date Taking? Authorizing Provider albuterol HFA (PROVENTIL HFA,VENTOLIN HFA,PROAIR HFA) 90 mcg/actuation inhaler Inhale 2 puffs every6 (six) hours as needed Yes Matheus Samuel MD ARIPiprazole (ABILIFY) 10 mg tablet Take 10 mg by mouth daily Yes Matheus Samuel MD atorvastatin (LIPITOR) 20 mg tablet Take 1 tablet (20 mg total) by mouth daily 02/04/22 Yes Bertin Crenshaw MD cholecalciferol (VITAMIN D-3) 50,000 unit capsule Take 50,000 Units by mouth once a week Yes Matheus Samuel MD escitalopram (LEXAPRO) 10 mg tablet Take 10 mg by mouth daily Yes Matheus Samuel MD ketoconazole (NIZORAL) 2 % shampoo Apply to wet hair, leave on for 3 minutes, then rinse; at least three times weekly. 30 days supply 06/02/19 Yes Matheus Samuel MD losartan (COZAAR) 25 mg tablet Take 1 tablet (25 mg total) by mouth daily 02/04/22 Yes Bertin Crenshaw MD omeprazole (PriLOSEC) 40 mg capsule Take 1 capsule (40 mg total) by mouth daily 02/04/22 Yes Bertin Crenshaw MD pimecrolimus (ELIDEL) 1 % cream Apply to face twice a day. 30 days supply. 06/02/19 Yes Matheus Samuel MD polyethylene glycol (GoLYTELY) 236-22.74-6.74 -5.86 gram solution On 04/24/2022 at 6 PM, drink 1/2 jug of the Nulytely/Golytely, then on 04/25/2022 at 4:45 AM drink the other 1/2 jug of the Nulytely/Golytely. 04/11/22 04/25/22 Yes Zoraida Gustafson MD Review of Systems A pertinent, focused review of systems was completed and negative, except as noted above. OBJECTIVE: Vitals: Vitals: 04/25/22 0819 BP: 125/61 Pulse: 67 Resp: 16 Temp: 36.2 ??C (97.2 ??F) TempSrc: Temporal SpO2: 98% Weight: 108.9 kg (240 lb) Height: 170.2 cm (5' 7 ) Physical Exam: Airway: No significant abnormality. Cardiac: No significant abnormality. Pulmonary: No significant abnormality. Neurological: No significant abnormality. Gastrointestinal: No significant abnormality. ASA Score: per Anesthesia Sedation/Anesthesia Plan: per Anesthesia The risks and complications of the procedure have been explained to the patient. Informed consent was signed. Impression and plan: Will proceed with the planned procedure for the reasons stated above. Bertin Borja MD documented in this encounter Procedure Notes * Bertin Borja MD - 04/25/2022 8:56 AM CDTAssociated Order(s): COLONOSCOPY GI ENDOSCOPY [facility] Patient Name: Oh Stoddard Procedure Date: 04/25/2022 8:56 AM Date of : 1970 Admit Type: Outpatient Age: 51 Gender: Female Attending MD: Bertin Borja M.D. Room: [facility] ENDOSCOPY ROOM 8 Note Status: Finalized Procedure: [...] was obtained. - Immediately prior to administration of medications, the patient was re-assessed for adequacy to receive sedatives. The benefits, risks and alternatives of the procedure and sedation were discussed and informed consent was obtained. All questions were answered. Please refer to the signed informed consent document in the medical record. The scope was passed under direct vision. The CF [id number] endoscope was introduced through the anus and advanced to the terminal ileum, with identification of the appendiceal orifice and IC valve. The colonoscopy was performed without difficulty. The patient tolerated the procedure well. The quality of the bowel preparation was evaluated using the BBPS ([place] Bowel Preparation Scale) with scores of: Right Colon = 3, Transverse Colon = 3 and Left Colon = 3 (entire mucosa seen well with no residual staining, small fragments of stool or opaque liquid). The total BBPS score equals 9. The quality of the bowel preparation was excellent. The bowel preparation used was polyethylene glycol (PEG) via split dose instruction. Findings: Small thrombosed hemorrhoid found on perianal exam. The terminal ileum appeared normal. The appendiceal orifice and ileocecal valve appeared normal. A 4 mm polyp was found in the transverse colon. The polyp was sessile. The polyp was removed with a cold snare. Resection and retrieval were complete. A 4 mm polyp was found in the descending colon. The polyp was sessile. The polyp was removed with a cold snare. Resection and retrieval were complete. Multiple small and large-mouthed diverticula were found in the sigmoid colon. Non-bleeding external hemorrhoids were found during retroflexion. The exam was otherwise without abnormality on direct and retroflexion views. Impression: - Small thrombosed hemorrhoid found on perianal exam. - The examined portion of the ileum was normal. - One 4 mm polyp in the transverse colon, removed with a cold snare. Resected and retrieved. - One 4 mm polyp in the descending colon, removed with a cold snare. Resected and retrieved. - Diverticulosis in the sigmoid colon. - Non-bleeding external hemorrhoids. - The examination was otherwise normal on direct and retroflexion views. Recommendation: - Observe patient in GI recovery unit. - Await pathology results. - Repeat colonoscopy for surveillance based on pathology results. - Return to referring physician as previously scheduled. - In the unusual situation that you develop abdominal pain, bleeding or other significant problems in the days following this procedure please call my office [phone]). After hours and evenings please call [phone] and speak to the GI fellow ruby on rails web developer. Please tell the fellow that Dr. Borja did your procedure and that you were instructed to have the fellow call me or the physician covering for me to discuss the management of your condition. If you have an urgent problem, please go to the nearest emergency room and have the ER doctor call my office during the day or the GI fellow after hours and weekends to arrange admission or transfer to our facility. Please bring this report with you if you go to the emergency room. Electronically signed by Bertin Borja MD Bertin oBrja M.D. 04/25/2022 9:34:42 AM . Number of Addenda: 0 Note Initiated On: 04/25/2022 8:56 AM Recognized by the [place] [employer] for promoting quality in endoscopy documented in this encounter Plan of Treatment Not on file documented as of this encounter Procedures Procedure Name Priority Date/Time Associated Diagnosis Comments SURGICAL PATHOLOGY Routine 04/25/2022 9: 19 AM CDT Colon cancer screening COLON REMOVAL SNARE 04/25/2022 8 :57 AM CDT Colon cancer screening COLONOSCOPY 04/25/2022 8:56 AM CDT documented in this encounter Results * Surgical pathology (04/25/2022 9:19 AM CDT) Tissue (Polyp(s), colon/colorectal, esophageal, gastric) 04/25/2022 9:19 AM CDT Tissue (Polyp(s), colon/colorectal, esophageal, gastric) 04/25/2022 9:23 AM CDT Narrative PATHOLOGY [facility] - 04/26/2022 3:59 PM CDT EPIC results best viewed via link to PDF [facility] [place] [address] Note to Patients: This report may contain a detailed description of human tissue sent by a health care provider to the laboratory for pathologic evaluation. The content of this report is essential for diagnosis and may provide important critical findings. This information may be unfamiliar to patients to review without a medical professional present. It is advised that the patient review this report in the presence of a health care provider who can answer questions and explain the details. SURGICAL PATHOLOGY REPORT FINAL Patient Name: ?? OH STODDARD Gender: ??F : ??1970 (Age: 51) Address: ??[address] [place] [address] ??[id number] Hospital #: ??[id number] Taken:04/25/2022 Received:04/25/2022 Reported: 04/26/2022 Patient Type: [facility] SDS ?? Service: Gastro Location: Physician(s): ??Bertin Borja M.D. Bertin Crenshaw M.D. Diagnosis: A. ??Large bowel, transverse polyp, biopsy ? - Normal colonic mucosa (additional levels reviewed) B. ??Large bowel, descending polyp, biopsy ? - Colonic mucosa with prominent lymphoid aggregate (additional levels reviewed) ?? kxb/04/26/2022 10:25 By this signature, I attest that the above diagnosis is based upon my personal examination of the slides(and/or other material indicated in the diagnosis). Kallie Trejo MD Report Electronically Reviewed and Signed Out By ??Kallie Trejo MD 04/26/2022 15:59:32 Microscopic Description and Comment: Microscopic examination substantiates the above cited diagnosis. ?? History: The patient is a 51-year-old female presenting for colon cancer screening. ??Operative procedure: ??Colon removal snare. Specimen(s) Received: A: Transverse polyp cold snare B: Descending polyp cold snare Gross Description: Received in two formalin jars labeled with the patient's identifiers. A. ??Labeled transverse polyp cold snare and consists of one moore fragment(s) of soft tissue admixed with possible food material measuring 0.9 cm in greatest dimension. ?? Labeled A1. Jar 0. B. ??Labeled descending polyp cold snare and consists of one moore-pink fragment(s) of soft tissue admixed with possible food material measuring 0.5 cm in greatest dimension. ?? Labeled B1. Jar 0. ?? elsw/04/25/2022 12:55 PA(s): Alma Cross By this signature, I attest that the above diagnosis is based upon my personal examination of the slides(and/or other material). Addenda/Procedures The performance characteristics of some immunohistochemical stains, fluorescence in-situ hybridization tests and immunophenotyping by flow cytometry cited in this report (if any) were determined by the Surgical Pathology and Flow Cytometry Departments at [facility] as part of an ongoing manufacturing quality engineer program and in compliance with federally mandated regulations drawn from the Clinical Laboratory Improvement Act of 1988 (CLIA '88). ??Some of these tests rely on the use of analyte specific reagents and are subject to specific labeling requirements by the US Food and Drug Administration. ??Such diagnostic tests may only be performed in a facility that is certified by the Department of Health and Human Services as a high complexity laboratory under CLIA '88. ??The FDA has determined that such clearance or approval is not necessary. ??This test is used for clinical purposes. ??It should not be regarded as investigational or for research. ??Nevertheless, federal rules concerning the medical use of analyte specific reagents require that the following disclaimer be attached to the report: This test was developed and its performance characteristics determined by the Surgical Pathology and Flow Cytometry Departments of [facility]. ??It has not been cleared or approved by the U. S. Food and Drug Administration. IMAGES AND SCANNED DOCUMENTS, IF INCLUDED, ONLY VIEWABLE IN PDF VERSION OF REPORT us Bertin Borja MD LAB PATHOLOGY ORDERABLE S Final Result PATHOLOGY [facility] [address]rd [address] [place] [phone] * COLONOSCOPY (04/25/2022 8:56 AM CDT) Anatomical Region Laterality Modality Other Narrative Procedure Note Bertin Borja MD - 04/25/2022 8:56 AM CDT GI ENDOSCOPY [facility] Patient Name: Oh BurnettNavneetca Procedure Date: 04/25/2022 8:56 AM Date of : 1970 Admit Type: Outpatient Age: 51 Gender: Female Attending MD: Bertin Borja M.D. Room: [facility] ENDOSCOPY ROOM 8 Note Status: Finalized Procedure: [...] The scope was passed under direct vision.The [id number] endoscope was introduced through the anus and advanced to the terminal ileum, with identification of the appendiceal orifice and IC valve. The colonoscopy was performed without difficulty. The patient tolerated the procedurewell. The quality of the bowel preparation was evaluated using the BBPS ([place] Bowel Preparation Scale)with scores of: Right Colon [...] following this procedure please call my office [phone]). After hours and eveningsplease call [phone] and speak to the GI fellow osito. [...] On: 04/25/2022 8:56 AM Recognized by the [employer] for promoting quality in endoscopy us Bertin Borja MD ENDOSCOPY PROCEDURES Fi nal Result documented in this encounter Visit Diagnoses Diagnosis Colon cancer screening- Primary Special screening for malignant neoplasms, colon documented in this encounter Admitting Diagnoses Diagnosis Colon cancer screening Special screening for malignant neoplasms, colon documented in this encounter Administered Medications Inactive Administered Medications - up to 3 most recent administrations Medication Order MAR Action Action Date Dose Rate Site ondansetron (ZOFRAN) injection 4 mg 4 mg, intravenous, Administer over 2 Minutes, Every 6 hours PRN, nausea, vomiting, Starting on Becca 04/25/22 at 0820, Pre-Procedure (GI) sodium chloride 0.9% flush 0.5-20 mL 0.5-20 mL, intra-catheter, As needed, line care, Starting on Becca 04/25/22 at 0820, Pre-Procedure (GI), Flush volume based on line type and size. Flush before and after each use. , Indications: FlushingIndications:Flushing sodium chloride 0.9% infusion 30 mL/hr, intravenous, Continuous, Starting on Becca 04/25/22 at 0900 New Bag 04/25/2022 8:54 AM CDT 30 mL/hr documented in this encounter Discontinued Medications Medication Sig Discontinue Reason Start Date End Da te polyethylene glycol (GoLYTELY) 236-22.74-6.74 -5.86 gram solutionIndications:Colon oscopy On 04/24/2022 at 6 PM, drink 1/2 jug of the Nulytely/Golytely, then on 04/25/2022 at 4:45 AM drink the other 1/2 jug of the Nulytely/Golytely. Therapy completed 04/11/2022 04/25/2022 documented as of this encounter Active and Recently Administered Medications Times are shown in CDT. Continuous Medication Order 04/23/2022 04/24/2022 04/25/2022 sodium chloride 0.9% infusion 30 mL/hr, intravenous, Continuous, Starting on Becca 04/25/22 at 0900 0854 (New Bag - Prov ider: Conrad Arellano CRNA)0927 (Stopped - Provider: Conrad Arellano CRNA) PRN Medication Order 04/23/2022 04/24/2022 04/25/2022 ondansetron (ZOFRAN) injection 4 mg 4 mg, intravenous, Administer over 2 Minutes, Every 6 hours PRN, nausea, vomiting, Starting on Becca 04/25/22 at 0820, Pre-Procedure (GI) ondansetron (ZOFRAN) injection 4 mg 4 mg, intravenous, Administer over 2 Minutes, Every 30 min PRN, nausea, vomiting, Starting on Becca 04/25/22 at 0942, For 2 doses, Recovery (GI), Indications: Nausea and Vomiting simethicone (MYLICON) 40 mg in sterile water 240 mL irrigation solution (CANCELED) As needed, Starting on Becca 04/25/22 at 0906, Intra-Op 0906 (Given - Provid er: Bertin Borja MD)09 (Given - Provider: Bertin Borja MD) sodium chloride 0.9% flush 0.5-20 mL 0.5-20 mL, intra-catheter, As needed, line care, Starting on Becca 04/25/22 at 0820, Pre-Procedure (GI), Flush volume based on line type and size. Flush before and after each use. , Indications: Flushing documented in this encounter Orders Medications Ordered That Dominick ht Not Have Been Administered Count Last Ordered Date First Ordered Date ondansetron (ZOFRAN) injection 4 mg 2 04/25 simethicone (MYLICON) 40 mg in sterile water 240 mL irrigation solution 1 04/25/2022 sodium chloride 0.9% flush 0.5-20 mL 1 03/29 sodium chloride 0.9% infusion 1 04/25/2022 Discharge Count Last Ordered Date First Orde red Date DISCHARGE PATIENT 1 04/25/2022 documented in this encounter Care Teams Refrigeration Houseman Relationship Specialty Start Date End Date Bertin Crenshaw MD [address] [facility] [address] [place] [address] PCP - General Internal Medicine 02/04/22 Sumi Love MD [address] [facility] [address] [place] [address] Referring Physician Psychiatry 02/04/22 Arlet Love MD [address] [facility] [address] [place] [address] Consulting Physician Obstetrics and Gynecology 02/04/22 documented as of this encounter
--- OUTSIDE RECORDS SUMMARY | 2024-07-24 19:58 | XMS_ITS | Encounter Summary ---
Author Organization [facility] Healthcare Address [address] [place] [address] Care Team Providers Care Developer Advocate Name Role Phone Bertin Crenshaw MD Primary Care Provider Sumi Love MD Unavailable [phone] Arlet Love MD Unavailable [phone] Reason for Visit * Auth/Cert Specialty Diagnoses / Procedures Referred By Katherin cartagena Referred To Contact Diagnoses Colon cancer screening Colon cancer screening [Z12.11] Procedures NM COLONOSCOPY FLX DX W/COLLJ SPEC WHEN PFRMD NM COLONOSCOPY W/BIOPSY SINGLE/MULTIPLE COLONOSCOPY Referral ID Status Reason Start Date Expiration Date Visits Re quested Visits Authorized [id number] 1 1 Encounter Details Date Type Department Care Team (Late st Contact Info) Description 04/25/2022 8:45 AM CDT - 04/25/2022 9:30 AM CDT Surgery [facility] [place] [address] [facility] [address] [place] [address] Bertin Borja MD [address] [facility] [address] [place] [address] COLON REMOVAL SNARE Surgery Details Date/Time Status Location OR Service Patient Class Case Class Case Type Trauma Case? 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 female who is [...] except as noted above. OBJECTIVE: Vitals: Vitals: 04/25/22818 BP: 125/61 Pulse: 67 Resp: 16 Temp: [...] Female Attending MD: Bertin Borja M.D. Room: [facility] ENDOSCOPY ROOM 8 Note Status: [...] scope was passed under direct vision. The [id number] endoscope was introduced through the anus and advanced to the terminal ileum, with identification of the appendiceal orifice and IC valve. The colonoscopy was performed without difficulty. The patient tolerated the procedure well. The quality of the bowel preparation was evaluated using the BBPS ([place] Bowel Preparation Scale) with scores of: Right [...] following this procedure please call my office [phone]). After hours and evenings please call [phone] and speak to the GI fellow coupon collection clerk. Please tell the fellow that Dr. Borja [...] On: 04/25/2022 8:56 AM Recognized by the [place] [employer] for promoting quality [...] gastric) 04/25/2022 9:23 AM CDT Narrative PATHOLOGY [facility] - 04/26/2022 3:59 PM CDT EPIC results best viewed via link to PDF [facility] [place] [address] Note to Patients: This report may contain [...] Gender: ??F : ??1970 (Age: 51) Address: ??[address] [place] [address] ??[id number] Hospital #: ??[id number] Taken:04/25/2022 Received:04/25/2022 Reported: 04/26/2022 Patient Type: [facility] ?? Service: Gastro Location: Physician(s): ??Bertin Borja [...] Surgical Pathology and Flow Cytometry Departments at [facility] as part of an ongoing director of quality improvement program and in compliance with federally mandated [...] Surgical Pathology and Flow Cytometry Departments of [facility]. ??It has not been cleared or approved by the U. S. Food and Drug Administration. IMAGES AND SCANNED DOCUMENTS, IF INCLUDED, ONLY VIEWABLE IN PDF VERSION OF REPORT us Bertin Borja MD LAB PATHOLOGY ORDERABLE S Final Result PATHOLOGY [facility] 3rd Floor [place], [place] [phone] * COLONOSCOPY (04/25/2022 8:56 AM CDT) Anatomical Region Laterality Modality Other Narrative Procedure Note Bertin Borja MD - 04/25/2022 8:56 AM CDT GI ENDOSCOPY [facility] Patient Name: Oh Stoddard Procedure Date: 04/25/2022 8:56 AM Date of : 1970 Admit Type: Outpatient Age: 51 Gender: Female Attending MD: Bertin Borja M.D. Room: [facility] ENDOSCOPY ROOM 8 Note Status: [...] The scope was passed under direct vision.The [id number] endoscope was introduced through the anus and advanced to the terminal ileum, with identification of the appendiceal orifice and IC valve. The colonoscopy was performed without difficulty. The patient tolerated the procedurewell. The quality of the bowel preparation was evaluated using the BBPS ([place] Bowel Preparation Scale)with scores of: Right Colon [...] following this procedure please call my office [phone]). After hours and eveningsplease call [phone] and speak to the GI fellow osito. [...] On: 04/25/2022 8:56 AM Recognized by the [place] [employer] for promoting quality in endoscopy Bertin Borja MD ENDOSCOPY PROCEDURES Fi nal Result documented in this encounter Visit Diagnoses Diagnosis Colon cancer screening- Primary Special screening for malignant neoplasms, colon Colon cancer screening Special screening for malignant [...] on Becca 04/25/22 at 0820, Pre-Procedure (GI) simethicone (MYLICON) 40 mg in sterile water 240 mL irrigation solution As needed, Starting on Becca 04/25/22 at 0906, Intra-Op Given 04/25/2022 9:09 AM CDT 60 mL GI Tract Given 04/25/2022 9:06 AM CDT 60 mL GI Tract sodium chloride 0.9% flush 0.5-20 mL 0.5-20 [...] 0906 (Given - Provid er: Bertin Borja MD)0909 (Given - Provider: Bertin Borja MD) sodium [...] ondansetron (ZOFRAN) injection 4 mg 2 04/25 sodium chloride 0.9% flush 0.5-20 mL 1 03/29 sodium chloride 0.9% infusion 1 04/25/2022 Discharge Count Last Ordered Date First Orde red Date DISCHARGE PATIENT 1 04/25/2022 documented in this encounter Care Teams Developer Advocate Relationship Specialty Start Date End Date Bertin Crenshaw MD [address] [facility] [address] [place] [address] PCP - General Internal Medicine 02/04/22 Sumi Love MD [facility] [address] [place] [address] Referring Physician Psychiatry 02/04/22 Arlet Love MD [address] [facility] [address] [place] [address] Consulting Physician Obstetrics and Gynecology 02/04/22 documented as of this encounter
--- OUTSIDE RECORDS SUMMARY | 2024-07-24 19:58 | XMS_ITS | Encounter Summary ---
Author Organization [facility] Address [address] [place] [address] Phone Care Team Providers Care Display Specialist Name Role Phone Bertin Crenshaw MD Primary Care Provider Sumi Love MD Unavailable Arlet Love MD Unavailable [phone] Yasemin Churchill MD Unavailable [phone] Romeo Lindsay MD Unavailable Charissa Juarez MD Unavailable Reason for Visit * Reason Comments Follow-up Psychotherapy Encounter Details Date Type Department Care Team (Late st Contact Info) Description 02/19/2023 4:00 PM CDT Office Visit [facility] Department of Psychiatry [address] [place] [address] [address] [place] [address] Jaky Love LPC [address] [facility] [address] [place] [address] Recurrent major depressive disorder, in partial remission [...] on file 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 Pt reported she journaled about how she felt in certainsocia situations and made her list of what activities she wants to start doing for herself as askedfor homework. She stated she would like to start riding her horses again, work out in the morning with aerobics videos/weights daily from 8-9 am. Pt stated she has a three year plan to lose 100 lbs. She stated she likes to scrapbook and wants to work on some for her kids. Pt reported she would liketo garden more. She stated she would also like to find a career mentor/counselor. Pt reported she puts these activities off to accomplish other tasks such as tasks she needs to accomplish at home. Ptreported she feels uncomfortable doing activities for herself. Pt reported she feels she is socially awkward. Pt reported she went to a pool constitution party recently and felt uncomfortable about the way she looked and what others were thinking about her and if she would say the right thing. Pt reported she doesn't like saying goodbye at social gatherings and is always worried she is leaving too early. Pt reported it exhausts her energy to be around others. Pt reported she likes people but they also scareher. Pt reported her daughter told her to use an emotion wheel and she did and identified her feelings about social situations. Mental Status Exam: General appearance and behavior: good eye contact and cooperative Speech: regular Flow of thought: logical, sequential, goal-directed Content of thought: no auditory hallucinations, no visual hallucinations, no delusions, no suicidalideation , no homicidal ideation, and no obsessions/ruminations Mood: anxious and down on herself Affect: appropriate and mood congruent Insight: good Judgement: good Sensorium: alert and oriented x 4 Questionnaire Results: N/A Assessment: Diagnosis Plan 1. Recurrent major depressive disorder, in partial remission (HCC) Interventions: Therapist reviewed Pt's homework and had her process through how she felt in social situations. Therapist provided empathic listening and reflective summaries throughout. Therapist provided motivational interviewing to see what was holding Pt back in social situations. Therapist challenged Pt's negative thinking and pointed out she had a lot of judgement about herself. Therapist encouraged Pt to use her emotion wheel and do a daily check in with herself about how she felt. Therapist also encouraged her to start doing one activity for herself at least once a week and note how she feels. Patient Response: The patient's symptoms are fluctuating. Plan: Patient will return in two week(s) for continued individual psychotherapy. Jaky Love LPC documented in this encounter Plan of Treatment Not on file documented as of this encounter Visit Diagnoses Diagnosis Recurrent major depressive disorder, in partial remission (HCC)- Primary documented in this encounter Care Teams Display Specialist Relationship Specialty Start Date End Date Bertin Crenshaw MD [address] [facility] [address] [place] [address] PCP - General Internal Medicine 02/04/22 Sumi Love MD [facility] [address] [place] [address] Referring Physician Psychiatry 02/04/22 Arlet Love MD [address] [facility] [address] [place] [address] Consulting Physician Obstetrics and Gynecology 02/04/22 Yasemin Churchill MD [address] [facility] [address] [place] [address] Referring Physician Internal Medicine 02/05/23 Romeo Lindsay MD [address] [facility] [address] [place] [address] Referring Physician Dermatology 02/05/23 Charissa Juarez MD [address] [facility] [address] [place] [address] Consulting Physician Psychiatry 02/05/23 documented as of this encounter
--- OUTSIDE RECORDS SUMMARY | 2024-07-24 19:58 | XMS_ITS | Encounter Summary ---
Author Organization [facility] Address [address] [place] [address] Phone Care Team Providers Care Geotechnical Intern Name Role Phone Bertin Crenshaw MD Primary Care Provider Sumi Love MD Unavailable [phone] Arlet Love MD Unavailable [phone] Encounter Details Date Type Department Care Team (Late st Contact Info) Description 11/22/[address] 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 Not on file Not on file Not on file documented as of this encounter Plan of Treatment Not on file documented as of this encounter Visit Diagnoses Not on filedocumented in this encounter Care Teams Geotechnical Intern Relationship Specialty Start Date End Date Bertin Crenshaw MD [address] [facility] [address] [place] [address] PCP - General Internal Medicine 02/04/22 Sumi Love MD [facility] [address] [place] [address] Referring Physician Psychiatry 02/04/22 Arlet Love MD [address] [facility] [address] [place] [address] Consulting Physician Obstetrics and Gynecology 02/04/22 documented as of this encounter
--- OUTSIDE RECORDS SUMMARY | 2024-07-24 19:58 | XMS_ITS | Encounter Summary ---
Author Organization [facility] Address [address] [place] [address] Phone Care Team Providers Care Paste Up Artist Name Role Phone Bertin Crenshaw MD Primary Care Provider Sumi Love MD Unavailable [phone] Arlet Love MD Unavailable [phone] Encounter Details Date Type Department Care Team (Late st Contact Info) Description 11/26/2022 Orders Only 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 Not on file Not on file Not on file documented as of this encounter Plan of Treatment Not on file documented as of this encounter Visit Diagnoses Not on filedocumented in this encounter Care Teams Paste Up Artist Relationship Specialty Start Date End Date Bertin Crenshaw MD [address] [facility] [address] [place] [address] PCP - General Internal Medicine 02/04/22 Sumi Love MD [id number] [address] [place] [address] Referring Physician Psychiatry 02/04/22 Arlet Love MD [address] [facility] [address] [place] [address] Consulting Physician Obstetrics and Gynecology 02/04/22 documented as of this encounter
--- OUTSIDE RECORDS SUMMARY | 2024-07-24 19:59 | XMS_ITS | Encounter Summary ---
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 The 2019-Novel Coronavirus Assay (COVID-19) Real Time RT-PCR assay is for in vitro diagnostic use under FDA emergency use authorization only. A negative RT-PCR result does not preclude infection with COVID-19 and should not be used as the sole basis for treatment or other patient management decisions. Additional sample types have been validated according to CLIA regulations. ?? Current Interpretive Data was last revised on 2019. Nasopharyngeal 03/10/2020 11 :03 AM CDT 03/11/2020 8:33 AM CDT Narrative [facility] M[facility] - 03/11/2020 6:38 PM CDT Patient is employed by:->[employer] (All Locations) Is the patient experiencing any symptoms consistent with COVID (eg. Fever, cough, shortness of breath)?->Yes What is the reason for testing?->Symptoms compatible with COVID-19 in high-risk group (defined above in process inst.) us Rashida Alaniz MD LAB MICROBIOLOGY - GENERAL O BOOKER Final Result [facility] Department [place] [address] documented in this encounter Visit Diagnoses Diagnosis Exposure to COVID-19 virus documented in this encounter Additional Health Concerns Infection Onset Date Last Indicated Resolved Time COVID: Suspected 03/10/2020 03/11/2020 03/11/2020 6:39 PM CDT documented as of this encounter Care Teams Freezing Machine Operator Relationship Specialty Start Date End Date Darnell Peters MD [address] [place] [address] PCP - General 08/04/17 10/23/20 documented as of this encounter
--- OUTSIDE RECORDS SUMMARY | 2024-07-24 19:59 | XMS_ITS | Encounter Summary ---
Author Organization [facility] Healthcare Address [address] [place] [address] Care Team Providers Care Extension Service Specialist Name Role Phone Lynda Duarte NP Primary Care Provider [phone] Reason for Referral * MRI/CAT/PET Scan (Routine) - Closed Specialty Diagnoses / Procedures Referred By Contac t Referred To Contact Radiology Diagnoses Renal mass Procedures CT Abdomen W WO Contrast Corey Sainz MD Phone: tel: fax: [address] [address] Referral ID Status Reason Start Date Expiration Date Visits Re quested Visits Authorized [id number] Closed 03/09/2021 04/08/2022 1 1 Reason for Visit * MRI/CAT/PET Scan (Routine) - Closed Specialty Diagnoses / Procedures Referred By Contac t Referred To Contact Radiology Diagnoses Renal mass Procedures CT Abdomen W WO Contrast Corey Sainz MD Phone: tel: fax: [address] [address] Referral ID Status Reason Start Date Expiration Date Visits Re quested Visits Authorized [id number] Closed 03/09/2021 04/08/2022 1 1 Encounter Details Date Type Department Care Team (Latest Contact Info) Description 03/13/2021 3:59 PM CDT - 03/13/2021 11:59 PM CDT Hospital Encounter [facility] [address] [place] [address] Corey Sainz MD [address] [place] [address] Renal mass Discharge Disposition: Discharge to home or self care Social History Tobacco Use Types Packs/Day Years Used Date Smoking Tobacco: Never Comments No Sex and Gender Information Value Date Recorded Sex Assigned at Not on file 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 30 days supply 06/02/2019 02/05/2023 lurasidone (LATUDA) 20 mg tablet Take 1 tablet (20 mg total) by mouth daily. 30 tablet 08/11/2018 03/20/2021 omeprazole (PriLOSEC) 40 mg capsule Take 40 mg by mouth daily 02/12/2021 02/04/2022 pimecrolimus (ELIDEL) 1 % cream Apply to face twice a day. 30 days supply. 06/02/2019 02/05/2023 traZODone (DESYREL) 50 mg tablet Take 50 mg by mouth nightly as needed 06/21/2017 03/20/2021 documented as of this encounter Discharge Disposition Disposition Code Departure Means Destination Discharge to home or self care documented in this encounter Plan of Treatment Not on file documented as of this encounter Procedures Procedure Name Priority Date/Time Associated Diagnosis Comments CT ABDOMEN W WO CONTRAST Schedule Routine, Read Routine (OP Routine) 03/13/2021 5:08 PM CDT Renal mass POCT CREATININE - DEVICE Routine 03/13/2021 4:50 PM CDT documented in this encounter Results * CT Abdomen W WO Contrast (03/13/2021 5:08 PM CDT) Anatomical Region Laterality Modality Body N/A Computed Tomogra phy 03/14/2021 9:44 AM CDT Impressions 03/14/2021 1:06 PM CDT No suspicious renal lesions. A 4 mm hypoattenuating lesion within the mid zone of the right kidney is too small to definitively characterize but has the appearance of a cyst or other indolent process. Dictated by: Rossana Reina MD The radiology attending physician has personally reviewed this study, and had reviewed and/or edited this written report and agrees with it. Electronically signed by: Romeo Rivera M.D. Narrative 03/14/2021 1:06 PM CDT EXAMINATION: ??Computed tomography of the abdomen with and without intravenous contrast HISTORY: Renal mass TECHNIQUE: ??Transaxial computed tomographic images of the abdomen were obtained with and without intravenous contrast according to the renal protocol after the uneventful administration of 125 mL Opti-Ray 350 intravenous contrast. COMPARISON: None available. FINDINGS: ?? Normal heart size size. No pericardial effusion. Normal caliber of the abdominal aorta without atherosclerotic calcification. An apparent 8 mm solid pulmonary nodule is seen along the right diaphragm, which corresponds to focal subpleural or subdiaphragmatic fat on the coronal and sagittal reconstructions and likely represents an indolent process (table position -1267.1 on transaxial, or series 7 image 53). A 7 mm cyst is seen within hepatic segment 4A (table position -1208.5). Hepatic steatosis with focal fatty deposition adjacent to the falciform ligament. No intra or extrahepatic biliary duct dilation. The portal and hepatic veins are patent. The gallbladder, adrenal glands, pancreas, and spleen are normal. The kidneys enhance symmetrically. Hypoattenuating 4 mm lesion within the mid zone of the right kidney is too small to definitively characterize, but has an appearance of a cyst or other indolent process. No nephrolithiasis or hydronephrosis. The visualized ureters are normal. The imaged small and large bowel are normal in caliber without focal thickening or obstruction. No retroperitoneal or mesenteric adenopathy within the imaged abdomen. No suspicious osseous lesions. Procedure Note Romeo Rivera MD - 03/14/2021 EXAMINATION: Computed tomography of the abdomen with and without intravenous contrast HISTORY: Renal mass TECHNIQUE: Transaxial computed tomographic images of the abdomen were obtained with and without intravenous contrast according to the renal protocol after the uneventful administration of 125 mL Opti-Ray 350 intravenous contrast. COMPARISON: None available. FINDINGS: Normal heart size size. No pericardial effusion. Normal caliber of the abdominal aorta without atherosclerotic calcification. An apparent 8 mm solid pulmonary nodule is seen along the right diaphragm, which corresponds to focal subpleural or subdiaphragmatic fat on the coronal and sagittal reconstructions and likely represents an indolent process (table position -1267.1 on transaxial, or series 7 image 53). A 7 mm cyst is seen within hepatic segment 4A (table position -1208.5). Hepatic steatosis with focal fatty deposition adjacent to the falciform ligament. No intra or extrahepatic biliary duct dilation. The portal and hepatic veins are patent. The gallbladder, adrenal glands, pancreas, and spleen are normal. The kidneys enhance symmetrically. Hypoattenuating 4 mm lesion within the mid zone of the right kidney is too small to definitively characterize, but has an appearance of a cyst or other indolent process. No nephrolithiasis or hydronephrosis. The visualized ureters are normal. The imaged small and large bowel are normal in caliber without focal thickening or obstruction. No retroperitoneal or mesenteric adenopathy within the imaged abdomen. No suspicious osseous lesions. IMPRESSION: No suspicious renal lesions. A 4 mm hypoattenuating lesion within the mid zone of the right kidney is too small to definitively characterize but has the appearance of a cyst or other indolent process. Dictated by: Rossana Reina MD The radiology attending physician has personally reviewed this study, and had reviewed and/or edited this written report and agrees with it. Electronically signed by: Romeo Rivera M.D. Corey Sainz MD IMG CT PROCEDURES Final Result * POCT creatinine (03/13/2021 4:50 PM CDT) Creatinine POC 1.1 0.6 - 1.1 mg/dL [facility] Blood 03/13/2021 4:50 PM CDT 03/13/2021 4:50 PM CDT Corey Sainz MD LAB POCT ORDERABLES - DEVICE Fi nal Result [facility] Department [place] [address] documented in this encounter Visit Diagnoses Diagnosis Renal mass Unspecified disorder of kidney and ureter documented in this encounter Administered Medications Inactive Administered Medications - up to 3 most recent administrations Medication Order MAR Action Action Date Dose Rate Site ioversoL (OPTIRAY 320) intravenous syringe 125 mL 125 mL, intravenous, Once in imaging, contrast, Starting on Fri03/13/21 at 1709, For 1 dose Contrast Given 03/13/2021 5:09 PM CDT 125 mL documented in this encounter Orders Medications Ordered That Dominick ht Not Have Been Administered Count Last Ordered Date First Ordered Date ioversoL (OPTIRAY 320) intra venous syringe 125 mL 1 03/13/2021 documented in this encounter Care Teams Extension Service Specialist Relationship Specialty Start Date End Date Lynda Duarte NP PCP - General 10/24/20 02/03/22 documented as of this encounter
--- OUTSIDE RECORDS SUMMARY | 2024-07-24 19:59 | XMS_ITS | Encounter Summary ---
Author Organization [facility] Healthcare Address [address] [place] [address] Care Team Providers Care Service Team Leader Name Role Phone Lynda Duarte NP Primary Care Provider [phone] Reason for Referral * Diagnostic Imaging (Routine) - Closed Specialty Diagnoses / Procedures Referred By Katherin cartagena Referred To Contact Radiology Diagnoses Family history of breast cancer Procedures MRI Breast Bilateral W WO Contrast Arlet Love MD [address] [facility] [address], [place] [address] Phone: tel: fax: [place] [address] [place] [place] [address] Referral ID Status Reason Start Date Expiration Date Visits Re quested Visits Authorized [id number] Closed 10/13/2020 11/27/2020 1 1 Reason for Visit * Diagnostic Imaging (Routine) - Closed Specialty Diagnoses / Procedures Referred By Katherin cartagena Referred To Contact Radiology Diagnoses Family history of breast cancer Procedures MRI Breast Bilateral W WO Contrast Arlet Love MD [address] [place] [address] Phone: tel: fax: [place] [address] [place] [place] [address] Referral ID Status Reason Start Date Expiration Date Visits Re quested Visits Authorized [id number] Closed 10/13/2020 11/27/2020 1 1 Encounter Details Date Type Department Care Team (Latest Contact Info) Description 11/01/2020 6:45 AM CDT - 11/01/2020 11:59 PM CDT Hospital Encounter [facility] - Imaging [address] [place] [address] Arlet Love MD [address] [place] [address] Family history of breast cancer Discharge Disposition: Discharge to home or self care Social History Tobacco Use Types Packs/Day Years Used Date Smoking Tobacco: Never Comments No Sex and Gender Information Value Date Recorded Sex Assigned at Not on file 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 30 tablet 08/11/2018 03/20/2021 pimecrolimus (ELIDEL) 1 % cream Apply to [...] CONTRAST Schedule Routine, Read Routine (OP Routine) 11/01/2020 7:59 AM CDT Family history of breast cancer documented in this encounter Results * (ABNORMAL) MRI Breast Bilateral W WO Contrast (11/01/2020 7:59 AM CDT) Anatomical Region Laterality Modality Breast Bilateral Magnetic Resonan ce 11/01/2020 10:5 7 AM CDT Impressions 11/01/2020 10:57 AM CDT Stable appearance the left breast. New 7 mm area of enhancement in the superficial upper outer right breast approximately 10 o'clock position. ??Question fat necrosis or small lymph node. ??Recommend MRI directed targeted ultrasound for further assessment. BI-RADS Category 0: Incomplete-needs additional imaging evaluation OVERALL ASSESSMENT: Incomplete Electronically signed by: Hanna Bond M.D. Narrative 11/01/2020 10:57 AM CDT BILATERAL BREAST MRI WITH AND WITHOUT CONTRAST CLINICAL HISTORY: 50-year-old female with family history of breast cancer and estimated lifetime risk of 30%. ??MRI screening examination. COMPARISON:MRI of 05/14/2019, 08/21/2017 and 04/20/2015. ??Prior mammograms most recent 04/13/2020 TECHNIQUE: Bilateral dynamic breast MRI was performed using a dedicated breast coil. ??Images were obtained prior to and following intravenous administration of 20 mL's of Dotarem contrast. Subtraction images, 3-D and multiplanar reconstructions were performed and reviewed. A [employer] workstation was utilized. FINDINGS: There are scattered fibroglandular tissue densities. ??There is mild background parenchymal enhancement slightly increased from prior examinations. Left breast: There is no suspicious enhancement or morphology to suggest malignancy. ??The skin and nipple areola complex are normal. There is no axillary adenopathy. Right breast: In the right breast upper outer quadrant towards the 10:00 axis there is a 7 mm superficial enhancing nodule not seen on the prior studies. ??No other areas of suspicious enhancement. ??The skin and nipple areola complex are normal. ??There is no axillary adenopathy. us Arlet Love MD IM MRI PROCEDURES Roshni l Result documented in this encounter Visit Diagnoses Diagnosis Family history of breast cancer Family history of malignant neoplasm of breast documented in this encounter Administered Medications Inactive Administered Medications - up to 3 most recent administrations Medication Order MAR Action Action Date Dose Rate Site gadoterate meglumine (DOTAREM) 0.5 mmol/mL injection 20 mL 20 mL, intravenous, Once in imaging, contrast, Starting on Fri11/01/20 at 0759, For 1 dose Given 11/01/2020 8:00 AM CDT 20 mL sodium chloride 0.9% flush 125 mL 125 mL, intravenous, Once in imaging, line care, Starting on Fri11/01/20 at 0759, For 1 dose Given 11/01/2020 8:00 AM CDT 25 mL documented in this encounter Care Teams Service Team Leader Relationship Specialty Start Date End Date Lynda Duarte NP PCP - General 10/24/20 02/03/22 documented as of this encounter
--- OUTSIDE RECORDS SUMMARY | 2024-07-24 19:59 | XMS_ITS | Encounter Summary ---
Author Organization [facility] Healthcare Address [address] [place] [address] Care Team Providers Care Time Clock Inspector Name Role Phone Darnell Peters MD Primary Care Provider [phone] Encounter Details Date Type Department Care Team (Late st Contact Info) Description 09/25/2020 Telephone [facility] - Imaging [address] [facility] [address] [place] [address] Faby Love RN Social History Tobacco Use Types Packs/Day Years Used Date Smoking Tobacco: Never Comments No Sex and Gender Information Value Date Recorded Sex Assigned at Not on file Legal Sex Female 8:57 AM CHEFS Gender Identity Not on file Sexual Orientation Not on file documented as of this encounter Miscellaneous Notes * Telephone Encounter - Faby Love RN - 09/25/2020 1:39 PM CST Pt called to schedule MRI (LTR 30%) - no cycles (2nd dose COVID vaccine on 09/13/20) - MRI scheduledon 11/01/20 at 7:15am [facility] - Dr. Arlet Love is ordering MD [facility] ins. S documented in this encounter Plan of Treatment Not on file documented as of this encounter Visit Diagnoses Not on filedocumented in this encounter Care Teams Time Clock Inspector Relationship Specialty Start Date End Date Darnell Peters MD [address] [place] [address] PCP - General 08/04/17 10/23/20 documented as of this encounter
--- OUTSIDE RECORDS SUMMARY | 2024-07-24 19:59 | XMS_ITS | Encounter Summary ---
Author Organization [facility] Address [address] [place] [address] Phone Care Team Providers Care Plating Department Helper Name Role Phone Darnell Peters MD Primary Care Provider [phone] Reason for Visit * Reason Comments Obesity Encounter Details Date Type Department Care Team (Late st Contact Info) Description 10/06/2018 6:30 PM CDT Clinical Support [facility] Diabetes and Nutrition Services [address] [place] [address] [address] [place] [address] Muna Villalobos, LADLE CAR OPERATOR Social History Tobacco Use Types Packs/Day Years Used Date Smoking Tobacco: Never Assessed Comments No Sex and Gender Information Value Date Recorded Sex Assigned at Not on file 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
--- OUTSIDE RECORDS SUMMARY | 2024-07-24 19:59 | XMS_ITS | Encounter Summary ---
Author Organization [facility] Address [address] [place] [address] Phone Care Team Providers Care Flexo Press Operator Name Role Phone Darnell Peters MD Primary Care Provider [phone] Reason for Visit * Reason Comments Obesity Encounter Details Date Type Department Care Team (Late st Contact Info) Description 11/17/2018 6:30 PM CDT Clinical Support [facility] Nutrition Services [address] [place] [address] [address] [place] [address] Muna Villalobos, DOG AND CAT FOOD COOK Social History Tobacco Use Types Packs/Day Years Used Date Smoking Tobacco: Never Assessed Comments No Sex and Gender Information Value Date Recorded Sex Assigned at Not on file Legal 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
--- OUTSIDE RECORDS SUMMARY | 2024-07-24 19:59 | XMS_ITS | Encounter Summary ---
Author Organization [facility] Address [address] [place] [address] Phone Care Team Providers Care Resident Services Manager Name Role Phone Darnell Peters MD Primary Care Provider [phone] Encounter Details Date Type Department Care Team (Late st Contact Info) Description 10/27/2018 Orders Only [facility] Diabetes and Nutrition Services [address] [facility] [address] [place] [address] Yasemin Churchill MD [address] [place], [place] [id number] Left flank pain (Primary Dx) Social History Tobacco Use Types Packs/Day Years Used Date Smoking Tobacco: Never Assessed Comments No Sex and Gender Information Value Date Recorded Sex Assigned at Not on file 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 Seen at [facility] -- C/O L flank pain x several days. No injury/trauma. No F/C, N/V, dysuria, hematuria. No cough, SOB. No spinal tenderness; + L paraspinal tenderness to palpation > percussion; focal tenderness overlower rib(s). Will check UA, L rib series. F/U PCP. documented in this encounter Plan of Treatment Not on file documented as of this encounter Visit Diagnoses Diagnosis Left flank pain- Primary Abdominal pain, unspecified site documented in this encounter Care Teams Resident Services Manager Relationship Specialty Start Date End Date Darnell Peters MD [address] [place] [address] PCP - General 08/04/17 10/23/20 documented as of this encounter
--- OUTSIDE RECORDS SUMMARY | 2024-07-24 19:59 | XMS_ITS | Encounter Summary ---
Author Organization [facility] Address [address] [place] [address] Phone Care Team Providers Care Doctor Naturopathic Name Role Phone Darnell Peters MD Primary Care Provider [phone] Reason for Visit * Reason Comments Obesity Encounter Details Date Type Department Care Team (Late st Contact Info) Description 09/01/2018 6:30 PM ASSISTANT SPA MANAGER Clinical Support [facility] Diabetes and Nutrition Services [address] [place] [address] [address] [place] [address] Muna Villalobos, ORGANIC CHEMISTRY PROFESSOR Social History Tobacco Use Types Packs/Day Years Used Date Smoking Tobacco: Never Assessed Comments No Sex and Gender Information Value Date Recorded Sex Assigned at Not on file Legal Sex Female 8:57 AM ASSISTANT SPA MANAGER Gender Identity Not on file Sexual Orientation Not on file documented as of this encounter Plan of Treatment Not on file documented as of this encounter Visit Diagnoses Not on filedocumented in this encounter Care Teams Doctor Naturopathic Relationship Specialty Start Date End Date Darnell Peters MD [address] [place] [address] PCP - General 08/04/17 10/23/20 documented as of this encounter
--- OUTSIDE RECORDS SUMMARY | 2024-07-24 19:59 | XMS_ITS | Encounter Summary ---
Author Organization [facility] Healthcare Address [address] [place] [address] Care Team Providers Care Tank Crewmember Name Role Phone Darnell Peters MD Primary Care Provider +1- [phone] Reason for Visit * Diagnostic Imaging (Routine) - Closed Specialty Diagnoses / Procedures Referred By Contac t Referred To Contact Diagnoses Injury of right knee, leg ankle and foot, initial encounter Procedures XR Knee Right 3 View Nadia Sandhu DO Phone: tel: [facility] Referral ID Status Reason Start Date Expiration Date Visits Re quested Visits Authorized [id number] Closed 05/04/2020 06/03/2021 1 1 Encounter Details Date Type Department Care Team (Latest Contact Info) Description 05/04/2020 4:12 PM CDT - 05/04/2020 11:59 PM CDT Hospital Encounter [facility] Radiology at [facility] Medicine [address] [place] [address] Nadia Sandhu DO [address] [facility] [address] [place] [address] Discharge Disposition: Discharge to home or self care Social History Tobacco Use Types Packs/Day Years Used Date Smoking Tobacco: Never Comments No Sex and Gender Information Value Date Recorded Sex Assigned at Not on file Legal Sex Female 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 30 day supply. 06/02/2019 05/30/2020 ketoconazole (NIZORAL) 2 % shampoo Apply to wet hair, leave on for 3 minutes, then rinse; at least three times weekly. 30 days supply 06/02/2019 02/05/2023 lurasidone (LATUDA) 20 mg tablet Take 1 tablet (20 mg total) by mouth daily. 30 tablet 08/11/2018 03/20/2021 lurasidone HCl (LURASIDONE ORAL) Take 10 mg by mouth 05/30/2020 OLANZapine (ZyPREXA) 10 mg tablet Take 10 mg by mouth daily 06/21/2017 05/30/2020 pimecrolimus (ELIDEL) 1 % cream Apply to [...] Priority Date/Time Associated Diagnosis Comments XR KNEE RIGHT 3 VIEWS Schedule Routine, Read Routine (OP Routine) 05/04/2020 4:27 PM CDT Right ankle injury, initial encounter XR ANKLE RIGHT 3 OR MORE VIEWS Schedule Routine, Read Routine (OP Routine) 05/04/2020 4:27 PM CDT Right ankle injury, initial encounter documented in this encounter Results * XR Knee Right 3 View (05/04/2020 4:27 PM CDT) Anatomical Region Laterality Modality Lower Extremities, Knee Right Computed Radiography 05/04/2020 4:33 PM CDT Impressions 05/04/2020 4:33 PM CDT 1. Mild right knee patellofemoral medial compartment osteoarthritis. 2. Soft tissue swelling about the right ankle medial malleolus without underlying fracture. Electronically signed by: Marcin Krishnan M.D. Narrative 05/04/2020 4:33 PM CDT EXAMINATION: XR ANKLE RIGHT 3 OR MORE VIEWS, XR KNEE RIGHT 3 VIEWS HISTORY: Right knee and right ankle pain FINDINGS: 3 views of the right knee are submitted for interpretation without comparison. There is mild patellofemoral and medial compartment right knee osteoarthritis. There is prepatellar soft tissue swelling. No acute fracture. Alignment is normal. 3 weightbearing views of the right ankle are submitted for interpretation without comparison. There is a small heel spur. Ankle mortise and syndesmosis are intact. There is soft tissue swelling about the medial malleolus without underlying fracture. Procedure Note Marcin Krishnan MD - 05/04/2020 EXAMINATION: XR ANKLE RIGHT 3 OR MORE VIEWS, XR KNEE RIGHT 3 VIEWS HISTORY: Right knee and right ankle pain FINDINGS: 3 views of the right knee are submitted for interpretation without comparison. There is mild patellofemoral and medial compartment right knee osteoarthritis. There is prepatellar soft tissue swelling. No acute fracture. Alignment is normal. 3 weightbearing views of the right ankle are submitted for interpretation without comparison. There is a small heel spur. Ankle mortise and syndesmosis are intact. There is soft tissue swelling about the medial malleolus without underlying fracture. IMPRESSION: 1. Mild right knee patellofemoral medial compartment osteoarthritis. 2. Soft tissue swelling about the right ankle medial malleolus without underlying fracture. Electronically signed by: Marcin Krishnan M.D. Naida Blackwood Depalma DO IMG XR PROCEDURES Final Resu lt * XR Ankle Right 3+ View (05/04/2020 4:27 PM CDT) Anatomical Region Laterality Modality Lower Extremities, Ankle Right Compute d Radiography 05/04/2020 4:33 PM CDT Impressions 05/04/2020 4:33 PM CDT 1. Mild right knee patellofemoral medial compartment osteoarthritis. 2. Soft tissue swelling about the right ankle medial malleolus without underlying fracture. Electronically signed by: Marcin Krishnan M.D. Narrative 05/04/2020 4:33 PM CDT EXAMINATION: XR ANKLE RIGHT 3 OR MORE VIEWS, XR KNEE RIGHT 3 VIEWS HISTORY: Right knee and right ankle pain FINDINGS: 3 views of the right knee are submitted for interpretation without comparison. There is mild patellofemoral and medial compartment right knee osteoarthritis. There is prepatellar soft tissue swelling. No acute fracture. Alignment is normal. 3 weightbearing views of the right ankle are submitted for interpretation without comparison. There is a small heel spur. Ankle mortise and syndesmosis are intact. There is soft tissue swelling about the medial malleolus without underlying fracture. Procedure Note Marcin Krishnan MD - 05/04/2020 EXAMINATION: XR ANKLE RIGHT 3 OR MORE VIEWS, XR KNEE RIGHT 3 VIEWS HISTORY: Right knee and right ankle pain FINDINGS: 3 views of the right knee are submitted for interpretation without comparison. There is mild patellofemoral and medial compartment right knee osteoarthritis. There is prepatellar soft tissue swelling. No acute fracture. Alignment is normal. 3 weightbearing views of the right ankle are submitted for interpretation without comparison. There is a small heel spur. Ankle mortise and syndesmosis are intact. There is soft tissue swelling about the medial malleolus without underlying fracture. IMPRESSION: 1. Mild right knee patellofemoral medial compartment osteoarthritis. 2. Soft tissue swelling about the right ankle medial malleolus without underlying fracture. Electronically signed by: Marcin Krishnan M.D. Nadia Sandhu DO IMG XR PROCEDURES Final Resu lt documented in this encounter Visit Diagnoses Not on filedocumented in this encounter Care Teams Tank Crewmember Relationship Specialty Start Date End Date Darnell Peters MD [address] [place] [address] PCP - General 08/04/17 10/23/20 documented as of this encounter
--- OUTSIDE RECORDS SUMMARY | 2024-07-24 19:59 | XMS_ITS | Encounter Summary ---
Author Organization [facility] Address [address] [place] [address] Phone Care Team Providers Care Mill Tender Second Operator Name Role Phone Darnell Peters MD Primary Care Provider +1- [phone] Reason for Visit * Reason Comments Obesity Encounter Details Date Type Department Care Team (Late st Contact Info) Description 10/13/2018 6:30 PM CDT Clinical Support [facility] Diabetes and Nutrition Services [address] [place] [address] [address] [place] [address] Muna Villalobos, MANAGER E LEARNING Social History Tobacco Use Types Packs/Day Years Used Date Smoking Tobacco: Never Assessed Comments No Sex and Gender Information Value Date Recorded Sex Assigned at Not on file 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
--- OUTSIDE RECORDS SUMMARY | 2024-07-24 19:59 | XMS_ITS | Encounter Summary ---
Author Organization [facility] Address [address] [place] [address] Phone Care Team Providers Care Clinic Licensed Practical Nurse Name Role Phone Darnell Peters MD Primary Care Provider +1- [phone] Reason for Visit * Reason Comments Obesity Encounter Details Date Type Department Care Team (Late st Contact Info) Description 09/08/2018 6:30 PM TAPER/FINISHER Clinical Support [facility] Diabetes and Nutrition Services [address] [place] [address] [address] [place] [address] Muna Villalobos, TOLL PATROLMAN Social History Tobacco Use Types Packs/Day Years Used Date Smoking Tobacco: Never Assessed Comments No Sex and Gender Information Value Date Recorded Sex Assigned at Not on file Legal Sex Female 8:57 AM TAPER/FINISHER Gender Identity Not on file Sexual Orientation Not on file documented as of this encounter Plan of Treatment Not on file documented as of this encounter Visit Diagnoses Not on filedocumented in this encounter Care Teams Clinic Licensed Practical Nurse Relationship Specialty Start Date End Date Darnell Peters MD [address] [place] [address] PCP - General 08/04/17 10/23/20 documented as of this encounter
--- OUTSIDE RECORDS SUMMARY | 2024-07-24 19:59 | XMS_ITS | Encounter Summary ---
Author Organization [facility] Address [address] [place] [address] Phone Care Team Providers Care Midlevel Provider Name Role Phone Darnell Peters MD Primary Care Provider [phone]- [phone] Reason for Visit * Reason Comments Obesity Encounter Details Date Type Department Care Team (Late st Contact Info) Description 11/03/2018 6:30 PM CDT Clinical Support 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 Gender Identity Not on file Sexual Orientation Not on file documented as of this encounter Last Filed Vital Signs Vital Sign Reading Time Taken Comments Blood Pressure - - Pulse - - Temperature - - Respiratory Rate - - Oxygen Saturation - - Inhaled Oxygen Concentration - - Weight 101.3 kg (223 lb 6.4 oz) 11/03/2018 6:35 PM CDT Height - - Body Mass Index 34.98 10/06/2018 6:50 PM CDT documented in this encounter Plan of Treatment Not on file documented as of this encounter Visit Diagnoses Not on filedocumented in this encounter Care Teams Midlevel Provider Relationship Specialty Start Date End Date Darnell Peters MD [address] [place] [address] PCP - General 08/04/17 10/23/20 documented as of this encounter
--- OUTSIDE RECORDS SUMMARY | 2024-07-24 19:59 | XMS_ITS | Encounter Summary ---
Author Organization [facility] Address [address] [place] [address] Phone Care Team Providers Care Professor Of Counseling Name Role Phone Darnell Peters MD Primary Care Provider +1- [phone] Reason for Visit * Reason Comments Obesity Encounter Details Date Type Department Care Team (Late st Contact Info) Description 11/10/2018 6:30 PM CDT Clinical Support [facility] Diabetes and Nutrition Services [address] [place] [address] [address] [place] [address] Muna Villalobos, ELECTROFORMER Social History Tobacco Use Types Packs/Day Years Used Date Smoking Tobacco: Never Assessed Comments No Sex and Gender Information Value Date Recorded Sex Assigned at Not on file Legal Sex Female 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
--- OUTSIDE RECORDS SUMMARY | 2024-07-24 19:59 | XMS_ITS | Encounter Summary ---
Author Organization [facility] Address [address] [place] [address] Phone Care Team Providers Care Farm Adviser Name Role Phone Lynda Duarte NP Primary Care Provider [phone] Reason for Referral * MRI/CAT/PET Scan (Routine) - Closed Specialty Diagnoses / Procedures Referred By Contac t Referred To Contact Radiology Diagnoses Renal mass Procedures CT Abdomen W WO Contrast Corey Sainz MD Phone: tel: fax: [address] [address] Referral ID Status Reason Start Date Expiration Date Visits Re quested Visits Authorized [id number] Closed 03/09/2021 04/08/2022 1 1 Encounter Details Date Type Department Care Team (Late st Contact Info) Description 03/09/2021 Orders Only [facility] Urology [address] [facility] 11th [place] [address] [place] [address] Corey Sainz MD [address] [place] [address] Renal mass (Primary Dx) Social History Tobacco Use Types Packs/Day Years Used Date Smoking Tobacco: Never Comments No Sex and Gender Information Value Date Recorded Sex Assigned at Not on file Legal Sex Female 8:57 AM SECOND CHEF Gender Identity Not on file Sexual Orientation Not on file documented as of this encounter Plan of Treatment Not on file documented as of this encounter Results * CT Abdomen W [...] Sainz MD IMG CT PROCEDURES Final Result documented in this encounter Visit Diagnoses Diagnosis Renal mass- Primary Unspecified disorder of kidney and ureter Renal mass Unspecified disorder of kidney and ureter documented in this encounter Care Teams Farm Adviser Relationship Specialty Start Date End Date Lynda Duarte NP PCP - General 10/24/20 02/03/22 documented as of this encounter
--- OUTSIDE RECORDS SUMMARY | 2024-07-24 19:59 | XMS_ITS | Encounter Summary ---
Author Organization [facility] Address [address] [place] [address] Phone Care Team Providers Care Circuitry Negative Inspector Name Role Phone Darnell Peters MD Primary Care Provider [phone]- [phone] Encounter Details Date Type Department Care Team (Late st Contact Info) Description 10/22/2018 Telephone [facility] Gastroenterology [address] [place] [address] Medical Office Building [address] [place] [address] Muna Villalobos, NURSING PROFESSOR Social History Tobacco Use Types Packs/Day Years Used Date Smoking Tobacco: Never Assessed Comments No Sex and Gender Information Value Date Recorded Sex Assigned at Not on file Legal 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 Voice message content offered patient option to set-up make-up sessions for medical weight management program from 09/08/18 and 10/13/18 missed sessions for one hour on 11/03/18 5:30 - 6:30pm, and then patient could addan additional hour at end of package. (space control supervisor offered this after discussing with school program director BH, re: session handout is very slim and both Adherence topic and Environmental cues content could be reviewed in ONE HOUR instead of two hours, which would result in adding one group to end of package. Patient Assistant left return call-back number for space control supervisor [phone]. Patient has missed and paid for the following, per school program director . 09/08/18 8 Adherence 10/13/18 13 Environmental Cues documented in this encounter Plan of Treatment Not on file documented as of this encounter Visit Diagnoses Not on filedocumented in this encounter Care Teams Circuitry Negative Inspector Relationship Specialty Start Date End Date Darnell Peters MD [address] [place] [address] PCP - General 08/04/17 10/23/20 documented as of this encounter
--- OUTSIDE RECORDS SUMMARY | 2024-07-24 19:59 | XMS_ITS | Encounter Summary ---
Author Organization [facility] Healthcare Address [address] [place] [address] Care Team Providers Care Port Patrol Officer Name Role Phone Darnell Peters MD Primary Care Provider +1- [phone] Reason for Referral * Diagnostic Imaging (Routine) - Closed Specialty Diagnoses / Procedures Referred By Katherin cartagena Referred To Contact Diagnoses Encounter for screening mammogram for malignant neoplasm of breast Procedures Screening Mammogram Bilateral W [place] Screening Mammogram, Self [address] [address] Referral ID Status Reason Start Date Expiration Date Visits Re quested Visits Authorized [id number] Closed 03/27/2020 04/26/2021 1 1 Reason for Visit * Diagnostic Imaging (Routine) - Closed Specialty Diagnoses / Procedures Referred By Katherin cartagena Referred To Contact Diagnoses Encounter for screening mammogram for malignant neoplasm of breast Procedures Screening Mammogram Bilateral [address] [place] Screening Mammogram, Self [address] [address] Referral ID Status Reason Start Date Expiration Date Visits Re quested Visits Authorized [id number] Closed 03/27/2020 04/26/2021 1 1 Encounter Details Date Type Department Care Team (Latest Contact Info) Description 04/13/2020 9:55 AM CDT - 04/13/2020 11:59 PM CDT Hospital Encounter [facility] - Imaging [address] [facility] [address] [place] [address] Screening Mammogram, Self Encounter for screening mammogram for malignant neoplasm of breast Discharge Disposition: Discharge to home or self care Social History Tobacco Use Types Packs/Day Years Used Date Smoking Tobacco: Never Assessed Comments No Sex and Gender Information Value Date Recorded Sex Assigned at Not on file Legal Sex Female 8:57 AM POP SINGER Gender Identity Not on file Sexual Orientation [...] by mouth daily. 30 tablet 08/11/2018 03/20/2021 OLANZapine (ZyPREXA) 10 mg tablet Take 10 [...] CAMERON Schedule Routine, Read Routine (OP Routine) 04/13/2020 10:55 AM CDT Encounter for screening mammogram for malignant neoplasm of breast documented in this encounter Results * Screening Mammogram Bilateral W Cameron (04/13/2020 10:55 AM CDT) Anatomical Region Laterality Modality Breast Bilateral Mammography Narrative 04/13/2020 3:30 PM CDT Screening Mammogram Bilateral W Cameron: 04/13/20 Clinical: Encounter for screening mammogram for malignant neoplasm of breast. ?? Prior Study Comparisons: Comparison was made to [...] by letter. Impression: BI-RADS?? ATLAS category (overall): 1 Negative ?? There is no mammographic evidence of malignancy. Routine Screening Mammogram in 1 Yr is recommended for bilateral Overall Assessment: 1 - Negative us Self Screening Mammogram IMG MAMMO PROCEDURES Fi nal Result documented in this encounter Visit Diagnoses Diagnosis Encounter for screening mammogram for malignant neoplasm of breast documented in this encounter Care Teams Port Patrol Officer Relationship Specialty Start Date End Date Darnell Peters MD [address] [place] [address] PCP - General 08/04/17 10/23/20 documented as of this encounter
--- OUTSIDE RECORDS SUMMARY | 2024-07-24 19:59 | XMS_ITS | Encounter Summary ---
Author Organization [facility] Address [address] [place] [address] Phone Care Team Providers Care Jinriksha Driver Name Role Phone Darnell Peters MD Primary Care Provider [phone]- [phone] Reason for Visit * Reason Comments Obesity Encounter Details Date Type Department Care Team (Late st Contact Info) Description 12/15/2018 6:30 PM CDT Clinical Support [facility] Diabetes and Nutrition Services [address] [place] [address] [address] [place] [address] Muna Villalobos, ENERGY ANALYST Social History Tobacco Use Types Packs/Day Years Used Date Smoking Tobacco: Never Assessed Comments No Sex and Gender Information Value Date Recorded Sex Assigned at Not on file Legal Sex Female 8:57 AM FOCUS PULLER Gender Identity Not on file Sexual Orientation Not on file documented as of this encounter Plan of Treatment Not on file documented as of this encounter Visit Diagnoses Not on filedocumented in this encounter Care Teams Jinriksha Driver Relationship Specialty Start Date End Date Darnell Peters MD [address] [place] [address] PCP - General 08/04/17 10/23/20 documented as of this encounter
--- OUTSIDE RECORDS SUMMARY | 2024-07-24 19:59 | XMS_ITS | Encounter Summary ---
Author Organization [facility] Address [address] [place] [address] Phone Care Team Providers Care Commercial Pest Control Technician Name Role Phone Darnell Peters MD Primary Care Provider +1- [phone] Reason for Visit * Reason Comments Obesity Encounter Details Date Type Department Care Team (Late st Contact Info) Description 10/27/2018 6:30 PM CDT Clinical Support [facility] Diabetes and Nutrition Services [address] [place] [address] [address] [place] [address] Muna Villalobos, LIME SUPERVISOR Social History Tobacco Use Types Packs/Day Years Used Date Smoking Tobacco: Never Assessed Comments No Sex and Gender Information Value Date Recorded Sex Assigned at Not on file Legal Sex Female 8:57 AM BOLT THREADER Gender Identity Not on file Sexual Orientation Not on file documented as of this encounter Last Filed Vital Signs Vital Sign Reading Time Taken Comments Blood Pressure - - Pulse - - Temperature - - Respiratory Rate - - Oxygen Saturation - - Inhaled Oxygen Concentration - - Weight 102 kg (224 lb 14.4 oz) 10/27/2018 6:41 P M CDT Height - - Body Mass Index 35.22 10/06/2018 6:50 PM CDT documented in this encounter Plan of Treatment Not on file documented as of this encounter Visit Diagnoses Not on filedocumented in this encounter Care Teams Commercial Pest Control Technician Relationship Specialty Start Date End Date Darnell Peters MD [address] [place] [address] PCP - General 08/04/17 10/23/20 documented as of this encounter
--- OUTSIDE RECORDS SUMMARY | 2024-07-24 19:59 | XMS_ITS | Encounter Summary ---
Author Organization [facility] Address [address] [place] [address] Phone Care Team Providers Care Telephone Betting Clerk Name Role Phone Darnell Peters MD Primary Care Provider +1- [phone] Reason for Visit * Reason Comments Obesity Encounter Details Date Type Department Care Team (Late st Contact Info) Description 10/06/2018 5:00 PM CDT [facility] Visit [facility] [address] [place] [address] Yasemin Churchill MD [address] [place], [place] [id number] Metabolic and nutritional disorder (Primary Dx); Class 2 obesity due to excess calories without serious comorbidity with body mass index (BMI) of 37.0 to 37.9 in adult Social History Tobacco Use Types Packs/Day Years Used Date Smoking Tobacco: Never Assessed Comments No Sex and Gender Information Value Date Recorded Sex Assigned at Not on file 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 Gender Identity Not on file Sexual Orientation Not on file documented as of this encounter Last Filed Vital Signs Vital Sign Reading Time Taken Comments Blood Pressure 124/74 10/06/2018 6:50 PM CDT Pulse 80 10/06/2018 6:50 PM CDT Temperature - - Respiratory Rate - - Oxygen Saturation - - Inhaled Oxygen Concentration - - Weight 101.7 kg (224 lb 3.2 oz) 10/06/2018 6:50 PM CDT Height 170.2 cm (5' 7.01 ) 10/06/2018 6:50 PM CD T Body Mass Index 35.11 10/06/2018 6:50 PM CDT documented in this encounter Progress Notes * Yasemin Churchill MD - 10/06/2018 5:00 PM CDT Visit #/CC: Here for medical weight management follow up. Interval History: Weight is down another 3 lb. Happy with her progress. Current Diet: per RD Weight Loss Medications: none Physical Activity: Same -- no routine -- trying to increase steps. No Known Allergies Current Outpatient Medications Medication Sig Dispense Refill ??? lurasidone (LATUDA) 20 mg tablet Take 1 tablet (20 mg total) by mouth daily. 30 tablet 0 No current facility-administered medications for this visit. Medical Conditions Diagnosis ??? Weight loss counseling, encounter for ??? Metabolic and nutritional disorder ??? Class 2 obesity due to excess calories without serious comorbidity with body mass index (BMI) of 37.0 to 37.9 in adult Review of Systems Constitutional: Negative for chills, fever and malaise/fatigue. Respiratory: Negative for shortness of breath. Cardiovascular: Negative for chest pain and palpitations. Gastrointestinal: Negative for abdominal pain, nausea and vomiting. Neurological: Negative for headaches. Psychiatric/Behavioral: Negative for depression and suicidal ideas. BP 124/74 Pulse 80 Ht 170.2 cm (5' 7.01 ) Wt 101.7 kg (224 lb 3.2 oz) BMI 35.11 kg/m?? Physical Exam Constitutional: No distress. Pulmonary/Chest: Effort normal. Neurological: She is alert. Psychiatric: She has a normal mood and affect. Vitals reviewed. Assessment and Plan: Weight loss counseling, encounter for Continue plan per Weight Management Program; calorie restriction, meal replacements per RD. Continue food diary. Reviewed importance of adequate protein intake of 1-1.2 g/kg IBW/day. Metabolic and nutritional disorder Reviewed labs with her. Class 2 obesity due to excess calories without serious comorbidity with body mass index (BMI) of 37.0 to 37.9 in adult Obesity is improving with lifestyle modifications. Behavioral treatment: wt mgmt program. Diet interventions: per RD. Regular aerobic exercise program discussed. documented in this encounter Miscellaneous Notes * Assessment & Plan Note - Yasemin Churchill MD - 10/30/2018 4:40 PM CDT Associated Problem(s): Class 3 severe obesity due to excess calories without serious comorbidity with body mass index (BMI) of 40.0 to 44.9 in adult (HCC) Obesity is improving with lifestyle modifications. Behavioral treatment: wt mgmt program. Diet interventions: per RD. Regular aerobic exercise program discussed. * Assessment & Plan Note - Yasemin Churchill MD - 10/30/2018 4:40 PM CDT Associated Problem(s): Metabolic and nutritional disorder (Resolved 02/04/2022) Reviewed labs with her. * Assessment & Plan Note - Yasemin Churchill MD - 10/30/2018 4:39 PM CDT Associated Problem(s): Weight loss counseling, encounter for (Resolved 02/04/2022) Continue plan per Weight Management Program; calorie restriction, meal replacements per RD. Continue food diary. Reviewed importance of adequate protein intake of 1-1.2 g/kg IBW/day. documented in this encounter Plan of Treatment Not on file documented as of this encounter Visit Diagnoses Diagnosis Metabolic and nutritional disorder- Primary Class 2 obesity due to excess calories without serious comorbidity with body mass index (BMI) of 37.0 to 37.9 in adult documented in this encounter Historical Medications * This list may reflect changes made after this encounter. citalopram (CeleXA) 20 mg tablet Take 10 mg by mouth daily 06/22/2017 03/20/2021 added in this encounter Care Teams Telephone Betting Clerk Relationship Specialty Start Date End Date Darnell Peters MD [address] [place] [address] PCP - General 08/04/17 10/23/20 documented as of this encounter
--- OUTSIDE RECORDS SUMMARY | 2024-07-24 19:59 | XMS_ITS | Encounter Summary ---
Author Organization [facility] Address [address] [place] [address] Phone Care Team Providers Care Bindery Manager Name Role Phone Darnell Peters MD Primary Care Provider +1- [phone] Encounter Details Date Type Department Care Team (Late st Contact Info) Description 11/10/2018 5:00 PM CDT Office Visit [facility] [address] [place] [phone] Yasemin Churchill MD [address] [place] [address] Weight loss counseling, encounter for (Primary Dx); Class 2 obesity due to excess calories without serious comorbidity with body mass index (BMI) of 37.0 to 37.9 in adult; Flank pain Social History Tobacco Use Types Packs/Day Years Used Date Smoking Tobacco: Never Assessed Comments No Sex and Gender Information Value Date Recorded Sex Assigned at Not on file 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 Interval History: Doing well. Has reached 10% weight loss. Happy with program and her progress. Trying to drink more water. Back pain has improved -- has not had UA, x-ray Current Diet: per RD. Going back to [employer]ifast -- feels she did better with this than she has been with [employer]. More vegetables. Weight Loss Medications: none Physical Activity: same -- watches steps No Known Allergies Current Outpatient Medications Medication Sig Dispense Refill ??? citalopram (CeleXA) 20 mg tablet Take 10 mg by mouth daily ??? lurasidone (LATUDA) 20 mg tablet Take [...] to 37.9 in adult ??? Flank pain Review of Systems Constitutional: Negative for chills, fever and malaise/fatigue. Respiratory: Negative for shortness of breath. Cardiovascular: Negative for chest pain and palpitations. Gastrointestinal: Negative for abdominal pain, nausea and vomiting. Neurological: Negative for headaches. Psychiatric/Behavioral: Negative for depression and suicidal ideas. BP 122/70 Ht 170.2 cm (5' 7 ) Wt 100.7 kg (222 lb) BMI 34.77 kg/m?? Physical Exam Constitutional: No distress. Pulmonary/Chest: Effort normal. Neurological: She is alert. Psychiatric: She has a normal mood and affect. Vitals reviewed. Assessment and Plan: Weight loss counseling, encounter for Continue plan per Weight Management Program; calorie restriction, meal replacements per RD. Continue food diary. Class 2 obesity due to excess calories without serious comorbidity with body mass index (BMI) of 37.0 to 37.9 in adult Obesity is improving with lifestyle modifications. Behavioral treatment: Continuing Wt Mgmt Program. Diet interventions: per RD. Regular aerobic exercise program discussed. Flank pain UA, rib series if pain persists. F/U PCP. documented in this encounter Miscellaneous Notes * Assessment & Plan Note - Yasemin Churchill MD - 11/10/2018 5:44 PM CDT Associated Problem(s): Flank pain (Resolved 02/05/2023) UA, rib series if pain persists. F/U PCP. * Assessment & Plan Note - Yasemin Churchill MD - 11/10/2018 5:42 PM CDT Associated Problem(s): Class 3 severe obesity due to excess calories without serious comorbidity with body mass index (BMI) of 40.0 to 44.9 in adult (HCC) Obesity is improving with lifestyle modifications. Behavioral treatment: Continuing Wt Mgmt Program. Diet interventions: per RD. Regular aerobic exercise program discussed. * Assessment & Plan Note - Yasemin Churchill MD - 11/10/2018 5:40 PM CDT Associated Problem(s): Weight loss counseling, encounter for (Resolved 02/04/2022) Continue plan per Weight Management Program; calorie restriction, meal replacements per RD. Continue food diary. documented in this encounter Plan of Treatment Not on file documented as of this encounter Visit Diagnoses Diagnosis Weight loss counseling, encounter for- Primary Class 2 obesity due to excess calories without serious comorbidity with body mass index (BMI) of 37.0 to 37.9 in adult Flank pain Abdominal pain, unspecified site documented in this encounter Care Teams Bindery Manager Relationship Specialty Start Date End Date Darnell Peters MD [address] [place] [address] PCP - General 08/04/17 10/23/20 documented as of this encounter
--- OUTSIDE RECORDS SUMMARY | 2024-07-24 19:59 | XMS_ITS | Encounter Summary ---
Author Organization [facility] Address [address] [place] [address] Care Team Providers Care Applique Sewer Name Role Phone Darnell Peters MD Primary Care Provider +1- [phone] Reason for Referral * Diagnostic Imaging (Routine) - Closed Specialty Diagnoses / Procedures Referred By Contac t Referred To Contact Radiology Diagnoses History of breast cancer Procedures MRI Breast Bilateral W WO Contrast Arlet Love MD [address] [address] Phone: tel: fax: [facility] [address] [place] [address] Referral ID Status Reason Start Date Expiration Date Visits Re quested Visits Authorized [id number] Closed 05/13/2019 06/27/2019 1 1 Reason for Visit * Diagnostic Imaging (Routine) - Closed Specialty Diagnoses / Procedures Referred By Contac t Referred To Contact Radiology Diagnoses History of breast cancer Procedures MRI Breast Bilateral W WO Contrast Arlet Love MD [address] [facility] [address], [place] [address] Phone: tel: fax: [facility] [address] [place] [address] Referral ID Status Reason Start Date Expiration Date Visits Re quested Visits Authorized [id number] Closed 05/13/2019 06/27/2019 1 1 Encounter Details Date Type Department Care Team (Latest Contact Info) Description 05/14/2019 5:00 PM CDT - 05/14/2019 11:59 PM CDT Hospital Encounter [facility] - Imaging [address] [place] [address] Arlet Love MD [address] [place] [address] History of breast cancer Discharge Disposition: Discharge to home or self care Social History Tobacco Use Types Packs/Day Years Used Date Smoking Tobacco: Never Assessed Comments No Sex and Gender Information Value Date Recorded Sex Assigned at Not on file 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 Gender Identity Not on file Sexual [...] 10 mg by mouth daily 06/21/2017 05/30/2020 traZODone (DESYREL) 50 mg tablet Take 50 [...] CONTRAST Schedule Routine, Read Routine (OP Routine) 05/14/2019 7:16 PM CDT History of breast cancer POCT CREATININE FOR CONTRAST EVALUATION Routine 05/14/2019 6:22 PM CDT documented in this encounter Results * MRI Breast Bilateral W WO Contrast (05/14/2019 7:16 PM CDT) Anatomical Region Laterality Modality Breast Bilateral Magnetic Resonan ce 05/14/2019 8:19 PM CDT Addenda Addendum by Roverto Lantigua MD on 06/13/2019 8:17 PM ARRESTING GEAR OPERATOR There is a typographic error in the clinical indication portion of the study which should read as follows: INDICATION:Family history of breast cancer. ??She has a calculated 30% lifetime risk of developing breast cancer. ??This is a screening BREAST MRI. Electronically signed by: ROVERTO LANTIGUA M.D. Impressions 05/16/2019 3:44 PM CDT No MRI features of malignancy in the right or left breast. ACR BI-RADS Category 2: Benign RECOMMENDATION: The patient is currently due for screening mammography. ??Annual MRI in one year. Electronically signed by: ROVERTO LANTIGUA M.D. Narrative 05/16/2019 3:44 PM CDT EXAM: MRI BREAST BILATERAL W WO CONTRAST, DATE: 05/14/2019 5:00 PM COMPARISON: 08/21/2017 breast MRI and screening mammogram 03/16/2018 INDICATION: Family history of breast cancer. ??She has a calculated 30% lifetime risk of developing breast cancer. ??This is a screening mammogram. TECHNIQUE: Multiplanar, multisequence MRI of the breasts performed with and without gadolinium contrast. 3-D MIP reformatted images obtained. CADstream was utilized for the interpretation of the study. FINDINGS: The breasts are heterogeneously dense, which may obscure small masses. ??There is minimal bilateral background contrast enhancement. No enhancing mass or morphologic abnormality in the right or left breast to suggest malignancy. No lymphadenopathy. Procedure Note Roverto Lantigua MD - 05/16/2019 EXAM: MRI BREAST BILATERAL W WO CONTRAST, DATE: 05/14/2019 5:00 PM COMPARISON: 08/21/2017 breast MRI and screening mammogram 03/16/2018 INDICATION: Family history of breast cancer. She has a calculated 30% lifetime risk of developing breast cancer. This is a screening mammogram. TECHNIQUE: Multiplanar, multisequence MRI of the breasts performed with and without gadolinium contrast. 3-D MIP reformatted images obtained. CADstream was utilized for the interpretation of the study. FINDINGS: The breasts are heterogeneously dense, which may obscure small masses. There is minimal bilateral background contrast enhancement. No enhancing mass or morphologic abnormality in the right or left breast to suggest malignancy. No lymphadenopathy. IMPRESSION: No MRI features of malignancy in the right or left breast. ACR BI-RADS Category 2: Benign RECOMMENDATION: The patient is currently due for screening mammography. Annual MRI in one year. Electronically signed by: ROVERTO LANTIGUA M.D. Arlet Love MD IMG MRI PROCEDURES Edit ed Result - Final * POCT creatinine for contrast evaluation (05/14/2019 6:22 PM CDT) Creatinine, POC 0.7 0.6 - 1.3 mg/dL Comment:GFR>60 Blood specimen (specimen) 05/14/2019 6:22 PM CDT Arlet Love MD POINT OF CARE TEST ORDE RABLES Final Result documented in this encounter Visit Diagnoses Diagnosis History of breast cancer Personal history of malignant neoplasm of breast documented in this encounter Administered Medications Inactive Administered Medications - up to 3 most recent administrations Medication Order MAR Action Action Date Dose Rate Site gadoterate meglumine (DOTAREM) 0.5 mmol/mL injection 20 mL 20 mL, intravenous, Once in imaging, contrast, Starting on Fri05/14/19 at 1916, For 1 dose Given 05/14/2019 7:16 PM CDT 20 mL sodium chloride 0.9% flush 125 mL 125 mL, intravenous, Once in imaging, line care, Starting on Fri05/14/19 at 1916, For 1 dose Given 05/14/2019 7:16 PM CDT 125 mL documented in this encounter Care Teams Applique Sewer Relationship Specialty Start Date End Date Darnell Peters MD [address] [place] [address] PCP - General 08/04/17 10/23/20 documented as of this encounter
--- OUTSIDE RECORDS SUMMARY | 2024-07-24 19:59 | XMS_ITS | Encounter Summary ---
Author Organization [facility] Address [address] [place] [address] Phone Care Team Providers Care Swimming Coach Name Role Phone Darnell Peters MD Primary Care Provider +1- [phone] Reason for Visit * Reason Comments Obesity Encounter Details Date Type Department Care Team (Late st Contact Info) Description 11/24/2018 6:30 PM CDT Clinical Support 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
--- OUTSIDE RECORDS SUMMARY | 2024-07-24 19:59 | XMS_ITS | Encounter Summary ---
Author Organization [facility] Address [address] [place] [address] Care Team Providers Care Bit Setter Name Role Phone Darnell Peters MD Primary Care Provider +1- [phone] Reason for Visit * Reason Onset Date Comments COVID-19 EVALUATION 03/10/2020 Encounter Details Date Type Department Care Team (Late st Contact Info) Description 03/10/2020 Telephone [facility] [address] [facility] [address] (Third Floor) [place] [address] Miri Veloz NP [address] [facility] [address] [place], [place] [id number] COVID-19 EVALUATION Social History Tobacco Use Types Packs/Day Years Used Date Smoking Tobacco: Never Assessed Comments No Sex and Gender Information Value Date Recorded Sex Assigned at Not on file 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 Employee Employer: [employer] Does your work require you to go into patient care areas (hospital or clinic)? 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 Sky Hooper , [email or web address] Are you working/studying from home or on-site? Home Have you been tested for Covid-19 previously? No Have you had a known, specific COVID exposure? No Employee Symptoms: Yes Date of employee symptom onset: 03/09/2020 Description of Symptoms: Joint Aches;Sore Throat;Cough;Muscle Aches;Trouble Breathing;Other Other Symptoms: HANNA, congestion, fatigue. Did you have symptoms at work? No Date symptoms started: 03/09/2020 Do you currently live with, or have ongoing contact with, someone known or suspected to have COVID-19? No Exposure Risk (See Exposure Guide): Low Assessment: Symptomatic, non-occupational Plan: (A) Stay home and test Testing Site Location: [facility] (Stay home and test) Given your symptoms, you should not come to work and will be referred for testing. ?? Please go to the employee testing site at [facility]*. ?? While you are awaiting testing and results, you must remain off work. While waiting for results,home quarantine guidance still applies. You should isolate yourself at home, avoid contact with anyhousehold members as much as possible, and stay in your home without leaving except for medical care. If your symptoms worsen, please call back or call 911 - let your providers, ER or EMS now that you are being tested for COVID19. ?? Once your results are back, you will receive further instruction from Occupational Health. Don'treturn to work until you hear from [facility]. Occupational Health will notify you and your storage garage manager when you can return to work. ?? Should your test result positive, Occupational Health ([facility]) will work with you to identify any close contacts you may have had at work. [facility] will then alert your work contacts directly; you do not have to. Your cook house supervisor should consult with [facility] if they have any questions and before any communication with coworkers about a positive test. [facility] will help ensure that coworkers potentially at risk are no tified and given appropriate advise without unnecessary disclosure of personal health information. ?? You must follow any additional isolation or quarantine instructions provided to you from federal, state or local public health authorities. ?? We will send you an email with self-quarantine instruction. ?? You should let your cook house supervisor know that you will not be coming to work. Although the Call Center will email your cook house supervisor to confirm that you have been instructed not to come to work, it is still your responsibility to notify your cook house supervisor as you would for any other work absence. documented in this encounter Plan of Treatment Not on file documented as of this encounter Results * COVID-19 Coronavirus RNA Nasopharyngeal (03/10/2020 11:03 AM CDT) COVID-19 RNA Not Detected ERICA MENDIOLA Comment: Interpretive Data Testing performed at [facility] Molecular Infectious Disease Laboratory. The 2019-Novel Coronavirus [...] CDT 03/11/2020 8:33 AM CDT Narrative ERICA QUESADA - 03/11/2020 6:38 PM CDT Patient is employed by:->[employer] (All Locations) Is the patient experiencing any symptoms consistent with COVID (eg. Fever, cough, shortness of breath)?->Yes What is the reason for testing?->Symptoms compatible with COVID-19 in high-risk group (defined above in process inst.) us Rashida Alaniz MD LAB MICROBIOLOGY - GENERAL O RDERABLES Final Result ERICA [facility] Department [place] [address] documented in this encounter Visit Diagnoses Diagnosis Exposure to COVID-19 virus- Primary Exposure to COVID-19 virus documented in this encounter Additional Health Concerns Infection Onset Date Last Indicated Resolved Time COVID: Suspected 03/10/2020 03/11/2020 03/11/2020 6:39 PM CDT documented as of this encounter Care Teams Bit Setter Relationship Specialty Start Date End Date Darnell Peters MD [address] [place] [address] PCP - General 08/04/17 10/23/20 documented as of this encounter
--- OUTSIDE RECORDS SUMMARY | 2024-07-24 19:59 | XMS_ITS | Encounter Summary ---
Author Organization [facility] Healthcare Address [address] [place] [address] Care Team Providers Care Executive Chef Assistant Name Role Phone Lynda Duarte NP Primary Care Provider [phone] Reason for Visit * Reason Comments Test Results Encounter Details Date Type Department Care Team (Late st Contact Info) Description 11/03/2020 Telephone [facility] - Imaging [address] [address] Micki Rai RN Test Results Social History Tobacco Use Types Packs/Day Years Used Date Smoking Tobacco: Never Comments No Sex and Gender Information Value Date Recorded Sex Assigned at Not on file 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
--- OUTSIDE RECORDS SUMMARY | 2024-07-24 19:59 | XMS_ITS | Encounter Summary ---
Author Organization [facility] Address [address] [place] [address] Phone Care Team Providers Care Vending Attendant Name Role Phone Darnell Peters MD Primary Care Provider [phone] Reason for Visit * Reason Comments Pain Encounter Details Date Type Department Care Team (Late st Contact Info) Description 05/30/2020 11:15 AM MICROPHONE BOOM OPERATOR Telemedicine [facility] Orthopaedic Surgery [address] [place] [address] [place] [address] [address] [address] [place] [address] Sprain of right ankle, unspecified ligament, subsequent encounter (Primary Dx) Social History Tobacco Use Types Packs/Day Years Used Date Smoking Tobacco: Never Comments No Sex and Gender Information Value Date Recorded Sex Assigned at Not on file Legal Sex Female 8:57 AM MICROPHONE BOOM OPERATOR Gender Identity Not on file Sexual Orientation Not on file documented as of this encounter Last Filed Vital Signs Vital Sign Reading Time Taken Comments Blood Pressure - - Pulse - - Temperature - - Respiratory Rate - - Oxygen Saturation - - Inhaled Oxygen Concentration - - Weight 108.9 kg (240 lb) 05/30/2020 10:14 AM MICROPHONE BOOM OPERATOR Height 170.2 cm (5' 7 ) 05/30/2020 10:14 AM MICROPHONE BOOM OPERATOR Body Mass Index 37.59 05/30/2020 10:14 AM MICROPHONE BOOM OPERATOR documented in this encounter Progress Notes * Sumi Quezada NP - 05/30/2020 11:15 AM CST Images from the original note were not included. This was a telemedicine visit with Rebecca Patiño which took place via Telephone. During the visit,I was located in the office and the patient was located at home in the state of [place]. The patient visit started at 1009 and ended at 1015. Total encounter time was 15 minutes, which includes time spenttoday on pre charting, the patient encounter, and post charting. The patient: has been informed that the visit may not be secure and acknowledged the information. The option of participating in a telephone or video visit during the [facility] [place] [address] emergencywas explained to them. After being given an opportunity to ask questions about and discuss this type of visit, they verbally consented to proceeding with the telephone/video visit and understand thatthis service replaces an office visit. Sumi Quezada NP TELEMEDICINE PATIENT VISIT INTERIM HISTORY This is a 49 year female who presents via telemedicine visit for review of her right lower extremity MRI with concern for an occult fracture. Approximately 5 weeks ago she sustained a twisting injurywhen she tripped into a hole. She has been immobilized in a boot. Over the last week she feels her symptoms are improving. She will experience an aching pain with long periods of weight- bearing. Restmakes this better. PHYSICAL EXAMINATION She is alert and oriented x3. Respirations are even and nonlabored. Exam of the lower extremities limited due to the nature of the visit. Patient states there is no evidence of swelling. She does have mild tenderness over the medial ankle. REVIEW OF X-RAYS/STUDIES Lower extremity MRI performed on May 26, 2020 demonstrates mild medial malleolus subcutaneous edema with anterior posterior tibialis tendon synovitis. There is no evidence of a fracture. IMPRESSION/DIAGNOSIS Right medial ankle sprain TREATMENT/PLAN I have thoroughly reviewed treatment options with her today. I recommended continuing her immobilization in a boot for approximately 2 weeks. She is to refrain from activities while she is immobilized. She will follow-up at that time. If her symptoms are improving we will discuss transitioning out of the boot while beginning a course of formal physical therapy. Patient voices understanding. FOLLOW UP Two week, repeat exam Sumi Quezada RN, WEIGHTS AND MEASURES INSPECTOR-C Nurse Practitioner Foot and Ankle Service [facility] Orthopedics [facility] Sumi Quezada RN, WEIGHTS AND MEASURES INSPECTOR-C in collabortation with in collaborative practice with Dr. Taco Ramirez. Sumi Quezada RN, WEIGHTS AND MEASURES INSPECTOR-C dictating using Fluency Direct. Delivery Sales Worker variances may occur. Cosigned by Abhijit Ramirez MD at 05/30/2020 1:21 PM MICROPHONE BOOM OPERATOR OPHONE BOOM OPERATOR OPHONE BOOM OPERATOR documented in this encounter Plan of Treatment Not on file documented as of this encounter Visit Diagnoses Diagnosis Sprain of right ankle, unspecified ligament, subsequent encounter- Primary documented in this encounter Discontinued Medications Medication Sig Discontinue Reason Start Date End Da te fluocinonide (LIDEX) 0.05 % external solution Apply to affected area on scalp twice daily as needed. 30 day supply. Other 06/02/2019 05/30/2020 lurasidone HCl (LURASIDONE ORAL) Take 10 mg by mouth Other 05/30/2020 OLANZapine (ZyPREXA) 10 mg tablet Take 10 mg by mouth daily Other 06/21/2017 05/30/2020 documented as of this encounter Care Teams Vending Attendant Relationship Specialty Start Date End Date Darnell Peters MD [address] [place] [address] PCP - General 08/04/17 10/23/20 documented as of this encounter
--- OUTSIDE RECORDS SUMMARY | 2024-07-24 19:59 | XMS_ITS | Encounter Summary ---
Author Organization [facility] Address [address] [place] [address] Phone Care Team Providers Care Db2 Developer Name Role Phone Darnell Peters MD Primary Care Provider [phone] Reason for Visit * Reason Comments Obesity Encounter Details Date Type Department Care Team (Late st Contact Info) Description 09/29/2018 6:30 PM SECURITIES UNDERWRITER Clinical Support [facility] Diabetes and Nutrition Services [address] [place] [address] [address] [place] [address] Muna Villalobos, CLOTH DYE RANGE OPERATOR Social History Tobacco Use Types Packs/Day Years Used Date Smoking Tobacco: Never Assessed Comments No Sex and Gender Information Value Date Recorded Sex Assigned at Not on file Legal Sex Female 8:57 AM SECURITIES UNDERWRITER Gender Identity Not on file Sexual Orientation Not on file documented as of this encounter Last Filed Vital Signs Vital Sign Reading Time Taken Comments Blood Pressure 104/62 09/30/2018 11:22 AM SECURITIES UNDERWRITER Pulse - - Temperature - - Respiratory Rate - - Oxygen Saturation - - Inhaled Oxygen Concentration - - Weight 102.2 kg (225 lb 4.8 oz) 019 11:22 AM SECURITIES UNDERWRITER Height 170.2 cm (5' 7 ) 09/30/2018 11:2 2 AM SECURITIES UNDERWRITER Body Mass Index 35.29 09/30/2018 11:22 AM SECURITIES UNDERWRITER documented in this encounter Plan of Treatment Not on file documented as of this encounter Visit Diagnoses Not on filedocumented in this encounter Care Teams Db2 Developer Relationship Specialty Start Date End Date Darnell Peters MD [address] [place] [address] PCP - General 08/04/17 10/23/20 documented as of this encounter
--- OUTSIDE RECORDS SUMMARY | 2024-07-24 19:59 | XMS_ITS | Encounter Summary ---
Author Organization [facility] Healthcare Address [address] [place] [address] Care Team Providers Care Park Warden Name Role Phone Darnell Peters MD Primary Care Provider [phone]- [phone] Reason for Referral * Diagnostic Imaging (Routine) - Closed Specialty Diagnoses / Procedures Referred By Katherin cartagena Referred To Contact Radiology Diagnoses Right ankle pain, unspecified chronicity Procedures MRI Ankle Hindfoot [place] [address] [place] [address] Phone: tel: fax: [facility] Referral ID Status Reason Start Date Expiration Date Visits Re quested Visits Authorized [id number] Closed 05/17/2020 07/01/2020 1 1 Reason for Visit * Diagnostic Imaging (Routine) - Closed Specialty Diagnoses / Procedures Referred By Katherin cartagena Referred To Contact Radiology Diagnoses Right ankle pain, unspecified chronicity Procedures MRI Ankle Hindfoot [place] [address] [place] [address] Phone: tel: fax: [facility] Referral ID Status Reason Start Date Expiration Date Visits Re quested Visits Authorized [id number] Closed 05/17/2020 07/01/2020 1 1 Encounter Details Date Type Department Care Team (Latest Contact Info) Description 05/26/2020 6:51 AM CDT - 05/26/2020 11:59 PM CDT Hospital Encounter [facility] Radiology at [facility] [address] [place] [address] [place] [address] [place] [address] [place] [address] [place] [address] Right ankle pain, unspecified chronicity Discharge Disposition: Discharge to home or self care Social History Tobacco Use Types Packs/Day Years Used Date Smoking Tobacco: Never Comments No Sex and Gender Information Value Date Recorded Sex Assigned at Not on file Legal Sex Female 8:57 AM INSTRUMENT SETTER Gender Identity Not on file Sexual Orientation [...] Name Priority Date/Time Associated Diagnosis Comments MRI ANKLE HINDFOOT RIGHT WO CONTRAST Schedule Routine, Read Routine (OP Routine) 05/26/2020 7:53 AM CDT Right ankle pain, unspecified chronicity documented in this encounter Results * MRI Ankle Hindfoot Right WO Contrast (05/26/2020 7:53 AM CDT) Anatomical Region Laterality Modality Lower Extremities Right Magnetic Reson ance 05/26/2020 8:54 AM CDT Impressions 05/26/2020 10:06 AM CDT 1. ??Mild right medial malleolus subcutaneous edema with mild anterior and posterior tibialis tenosynovitis. 2. ??No right ankle fracture. Dictated by: Javed Schmidt M.D. , PHD The radiology attending physician has personally reviewed this study, and had reviewed and/or edited this written report and agrees with it. Electronically signed by: Isaías Frederick M.D. Narrative 05/26/2020 10:06 AM CDT EXAMINATION: 1. MR right ankle and hindfoot without contrast HISTORY: ??Right medial ankle sprain with concern for an occult fracture FINDINGS: Comparison radiographs dated 05/17/2020 were reviewed has been reviewed. MR examination of the right ankle and hindfoot is performed. No intravenous or intra-articular contrast was administered for this examination. Sagittal short TR/TE and STIR images and transverse and coronal short TR/TE and fast spin-echo images are obtained. Medially, the flexor hallucis and flexor digitorum tendons are normal. ??There is mild posterior tibialis tenosynovitis. ??The deltoid, tibial spring and spring ligaments are normal. The tarsal tunnel is normal. There is mild subcutaneous edema over the medial malleolus. Laterally, the peroneal tendons are normal. The superior peroneal retinaculum is intact. The syndesmosis and syndesmotic ligaments are intact. The anterior talofibular, calcaneofibular, and posterior talofibular ligaments are intact. Posteriorly, the Achilles is normal. There is no retrocalcaneal bursitis. Intrinsically, the calcaneus is normal without evidence of a stress fracture. The sinus Tarsi is normal. There is mild thickening of the plantar fascia compatible with chronic plantar fasciitis.. Anteriorly, there is mild anterior tibialis tenosynovitis. ??The extensor digitorum longus and extensor hallucis longus tendons are normal. ??The talar dome is normal without evidence of osteochondral lesion. There is trace ankle effusion. The bone marrow signal is normal. ??There is mild right foot intrinsic muscle atrophy. Procedure Note Isaías Frederick MD PhD - 05/26/2020 EXAMINATION: 1. MR right ankle and hindfoot without contrast HISTORY: Right medial ankle sprain with concern for an occult fracture FINDINGS: Comparison radiographs dated 05/17/2020 were reviewed has been reviewed. MR examination of the right ankle and hindfoot is performed. No intravenous or intra-articular contrast was administered for this examination. Sagittal short TR/TE and STIR images and transverse and coronal short TR/TE and fast spin-echo images are obtained. Medially, the flexor hallucis and flexor digitorum tendons are normal. There is mild posterior tibialis tenosynovitis. The deltoid, tibial spring and spring ligaments are normal. The tarsal tunnel is normal. There is mild subcutaneous edema over the medial malleolus. Laterally, the peroneal tendons are normal. The superior peroneal retinaculum is intact. The syndesmosis and syndesmotic ligaments are intact. The anterior talofibular, calcaneofibular, and posterior talofibular ligaments are intact. Posteriorly, the Achilles is normal. There is no retrocalcaneal bursitis. Intrinsically, the calcaneus is normal without evidence of a stress fracture. The sinus Tarsi is normal. There is mild thickening of the plantar fascia compatible with chronic plantar fasciitis.. Anteriorly, there is mild anterior tibialis tenosynovitis. The extensor digitorum longus and extensor hallucis longus tendons are normal. The talar dome is normal without evidence of osteochondral lesion. There is trace ankle effusion. The bone marrow signal is normal. There is mild right foot intrinsic muscle atrophy. IMPRESSION: 1. Mild right medial malleolus subcutaneous edema with mild anterior and posterior tibialis tenosynovitis. 2. No right ankle fracture. Dictated by: Javed Schmidt M.D. , PHD The radiology attending physician has personally reviewed this study, and had reviewed and/or edited this written report and agrees with it. Electronically signed by: Isaías Frederick M.D. Sumi Quezada NP IMG MRI PROCEDURES Final Resul t documented in this encounter Visit Diagnoses Diagnosis Right ankle pain, unspecified chronicity documented in this encounter Care Teams Park Warden Relationship Specialty Start Date End Date Darnell Peters MD [address] [place] [address] PCP - General 08/04/17 10/23/20 documented as of this encounter
--- OUTSIDE RECORDS SUMMARY | 2024-07-24 19:59 | XMS_ITS | Encounter Summary ---
Author Organization [facility] Address [address] [place] [address] Phone Care Team Providers Care Sports Marketing Coordinator Name Role Phone Darnell Peters MD Primary Care Provider [phone]- [phone] Encounter Details Date Type Department Care Team (Late st Contact Info) Description 11/05/2018 Telephone [facility] Gastroenterology [address] [place] [address] Medical Office [address] [place] [address] Muna Villalobos, TENSILE TESTER Social History Tobacco Use Types Packs/Day Years Used Date Smoking Tobacco: Never Assessed Comments No Sex and Gender Information Value Date Recorded Sex Assigned at Not on file Legal Sex Female 8:57 AM SET UP MECHANIC COIL WINDING MACHINES Gender Identity Not on file Sexual Orientation Not on file documented as of this encounter Miscellaneous Notes * Telephone Encounter - Muna Villalobos, OUTPATIENT PROGRAM COORDINATOR - 11/05/2018 5:58 PM CDT 11/05/18 6pm Portfolio Assistant left voice message for patient via cell phone voice mail. Portfolio Assistant requested patient return call to reschedule the missed make-up session from this week. Portfolio Assistant left [id number] #[phone]. Portfolio Assistant will offer to make up two sessions that patient had missed group, and then no-showed for planned make-up session 5:30pm 11/03/18. MIissed and paid for the following group sessions: ?? 09/08/18 8 Adherence ?? 10/13/18 13 Environmental Cues 11/05/18 6:08pm Patient called back. Patient reported she is also going to miss 11/24/[address] night for relay tester helper's Stage I group. Patient and relay tester helper scheduled make-up session for 11/17/18 at5:30 - 6:30pm to review the above 2 missed sessions. Portfolio Assistant notified lead programmerdigital program manager Weight Management program via make-up session [place] calendar invitation. documented in this encounter Plan of Treatment Not on file documented as of this encounter Visit Diagnoses Not on filedocumented in this encounter Care Teams Sports Marketing Coordinator Relationship Specialty Start Date End Date Darnell Peters MD [address] [place] [address] PCP - General 08/04/17 10/23/20 documented as of this encounter
--- OUTSIDE RECORDS SUMMARY | 2024-07-24 19:59 | XMS_ITS | Encounter Summary ---
Author Organization [facility] Address [address] [place] [address] Phone Care Team Providers Care White Goods Appliance Tech Name Role Phone Darnell Peters MD Primary Care Provider [phone]- [phone] Encounter Details Date Type Department Care Team (Late st Contact Info) Description 09/01/2018 5:00 PM LOSS PREVENTION SUPERVISOR Office Visit [facility] Diabetes and Nutrition Services [address] [place] [address] Yasemin Churchill MD [address] [place] [address] Weight loss counseling, encounter for (Primary Dx); Metabolic and nutritional disorder; Class 2 obesity due to excess calories without serious comorbidity with body mass index (BMI) of 37.0 to 37.9 in adult Social History Tobacco Use Types Packs/Day Years Used Date Smoking Tobacco: Never Assessed Comments No Sex and Gender Information Value Date Recorded Sex Assigned at Not on file Legal Sex Female 8:57 AM LOSS PREVENTION SUPERVISOR Gender Identity Not on file Sexual Orientation Not on file documented as of this encounter Last Filed Vital Signs Vital Sign Reading Time Taken Comments Blood Pressure 118/68 09/01/2018 5:14 PM LOSS PREVENTION SUPERVISOR Pulse 60 09/01/2018 5:14 PM LOSS PREVENTION SUPERVISOR Temperature - - Respiratory Rate - - Oxygen Saturation - - Inhaled Oxygen Concentration - - Weight 105.2 kg (231 lb 14.4 oz) 09/01/2018 5:14 PM LOSS PREVENTION SUPERVISOR Height 170.4 cm (5' 7.1 ) 09/01/2018 5:14 PM LOSS PREVENTION SUPERVISOR Body Mass Index 36.21 09/01/2018 5:14 PM LOSS PREVENTION SUPERVISOR documented in this encounter Progress Notes * Yasemin Churchill MD - 09/01/2018 5:00 PM CST Visit #/CC: Seen for Weight Management Program follow up. Interval History: Doing well. Weight is down 1 lb since last week; 16 lb since starting program. Has been eating out more recently -- unexpectedly. Finds the social part of eating out harder. Findsthat she is able to eat less; not as much of a comfort with eating. Still has occasional diarrhea -- may come on suddenly. On the days she has had more shakes. Current Diet: per RD Weight Loss Medications: none Physical Activity: Tracks steps -- no routine exercise. No Known Allergies Current Outpatient Prescriptions Medication Sig Dispense Refill ??? lurasidone (LATUDA) [...] Negative for depression and suicidal ideas. BP 118/68 Pulse 60 Ht 170.4 cm (5' 7.1 ) Wt 105.2 kg (231 lb 14.4 oz) BMI 36.21 kg/m?? Physical Exam Constitutional: No distress. Pulmonary/Chest: Effort normal. Neurological: She is alert. Psychiatric: She has a normal mood and affect. Vitals reviewed. Assessment and Plan: Weight loss counseling, encounter for Continue plan per Weight Management Program; calorie restriction, meal replacements per RD. Continue food diary. Metabolic and nutritional disorder She will have labs done tomorrow. Class 2 obesity due to excess calories without serious comorbidity with body mass index (BMI) of 37.0 to 37.9 in adult Obesity is improving with lifestyle modifications. Commended on weight loss to date and discussed anticipated health benefits/risk reduction with this degree of loss. Behavioral treatment: continue WMP. Diet interventions: per RD. Regular aerobic exercise program discussed. PREVENTION SUPERVISOR documented in this encounter Miscellaneous Notes * Assessment & Plan Note - Yasemin Churchill MD - 09/01/2018 5:36 PM LOSS PREVENTION SUPERVISOR Associated Problem(s): Class 3 severe obesity due to excess calories without serious comorbidity with body mass index (BMI) of 40.0 to 44.9 in adult (HCC) Obesity is improving with lifestyle modifications. Commended on weight loss to date and discussed anticipated health benefits/risk reduction with this degree of loss. Behavioral treatment: continue WMP. Diet interventions: per RD. Regular aerobic exercise program discussed. PREVENTION SUPERVISOR * Assessment & Plan Note - Yasemin Churchill MD - 09/01/2018 5:35 PM LOSS PREVENTION SUPERVISOR Associated Problem(s): Metabolic and nutritional disorder (Resolved 02/04/2022) She will have labs done tomorrow. PREVENTION SUPERVISOR * Assessment & Plan Note - Yasemin Churchill MD - 09/01/2018 5:29 PM LOSS PREVENTION SUPERVISOR Associated Problem(s): Weight loss counseling, encounter for (Resolved 02/04/2022) Continue plan per Weight Management Program; calorie restriction, meal replacements per RD. Continue food diary. PREVENTION SUPERVISOR documented in this encounter Plan of Treatment Not on file documented as of this encounter Visit Diagnoses Diagnosis Weight loss counseling, encounter for- Primary Metabolic and nutritional disorder Class 2 obesity due to excess calories without serious comorbidity with body mass index (BMI) of 37.0 to 37.9 in adult documented in this encounter Care Teams White Goods Appliance Tech Relationship Specialty Start Date End Date Darnell Peters MD [address] [place] [address] PCP - General 08/04/17 10/23/20 documented as of this encounter
--- OUTSIDE RECORDS SUMMARY | 2024-07-24 19:59 | XMS_ITS | Encounter Summary ---
Author Organization [facility] Address [address] [place] [address] Phone Care Team Providers Care Lead Miner Name Role Phone Darnell Peters MD Primary Care Provider +1- [phone] Reason for Visit * Reason Comments Obesity Encounter Details Date Type Department Care Team (Late st Contact Info) Description 09/22/2018 6:30 PM REAL ESTATE ACCOUNT EXECUTIVE Clinical Support [facility] Diabetes and Nutrition Services [address] [place] [address] [address] [place] [address] Muna Villalobos, TASSEL CLIPPER Social History Tobacco Use Types Packs/Day Years Used Date Smoking Tobacco: Never Assessed Comments No Sex and Gender Information Value Date Recorded Sex Assigned at Not on file Legal Sex Female 8:57 AM REAL ESTATE ACCOUNT EXECUTIVE Gender Identity Not on file Sexual Orientation Not on file documented as of this encounter Plan of Treatment Not on file documented as of this encounter Visit Diagnoses Not on filedocumented in this encounter Care Teams Lead Miner Relationship Specialty Start Date End Date Darnell Peters MD [address] [place] [address] PCP - General 08/04/17 10/23/20 documented as of this encounter
--- OUTSIDE RECORDS SUMMARY | 2024-07-24 19:59 | XMS_ITS | Encounter Summary ---
Author Organization [facility] Healthcare Address [address] [place] [address] Care Team Providers Care Waterproof Material Folder Name Role Phone Lynda Duarte NP Primary Care Provider [phone] Reason for Visit * Reason Comments Test Results Appointment Encounter Details Date Type Department Care Team (Late st Contact Info) Description 11/06/2020 Telephone [facility] - Imaging [address] [address] Micki Rai RN Test Results; Appointment Social History Tobacco Use Types Packs/Day Years Used Date Smoking Tobacco: Never Comments No Sex and Gender Information Value Date Recorded Sex Assigned at Not on file Legal Sex Female 8:57 AM AIRFIELD MANAGER Gender Identity Not on file Sexual Orientation Not on file documented as of this encounter Miscellaneous Notes * Telephone Encounter - Micki Rai RN - 11/06/2020 12:05 PM CDT Reviewed breast MRI results and scheduled second look US. documented in this encounter Plan of Treatment Not on file documented as of this encounter Visit Diagnoses Not on filedocumented in this encounter Care Teams Waterproof Material Folder Relationship Specialty Start Date End Date Lynda Duarte NP PCP - General 10/24/20 02/03/22 documented as of this encounter
--- OUTSIDE RECORDS SUMMARY | 2024-07-24 19:59 | XMS_ITS | Encounter Summary ---
Author Organization [facility] Address [address] [place] [address] Phone Care Team Providers Care Conservation Worker Name Role Phone Darnell Peters MD Primary Care Provider [phone] Reason for Visit * Reason Comments Obesity Encounter Details Date Type Department Care Team (Late st Contact Info) Description 10/20/2018 6:30 PM CDT Clinical Support [facility] Diabetes and Nutrition Services [address] [place] [address] [address] [place] [address] Muna Villalobos, HAND SANDER Social History Tobacco Use Types Packs/Day Years Used Date Smoking Tobacco: Never Assessed Comments No Sex and Gender Information Value Date Recorded Sex Assigned at Not on file 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 Gender Identity Not on file Sexual Orientation Not on file documented as of this encounter Last Filed Vital Signs Vital Sign Reading Time Taken Comments Blood Pressure - - Pulse - - Temperature - - Respiratory Rate - - Oxygen Saturation - - Inhaled Oxygen Concentration - - Weight 101.6 kg (223 lb 14.4 oz) 10/20/2018 6:48 PM CDT Height - - Body Mass Index 35.06 10/06/2018 6:50 PM CDT documented in this encounter Plan of Treatment Not on file documented as of this encounter Visit Diagnoses Not on filedocumented in this encounter Care Teams Conservation Worker Relationship Specialty Start Date End Date Darnell Peters MD [address] [place] [address] PCP - General 08/04/17 10/23/20 documented as of this encounter
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
--- OUTSIDE RECORDS SUMMARY | 2024-07-24 19:59 | XMS_ITS | Encounter Summary ---
Author Organization [facility] Address [address] [place] [address] Phone Care Team Providers Care Nutrition Associate Name Role Phone Darnell Peters MD Primary Care Provider [phone] Reason for Referral * Diagnostic Imaging (Routine) - Closed Specialty Diagnoses / Procedures Referred By Katherin cartagena Referred To Contact Radiology Diagnoses Right ankle pain, unspecified chronicity Procedures MRI Ankle Hindfoot [place] [address] [place] [address] Phone: tel: fax: [facility] Referral ID Status Reason Start Date Expiration Date Visits Re quested Visits Authorized [id number] Closed 05/17/2020 07/01/2020 1 1 * Diagnostic Imaging (Routine) - Closed Specialty Diagnoses / Procedures Referred By Katherin cartagena Referred To Contact Diagnoses Right ankle pain, unspecified chronicity Procedures XR Ankle [place] 3+ [place] [address] [place] [address] Phone: tel: fax: [facility] Referral ID Status Reason Start Date Expiration Date Visits Re quested Visits Authorized [id number] Closed 05/17/2020 06/16/2021 1 1 Reason for Visit * Reason Comments Pain Encounter Details Date Type Department Care Team (Late st Contact Info) Description 05/17/2020 9:30 AM CDT Office Visit [facility] Orthopaedic Surgery [address] [facility] 1[address] [place] [address] [place] [address] [place] [address] Sprain of right ankle, unspecified ligament, initial encounter (Primary Dx); Right ankle pain, unspecified chronicity Social History Tobacco Use Types Packs/Day Years Used Date Smoking Tobacco: Never Comments No Sex and Gender Information Value Date Recorded Sex Assigned at Not on file 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 Gender Identity Not on file Sexual Orientation Not on file documented as of this encounter Last Filed Vital Signs Vital Sign Reading Time Taken Comments Blood Pressure - - Pulse - - Temperature - - Respiratory Rate - - Oxygen Saturation - - Inhaled Oxygen Concentration - - Weight 108.9 kg (240 lb) 05/17/2020 9:59 AM CDT Height 170.2 cm (5' 7 ) 05/17/2020 9:59 AM CDT Body Mass Index 37.59 05/17/2020 9:59 AM CDT documented in this encounter Progress Notes * Sumi Quezada NP - 05/17/2020 9:30 AM CDT NEW PATIENT VISIT CHIEF COMPLAINT Pain of the Right Ankle HISTORY OF PRESENT ILLNESS This is a 49 y.o. female who presents for evaluation today of her right ankle sprain with concern for occult fracture. Approximately 3 weeks ago she fell in a hole taking a twisting injury to the right ankle. When she fell her right knee landed on a rock. She presented to orthopedic injury clinic where she was placed in a boot. When she is weight-bearing in the boot she is having minimal pain or difficulty. She has been elevating. She has use ice or anti-inflammatories as needed. She has been Ktaping her right knee and feels her knee pain is improving. PAST MEDICAL HISTORY Past Medical History: Diagnosis Date ??? ADD (attention deficit disorder) ??? Anxiety ??? Asthma ??? Depression ??? Obesity ??? Seasonal allergies SURGICAL HISTORY Past Surgical History: Procedure Laterality Date ??? CYST REMOVAL hand ??? CYST REMOVAL foot SOCIAL HISTORY She reports that she has never smoked. She does not have any smokeless tobacco history on file. FAMILY HISTORY She family history includes Bladder Cancer (age of onset: 70) in her father; Brain cancer in her mother's sister; Breast cancer (age of onset: 45) in her mother's sister; Breast cancer (age of onset:50) in her sister; Ovarian cancer (age of onset: 45) in her mother; Prostate cancer (age of onset: 47) in her brother; Testicular cancer (age of onset: 45) in her brother. DRUG ALLERGIES She has No Known Allergies. INITIAL REVIEW OF MEDICATIONS She has a current medication list which includes the following prescription(s): citalopram (CELEXA), fluocinonide (LIDEX), ketoconazole (NIZORAL), lurasidone hcl, olanzapine (ZYPREXA), pimecrolimus (ELIDEL), trazodone (DESYREL), and lurasidone (LATUDA). REVIEW OF SYSTEMS Review of Systems Constitutional: Negative. HENT: Negative. Eyes: Negative. Respiratory: Negative. Cardiovascular: Negative. Gastrointestinal: Negative. Endocrine: Negative. Genitourinary: Negative. Musculoskeletal: Positive for arthralgias, gait problem, joint swelling and myalgias. Skin: Negative. Allergic/Immunologic: Negative. Hematological: Negative. Psychiatric/Behavioral: Negative. Breast: Negative. PHYSICAL EXAMINATION Ht Readings from Last 1 Encounters: 05/17/20 170.2 cm (5' 7 ) Wt Readings from Last 1 Encounters: 05/17/20 108.9 kg (240 lb) Patient is alert and oriented ??3. Hearing is intact to spoken word. Respirations are even and nonlabored. Exam of the right lower extremity shows palpable DP and PT pulses. Sensation is intact to light touch through the DP, SP, sural, saphenous and tibial distribution. Skin reveals no rashes, lesions or ulcers. Mild swelling appreciated about the ankle. There is no evidence of erythema or ecchymosis. Tenderness noted over the medial malleolus, deltoid and anterior ankle joint. She has an intact dorsiflexion, plantar flexion, inversion and eversion. Motor function is intact through the EHL, FHL, anterior tibialis, gastrocsoleus, peroneals and posterior tibialis. REVIEW OF X-RAYS/STUDIES Right ankle weightbearing radiographs were ordered and reviewed myself today and demonstrate no evidence of any acute bony abnormality. Ankle mortise is intact. IMPRESSION/DIAGNOSIS Right medial ankle sprain with concern for an occult fracture TREATMENT/PLAN I have reviewed her physical exam findings, x-ray findings and impression thoroughly with her today. I recommended continuing with immobilization in a boot and be weight-bearing as tolerated. We willpursue a lower extremity MRI to further evaluate for a medial malleolus occult fracture. We will schedule her for this at her earliest convenience. We will follow up via phone call to review the results. Patient voices understanding. FOLLOW UP Four weeks, repeat exam Sumi Quezada RN, ASSOCIATE PROFESSOR OF ENGLISH-C Nurse Practitioner Foot and Ankle Service [facility] Sumi Quezada RN, ASSOCIATE PROFESSOR OF ENGLISHNavneetC in a collaborative practice with Dr. Taco Quezada RN, ASSOCIATE PROFESSOR OF ENGLISH-C dictating using [employer]ency Direct. Sports Nutritionist variances may occur. documented in this encounter Plan of Treatment Not on file documented as of this encounter Results * MRI Ankle Hindfoot [...] NP IMG MRI PROCEDURES Final Resul t * XR Ankle Right 3+ View (05/17/2020 10:30 AM CDT) Anatomical Region Laterality Modality Lower Extremities, Ankle Right Compute d Radiography 05/17/2020 10:3 5 AM CDT Impressions 05/17/2020 10:35 AM CDT Right ankle medial soft tissue swelling with no fracture. Electronically signed by: Taco Maza M.D. Narrative 05/17/2020 10:35 AM CDT EXAMINATION: XR ANKLE RIGHT 3 OR MORE VIEWS HISTORY: Right ankle pain, rolled ankle FINDINGS: 3 view weightbearing examination of the right ankle is compared with a study from 05/04/2020. Lateral soft tissue swelling has improved. Medial soft tissue swelling persists. The ankle joint space and mortise are normal. There is no change in a heel spur. No fracture is present. Procedure Note Taco Maza MD - 05/17/2020 EXAMINATION: XR ANKLE RIGHT 3 OR MORE VIEWS HISTORY: Right ankle pain, rolled ankle FINDINGS: 3 view weightbearing examination of the right ankle is compared with a study from 05/04/2020. Lateral soft tissue swelling has improved. Medial soft tissue swelling persists. The ankle joint space and mortise are normal. There is no change in a heel spur. No fracture is present. IMPRESSION: Right ankle medial soft tissue swelling with no fracture. Electronically signed by: Taco Maza M.D. Sumi Quezada NP IMG XR PROCEDURES Final Result documented in this encounter Visit Diagnoses Diagnosis Sprain of right ankle, unspecified ligament, initial encounter- Primary Right ankle pain, unspecified chronicity Right ankle pain, unspecified chronicity Right ankle pain, unspecified chronicity documented in this encounter Care Teams Nutrition Associate Relationship Specialty Start Date End Date Darnell Peters MD [address] [place] [address] PCP - General 08/04/17 10/23/20 documented as of this encounter
--- OUTSIDE RECORDS SUMMARY | 2024-07-24 19:59 | XMS_ITS | Encounter Summary ---
Author Organization [facility] Address [address] [place] [address] Phone Care Team Providers Care Environmental Programs Specialist Name Role Phone Darnell Peters MD Primary Care Provider +1- [phone] Reason for Referral * Diagnostic Imaging (Routine) - Closed Specialty Diagnoses / Procedures Referred By Contac t Referred To Contact Diagnoses Right leg pain Procedures XR Tibia Fibula Right 2 View Nadia Sandhu DO Phone: tel: [facility] Referral ID Status Reason Start Date Expiration Date Visits Re quested Visits Authorized [id number] Closed 05/04/2020 06/03/2021 1 1 * Diagnostic Imaging (Routine) - Closed Specialty Diagnoses / Procedures Referred By Contac t Referred To Contact Diagnoses Injury of right knee, leg ankle and foot, initial encounter Procedures XR Knee Right 3 View Nadia Sandhu DO Phone: tel: [facility] Referral ID Status Reason Start Date Expiration Date Visits Re quested Visits Authorized [id number] Closed 05/04/2020 06/03/2021 1 1 * Diagnostic Imaging (Routine) - Closed Specialty Diagnoses / Procedures Referred By Contac t Referred To Contact Diagnoses Injury of right knee, leg ankle and foot, initial encounter Procedures XR Ankle Right 3+ View Nadia Sandhu DO Phone: tel: [facility] Referral ID Status Reason Start Date Expiration Date Visits Re quested Visits Authorized [id number] Closed 05/04/2020 06/03/2021 1 1 Reason for Visit * Reason Comments Pain Pain Encounter Details Date Type Department Care Team (Late st Contact Info) Description 05/04/2020 3:30 PM CDT [facility] - [facility] [address] [place] [address] Nadia Sandhu DO [address] [place] [address] Right ankle injury, initial encounter (Primary Dx); Contusion of right knee, initial encounter; Prepatellar bursitis of right knee; Acute right ankle pain; Right leg pain Social History Tobacco Use Types Packs/Day Years Used Date Smoking Tobacco: Never Comments No Sex and Gender Information Value Date Recorded Sex Assigned at Not on file 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 Diagnosis: Right ankle injury, initial encounter [S99.911A] Diagnosis Plan 1. Right ankle injury, initial encounter XR Ankle Right 3+ View XR Knee Right 3 View 2. Contusion of right knee, initial encounter 3. Prepatellar bursitis of right knee 4. Acute right ankle pain 5. Right leg pain XR Tibia Fibula Right 2 View Your x-rays today showed: No obvious fracture of the knee or ankle. You do have some arthritis in the knee. Plan of care: Patient given basic instructions of ice and Apply a compressive CLARE bandage. Rest andelevate the affected painful area. Apply cold compresses intermittently as needed. (R.I.C.E) Weightbearing Status reviewed and advised to be: Weightbearing as tolerated with an assistive device Assistive Device Instructions: Issued a boot and patient was independent with use of putting on/taking off Prescription: no prescription given today Recommendations: Take Ibuprofen OR Aleve as needed for pain. You may additionally take Tylenol. Further Diagnostic Tests: No future tests needed at this time. . . Please excuse the above named patient from School/Work for their appointment at [facility] today. *The recommendations you received in the Orthopedic Acute Injury Clinic was an initiation of care for your urgent problem. It is very important that you follow the treatment plan as outlined with youat your visit. If your symptoms should worsen, you can reach your Physician through the office at to speak with the administrative medical director, Devorah Flores, during regular business hours M-F from 8:00 a.m.to 4:30 p.m. If your symptoms worsen and you are unable to reach anyone at either of the numbers provided, you should seek further medical attention in the ER or with your primary care provider. Nadia Sandhu DO documented in this encounter Progress Notes * Nadia Sandhu DO - 05/04/2020 3:30 PM CDT Images from the original note were not included. [facility] DOS: 05/04/2020 CHIEF COMPLAINT: Pain of the Right Knee and Pain of the Right Ankle HPI: Rebecca Patiño presents to the Orthopedic Injury Clinic today due to right knee pain and right ankle pain. Patient states that about 1 and half weeks ago she stepped in a hole and rolled her ankle.She states that she fell and then hit her knee directly on a rock. She now has pain in the right ankle and right knee. In regards to her ankle, she states that she thought she twisted it. She statesthe pain is getting worse. She describes it as dull and achy, moderate in quality. Pain is worse with walking, better with rest. She has also tried ice and elevation both of which are helping. In regards to her knee, patient states that the pain is all anterior where she hit the knee on the rock. She has swelling. Has not noted any bruising. She states that it after the injury she initially did not really have much pain but noticed it after a couple of days. She denies any mechanical symptoms such as catching, popping, or vignesh instability episodes. She denies any problems with this knee in the past. She has been taking Tylenol for pain. PAST MEDICAL HISTORY: Past Medical History: Diagnosis Date ??? ADD (attention deficit disorder) ??? Anxiety ??? Asthma ??? Depression ??? Obesity ??? Seasonal allergies PAST SURGICAL HISTORY: Past Surgical History: Procedure Laterality Date ??? CYST REMOVAL hand ??? CYST REMOVAL foot REVIEW OF MEDICATIONS: Current Outpatient Medications on File Prior to Visit Medication Sig Dispense Refill ??? citalopram (CeleXA) 20 mg tablet Take 10 mg by mouth daily ??? fluocinonide (LIDEX) 0.05 % external solution Apply to affected area on scalp twice daily as needed. 30 day supply. ??? ketoconazole (NIZORAL) 2 % shampoo Apply to wet hair, leave on for 3 minutes, then rinse; at least three times weekly. 30 days supply ??? lurasidone HCl (LURASIDONE ORAL) Take 10 mg by mouth ??? pimecrolimus (ELIDEL) 1 % cream Apply to face twice a day. 30 days supply. ??? lurasidone (LATUDA) 20 mg tablet Take 1 tablet (20 mg total) by mouth daily. (Patient not taking: Reported on 05/04/2020) 30 tablet 0 ??? OLANZapine (ZyPREXA) 10 mg tablet Take 10 mg by mouth daily ??? traZODone (DESYREL) 50 mg tablet Take 50 mg by mouth nightly as needed No current facility-administered medications on file prior to visit. DRUG ALLERGIES: No Known Allergies SOCIAL HISTORY: reports that she has never smoked. She does not have any smokeless tobacco history on file. FAMILY HISTORY: Family History Problem Relation Age of Onset ??? Ovarian cancer Mother 45 ??? Breast cancer Sister 50 ??? Breast cancer Mother's Sister 45 ??? Brain cancer Mother's Sister ??? Bladder Cancer Father 70 ??? Testicular cancer Brother 45 ??? Prostate cancer Brother 47 REVIEW OF SYSTEMS: Review of Systems Constitutional: Positive for fatigue. Negative for chills and fever. HENT: Positive for congestion. Negative for ear discharge, ear pain, hearing loss, nosebleeds, sinus pain and sore throat. Eyes: Positive for redness. Negative for pain, discharge and visual disturbance. Respiratory: Negative for apnea, cough and shortness of breath. Cardiovascular: Negative for chest pain and leg swelling. Gastrointestinal: Negative for abdominal pain, diarrhea, nausea and vomiting. Endocrine: Negative for polydipsia. Genitourinary: Negative for difficulty urinating, dysuria, flank pain and frequency. Musculoskeletal: Positive for arthralgias (right ankle, right knee) and joint swelling (right ankleright knee). Negative for back pain, myalgias and neck pain. Skin: Negative for rash and wound. Allergic/Immunologic: Positive for environmental allergies. Neurological: Negative for dizziness, syncope, weakness, numbness and headaches. Psychiatric/Behavioral: Negative for self-injury, sleep disturbance and suicidal ideas. The patientis not nervous/anxious and is not hyperactive. PHYSICAL EXAM: Ht 170.2 cm (5' 7 ) Wt 108.9 kg (240 lb) BMI 37.59 kg/m?? General: Well appearing, in no apparent distress. Eyes: No scleral icterus or conjunctival hemorrhage. Cardiovascular: Normal pulses, well perfused with normal capillary refill, no edema. Respiratory: Respirations even and unlabored, breathing comfortably in room air, no retractions. Skin: Warm, dry, intact, no rashes. Psychiatric: Normal mood and affect. Neurologic: Alert and oriented, normal tone. Musculoskeletal: Exam limited to right ankle. Swelling ankle Mild medially with some mild ecchymosis Swelling foot none Lower extremity Mild anterior distal 1/3 of tib-fib about 6 cm above the joint The calf is supple without swelling or tendernness. Motion Plantar flexion normal Dorsiflexion normal Functional Pronation normal Functional Supination normal Strength: right ankle plantarflexion 5/5, dorsiflexion 5/5, eversion 5/5, inversion 5/5 and great toe flexion and extension 5/5. Stability: Anterior drawer: negative laxity Talar tilt: negative laxity Tenderness: Proximal fibular TTP: negative Gastrocnemius muscle complex: negative Medial malleolus TTP: positive - moderate Lateal malleolus TTP: negative Navicular TTP: negative Talar dome TTP: negative Anterior Process Calcaneus: negative Posterior tibialis TTP: negative Peroneals TTP: negative Base of 5th MT TTP: negative Cuboid TTP: negative ATF TTP: negative CFL TTP: negative PTF TTP: negative Medial Deltoid TTP: positive - mild Lisfranc Joint: Negative +[id number] TTP over the distal 3rd of anterior tib-fib Heel Exam: PF origin TTP: negative AT insertion/RC bursa TTP: negative AT mid portion TTP: negative Special Testing Hernandez's test: Achilles intact Tib/Fib squeeze test: negative Calcaneal squeeze test: negative External rotation stress test (Kleiger's): negative Juliette's sign: negative Sensation: Intact to light touch sensation throughout the right ankle. Vascular: 2+ dorsalis pedis pulse, 2+ posterior tibial pulse. Exam limited to right knee: Inspection: negative redness. positive prepatellar swelling with no swelling or erythema, and no warmth. negative bruising. negative bony deformity. Palpation: Effusion Mild; negative tenderness to palpation over the medial and lateral patellar facets. positive mild pain over anterior aspect of knee directly over patella. negative pain in suprapatellar region. negative pain to posterior knee. positive TTP over the medial joint line, negative TTP over lateral joint line, negative TTP over MCL, and negative TTP over LCL. ROM: Active flexion and extension 0 to 120 degrees. Passive Hip ROM: negative hip pain with passive ROM at the hip. Strength: Flexion/Hamstring strength 5/5. Extension/Quadriceps strength 5/5. Sensation: Intact light touch sensation throughout both lower extremities. Vascular: Neurovascularly intact SPECIAL TESTING: Patellar apprehension test: negative Patellar grind test: positive Berto???s: negative Anterior drawer: negative Posterior drawer: negative Varus stress: negative pain and negative instability in full extension. negative pain and negative instability at 30 degrees flexion. Valgus stress: negative pain and negative instability in full extension. negative pain and negativeinstability at 30 degrees flexion. Bounce home: negative; Kervin's: negative XRAYS: right knee x-rays were ordered and reviewed by myself today - there is no acute fracture seen. Patient has mild patellofemoral and medial compartment osteoarthritis present. There is also prepatellarsoft tissue swelling. Alignment is normal of the knee. Right ankle x-rays were ordered and reviewed by myself today - there is no obvious acute fracture. There is mild soft tissue swelling medially. IMPRESSION/PLAN: (S99.911A) Right ankle injury, initial encounter (primary encounter diagnosis) Plan: XR Ankle Right 3+ View, XR Knee Right 3 View (S80.01XA) Contusion of right knee, initial encounter (M70.41) Prepatellar bursitis of right knee (M25.571) Acute right ankle pain (M79.604) Right leg pain Plan: XR Tibia Fibula Right 2 View Diagnosis, imaging and treatment plan was discussed with the patient today. Patient presents with both right ankle and right knee pain after an injury that occurred about 1 and half weeks ago. She describes twisting somehow the right ankle after stepping in a hole, then falling directly down on theright knee. On exam, she has mild to moderate swelling in the prepatellar region with tenderness over the patella. She does have some mild medial joint line tenderness. She is otherwise ligamentouslystable, and a negative Kervin's test. It appears her pain is all centrally located around the patella. Her mechanism of injury and exam findings are consistent with traumatic prepatellar bursitis. She will continue ice, elevation, compression, and trji-[id number] NSAIDs for this. She will gradually advance her activity as tolerated in regards to her knee, and will call my office if symptoms fail to improve over the next couple of weeks, and certainly if they worsen such as the development ofany mechanical symptoms. In regards to her ankle, patient has pain primarily over the medial aspect of the ankle, as well aspain in the distal tib-fib region anteriorly. X-rays of the tib-fib are unremarkable and her pain is directly over the area of some mild swelling. Diagnosed with lower leg contusion. On the other hand, she does have tenderness moderately over the medial malleolus. She does have tenderness over the deltoid ligament as well. Her pain is maximally over the medial ankle joint area. On exam, her ankleis stable. X-rays show no fractures. She was diagnosed with probable medial deltoid ligament sprain, but due to her point specific pain over the medial malleolus, discussed the possibility of bony contusion verses an occult fracture. I recommended ice, elevation, rest, and uzkw-tqq-ozewxbe NSAIDs for symptomatic relief. She was provided a boot, and recommended full- time use, removing for showering and sleeping. I would like for her to follow up with foot and ankle in 2 weeks for re-evaluation of this injury. They will call with any questions or concerns in the interim. -follow-up - 2 weeks with foot and ankle for re-evaluation Patient verbalized understanding and in agreement with plan. All questions were answered to her satisfaction. Nadia Sandhu DO [facility] Pediatric Non-operative Sports Medicine/Orthopedics Retail Field Supervisor [facility] Portions of this note were dictated using [employer] speech recognition software. 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 documented in this encounter Plan of Treatment Not on file documented as of this encounter Procedures Procedure Name Priority Date/Time Associated Diagnosis Comments XR TIBIA FIBULA RIGHT2 VIEWS Schedule Routine, Read Routine (OP Routine) 05/04/2020 5:24 PM CDT Right leg pain XR ANKLE RIGHT 3 OR MORE VIEWS Schedule Routine, Read Routine (OP Routine) 05/04/2020 4:27 PM CDT Right ankle injury, initial encounter XR KNEE RIGHT 3 VIEWS Schedule Routine, Read Routine (OP Routine) 05/04/2020 4:27 PM CDT Right ankle injury, initial encounter documented in this encounter Results * XR Tibia Fibula Right 2 View (05/04/2020 5:24 PM CDT) Anatomical Region Laterality Modality Lower Extremities, Lower Leg Right Com puted Radiography 05/05/2020 6:20 AM CDT Impressions 05/05/2020 6:20 AM CDT 1. ??Right knee prepatellar soft tissue swelling. Electronically signed by: Ammon Lopez M.D. Narrative 05/05/2020 6:20 AM CDT EXAMINATION: Right tibia fibula 2 views HISTORY: ??Right leg pain FINDINGS: 2 views of the right leg are submitted for interpretation. Comparison is made to right ankle radiographs 05/04/2020 and right knee radiographs 05/04/2020. The alignment of the right leg is anatomic. There is prepatellar right knee soft tissue swelling. No fracture is seen. There is mild osteoarthritis at the knee. The ankle joint space is grossly normal. Procedure Note Ammon Lopez MD - 05/05/2020 EXAMINATION: Right tibia fibula 2 views HISTORY: Right leg pain FINDINGS: 2 views of the right leg are submitted for interpretation. Comparison is made to right ankle radiographs 05/04/2020 and right knee radiographs 05/04/2020. The alignment of the right leg is anatomic. There is prepatellar right knee soft tissue swelling. No fracture is seen. There is mild osteoarthritis at the knee. The ankle joint space is grossly normal. IMPRESSION: 1. Right knee prepatellar soft tissue swelling. Electronically signed by: Ammon Lopez M.D. Nadia Sandhu DO IMG XR PROCEDURES Final Resu lt * XR Knee Right 3 View (05/04/2020 [...] lt documented in this encounter Visit Diagnoses Diagnosis Right ankle injury, initial encounter- Primary Contusion of right knee, initial encounter Prepatellar bursitis of right knee Acute right ankle pain Right leg pain Pain in soft tissues of limb documented in this encounter Historical Medications * This list may reflect changes made after this encounter. traZODone (DESYREL) 50 mg tablet Take 50 mg by mouth nightly as needed 06/21/2017 03/20/2021 pimecrolimus (ELIDEL) 1 % cream Apply to face twice a day. 30 days supply. 06/02/2019 02/05/2023 OLANZapine (ZyPREXA) 10 mg tablet Take 10 mg by mouth daily 06/21/2017 05/30/2020 ketoconazole (NIZORAL) 2 % shampoo Apply to wet hair, leave on for 3 minutes, then rinse; at least three times weekly. 30 days supply 06/02/2019 02/05/2023 fluocinonide (LIDEX) 0.05 % external solution Apply to affected area on scalp twice daily as needed. 30 day supply. 06/02/2019 05/30/2020 lurasidone HCl (LURASIDONE ORAL) Take 10 mg by mouth 05/30/2020 added in this encounter Care Teams Environmental Programs Specialist Relationship Specialty Start Date End Date Darnell Peters MD [address] [place] [address] PCP - General 08/04/17 10/23/20 documented as of this encounter
--- OUTSIDE RECORDS SUMMARY | 2024-07-24 19:59 | XMS_ITS | Encounter Summary ---
Author Organization [facility] Address [address] [place] [address] Care Team Providers Care Multimedia Editor Name Role Phone Darnell ePters MD Primary Care Provider +1- [phone] Reason for Referral * Diagnostic Imaging (Routine) - Closed Specialty Diagnoses / Procedures Referred By Katherin cartagena Referred To Contact Diagnoses Right ankle pain, unspecified chronicity Procedures XR Ankle Right 3+ [place] [address] [place] [address] Phone: tel: fax: [facility] Referral ID Status Reason Start Date Expiration Date Visits Re quested Visits Authorized [id number] Closed 05/17/2020 06/16/2021 1 1 Reason for Visit * Diagnostic Imaging (Routine) - Closed Specialty Diagnoses / Procedures Referred By Katherin cartagena Referred To Contact Diagnoses Right ankle pain, unspecified chronicity Procedures XR Ankle Right 3+ [place] [address] [place] [address] Phone: tel: fax: [facility] Referral ID Status Reason Start Date Expiration Date Visits Re quested Visits Authorized [id number] Closed 05/17/2020 06/16/2021 1 1 Encounter Details Date Type Department Care Team (Latest Contact Info) Description 05/17/2020 10:22 AM CDT - 05/17/2020 11:59 PM CDT Hospital Encounter [facility] at [facility] [address] [place] [address] William Antonio, [address] [place] [address] Sumi Quezada, DERRICK [address] [place] [address] Right ankle pain, unspecified chronicity Discharge Disposition: Discharge to home or self care Social History Tobacco Use Types Packs/Day Years Used Date Smoking Tobacco: Never Comments No Sex and Gender Information Value Date Recorded Sex Assigned at Not on file 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 Sumi Quezada BASKET FILLER IMG XR PROCEDURES Final Result documented in this encounter Visit Diagnoses Diagnosis Right ankle pain, unspecified chronicity documented in this encounter Care Teams Multimedia Editor Relationship Specialty Start Date End Date Darnell Peters MD [address] [place] [address] PCP - General 08/04/17 10/23/20 documented as of this encounter
--- OUTSIDE RECORDS SUMMARY | 2024-07-24 19:59 | XMS_ITS | Encounter Summary ---
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 Clinical Support [facility] Nutrition Services [address] [place] [address] [address] [place] [address] Muna Villalobos, 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 TRUCK 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 Social History Tobacco Use Types Packs/Day Years Used Date Smoking Tobacco: Never Assessed Comments No Sex and Gender Information Value Date Recorded Sex Assigned at Not on file Legal Sex Female 8:57 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 Gender Identity Not on file Sexual Orientation Not on file documented as of this encounter Last Filed Vital Signs Vital Sign Reading Time Taken Comments Blood Pressure - - Pulse - - Temperature - - Respiratory Rate - - Oxygen Saturation - - Inhaled Oxygen Concentration - - Weight 103.7 kg (228 lb 11.2 oz) 09/15/2018 6:44 PM TOP COLLAR BASTER Height - - Body Mass Index 35.71 09/01/2018 5:14 PM TOP COLLAR BASTER documented in this encounter Plan of Treatment Not on file documented as of this encounter Visit Diagnoses Not on filedocumented in this encounter Care Teams Medical Equipment Sales Relationship Specialty Start Date End Date Darnell Peters MD [address] [place] [address] PCP - General 08/04/17 10/23/20 documented as of this encounter
--- OUTSIDE RECORDS SUMMARY | 2024-07-24 19:59 | XMS_ITS | Encounter Summary ---
Author Organization [facility] Healthcare Address [address] [place] [address] Care Team Providers Care Sole Seamer Name Role Phone Darnell Peters MD Primary Care Provider +1- [phone] Encounter Details Date Type Department Care Team (Late st Contact Info) Description 09/02/2018 10:55 AM PAPER BALING MACHINE OPERATOR Lab Research [facility] Advanced [facility] ([facility]) [address] [place] [address] [phone] Yasemin Churchill MD [address] [facility] [address] [place] [address] Class 2 obesity due to excess calories without serious comorbidity with body mass index (BMI) of 37.0 to 37.9 in adult; Metabolic and nutritional disorder Discharge Disposition: Discharge to home or self care Social History Tobacco Use Types Packs/Day Years Used Date Smoking Tobacco: Never Assessed Comments No Sex and Gender Information Value Date Recorded Sex Assigned at Not on file Legal Sex Female 8:57 AM PAPER BALING MACHINE OPERATOR Gender Identity Not on file Sexual Orientation Not on file documented as of this encounter Discharge Disposition Disposition Code Departure Means Destination Discharge to home or self care documented in this encounter Plan of Treatment Not on file documented as of this encounter Procedures Procedure Name Priority Date/Time Associated Diagnosis Comments CBC WITHOUT DIFFERENTIAL Routine 09/02/2018 10:57 AM PAPER BALING MACHINE OPERATOR Class 2 obesity due to excess calories without serious comorbidity with body mass index (BMI) of 37.0 to 37.9 in adult Metabolic and nutritional disorder TSH Routine 09/02/2018 10:57 AM PAPER BALING MACHINE OPERATOR Class 2 obesity due to excess calories without serious comorbidity with body mass index (BMI) of 37.0 to 37.9 in adult Metabolic and nutritional disorder T4, FREE Routine 09/02/2018 10:57 AM PAPER BALING MACHINE OPERATOR Class 2 obesity due to excess calories without serious comorbidity with body mass index (BMI) of 37.0 to 37.9 in adult Metabolic and nutritional disorder HEMOGLOBIN A1C Routine 09/02/2018 10:57 AM PAPER BALING MACHINE OPERATOR Class 2 obesity due to excess calories without serious comorbidity with body mass index (BMI) of 37.0 to 37.9 in adult Metabolic and nutritional disorder LIPID PANEL Routine 09/02/2018 10:57 AM PAPER BALING MACHINE OPERATOR Class 2 obesity due to excess calories without serious comorbidity with body mass index (BMI) of 37.0 to 37.9 in adult Metabolic and nutritional disorder COMPREHENSIVE METABOLIC PANEL Routine 09/02/2018 10:57 AM PAPER BALING MACHINE OPERATOR Class 2 obesity due to excess calories without serious comorbidity with body mass index (BMI) of 37.0 to 37.9 in adult Metabolic and nutritional disorder documented in this encounter Results * TSH (09/02/2018 10:57 AM PAPER BALING MACHINE OPERATOR) Thyroid Stimulating Hormone 3.95 0.30 - 4.20 mcIUnit/mL [facility] Blood specimen (specimen) 09/02/2018 10:57 AM PAPER BALING MACHINE OPERATOR 09/02/2018 11:04 AM PAPER BALING MACHINE OPERATOR Narrative [facility] - 09/02/2018 11:48 AM [facility] [[email or web address]] us Yasemin Churchill MD LAB BLOOD ORDERABLES Fin al Result [facility] Department [place] [address] * T4, free (09/02/2018 10:57 AM PAPER BALING MACHINE OPERATOR) Free T4 1.00 0.90 - 1.70 ng/dL [facility] Blood specimen (specimen) 09/02/2018 10:57 AM PAPER BALING MACHINE OPERATOR 09/02/2018 11:04 AM PAPER BALING MACHINE OPERATOR Narrative [facility] - 09/02/2018 11:48 AM PAPER BALING MACHINE OPERATOR Yasemin Churchill MD LAB BLOOD ORDERABLES Fin al Result [facility] Department [place] [address] * (ABNORMAL) Lipid panel (09/02/2018 10:57 AM PAPER BALING MACHINE OPERATOR) Cholesterol 201(H) 30 - 199 mg/dL [facility] Comment: Interpretive Data Ages < or [...] Data was last revised on 2018. Triglycerides 203(H) <=149 mg/dL [facility] Comment: Interpretive Data Ages < or [...] Data was last revised on 2018. HDL 54 >=40 mg/dL [facility] Comment: Interpretive Data Ages < or [...] was last revised on 2018. LDL, calculated 106 <=129 mg/dL [facility] Comment: Interpretive Data Ages < or = [...] was last revised on 2018. Non-HDL Cholesterol 147 mg/dL [facility] Comment: Interpretive Data Ages < or [...] was last revised on 2018. Chol/HDL ratio 4 [facility] Blood specimen (specimen) 09/02/2018 10:57 AM PAPER BALING MACHINE OPERATOR 09/02/2018 11:04 AM PAPER BALING MACHINE OPERATOR Narrative [facility] - 09/02/2018 11:49 AM PAPER BALING MACHINE OPERATOR Yasemin Churchill MD LAB BLOOD ORDERABLES Fin al Result Performing Organization Address [facility] de Phone Number [facility] Department [place] [address] * Hemoglobin A1c (09/02/2018 10:57 AM PAPER BALING MACHINE OPERATOR) Hgb A1C 5.2 4.0 - 5.6 % [facility] Estimated Average Glucose 103 mg/dL [facility] Comment: The ADA recommends reporting an estimated Average Glucose (eAG) with all Hemoglobin A1c results using the equation derived from a study of 507 normal and diabetic adults. ??Minority populations were underrepresented and children were not included. ?? (Diabetes Care 31:3128-9855, 2008). ??The eAG is not equivalent to a fasting glucose. Blood specimen (specimen) 09/02/2018 10:57 AM PAPER BALING MACHINE OPERATOR 09/02/2018 11:04 AM PAPER BALING MACHINE OPERATOR Narrative [facility] - 09/02/2018 11:28 AM PAPER BALING MACHINE OPERATOR Yasemin Churchill MD LAB BLOOD ORDERABLES Fin al Result [facility] Department [place] [address] * Comprehensive metabolic panel (09/02/2018 10:57 AM PAPER BALING MACHINE OPERATOR) Sodium 139 135 - 145 mmol/L [facility] Potassium, pl 4.4 3.3 - 4.9 mmol/L [facility] Chloride 105 97 - 110 mmol/L [facility] CO2 31 22 - 32 mmol/L [facility] Anion gap 3 2 - 15 mmol/L [facility] BUN 19 8 - 25 mg/dL [facility] Creatinine 0.93 0.60 - 1.10 mg/dL [facility] Glucose 89 70 - 199 mg/dL [facility] Comment: Interpretive Data Fasting glucose >/= 126 [...] 2017. Calcium 9.6 8.5 - 10.3 mg/dL [facility] Bilirubin, total 0.6 0.1 - 1.2 mg/dL [facility] Protein, pl 7.5 6.5 - 8.5 g/dL [facility] Albumin 4.5 3.5 - 5.0 g/dL [facility] Alk phos 78 40 - 130 Units/L [facility] ALT 23 7 - 45 Units/L [facility] AST 19 10 - 45 Units/L [facility] Blood specimen (specimen) 09/02/2018 10:57 AM PAPER BALING MACHINE OPERATOR 09/02/2018 11:04 AM PAPER BALING MACHINE OPERATOR Narrative [facility] - 09/02/2018 11:48 AM PAPER BALING MACHINE OPERATOR us Yasemin Churchill MD LAB BLOOD ORDERABLES Fin al Result Performing Organization Address [facility] de Phone Number [facility] Department [place] [address] * CBC without differential (09/02/2018 10:57 AM PAPER BALING MACHINE OPERATOR) WBC 8.1 3.8 - 9.9 K/cumm [facility] Hgb 12.2 11.9 - 15.5 g/dL [facility] Hct 37.6 35.6 - 45.5 % [facility] Plt 318 150 - 400 K/cumm [facility] MPV 9.7 9.1 - 12.3 fL [facility] RBC 4.14 3.90 - 5.20 M/cumm [facility] MCV 90.8 81.3 - 96.4 fL [facility] MCH 29.5 27.1 - 33.3 pg [facility] MCHC 32.4 32.3 - 35.7 g/dL [facility] RDW CV 12.9 11.1 - 14.9 % [facility] RDW SD 43.2 35.7 - 48.1 fL [facility] NRBC abs 0.00 0.00 - 0.01 K/cumm [facility] Blood specimen (specimen) 09/02/2018 10:57 AM PAPER BALING MACHINE OPERATOR 09/02/2018 11:04 AM PAPER BALING MACHINE OPERATOR Narrative [facility] - 09/02/2018 11:19 AM PAPER BALING MACHINE OPERATOR Yasemin Churchill MD LAB BLOOD ORDERABLES Fin al Result Performing Organization Address [facility] Co de Phone Number [facility] Department [place] [address] documented in this encounter Visit Diagnoses Diagnosis Class 2 obesity due to excess calories without serious comorbidity with body mass index (BMI) of 37.0 to 37.9 in adult Metabolic and nutritional disorder documented in this encounter Care Teams Sole Seamer Relationship Specialty Start Date End Date Darnell Peters MD [address] [place] [address] PCP - General 08/04/17 10/23/20 documented as of this encounter
--- OUTSIDE RECORDS SUMMARY | 2024-07-24 19:59 | XMS_ITS | Encounter Summary ---
Author Organization [facility] Address [address] [place] [address] Phone Care Team Providers Care Home Stager Name Role Phone Darnell Peters MD Primary Care Provider +1- [phone] Encounter Details Date Type Department Care Team (Late st Contact Info) Description 11/13/2018 Telephone [facility] Gastroenterology [address] [place] [address] Medical Office [address] [place] [address] Muna Villalobos, PIZZA HUT ASSISTANT Social History Tobacco Use Types Packs/Day Years Used Date Smoking Tobacco: Never Assessed Comments No Sex and Gender Information Value Date Recorded Sex Assigned at Not on file Legal Sex Female 8:57 AM PRE OWNED SALES CONSULTANT Gender Identity Not on file Sexual Orientation Not on file documented as of this encounter Miscellaneous Notes * Telephone Encounter - Muna Villalobos, CLINICAL LABORATORY SCIENTIST - 11/13/2018 4:00 PM CDT 11/13/18 Digital Content Marketing Manager called patient to reschedule make-up sessions. Patient asked photo optics technician to call patient back via house phone number [phone]. On 12/24/18 patient is going to arrive to clinic by 5 or 5:10pm to weigh- in,however, patient and photo optics technician will meet from 5:30 - 6:30pm to make up sessions missed 09/08 and 10/13/18. Make-up session for the Missed and paid for group sessions ??? 09/08/18 8 Adherence ??? 10/13/18 13 Environmental Cues Was previously planned for 11/17/18, however, patient got tied up at work with and didn't make it to clinic- until start of Stage I group that night at 6:30pm documented in this encounter Plan of Treatment Not on file documented as of this encounter Visit Diagnoses Not on filedocumented in this encounter Care Teams Home Stager Relationship Specialty Start Date End Date Darnell Peters MD [address] [place] [address] PCP - General 08/04/17 10/23/20 documented as of this encounter
--- OUTSIDE RECORDS SUMMARY | 2024-07-24 20:00 | XMS_ITS | Encounter Summary ---
Author Organization [facility] Healthcare Address [address] [place] [address] Care Team Providers Care Marketing Analytics Manager Name Role Phone Darnell Peters MD Primary Care Provider +1- [phone] Reason for Referral * Diagnostic Imaging (Routine) - Closed Specialty Diagnoses / Procedures Referred By Contac t Referred To Contact Diagnoses Family history of breast cancer Procedures Mamm Risk Stratification Arlet Love MD Phone: tel: fax: Referral ID Status Reason Start Date Expiration Date Visits Re quested Visits Authorized [id number] Closed 03/18/2018 09/27/2019 1 1 Reason for Visit * Diagnostic Imaging (Routine) - Closed Specialty Diagnoses / Procedures Referred By Contac t Referred To Contact Diagnoses Family history of breast cancer Procedures Mamm Risk Stratification Arlet Love MD Phone: tel: fax: Referral ID Status Reason Start Date Expiration Date Visits Re quested Visits Authorized [id number] Closed 03/18/2018 09/27/2019 1 1 Encounter Details Date Type Department Care Team (Latest Contact Info) Description 03/18/2018 12:44 PM CDT - 03/18/2018 11:59 PM CDT Hospital Encounter [facility] - Imaging [address] [place] [address] Arlet Love MD [address] [place] [address] [address] [place] [address] Family history of breast cancer Discharge Disposition: Discharge to home or self care Social History Tobacco Use Types Packs/Day Years Used Date Smoking Tobacco: Never Assessed Comments No Sex and Gender Information Value Date Recorded Sex Assigned at Not on file Legal Sex Female 8:57 AM DRY SAND MOLDER Gender Identity Not on file Sexual Orientation Not on file documented as of this encounter Last Filed Vital Signs Vital Sign Reading Time Taken Comments Blood Pressure - - Pulse - - Temperature - - Respiratory Rate - - Oxygen Saturation - - Inhaled Oxygen Concentration - - Weight 108.9 kg (240 lb) 03/18/2018 12:50 PM CDT Height 170.2 cm (5' 7 ) 03/18/2018 12:50 PM CDT Body Mass Index 37.59 03/18/2018 12:50 PM CDT documented in this encounter Medications at Time of Discharge citalopram (CeleXA) 20 mg tablet Take 10 mg by mouth daily 06/22/2017 03/20/2021 OLANZapine (ZyPREXA) 10 mg tablet Take [...] Procedure Name Priority Date/Time Associated Diagnosis Comments MAMM RISK STRATIFICATION Schedule Routine, Read Routine (OP Routine) 03/18/2018 3:27 PM CDT Family history of breast cancer documented in this encounter Results * Mamm Risk Stratification (03/18/2018 3:27 PM CDT) Anatomical Region Laterality Modality Breast N/A Mammography 04/03/2018 6:01 PM CDT Narrative 04/09/2018 10:39 AM CDT BREAST CANCER RISK ASSESSMENT Your patient was seen at [facility] and had a Breast Cancer Risk Assessment. See below for your patient's results and recommendations. RISK ASSESSMENT INTERPRETATION: Breast Density: Heterogeneously dense Tyrer-Cuzick (LAVINIA) Model (v7.0 released January 14, 2013): 5-year risk of developing breast cancer is 4.7%, compared with a 5 year population risk of 1.3 %. Lifetime risk of developing breast cancer is 30%, compared with a lifetime population risk of 12 %. RECOMMENDATIONS: IMAGING: Annual digital 3D screening mammography with tomosynthesis. Annual bilateral breast MRI w/wo contrast (may be alternated at 6-month intervals with mammography following baseline exam). CHEMOPREVENTION: Based on the patient's 5-year risk score, a consultation with a Medical Oncologist is recommended. The medical oncology team at [facility] advises healthy individuals at increased risk regarding the most up-to-date information and interventions to prevent cancer. GENETIC COUNSELING: A consultation with a certified genetic counselor is recommended for this patient. Whitley Del Rosario, MPH, Certified Genetic Counselor, at [facility] sees patients in the [facility] at no charge. OUR PROMISE TO YOU: 1. We will send the patient correspondence outlining applicable recommendations and to contact me upon receipt. 2. If interested, our team will coordinate your patient's breast imaging and any applicable consultations. The results of this assessment are based on information obtained from the patient during a risk assessment interview. Please don't hesitate to contact us with any questions or concerns regarding this assessment or to discuss the recommendations further. Faby Love RN, Risk Nurse Coordinator under the direction of Roverto Lantigua MD [facility] Risk Assessment and Genetic Counseling Services [phone] Electronically signed by: ROVERTO LANTIGUA us Arlet Love MD IMG MAMMO PROCEDURES Fi nal Result documented in this encounter Visit Diagnoses Diagnosis Family history of breast cancer Family history of malignant neoplasm of breast documented in this encounter Care Teams Marketing Analytics Manager Relationship Specialty Start Date End Date Darnell Peters MD [address] [place] [address] PCP - General 08/04/17 10/23/20 documented as of this encounter
--- OUTSIDE RECORDS SUMMARY | 2024-07-24 20:00 | XMS_ITS | Encounter Summary ---
Author Organization [facility] Facility Care Team Providers Care Web Producer Name Role Phone Unavailable Primary Care Provider Unavailabl e Encounter Details Date Type Department Care Team (Late st Contact Info) Description 08/27/2010 7:54 AM PULPER - 08/27/2010 11:59 PM PULPER Hospital Encounter [facility] Arlet Jimenez MD [address] [facility] [address] [place] [address] Family history of malignant neoplasm of breast Social History Tobacco Use Types Packs/Day Years Used Date Smoking Tobacco: Never Assessed Comments Unknown Sex and Gender Information Value Date Recorded Sex Assigned at Not on file Legal Sex Female 8:57 AM PULPER Gender Identity Not on file Sexual Orientation Not on file documented as of this encounter Plan of Treatment Not on file documented as of this encounter Visit Diagnoses Diagnosis Family history of malignant neoplasm of breast documented in this encounter
--- OUTSIDE RECORDS SUMMARY | 2024-07-24 20:00 | XMS_ITS | Encounter Summary ---
Author Organization [facility] Facility Care Team Providers Care Tea And Spice Supervisor Name Role Phone Unavailable Primary Care Provider Unavailabl e Encounter Details Date Type Department Care Team (Late st Contact Info) Description 06/29/2014 8:10 AM UNDERWRITING SPECIALIST - 06/29/2014 11:59 PM UNDERWRITING SPECIALIST Hospital Encounter [facility] Gabi Jimenez MD [address] [place] [address] Other screening mammogram Social History Tobacco Use Types Packs/Day Years Used Date Smoking Tobacco: Never Assessed Comments Unknown Sex and Gender Information Value Date Recorded Sex Assigned at Not on file Legal Sex Female 8:57 AM UNDERWRITING SPECIALIST Gender Identity Not on file Sexual Orientation Not on file documented as of this encounter Plan of Treatment Not on file documented as of this encounter Procedures Procedure Name Priority Date/Time Associated Diagnosis Comments SCREENING MAMMOGRAM BILATERAL W CAMERON Routine 06/29/2014 12:00 AM UNDERWRITING SPECIALIST documented in this encounter Results * Screening Mammogram Bilateral W Cameron (06/29/2014 12:00 AM UNDERWRITING SPECIALIST) Anatomical Region Laterality Modality Breast Bilateral Mammography 06/29/2014 8:38 AM UNDERWRITING SPECIALIST Narrative 07/04/2014 9:19 AM UNDERWRITING SPECIALIST - SCREENING MAMM W CAMERON BI BILATERAL DIGITAL SCREENING MAMMOGRAM 3D/2D WITH CAD: 06/29/2014 CLINICAL: Routine screening. Patient has no complaints. ?? Comparison is made to exams dated: ??11/26/2013, 03/17/2013, 02/12/2012, 05/31/2011, and 08/27/2010 [facility]. ?? The tissue of both breasts is heterogeneously dense. This may lower the sensitivity of mammography. ?? Current study was also evaluated with a Computer Aided Detection (CAD) system. ?? No significant masses, calcifications, or other findings are seen in either breast. ?? There has been no significant interval change. IMPRESSION: NEGATIVE There is no mammographic evidence of malignancy. A 1 year screening mammogram is recommended. ?? The patient will be contacted by letter. ?? Kim Monreal M.D. ? lrp/penrad:07/01/2014 16:22:18 ?? letter sent: Normal Exam ?? Mammogram BI-RADS: 1 Negative Radiologist: KIM MONREAL M.D. ?? Attending: ??GABI LOGAN M.D. Requesting: GABI LOGAN M.D. Requesting Fax: ?? Requesting ID: [id number] Attending Fax: ?? Attending ID: ?? [id number] Completed Time: ?? 06/29/2014 08:38 AM Dictated Time: ?N/A Transcribed Time: 07/04/2014 09:19 AM Signed by: ?KIM MONREAL ??Lorene on 07/04/2014 09:19 AM Report To 1 ID: Report To 1 Name: , Report To 1 FAX: Report To 2 ID: Report To 2 Name: , Report To 2 FAX: Report To 3 ID: Report To 3 Name: , Report To 3 FAX: NextGen Order #: Procedure Note Provider, MD Matheus - 11/18/2016 - SCREENING MAMM W CAMERON BI BILATERAL DIGITAL SCREENING MAMMOGRAM 3D/2D WITH CAD: 06/29/2014 CLINICAL: Routine screening. Patient has no complaints. Comparison is made to exams dated: 11/26/2013, 03/17/2013, 02/12/2012, 05/31/2011, and 08/27/2010 [facility]. The tissue of both breasts is heterogeneously dense. This may lower the sensitivity of mammography. Current study was also evaluated with a Computer Aided Detection (CAD) system. No significant masses, calcifications, or other findings are seen in either breast. There has been no significant interval change. IMPRESSION: NEGATIVE There is no mammographic evidence of malignancy. A 1 year screening mammogram is recommended. The patient will be contacted by letter. Kim Monreal M.D. [facility]/penrad:07/01/2014 16:22:18 letter sent: Normal Exam Mammogram BI-RADS: 1 Negative Radiologist: KIM MONREAL M.D. Attending: GABI LOGAN M.D. Requesting: GABI LOGAN M.D. Requesting Requesting ID: [id number] Attending Attending ID: [id number] Completed Time: 06/29/2014 08:38 AM Dictated Time: N/A Transcribed Time: 07/04/2014 09:19 AM Signed by: KIM MONREAL M.D. on 07/04/2014 09:19 AM Report To 1 ID: Report To 1 Name: , Report To 1 FAX: Report To 2 ID: Report To 2 Name: , Report To 2 FAX: Report To 3 ID: Report To 3 Name: , Report To 3 FAX: NextGen Order #: Historical Provider MD KELLY MAMMO PROCEDURES Roshni l Result documented in this encounter Visit Diagnoses Diagnosis Other screening mammogram documented in this encounter
--- OUTSIDE RECORDS SUMMARY | 2024-07-24 20:00 | XMS_ITS | Encounter Summary ---
Author Organization [facility] Address [address] [place] [address] Phone Care Team Providers Care Storekeeper Engineering Name Role Phone Darnell Peters MD Primary Care Provider +1- [phone] Reason for Visit * Reason Comments Obesity Encounter Details Date Type Department Care Team (Late st Contact Info) Description 08/11/2018 6:30 PM CLAY SHOP SUPERVISOR Clinical Support [facility] Diabetes and Nutrition Services [address] [place] [address] [address] [place] [address] Muna Villalobos, BURNER HAND Social History Tobacco Use Types Packs/Day Years Used Date Smoking Tobacco: Never Assessed Comments No Sex and Gender Information Value Date Recorded Sex Assigned at Not on file Legal Sex Female 8:57 AM CLAY SHOP SUPERVISOR Gender Identity Not on file Sexual Orientation Not on file documented as of this encounter Plan of Treatment Not on file documented as of this encounter Visit Diagnoses Not on filedocumented in this encounter Care Teams Storekeeper Engineering Relationship Specialty Start Date End Date Darnell Peters MD [address] [place] [address] PCP - General 08/04/17 10/23/20 documented as of this encounter
--- OUTSIDE RECORDS SUMMARY | 2024-07-24 20:00 | XMS_ITS | Encounter Summary ---
Author Organization [facility] Facility Care Team Providers Care Padder Name Role Phone Unavailable Primary Care Provider Unavailabl e Encounter Details Date Type Department Care Team (Late st Contact Info) Description 09/22/2006 6:02 PM PATCH FINISHER - 09/22/2006 11:00 PM PATCH FINISHER Hospital Encounter [facility] Arlet Jimenez MD [address] [place] [address] Social History Tobacco Use Types Packs/Day Years Used Date Smoking Tobacco: Never Assessed Comments Unknown Sex and Gender Information Value Date Recorded Sex Assigned at Not on file Legal Sex Female 8:57 AM PATCH FINISHER Gender Identity Not on file Sexual Orientation Not on file documented as of this encounter Plan of Treatment Not on file documented as of this encounter Visit Diagnoses Not on filedocumented in this encounter
--- OUTSIDE RECORDS SUMMARY | 2024-07-24 20:00 | XMS_ITS | Encounter Summary ---
Author Organization [facility] Healthcare Address [address] [place] [address] Care Team Providers Care Event Marketing Manager Name Role Phone Darnell Peters MD Primary Care Provider [phone]- [phone] Encounter Details Date Type Department Care Team (Latest Contact Info) Description 08/21/2017 7:58 AM TIRE CHANGER - 08/21/2017 11:59 PM TIRE CHANGER Hospital Encounter [facility]IM [phone] Gabi Love MD [address] [facility] [facility] [address] [place] [address] Discharge Disposition: Discharge to home or self care Social History Tobacco Use Types Packs/Day Years Used Date Smoking Tobacco: Never Assessed Comments Unknown Sex and Gender Information Value Date Recorded Sex Assigned at Not on file Legal Sex Female 8:57 AM TIRE CHANGER Gender Identity Not on file Sexual Orientation [...] Comments MRI BREAST BILATERAL W WO CONTRAST Routine 08/21/2017 4:01 PM TIRE CHANGER documented in this encounter Results * MRI Breast Bilateral W WO Contrast (08/21/2017 4:01 PM TIRE CHANGER) Anatomical Region Laterality Modality Breast Bilateral Magnetic Resonan ce 08/21/2017 4:01 PM TIRE CHANGER Narrative 08/21/2017 7:06 PM TIRE CHANGER Dynamic bilateral breast MRI study. HISTORY: Patient is a 46-year-old woman enrolled in a high risk breast MRI screening program secondary to family history. ??Patient reports family history of breast cancer diagnosed in sister at age 45 and ovarian cancer diagnosed in her aunt aunt in her 40s. ??Breast cancer also diagnosed in mother at age 40. Comparison is made to most recent mammogram on 08/30/2016 and earlier studies as far back as 04/27/2009. ??Patient has had previous MRI studies beginning in June 2009 and most recently in March 2015. A dynamic bilateral breast MRI was obtained following injection of 20 mL Dotarem contrast. ??Multiplanar and three-dimensional reconstructions were created from the dynamic data. ??A bigcl[employer]coma CAD stream program was utilized. Patient reports that she is premenopausal on day 0 of her menstrual cycle. FINDINGS: Left breast: There was minimal enhancement of left breast parenchyma which appeared physiologic. ??No abnormal morphology or enhancement pattern consistent with malignancy was identified. ??Several axillary lymph nodes demonstrated fatty alfredo and normal morphology. ??These nodes correlated to lymph nodes seen on most recent mammogram in the axilla. Right breast: In a pattern symmetrical to that seen in the left breast, there was minimal enhancement of breast parenchyma which appeared physiologic. ??No abnormal morphology or enhancement pattern consistent with malignancy was identified. ??Axillary lymph nodes demonstrated normal size and morphology. IMPRESSION: Bilateral breasts: Breast MRI BI-RADS: Negative/category 1. Minimal enhancement was noted of breast tissue bilaterally in a pattern that appeared physiologic. Follow-up bilateral mammogram is recommended in August 2017 to maintain patient's normal annual cycle. Overall assessment: Negative. Electronically signed by: Lotus Casiano M.D. Radiologist: LOTUS CASIANO MD ?? Attending: ??GABI LOVE M.D. Requesting: GABI LOVE M.D. Requesting Fax: ?? Requesting ID: [id number] Attending Fax: ?? Attending ID: ?? [id number] Completed Time: ?? 08/21/2017 10:01 AM Dictated Time: ?N/A Transcribed Time: 08/21/2017 1:05 PM Signed by: ?LOTUS CASIANO MD ?? on 08/21/2017 1:05 PM Report To 1 ID: Report To 1 Name: , Report To 1 FAX: Report To 2 ID: Report To 2 Name: , Report To 2 FAX: Report To 3 ID: Report To 3 Name: , Report To 3 FAX: NextGen Order #: Procedure Note Miscellaneous, Not In File - 08/21/2017 Dynamic bilateral breast MRI study. HISTORY: Patient is a 46-year-old woman enrolled in a high risk breast MRI screening program secondary to family history. Patient reports family history of breast cancer diagnosed in sister at age 45 and ovarian cancer diagnosed in her aunt aunt in her 40s. Breast cancer also diagnosed in mother at age 40. Comparison is made to most recent mammogram on 08/30/2016 and earlier studies as far back as 04/27/2009. Patient has had previous MRI studies beginning in June 2009 and most recently in March 2015. A dynamic bilateral breast MRI was obtained following injection of 20 mL Dotarem contrast. Multiplanar and three-dimensional reconstructions were created from the dynamic data. A [employer]cl[employer]coma CAD stream program was utilized. Patient reports that she is premenopausal on day 0 of her menstrual cycle. FINDINGS: Left breast: There was minimal enhancement of left breast parenchyma which appeared physiologic. No abnormal morphology or enhancement pattern consistent with malignancy was identified. Several axillary lymph nodes demonstrated fatty alfredo and normal morphology. These nodes correlated to lymph nodes seen on most recent mammogram in the axilla. Right breast: In a pattern symmetrical to that seen in the left breast, there was minimal enhancement of breast parenchyma which appeared physiologic. No abnormal morphology or enhancement pattern consistent with malignancy was identified. Axillary lymph nodes demonstrated normal size and morphology. IMPRESSION: Bilateral breasts: Breast MRI BI-RADS: Negative/category 1. Minimal enhancement was noted of breast tissue bilaterally in a pattern that appeared physiologic. Follow-up bilateral mammogram is recommended in August 2017 to maintain patient's normal annual cycle. Overall assessment: Negative. Electronically signed by: Lotus Casiano M.D. Radiologist: LOTUS CASIANO MD Attending: GABI LOVE M.D. Requesting: GABI LOVE M.D. Requesting Requesting ID: [id number] Attending Attending ID: [id number] Completed Time: 08/21/2017 10:01 AM Dictated Time: N/A Transcribed Time: 08/21/2017 1:05 PM Signed by: LOTUS CASIANO MD on 08/21/2017 1:05 PM Report To 1 ID: Report To 1 Name: , Report To 1 FAX: Report To 2 ID: Report To 2 Name: , Report To 2 FAX: Report To 3 ID: Report To 3 Name: , Report To 3 FAX: NextGen Order #: us Gabi Love MD IMG MRI PROCEDURES Edit ed Result - Final documented in this encounter Visit Diagnoses Not on filedocumented in this encounter Care Teams Event Marketing Manager Relationship Specialty Start Date End Date Darnell Peters MD [address] [place] [address] PCP - General 08/04/17 10/23/20 documented as of this encounter
--- OUTSIDE RECORDS SUMMARY | 2024-07-24 20:00 | XMS_ITS | Encounter Summary ---
Author Organization [facility] Address [address] [place] [address] Phone Care Team Providers Care Boat Tester Name Role Phone Darnell Peters MD Primary Care Provider +1- [phone] Reason for Visit * Reason Comments Obesity Encounter Details Date Type Department Care Team (Late st Contact Info) Description 06/23/2018 6:00 PM FLIGHT DISPATCHER Clinical Support [facility] Diabetes and Nutrition Services [address] [place] [address] [address] [place] [address] Kallie Gonzalez, PREVENTIVE MEDICINE SPECIALIST Social History Tobacco Use Types Packs/Day Years Used Date Smoking Tobacco: Never Assessed Comments No Sex and Gender Information Value Date Recorded Sex Assigned at Not on file Legal Sex Female 8:57 AM FLIGHT DISPATCHER Gender Identity Not on file Sexual Orientation Not on file documented as of this encounter Plan of Treatment Not on file documented as of this encounter Visit Diagnoses Not on filedocumented in this encounter Care Teams Boat Tester Relationship Specialty Start Date End Date Darnell Peters MD [address] [place] [address] PCP - General 08/04/17 10/23/20 documented as of this encounter
--- OUTSIDE RECORDS SUMMARY | 2024-07-24 20:00 | XMS_ITS | Encounter Summary ---
Author Organization [facility] Facility Care Team Providers Care Cleaning Matron Name Role Phone Unavailable Primary Care Provider Unavailabl e Encounter Details Date Type Department Care Team (Late st Contact Info) Description 05/02/2015 10:02 AM CDT - 05/02/2015 11:59 PM CDT Hospital Encounter [facility] Gabi Jimenez MD [address] [facility] [address] [place] [address] Other abnormal and inconclusive findings on diagnostic imaging of breast Social History Tobacco Use Types Packs/Day Years Used Date Smoking Tobacco: Never Assessed Comments Unknown Sex and Gender Information Value Date Recorded Sex Assigned at Not on file Legal Sex Female 8:57 AM ZIPPER JOINER Gender Identity Not on file Sexual Orientation Not on file documented as of this encounter Plan of Treatment Not on file documented as of this encounter Procedures Procedure Name Priority Date/Time Associated Diagnosis Comments US BREAST LIMITED Routine 05/02/2015 10: 38 AM CDT documented in this encounter Results * US Breast Limited (05/02/2015 10:38 AM CDT) Anatomical Region Laterality Modality Breast N/A Ultrasound 05/02/2015 10:3 8 AM CDT Narrative 05/02/2015 11:52 AM CDT Left breast ultrasound: HISTORY: ??Abnormal breast MRI done for high-risk screening showing a 6 mm circumscribed oval nodule outer left breast anteriorly at around 2 o'clock with a slightly irregular contour on the high-resolution images. ??The nodule showed persistent enhancement centrally and may represent a fibroadenoma. ??MR directed second look ultrasound is recommended for further clarification. FINDINGS: ??Real-time ultrasound imaging of the left breast was performed. ??Reference made to the MRI of the breast in question dated 04/20/2015. ??Comparison also made with multiple prior breast MRI's of 11/25/2013, 02/12/2012, and 08/27/2010. ??The abnormality in question is a small oval nodular area of persistent enhancing tissue in the outer anterior left breast 3 o'clock region 4 cm from the nipple. ?? Sonography of this area of the breast shows an oval hypoechoic circumscribed nodule at 3 o'clock 1B measuring 6 x 5 x 3 mm. ??This shows circumscribed borders, parallel to the skin surface, and some through enhancement. ??No vascularity. ??Typical features of a probable fibroadenoma. ??It is also reassuring that this nodular area of tissue is entirely stable dating back to 2010. ??No mammographic correlate. ?? This finding will be considered benign. ??No suspicious findings. IMPRESSION: Left breast: ??BI-RADS 2: ??Benign. 1. ??Tiny benign-appearing nodule 3 o'clock 1B, stable on MRI since 2010. ??Probable tiny fibroadenoma. ??No suspicious findings. ??Patient will be due for annual mammogram in 06/2015. The results from this study have been communicated to the patient. OVERALL ASSESSMENT: ??Benign. ?? LO:[facility] Radiologist: ELIE CORONA MD ?? Attending: ??GABI LOGAN M.D. Requesting: GABI LOGAN M.D. Requesting Fax: ?? Requesting ID: [id number] Attending Fax: ?? Attending ID: ?? [id number] Completed Time: ?? 05/02/2015 10:38 AM Dictated Time: ?05/02/2015 11:09 AM Transcribed Time: 05/02/2015 11:14 AM Signed by: ?ELIE CORONA MD ?? on 05/02/2015 11:52 AM Report To 1 ID: Report To 1 Name: , Report To 1 FAX: Report To 2 ID: Report To 2 Name: , Report To 2 FAX: Report To 3 ID: Report To 3 Name: , Report To 3 FAX: NextGen Order #: Procedure Note Provider, MD Matheus - 11/18/2016 Left breast ultrasound: HISTORY: Abnormal breast MRI done for high-risk screening showing a 6 mm circumscribed oval nodule outer left breast anteriorly at around 2 o'clock with a slightly irregular contour on the high-resolution images. The nodule showed persistent enhancement centrally and may represent a fibroadenoma. MR directed second look ultrasound is recommended for further clarification. FINDINGS: Real-time ultrasound imaging of the left breast was performed. Reference made to the MRI of the breast in question dated 04/20/2015. Comparison also made with multiple prior breast MRI's of 11/25/2013, 02/12/2012, and 08/27/2010. The abnormality in question is a small oval nodular area of persistent enhancing tissue in the outer anterior left breast 3 o'clock region 4 cm from the nipple. Sonography of this area of the breast shows an oval hypoechoic circumscribed nodule at 3 o'clock 1B measuring 6 x 5 x 3 mm. This shows circumscribed borders, parallel to the skin surface, and some through enhancement. No vascularity. Typical features of a probable fibroadenoma. It is also reassuring that this nodular area of tissue is entirely stable dating back to 2010. No mammographic correlate. This finding will be considered benign. No suspicious findings. IMPRESSION: Left breast: BI-RADS 2: Benign. 1. Tiny benign-appearing nodule 3 o'clock 1B, stable on MRI since 2010. Probable tiny fibroadenoma. No suspicious findings. Patient will be due for annual mammogram in 06/2015. The results from this study have been communicated to the patient. OVERALL ASSESSMENT: Benign. LO:[facility] Radiologist: ELIE CORONA MD Attending: GABI LOGAN M.D. Requesting: GABI LOGAN M.D. Requesting Requesting ID: [id number] Attending Attending ID: [id number] Completed Time: 05/02/2015 10:38 AM Dictated Time: 05/02/2015 11:09 AM Transcribed Time: 05/02/2015 11:14 AM Signed by: ELIE CORONA MD on 05/02/2015 11:52 AM Report To 1 ID: Report To 1 Name: , Report To 1 FAX: Report To 2 ID: Report To 2 Name: , Report To 2 FAX: Report To 3 ID: Report To 3 Name: , Report To 3 FAX: NextGen Order #: us Historical Provider MD KELLY US PROCEDURES Final R esult documented in this encounter Visit Diagnoses Diagnosis Other abnormal and inconclusive findings on diagnostic imaging of breast documented in this encounter
--- OUTSIDE RECORDS SUMMARY | 2024-07-24 20:00 | XMS_ITS | Encounter Summary ---
Author Organization [facility] Facility Care Team Providers Care Press Operator Helper Name Role Phone Unavailable Primary Care Provider Unavailabl e Encounter Details Date Type Department Care Team (Late st Contact Info) Description 05/31/2011 11:42 AM CDT - 05/31/2011 11:59 PM CDT Hospital Encounter [facility] Arlet Jimenez MD [address] [facility] [address] [place] [address] Family history of malignant neoplasm of breast Social History Tobacco Use Types Packs/Day Years Used Date Smoking Tobacco: Never Assessed Comments Unknown Sex and Gender Information Value Date Recorded Sex Assigned at Not on file Legal Sex Female 8:57 AM STATE INSPECTOR Gender Identity Not on file Sexual Orientation Not on file documented as of this encounter Plan of Treatment Not on file documented as of this encounter Visit Diagnoses Diagnosis Family history of malignant neoplasm of breast documented in this encounter
--- OUTSIDE RECORDS SUMMARY | 2024-07-24 20:00 | XMS_ITS | Encounter Summary ---
Author Organization [facility] Address [address] [place] [address] Phone Care Team Providers Care Director Of Enrollment Name Role Phone Darnell Peters MD Primary Care Provider [phone]- [phone] Encounter Details Date Type Department Care Team (Late st Contact Info) Description 06/23/2018 5:20 PM COMMERCIAL GREEN BUILDING DESIGNER Office Visit [facility] Diabetes and Nutrition Services [address] [place] [address] Yasemin Churchill MD [address] [place] [address] Weight loss counseling, encounter for (Primary Dx); Metabolic and nutritional disorder; Class 2 severe obesity due to excess calories with serious comorbidity and body mass index (BMI) of 38.0 to 38.9 in adult (CMS/HCC) Social History Tobacco Use Types Packs/Day Years Used Date Smoking Tobacco: Never Assessed Comments No Sex and Gender Information Value Date Recorded Sex Assigned at Not on file Legal Sex Female 8:57 AM COMMERCIAL GREEN BUILDING DESIGNER Gender Identity Not on file Sexual Orientation Not on file documented as of this encounter Last Filed Vital Signs Vital Sign Reading Time Taken Comments Blood Pressure - - Pulse - - Temperature - - Respiratory Rate - - Oxygen Saturation - - Inhaled Oxygen Concentration - - Weight - - Height 170.2 cm (5' 7 ) 08/04/2018 5:15 PM COMMERCIAL GREEN BUILDING DESIGNER Body Mass Index - - documented in this encounter Progress Notes * Yasemin Churchill MD - 06/23/2018 5:20 PM CST CC: Wants to lose weight in order to improve current health conditions and prevent development of new problems. Has been unsuccessful or had weight regain with prior attempts at weight loss. See new patient information/history packet for additional details -- reviewed, scanned. Weight History: She was underweight growing up. She weighed about 125 lbs at around 21 years of gae She got at 21 years age At 25 years she weighed 135 lbs. She then got and weighed around 150 lbs and could not loose wt. At 29 years she got with her second child and she weighed 175 lbs. At 36 years she was with her third child and her weight was up to 185- 190 lb She did weight watchers for 6 months after her third . She lost about 20 lbs . About a year , she had a paranoid/panic episode about a year ago , was started on citalopram and olanzepine . She gained 40 lbs after starting Olanzepine She sees Sumi Love , her psychiatrist. Her dose of olanzapine is being decreased. Earlier in september she was off olanzapine , she lost her appetite and lost about 20 lbs. Previous Diets/Weight Loss Programs: Weight watchers . On mediterranean diet for a year, did not loose wt as she thinks she did not follow thoroughly. Current/Past Weight Loss Medications:None Physical Activity/Exercise:walks 5509-2578 steps per day. Does not exercise regularly She denies any h/o sleep apnea. Mood currently is stable. She denies any chest pain, nausea, constipation, diarrhea. She does get some urge for a particular food intermittently but denied overeating . No current outpatient prescriptions on file. No current facility-administered medications for this visit. She has not had any tests for DM , thyroid disease in the past. Family History Problem Relation Age of Onset ??? Ovarian cancer Mother 45 ??? Breast cancer Sister 50 ??? Breast cancer Mother's Sister 45 ??? Brain cancer Mother's Sister ??? Bladder Cancer Father 70 ??? Testicular cancer Brother 45 ??? Prostate cancer Brother 47 History Smoking Status ??? Not on file Smokeless Tobacco ??? Not on file History Alcohol use Not on file Review of Systems Constitutional: Negative for chills, fatigue and fever. HENT: Negative for mouth sores and sore throat. Eyes: Negative for visual disturbance. No worsening vision Respiratory: Negative. Cardiovascular: Negative. Gastrointestinal: Negative for abdominal pain, constipation, diarrhea, nausea and vomiting. Endocrine: Negative. Negative for polyuria. Genitourinary: Negative for dysuria and frequency. Musculoskeletal: Negative for arthralgias and back pain. Skin: Negative for rash. Neurological: Negative for dizziness, weakness, light-headedness, numbness and headaches. Hematological: Does not bruise/bleed easily. Psychiatric/Behavioral: Negative for dysphoric mood and sleep disturbance. The patient is not nervous/anxious. Ht 170.2 cm (5' 7 ) BMI 37.10 kg/m?? Physical Exam Constitutional: She is oriented to person, place, and time. No distress. HENT: Mouth/Throat: Uvula is midline, oropharynx is clear and moist and mucous membranes are normal. No oropharyngeal exudate or posterior oropharyngeal erythema. Eyes: Pupils are equal, round, and reactive to light. Conjunctivae, EOM and lids are normal. Neck: No thyroid mass and no thyromegaly present. Cardiovascular: Normal rate, regular rhythm, normal heart sounds and intact distal pulses. No murmur heard. Pulses: Dorsalis pedis pulses are 2+ on the right side. Posterior tibial pulses are 2+ on the right side. Pulmonary/Chest: Effort normal and breath sounds normal. Abdominal: Soft. There is no hepatosplenomegaly. There is no tenderness. Obese Lymphadenopathy: She has no cervical adenopathy. Neurological: She is alert and oriented to person, place, and time. Sensation to LT grossly intact B feet Skin: Skin is warm and dry. No rash noted. No acanthosis No skin tags Psychiatric: She has a normal mood and affect. Vitals reviewed. Assessment and Plan: Calculated Energy Needs Using Equations Weight Used for Equation Calculations (RD Determined): 112 kg (247 lb) Height: 170.2 cm (5' 7 ) [place]- [place] Jeor Equation (Overweight or Obese Patients): 1778 [place] Equation: 1799 Activity Factor: 1.3 Total Energy Needs using [place]-St. Jeor: 2311.4 Total Energy Needs using [place]: 2338.7 Weight loss counseling, encounter for Appropriate candidate for Weight Management Program with no contraindications to participating. Diet recommendations, meal replacements per program RD. Discussed relatively small, but significant role of exercise in weight loss; importance in weight management as shown in Look Ahead study and National Weight Control Registry. Metabolic and nutritional disorder Labs. Class 2 severe obesity due to excess calories with serious comorbidity and body mass index (BMI) of38.0 to 38.9 in adult ([facility]) Obesity is unchanged. General weight loss/lifestyle modification strategies discussed (elicit support from others; identify saboteurs; non-food rewards, etc). Behavioral treatment: WMP. Diet interventions: per RD. Informal exercise measures discussed, e.g. taking stairs instead of elevator. Regular aerobic exercise program discussed. ERCIAL GREEN BUILDING DESIGNER documented in this encounter Miscellaneous Notes * Assessment & Plan Note - Yasemin Churchill MD - 08/04/2018 5:17 PM COMMERCIAL GREEN BUILDING DESIGNER Associated Problem(s): Class 3 severe obesity due to excess calories without serious comorbidity with body mass index (BMI) of 40.0 to 44.9 in adult ([facility]) Obesity is unchanged. General weight loss/lifestyle modification strategies discussed (elicit support from others; identify saboteurs; non-food rewards, etc). Behavioral treatment: WMP. Diet interventions: per RD. Informal exercise measures discussed, e.g. taking stairs instead of elevator. Regular aerobic exercise program discussed. ERCIAL GREEN BUILDING DESIGNER * Assessment & Plan Note - Yasemin Churchill MD - 08/04/2018 5:16 PM COMMERCIAL GREEN BUILDING DESIGNER Associated Problem(s): Metabolic and nutritional disorder (Resolved 02/04/2022) Labs. ERCIAL GREEN BUILDING DESIGNER * Assessment & Plan Note - Yasemin Churchill MD - 08/04/2018 5:15 PM COMMERCIAL GREEN BUILDING DESIGNER Associated Problem(s): Weight loss counseling, encounter for (Resolved 02/04/2022) Appropriate candidate for Weight Management Program with no contraindications to participating. Diet recommendations, meal replacements per program RD. Discussed relatively small, but significant role of exercise in weight loss; importance in weight management as shown in Look Ahead study and National Weight Control Registry. ERCIAL GREEN BUILDING DESIGNER documented in this encounter Plan of Treatment Not on file documented as of this encounter Visit Diagnoses Diagnosis Weight loss counseling, encounter for- Primary Metabolic and nutritional disorder Class 2 severe obesity due to excess calories with serious comorbidity and body mass index (BMI) of 38.0 to 38.9 in adult (HCC) documented in this encounter Care Teams Director Of Enrollment Relationship Specialty Start Date End Date Darnell Peters MD [address] [place] [address] PCP - General 08/04/17 10/23/20 documented as of this encounter
--- OUTSIDE RECORDS SUMMARY | 2024-07-24 20:00 | XMS_ITS | Encounter Summary ---
Author Organization [facility] Address [address] [place] [address] Phone Care Team Providers Care Toll Mechanic Name Role Phone Darnell Peters MD Primary Care Provider +1- [phone] Reason for Visit * Reason Comments Obesity Encounter Details Date Type Department Care Team (Late st Contact Info) Description 07/07/2018 6:30 PM PET HOUSE SITTER Clinical Support [facility] Diabetes and Nutrition Services [address] [place] [address] [address] [place] [address] Muna Villalobos, TAPE FASTENER MACHINE OPERATOR Social History Tobacco Use Types Packs/Day Years Used Date Smoking Tobacco: Never Assessed Comments No Sex and Gender Information Value Date Recorded Sex Assigned at Not on file Legal Sex Female 8:57 AM PET HOUSE SITTER Gender Identity Not on file Sexual Orientation Not on file documented as of this encounter Last Filed Vital Signs Vital Sign Reading Time Taken Comments Blood Pressure 108/62 07/07/2018 6:58 PM PET HOUSE SITTER Pulse - - Temperature - - Respiratory Rate - - Oxygen Saturation - - Inhaled Oxygen Concentration - - Weight 109.5 kg (241 lb 4.8 oz) 07/07/2018 6:58 PM PET HOUSE SITTER Height 170.2 cm (5' 7.01 ) 07/07/2018 6:58 PM CS T Body Mass Index 37.78 07/07/2018 6:58 PM PET HOUSE SITTER documented in this encounter Plan of Treatment Not on file documented as of this encounter Visit Diagnoses Not on filedocumented in this encounter Care Teams Toll Mechanic Relationship Specialty Start Date End Date Darnell Peters MD [address] [place] [address] PCP - General 08/04/17 10/23/20 documented as of this encounter
--- OUTSIDE RECORDS SUMMARY | 2024-07-24 20:00 | XMS_ITS | Encounter Summary ---
Author Organization [facility] Address [address] [place] [address] Phone Care Team Providers Care Museum Tour Guide Name Role Phone Darnell Peters MD Primary Care Provider +1- [phone] Reason for Visit * Reason Comments Obesity Encounter Details Date Type Department Care Team (Late st Contact Info) Description 08/18/2018 6:30 PM CORPORATE STAFF ACCOUNTANT Clinical Support [facility] Diabetes and Nutrition Services [address] [place] [address] [address] [place] [address] Muna Villalobos, SLIVER CUTTER Social History Tobacco Use Types Packs/Day Years Used Date Smoking Tobacco: Never Assessed Comments No Sex and Gender Information Value Date Recorded Sex Assigned at Not on file Legal Sex Female 8:57 AM CORPORATE STAFF ACCOUNTANT Gender Identity Not on file Sexual Orientation Not on file documented as of this encounter Last Filed Vital Signs Vital Sign Reading Time Taken Comments Blood Pressure 116/76 08/18/2018 5:52 PM CORPORATE STAFF ACCOUNTANT Pulse - - Temperature - - Respiratory Rate - - Oxygen Saturation - - Inhaled Oxygen Concentration - - Weight 104.5 kg (230 lb 4.8 oz) 08/18/2018 5:52 PM CORPORATE STAFF ACCOUNTANT Height 170.2 cm (5' 7.01 ) 08/18/2018 5:52 PM CS T Body Mass Index 36.06 08/18/2018 5:52 PM CORPORATE STAFF ACCOUNTANT documented in this encounter Plan of Treatment Not on file documented as of this encounter Visit Diagnoses Not on filedocumented in this encounter Care Teams Museum Tour Guide Relationship Specialty Start Date End Date Darnell Peters MD [address] [place] [address] PCP - General 08/04/17 10/23/20 documented as of this encounter
--- OUTSIDE RECORDS SUMMARY | 2024-07-24 20:00 | XMS_ITS | Encounter Summary ---
Author Organization [facility] Address [address] [place] [address] Phone Care Team Providers Care Landscaping And Groundskeeping Laborer Name Role Phone Darnell Peters MD Primary Care Provider +1- [phone] Encounter Details Date Type Department Care Team (Late st Contact Info) Description 08/11/2018 Orders Only [facility] Diabetes and Nutrition Services [address] [facility] [address] [place] [address] Yasemin Churchill MD [address] [place] [address] Social History Tobacco Use Types Packs/Day Years Used Date Smoking Tobacco: Never Assessed Comments No Sex and Gender Information Value Date Recorded Sex Assigned at Not on file Legal Sex Female 8:57 AM CIVIL ENGINEERING SPECIALIST Gender Identity Not on file Sexual Orientation Not on file documented as of this encounter Ordered Prescriptions Prescription Sig Dispense Quantity Refills Last Filled Start Date End Date lurasidone (LATUDA) 20 mg tablet Take 1 tablet (20 mg total) by mouth daily. 30 tablet 08/11/2018 03/20/2021 documented in this encounter Plan of Treatment Not on file documented as of this encounter Visit Diagnoses Not on filedocumented in this encounter Care Teams Landscaping And Groundskeeping Laborer Relationship Specialty Start Date End Date Darnell Peters MD [address] [place] [address] PCP - General 08/04/17 10/23/20 documented as of this encounter
--- OUTSIDE RECORDS SUMMARY | 2024-07-24 20:00 | XMS_ITS | Encounter Summary ---
Author Organization [facility] Address [address] [place] [address] Phone Care Team Providers Care Account Solutions Analyst Name Role Phone Darnell Peters MD Primary Care Provider +1- [phone] Reason for Visit * Reason Comments Obesity Encounter Details Date Type Department Care Team (Late st Contact Info) Description 08/25/2018 6:30 PM FIRST ASSISTANT Clinical Support [facility] Diabetes and Nutrition Services [address] [place] [address] [address] [place] [address] Muna Villalobos, BANKING PARALEGAL Social History Tobacco Use Types Packs/Day Years Used Date Smoking Tobacco: Never Assessed Comments No Sex and Gender Information Value Date Recorded Sex Assigned at Not on file Legal Sex Female 8:57 AM FIRST ASSISTANT Gender Identity Not on file Sexual Orientation Not on file documented as of this encounter Last Filed Vital Signs Vital Sign Reading Time Taken Comments Blood Pressure 116/64 08/25/2018 6:46 PM FIRST ASSISTANT Pulse - - Temperature - - Respiratory Rate - - Oxygen Saturation - - Inhaled Oxygen Concentration - - Weight 105.6 kg (232 lb 12.8 oz) 08/25/2018 6:46 PM FIRST ASSISTANT Height 170.2 cm (5' 7.01 ) 08/25/2018 6:46 PM CS T Body Mass Index 36.45 08/25/2018 6:46 PM FIRST ASSISTANT documented in this encounter Plan of Treatment Not on file documented as of this encounter Visit Diagnoses Not on filedocumented in this encounter Care Teams Account Solutions Analyst Relationship Specialty Start Date End Date Darnell Peters MD [address] [place] [address] PCP - General 08/04/17 10/23/20 documented as of this encounter
--- OUTSIDE RECORDS SUMMARY | 2024-07-24 20:00 | XMS_ITS | Encounter Summary ---
Author Organization [facility] Facility Care Team Providers Care Textiles Sales Representative Name Role Phone Unavailable Primary Care Provider Unavailabl e Encounter Details Date Type Department Care Team (Latest Contact Info) Description 09/20/2011 9:08 AM TUBE TELLER - 09/20/2011 11:59 PM TUBE TELLER Hospital Encounter [facility] Zeynep Malagon [address] [place] [address] Disturbance of skin sensation; Chronic sinusitis; Degeneration of lumbar or lumbosacral intervertebral disc Social History Tobacco Use Types Packs/Day Years Used Date Smoking Tobacco: Never Assessed Comments Unknown Sex and Gender Information Value Date Recorded Sex Assigned at Not on file Legal Sex Female 8:57 AM TUBE TELLER Gender Identity Not on file Sexual Orientation Not on file documented as of this encounter Plan of Treatment Not on file documented as of this encounter Visit Diagnoses Diagnosis Disturbance of skin sensation Chronic sinusitis Unspecified sinusitis (chronic) Degeneration of lumbar or lumbosacral intervertebral disc documented in this encounter
--- OUTSIDE RECORDS SUMMARY | 2024-07-24 20:00 | XMS_ITS | Encounter Summary ---
Author Organization [facility] Facility Care Team Providers Care Greens Tier Name Role Phone Unavailable Primary Care Provider Unavailabl e Encounter Details Date Type Department Care Team (Late st Contact Info) Description 04/27/2009 - 04/27/2009 11:59 PM CDT Hospital Encounter [facility] Carol Vieira MD [address] [address] Other screening mammogram Social History Tobacco Use Types Packs/Day Years Used Date Smoking Tobacco: Never Assessed Comments Unknown Sex and Gender Information Value Date Recorded Sex Assigned at Not on file Legal Sex Female 8:57 AM LEATHER FITTER Gender Identity Not on file Sexual Orientation Not on file documented as of this encounter Plan of Treatment Not on file documented as of this encounter Visit Diagnoses Diagnosis Other screening mammogram documented in this encounter
--- OUTSIDE RECORDS SUMMARY | 2024-07-24 20:00 | XMS_ITS | Encounter Summary ---
Author Organization [facility] Address [address] [place] [address] Phone Care Team Providers Care Transportation Maintenance Supervisor Name Role Phone Darnell Peters MD Primary Care Provider [phone]- [phone] Reason for Visit * Reason Comments Obesity Encounter Details Date Type Department Care Team (Late st Contact Info) Description 08/04/2018 6:[address] RESEARCHER Clinical Support [facility] Diabetes and Nutrition Services [address] [place] [address] [address] [place] [address] Muna Villalobos, MANAGEMENT PLANNER Social History Tobacco Use Types Packs/Day Years Used Date Smoking Tobacco: Never Assessed Comments No Sex and Gender Information Value Date Recorded Sex Assigned at Not on file Legal Sex Female 8:[address] RESEARCHER Gender Identity Not on file Sexual Orientation Not on file documented as of this encounter Last Filed Vital Signs Vital Sign Reading Time Taken Comments Blood Pressure 132/78 08/04/2018 7:[address] RESEARCHER Pulse - - Temperature - - Respiratory Rate - - Oxygen Saturation - - Inhaled Oxygen Concentration - - Weight 105.3 kg (232 lb 3.2 oz) 08/04/2018 7:[address] RESEARCHER Height 170.2 cm (5' 7.01 ) 08/04/2018 7:20 PM CS T Body Mass Index 36.36 08/04/2018 7:[address] RESEARCHER documented in this encounter Plan of Treatment Not on file documented as of this encounter Visit Diagnoses Not on filedocumented in this encounter Care Teams Transportation Maintenance Supervisor Relationship Specialty Start Date End Date Darnell Peters MD [address] [place] [address] PCP - General 08/04/17 10/23/20 documented as of this encounter
--- OUTSIDE RECORDS SUMMARY | 2024-07-24 20:00 | XMS_ITS | Encounter Summary ---
Author Organization [facility] Facility Care Team Providers Care Junk Removal Specialist Name Role Phone Unavailable Primary Care Provider Unavailabl e Encounter Details Date Type Department Care Team (Late st Contact Info) Description 10/11/2006 6:48 AM CDT - 10/14/2006 9:45 AM CDT Hospital Encounter [facility] Arlet Jimenez MD [address] [facility] [address] [place] [address] Social History Tobacco Use Types Packs/Day Years Used Date Smoking Tobacco: Never Assessed Comments Unknown Sex and Gender Information Value Date Recorded Sex Assigned at Not on file Legal Sex Female 8:57 AM BINDER LOCKSTITCH Gender Identity Not on file Sexual Orientation Not on file documented as of this encounter Plan of Treatment Not on file documented as of this encounter Visit Diagnoses Not on filedocumented in this encounter
--- OUTSIDE RECORDS SUMMARY | 2024-07-24 20:00 | XMS_ITS | Encounter Summary ---
Author Organization [facility] Facility Care Team Providers Care Medical Staff Services Manager Name Role Phone Unavailable Primary Care Provider Unavailabl e Encounter Details Date Type Department Care Team (Late st Contact Info) Description 03/17/2013 7:20 AM CDT - 03/17/2013 11:59 PM CDT Hospital Encounter [facility] Gabi Jimenez MD [address] [facility] [address] [place] [address] Other screening mammogram Social History Tobacco Use Types Packs/Day Years Used Date Smoking Tobacco: Never Assessed Comments Unknown Sex and Gender Information Value Date Recorded Sex Assigned at Not on file Legal Sex Female 8:57 AM BRIEF WRITER Gender Identity Not on file Sexual Orientation Not on file documented as of this encounter Plan of Treatment Not on file documented as of this encounter Procedures Procedure Name Priority Date/Time Associated Diagnosis Comments SCREENING MAMMOGRAM 2D BILATERAL Routine 03/17/2013 12:00 AM CDT documented in this encounter Results * Screening Mammogram 2D Bilateral (03/17/2013 12:00 AM CDT) Anatomical Region Laterality Modality Breast Bilateral Mammography 03/17/2013 7:36 AM CDT Narrative 03/18/2013 2:13 PM CDT - SCREENING MAMM BI BILATERAL DIGITAL SCREENING MAMMOGRAM WITH CAD: 03/17/2013 CLINICAL: Routine screening. Routine checkup. Patient has no complaints. ?? Comparison is made to exams dated: ??02/12/2012 and 05/31/2011 [facility]. ?? The tissue of both breasts is heterogeneously dense. This may lower the sensitivity of mammography. ?? Current study was also evaluated with a Computer Aided Detection (CAD) system. ?? No significant masses, calcifications, or other findings are seen in either breast. ?? There has been no significant interval change. IMPRESSION: NEGATIVE There is no mammographic evidence of malignancy. ?? A 1 year screening mammogram is recommended. The patient will be contacted by letter. ?? Iliana Laboy M.D. ? diversified crops farmworker/penrad:03/18/2013 09:09:26 ?? letter sent: Normal Exam ?? Mammogram BI-RADS: 1 Negative Radiologist: ILIANA LABOY ?? Attending: ??GABI LOGAN M.D. Requesting: GABI LOGAN M.D. Requesting Fax: ?? Completed Time: ?? 03/17/2013 07:36 AM Dictated Time: ?N/A Transcribed Time: 03/18/2013 2:13 PM Signed by: ?ILIANA LABOY ?? on 03/18/2013 2:13 PM Procedure Note Provider, MD Matheus - 11/18/2016 - SCREENING MAMM BI BILATERAL DIGITAL SCREENING MAMMOGRAM WITH CAD: 03/17/2013 CLINICAL: Routine screening. Routine checkup. Patient has no complaints. Comparison is made to exams dated: 02/12/2012 and 05/31/2011 [facility]. The tissue of both breasts is heterogeneously [...] The patient will be contacted by letter. Iliana Laboy M.D. diversified crops farmworker/penrad:03/18/2013 09:09:26 letter sent: Normal Exam Mammogram BI-RADS: 1 Negative Radiologist: ILIANA LABOY Attending: GABI LOGAN M.D. Requesting: GABI LOGAN M.D. Requesting Completed Time: 03/17/2013 07:36 AM Dictated Time: N/A Transcribed Time: 03/18/2013 2:13 PM Signed by: ILIANA LABOY on 03/18/2013 2:13 PM Historical Provider MD KELLY MAMMO PROCEDURES Roshni l Result documented in this encounter Visit Diagnoses Diagnosis Other screening mammogram documented in this encounter
--- OUTSIDE RECORDS SUMMARY | 2024-07-24 20:00 | XMS_ITS | Encounter Summary ---
Author Organization [facility] Address [address] [place] [address] Phone Care Team Providers Care Platform Stapler Name Role Phone Darnell Peters MD Primary Care Provider +1- [phone] Reason for Visit * Reason Comments Obesity Encounter Details Date Type Department Care Team (Late st Contact Info) Description 06/23/2018 7:00 PM CONCRETE FENCE BUILDER Clinical Support [facility] Diabetes and Nutrition Services [address] [place] [address] [address] [place] [address] Carol Alvarado, [address] [facility] [address] [place] [address] Social History Tobacco Use Types Packs/Day Years Used Date Smoking Tobacco: Never Assessed Comments No Sex and Gender Information Value Date Recorded Sex Assigned at Not on file Legal Sex Female 8:57 AM CONCRETE FENCE BUILDER Gender Identity Not on file Sexual Orientation Not on file documented as of this encounter Last Filed Vital Signs Vital Sign Reading Time Taken Comments Blood Pressure 122/78 06/23/2018 5:43 PM CONCRETE FENCE BUILDER Pulse 90 06/23/2018 5:43 PM CONCRETE FENCE BUILDER Temperature - - Respiratory Rate - - Oxygen Saturation - - Inhaled Oxygen Concentration - - Weight 112.3 kg (247 lb 8 oz) 06/23/2018 5:43 PM CONCRETE FENCE BUILDER Height 170.2 cm (5' 7 ) 06/23/2018 5:43 PM CONCRETE FENCE BUILDER Body Mass Index 38.76 06/23/2018 5:43 PM CONCRETE FENCE BUILDER documented in this encounter Plan of Treatment Not on file documented as of this encounter Visit Diagnoses Not on filedocumented in this encounter Care Teams Platform Stapler Relationship Specialty Start Date End Date Darnell Peters MD [address] [place] [address] PCP - General 08/04/17 10/23/20 documented as of this encounter
--- OUTSIDE RECORDS SUMMARY | 2024-07-24 20:00 | XMS_ITS | Encounter Summary ---
Author Organization [facility] Facility Care Team Providers Care Mineral Engineer Name Role Phone Unavailable Primary Care Provider Unavailabl e Encounter Details Date Type Department Care Team (Late st Contact Info) Description 11/25/2013 12:59 PM CDT - 11/25/2013 11:59 PM CDT Hospital Encounter [facility] Gabi Jimenez MD [address] [facility] [address] [place] [address] Family history of malignant neoplasm of breast Social History Tobacco Use Types Packs/Day Years Used Date Smoking Tobacco: Never Assessed Comments Unknown Sex and Gender Information Value Date Recorded Sex Assigned at Not on file Legal Sex Female 8:57 AM SANITARY PLUMBER Gender Identity Not on file Sexual Orientation Not on file documented as of this encounter Plan of Treatment Not on file documented as of this encounter Procedures Procedure Name Priority Date/Time Associated Diagnosis Comments MRI BREAST BILATERAL W WO CONTRAST Routine 11/25/2013 2:19 PM CDT documented in this encounter Results * MRI BREAST WWO CONTRAST (11/25/2013 2:19 PM CDT) Anatomical Region Laterality Modality Breast Bilateral Magnetic Resonan ce 11/25/2013 2:19 PM CDT Narrative 11/26/2013 8:51 AM CDT Dynamic bilateral breast MRI study: 25 Nov 2013 HISTORY: A 43-year-old woman with family history of breast cancer diagnosed in sister (stage 3). ??Comparison is made to prior mammograms 17 March 2013, 31 May 2011 and 27 April 2009. A dynamic bilateral breast MRI was obtained following injection of 20 mL OptiMARK contrast. ??Multiplanar and three-dimensional reconstructions were created from the dynamic data. ??A Food Runner program was utilized. FINDINGS: LEFT BREAST: There is moderate diffuse prominence of background parenchymal enhancement consistent with history of previous MRI studies. ??No abnormal morphology or enhancement pattern consistent with malignancy is identified. ??Lymph nodes appear normal in size and morphology. RIGHT BREAST: Similar to the pattern seen in the left breast there is moderate nodular prominence of enhancing breast tissue centrally. ?? This pattern appears stable with no abnormal morphology or kinetic enhancement consistent with malignancy clearly identified. ??Scattered persistent nodular enhancement may represent small fibroadenomas or lymph nodes as before. ??Axillary adenopathy is not identified. IMPRESSION: Breast MRI BI-RADS 2: Benign 1. ??There is moderate nodular enhancement of breast parenchyma bilaterally in a pattern that appears physiologic. ??This pattern has remained stable with no new mass or suspicious enhancement concerning for malignancy. ?? Overall assessment: Benign GH/mvb Radiologist: LOTUS CASIANO MD ?? Attending: ??GABI LOGAN M.D. Requesting: GABI LOGAN M.D. Requesting Fax: ?? Requesting ID: [id number] Attending Fax: ?? Attending ID: ?? [id number] Completed Time: ?? 11/25/2013 2:19 PM Dictated Time: ?11/25/2013 4:23 PM Transcribed Time: 11/26/2013 06:57 AM Signed by: ?LOTUS CASIANO MD ?? on 11/26/2013 08:51 AM Report To 1 ID: Report To 1 Name: , Report To 1 FAX: Report To 2 ID: Report To 2 Name: , Report To 2 FAX: Report To 3 ID: Report To 3 Name: , Report To 3 FAX: NextGen Order #: Procedure Note Provider, MD Matheus - 11/18/2016 Dynamic bilateral breast MRI study: 25 Nov 2013 HISTORY: A 43-year-old woman with family history of breast cancer diagnosed in sister (stage 3). Comparison is made to prior mammograms 17 March 2013, 31 May 2011 and 27 April 2009. A dynamic bilateral breast MRI was obtained following injection of 20 mL OptiMARK contrast. Multiplanar and three-dimensional reconstructions were created from the dynamic data. A Food Runner program was utilized. FINDINGS: LEFT BREAST: There is moderate diffuse prominence of background parenchymal enhancement consistent with history of previous MRI studies. No abnormal morphology or enhancement pattern consistent with malignancy is identified. Lymph nodes appear normal in size and morphology. RIGHT BREAST: Similar to the pattern seen in the left breast there is moderate nodular prominence of enhancing breast tissue centrally. This pattern appears stable with no abnormal morphology or kinetic enhancement consistent with malignancy clearly identified. Scattered persistent nodular enhancement may represent small fibroadenomas or lymph nodes as before. Axillary adenopathy is not identified. IMPRESSION: Breast MRI BI-RADS 2: Benign 1. There is moderate nodular enhancement of breast parenchyma bilaterally in a pattern that appears physiologic. This pattern has remained stable with no new mass or suspicious enhancement concerning for malignancy. Overall assessment: Benign GH/mvb Radiologist: LOTUS CASIANO MD Attending: GABI LOGAN M.D. Requesting: GABI LOGAN M.D. Requesting Requesting ID: [id number] Attending Attending ID: [id number] Completed Time: 11/25/2013 2:19 PM Dictated Time: 11/25/2013 4:23 PM Transcribed Time: 11/26/2013 06:57 AM Signed by: LOTUS CASIANO MD on 11/26/2013 08:51 AM Report To 1 ID: Report To 1 Name: , Report To 1 FAX: Report To 2 ID: Report To 2 Name: , Report To 2 FAX: Report To 3 ID: Report To 3 Name: , Report To 3 FAX: NextGen Order #: us Historical Provider MD KELLY MRI PROCEDURES Final Result documented in this encounter Visit Diagnoses Diagnosis Family history of malignant neoplasm of breast documented in this encounter
--- OUTSIDE RECORDS SUMMARY | 2024-07-24 20:00 | XMS_ITS | Encounter Summary ---
Author Organization [facility] Facility Care Team Providers Care Salvage Repairer Name Role Phone Unavailable Primary Care Provider Unavailabl e Encounter Details Date Type Department Care Team (Late st Contact Info) Description 08/30/2016 1:05 PM AIR COMMODORE - 08/30/2016 11:59 PM AIR COMMODORE Hospital Encounter [facility] Gabi Jimenez MD [address] [facility] [address] [place] [address] Encounter for screening mammogram for malignant neoplasm of breast Social History Tobacco Use Types Packs/Day Years Used Date Smoking Tobacco: Never Assessed Comments Unknown Sex and Gender Information Value Date Recorded Sex Assigned at Not on file Legal Sex Female 8:57 AM AIR COMMODORE Gender Identity Not on file Sexual Orientation Not on file documented as of this encounter Plan of Treatment Not on file documented as of this encounter Procedures Procedure Name Priority Date/Time Associated Diagnosis Comments SCREENING MAMMOGRAM 2D BILATERAL Routine 08/30/2016 12:00 AM AIR COMMODORE documented in this encounter Results * Screening Mammogram 2D Bilateral (08/30/2016 12:00 AM AIR COMMODORE) Anatomical Region Laterality Modality Breast Bilateral Mammography 08/30/2016 1:31 PM AIR COMMODORE Narrative 09/04/2016 9:00 AM AIR COMMODORE - SCREENING MAMM BI BILATERAL DIGITAL SCREENING MAMMOGRAM 3D/2D WITH CAD: 08/30/2016 CLINICAL: Routine screening. Patient has no complaints. ?? Comparison is made to exams dated: ??05/02/2015, 06/29/2014, and 03/17/2013 [facility]. ?? The tissue of both breasts [...] patient will be contacted by letter. ?? Garry Pacheco M.D. ? jte/penrad:09/03/2016 10:32:50 ?? letter sent: Normal Exam ?? Mammogram BI-RADS: 1 Negative Radiologist: GARRY PACHECO MD, M.D. ?? Attending: ??GABI LOGAN M.D. Requesting: AGBI LOGAN M.D. Requesting Fax: ?? Requesting ID: [id number] Attending Fax: ?? Attending ID: ?? [id number] Completed Time: ?? 08/30/2016 1:31 PM Dictated Time: ?N/A Transcribed Time: 09/04/2016 09:00 AM Signed by: ?GARRY PACHECO MD ?Kerry on 09/04/2016 09:00 AM Report To 1 ID: Report To 1 Name: , Report To 1 FAX: Report To 2 ID: Report To 2 Name: , Report To 2 FAX: Report To 3 ID: Report To 3 Name: , Report To 3 FAX: NextGen Order #: Procedure Note Provider, MD Matheus - 12/04/2016 - SCREENING MAMM BI BILATERAL DIGITAL SCREENING MAMMOGRAM 3D/2D WITH CAD: 08/30/2016 CLINICAL: Routine screening. Patient has no complaints. Comparison is made to exams dated: 05/02/2015, 06/29/2014, and 03/17/2013 [facility]. The tissue of both breasts is [...] The patient will be contacted by letter. Garry Pacheco M.D. jjaden/erwin:09/03/2016 10:32:50 letter sent: Normal Exam Mammogram BI-RADS: 1 Negative Radiologist: KAREN GRAHAM, GARRY Alatorre M.D. Attending: GABI LOGAN M.D. Requesting: GABI LOGAN M.D. Requesting Requesting ID: [id number] Attending Attending ID: [id number] Completed Time: 08/30/2016 1:31 PM Dictated Time: N/A Transcribed Time: 09/04/2016 09:00 AM Signed by: GARRY PACHECO MD, M.D. on 09/04/2016 09:00 AM Report To 1 ID: Report To 1 Name: , Report To 1 FAX: Report To 2 ID: Report To 2 Name: , Report To 2 FAX: Report To 3 ID: Report To 3 Name: , Report To 3 FAX: NextGen Order #: us Historical Provider IMAudie MAMMO PROCEDURES Roshni l Result documented in this encounter Visit Diagnoses Diagnosis Encounter for screening mammogram for malignant neoplasm of breast documented in this encounter
--- OUTSIDE RECORDS SUMMARY | 2024-07-24 20:00 | XMS_ITS | Encounter Summary ---
Author Organization [facility] Facility Care Team Providers Care Gas Tester Name Role Phone Unavailable Primary Care Provider Unavailabl e Encounter Details Date Type Department Care Team (Late st Contact Info) Description 07/14/2009 - 07/14/2009 11:59 PM BACK SIZER Hospital Encounter [facility] Arlet Jimenez MD [address] [facility] [address] [place] [address] Other screening breast examination; Family history of malignant neoplasm of breast Social History Tobacco Use Types Packs/Day Years Used Date Smoking Tobacco: Never Assessed Comments Unknown Sex and Gender Information Value Date Recorded Sex Assigned at Not on file Legal Sex Female 8:57 AM BACK SIZER Gender Identity Not on file Sexual Orientation Not on file documented as of this encounter Plan of Treatment Not on file documented as of this encounter Visit Diagnoses Diagnosis Other screening breast examination Family history of malignant neoplasm of breast documented in this encounter
--- OUTSIDE RECORDS SUMMARY | 2024-07-24 20:00 | XMS_ITS | Encounter Summary ---
Author Organization [facility] Address [address] [place] [address] Phone Care Team Providers Care Sewing Machine Operator Floorperson Name Role Phone Darnell Peters MD Primary Care Provider [phone]- [phone] Reason for Visit * Reason Comments Obesity Encounter Details Date Type Department Care Team (Late st Contact Info) Description 06/30/2018 6:30 PM PHOTOGRAPH ENLARGER Clinical Support [facility] [address] [place] [address] [address] [place] [address] Muna Villalobos, CREATIVE ARTS THERAPIST Social History Tobacco Use Types Packs/Day Years Used Date Smoking Tobacco: Never Assessed Comments No Sex and Gender Information Value Date Recorded Sex Assigned at Not on file Legal Sex Female 8:57 AM PHOTOGRAPH ENLARGER Gender Identity Not on file Sexual Orientation Not on file documented as of this encounter Last Filed Vital Signs Vital Sign Reading Time Taken Comments Blood Pressure 110/54 06/30/2018 7:02 PM PHOTOGRAPH ENLARGER Pulse - - Temperature - - Respiratory Rate - - Oxygen Saturation - - Inhaled Oxygen Concentration - - Weight 110.2 kg (242 lb 14.4 oz) 06/30/2018 7:02 PM PHOTOGRAPH ENLARGER Height 170.2 cm (5' 7.01 ) 06/30/2018 7:02 PM CS T Body Mass Index 38.03 06/30/2018 7:02 PM PHOTOGRAPH ENLARGER documented in this encounter Plan of Treatment Not on file documented as of this encounter Visit Diagnoses Not on filedocumented in this encounter Care Teams Sewing Machine Operator Floorperson Relationship Specialty Start Date End Date Darnell Peters MD [address] [place] [id number] PCP - General 08/04/17 10/23/20 documented as of this encounter
--- OUTSIDE RECORDS SUMMARY | 2024-07-24 20:00 | XMS_ITS | Encounter Summary ---
Author Organization [facility] Facility Care Team Providers Care Costumed Character Name Role Phone Unavailable Primary Care Provider Unavailabl e Encounter Details Date Type Department Care Team (Late st Contact Info) Description 04/20/2015 8:35 AM CDT - 04/20/2015 11:59 PM CDT Hospital Encounter [facility] Gabi Jimenez MD [address] [facility] [address] [place] [address] Breast lump; Family history of malignant neoplasm of breast; Inconclusive mammogram Social History Tobacco Use Types Packs/Day Years Used Date Smoking Tobacco: Never Assessed Comments Unknown Sex and Gender Information Value Date Recorded Sex Assigned at Not on file 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 Gender Identity Not on file Sexual Orientation Not on file documented as of this encounter Plan of Treatment Not on file documented as of this encounter Procedures Procedure Name Priority Date/Time Associated Diagnosis Comments MRI BREAST BILATERAL W WO CONTRAST Routine 04/20/2015 10:26 AM CDT documented in this encounter Results * MRI BREAST WWO CONTRAST (04/20/2015 10:26 AM CDT) Anatomical Region Laterality Modality Breast Bilateral Magnetic Resonan ce 04/20/2015 10:2 6 AM CDT Narrative 04/20/2015 1:39 PM CDT Dynamic bilateral breast MRI study 20 April 2015 HISTORY: ??44-year-old woman with family history of breast cancer diagnosed in sister at age 48. ??Aunt with reported ovarian cancer in her 40's. ??Patient presents for dynamic bilateral breast MRI study as part of high risk surveillance. ??Comparison is made to prior studies 29 June 2014, 17 March 2013, 31 May 2011, 27 April 2009. Patient reports that she is day 11 of her menstrual cycle. ??A dynamic bilateral breast MRI was obtained following injection of 19 mL OptiMARK contrast. ??Multiplanar and three-dimensional reconstructions were created from the dynamic data. ??A Novalact program was utilized. LEFT BREAST: In the anterior left breast laterally at 2 o'clock, an oval nodule is identified measuring 0.6 cm with slight irregular contour on high resolution sagittal imaging. ??There is persistent enhancement centrally. ??While this may represent a fibroadenoma further MRI directed second look ultrasound evaluation is necessary. ??Scattered mild enhancement of nodular breast parenchyma is noted centrally and appears physiologic. ??Several axillary lymph nodes appear normal in size and morphology. RIGHT BREAST: In a pattern similar to the left breast, there is mild prominence of nodular enhancement of breast parenchyma which appears physiologic. ?? No abnormal morphology or enhancement pattern consistent with malignancy identified. ??Axillary lymph nodes appear normal in size and morphology. IMPRESSION: Left breast: ??BREAST MRI BI-RADS 0: ??Incomplete: ??Needs additional imaging evaluation. ?? 1. ??There is a circumscribed nodule in the anterior slightly lateral left breast measuring 0.6 cm with persistent enhancement. ??This may represent a fibroadenoma and when compared to prior study 25 Nov 2013 does not appear significantly changed. ??Further MRI directed second look ultrasound evaluation is recommended for clarification. ?? Enhancement within the remaining left breast appears physiologic without evidence of axillary adenopathy. Right breast: ??BREAST MRI BI-RADS 2: ??Benign. ?? 1. ??Minimal enhancement noted of glandular tissue centrally. ??No abnormal morphology or enhancement pattern consistent with malignancy identified. Follow-up bilateral mammogram recommended in June 2015 to continue patient on her normal annual cycle. ?? OVERALL ASSESSMENT: ??Incomplete: ??Needs additional imaging evaluation. :[facility] Radiologist: LOTUS CASIANO MD ?? Attending: ??GABI LOGAN M.D. Requesting: GABI LOGAN M.D. Requesting Fax: ?? Requesting ID: [id number] Attending Fax: ?? Attending ID: ?? [id number] Completed Time: ?? 04/20/2015 10:26 AM Dictated Time: ?04/20/2015 12:27 AM Transcribed Time: 04/20/2015 1:28 PM Signed by: ?OH GRAHAM, LOTUS NewellTere ?? on 04/20/2015 1:39 PM Report To 1 ID: Report To 1 Name: , Report To 1 FAX: Report To 2 ID: Report To 2 Name: , Report To 2 FAX: Report To 3 ID: Report To 3 Name: , Report To 3 FAX: NextGen Order #: Procedure Note Provider, MD Matheus - 11/18/2016 Dynamic bilateral breast MRI study 20 April 2015 HISTORY: 44-year-old woman with family history of breast cancer diagnosed in sister at age 48. Aunt with reported ovarian cancer in her 40's. Patient presents for dynamic bilateral breast MRI study as part of high risk surveillance. Comparison is made to prior studies 29 June 2014, 17 March 2013, 31 May 2011, 27 April 2009. Patient reports that she is day 11 of her menstrual cycle. A dynamic bilateral breast MRI was obtained following injection of 19 mL OptiMARK contrast. Multiplanar and three-dimensional reconstructions were created from the dynamic data. A Novalact program was utilized. LEFT BREAST: In the anterior left breast laterally at 2 o'clock, an oval nodule is identified measuring 0.6 cm with slight irregular contour on high resolution sagittal imaging. There is persistent enhancement centrally. While this may represent a fibroadenoma further MRI directed second look ultrasound evaluation is necessary. Scattered mild enhancement of nodular breast parenchyma is noted centrally and appears physiologic. Several axillary lymph nodes appear normal in size and morphology. RIGHT BREAST: In a pattern similar to the left breast, there is mild prominence of nodular enhancement of breast parenchyma which appears physiologic. No abnormal morphology or enhancement pattern consistent with malignancy identified. Axillary lymph nodes appear normal in size and morphology. IMPRESSION: Left breast: BREAST MRI BI-RADS 0: Incomplete: Needs additional imaging evaluation. 1. There is a circumscribed nodule in the anterior slightly lateral left breast measuring 0.6 cm with persistent enhancement. This may represent a fibroadenoma and when compared to prior study 25 Nov 2013 does not appear significantly changed. Further MRI directed second look ultrasound evaluation is recommended for clarification. Enhancement within the remaining left breast appears physiologic without evidence of axillary adenopathy. Right breast: BREAST MRI BI-RADS 2: Benign. 1. Minimal enhancement noted of glandular tissue centrally. No abnormal morphology or enhancement pattern consistent with malignancy identified. Follow-up bilateral mammogram recommended in June 2015 to continue patient on her normal annual cycle. OVERALL ASSESSMENT: Incomplete: Needs additional imaging evaluation. GH:[facility] Radiologist: LOTUS CASIANO MD Attending: GABI LOGAN M.D. Requesting: GABI LOGAN M.D. Requesting Requesting ID: [id number] Attending Attending ID: [id number] Completed Time: 04/20/2015 10:26 AM Dictated Time: 04/20/2015 12:27 AM Transcribed Time: 04/20/2015 1:28 PM Signed by: LOTUS CASIANO MD on 04/20/2015 1:39 PM Report To 1 ID: Report To 1 Name: , Report To 1 FAX: Report To 2 ID: Report To 2 Name: , Report To 2 FAX: Report To 3 ID: Report To 3 Name: , Report To 3 FAX: NextGen Order #: us Historical Provider MD KELLY MRI PROCEDURES Final Result documented in this encounter Visit Diagnoses Diagnosis Breast lump Lump or mass in breast Family history of malignant neoplasm of breast Inconclusive mammogram documented in this encounter
--- OUTSIDE RECORDS SUMMARY | 2024-07-24 20:00 | XMS_ITS | Encounter Summary ---
Author Organization [facility] Healthcare Address [address] [place] [address] Care Team Providers Care Ward Clerk Name Role Phone Darnell Peters MD Primary Care Provider +1- [phone] Reason for Referral * Diagnostic Imaging (Routine) - Closed Specialty Diagnoses / Procedures Referred By Katherin cartagena Referred To Contact Diagnoses Screening breast examination Procedures Screening Mammogram Bilateral W Arlet Graham MD Phone: tel: fax: [id number] [place] [address] Referral ID Status Reason Start Date Expiration Date Visits Re quested Visits Authorized [id number] Closed 03/16/2018 09/25/2019 1 1 Reason for Visit * Diagnostic Imaging (Routine) - Closed Specialty Diagnoses / Procedures Referred By Katherin cartagena Referred To Contact Diagnoses Screening breast examination Procedures Screening Mammogram Bilateral W Arlet Graham MD Phone: tel: fax: [id number] [place] [address] Referral ID Status Reason Start Date Expiration Date Visits Re quested Visits Authorized [id number] Closed 03/16/2018 09/25/2019 1 1 Encounter Details Date Type Department Care Team (Latest Contact Info) Description 03/16/2018 1:28 PM CDT - 03/16/2018 11:59 PM CDT Hospital Encounter [facility] [address] [place] [address] Arlet Love MD [facility] [facility] [address] [place] [address] Screening breast examination Discharge Disposition: Discharge to home or self care Social History Tobacco Use Types Packs/Day Years Used Date Smoking Tobacco: Never Assessed Comments Unknown Sex and Gender Information Value Date Recorded Sex Assigned at Not on file Legal 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 Prior Study Comparisons: Compared to: 08/21/2017 MRI Breast Bilateral W WO Contrast, 08/30/2016 Screening Mammogram 2D Bilateral, 05/02/2015 US Breast Limited, 04/20/2015 MRI BREAST WWO CONTRAST, 06/29/2014 Screening Mammogram Bilateral W Cameron, 11/26/2013 MRI BREAST WWO CONTRAST, and 03/17/2013 Screening Mammogram 2D Bilateral Findings: Bilateral No significant masses, malignant type calcifications, skin thickening, nipple retraction, or significant lymphadenopathy is noted in either breast. ??The CAD review showed no significant findings. The breasts are heterogeneously dense, which may obscure small masses. Impression: BI-RADS?? ATLAS category (overall): 2 Benign ?? There is no mammographic evidence of malignancy. Routine Screening Mammogram in 1 Yr is recommended for bilateral Overall Assessment: 2 - Benign us Arlet Love MD IMG MAMMO PROCEDURES Fi nal Result documented in this encounter Visit Diagnoses Diagnosis Screening breast examination Other screening breast examination documented in this encounter Care Teams Ward Clerk Relationship Specialty Start Date End Date Darnell Peters MD [address] [place] [address] PCP - General 08/04/17 10/23/20 documented as of this encounter
--- OUTSIDE RECORDS SUMMARY | 2024-07-24 20:00 | XMS_ITS | Encounter Summary ---
Author Organization [facility] Facility Care Team Providers Care Nurse Tech Name Role Phone Unavailable Primary Care Provider Unavailabl e Encounter Details Date Type Department Care Team (Late st Contact Info) Description 02/12/2012 8:16 AM CDT - 02/12/2012 11:59 PM CDT Hospital Encounter [facility] Arlet Jimenez MD [address] [facility] [address] [place] [address] Abnormal mammogram Social History Tobacco Use Types Packs/Day Years Used Date Smoking Tobacco: Never Assessed Comments Unknown Sex and Gender Information Value Date Recorded Sex Assigned at Not on file 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
--- OUTSIDE RECORDS SUMMARY | 2024-07-24 20:00 | XMS_ITS | Encounter Summary ---
Author Organization [facility] Address [address] [place] [address] Phone Care Team Providers Care Oracle Data Warehouse Developer Name Role Phone Darnell Peters MD Primary Care Provider [phone]- [phone] Encounter Details Date Type Department Care Team (Late st Contact Info) Description 08/04/2018 5:00 PM UNDERGRADUATE INTERN Office Visit [facility] Diabetes and Nutrition Services [address] [facility] [address] [place] [address] Yasemin Churchill MD [address] [place] [address] Class 2 obesity due to excess calories without serious comorbidity with body mass index (BMI) of 37.0 to 37.9 in adult (Primary Dx); Weight loss counseling, encounter for; Metabolic and nutritional disorder Social History Tobacco Use Types Packs/Day Years Used Date Smoking Tobacco: Never Assessed Comments No Sex and Gender Information Value Date Recorded Sex Assigned at Not on file Legal Sex Female 8:57 AM UNDERGRADUATE INTERN Gender Identity Not on file Sexual Orientation Not on file documented as of this encounter Last Filed Vital Signs Vital Sign Reading Time Taken Comments Blood Pressure 132/78 08/04/2018 5:45 PM UNDERGRADUATE INTERN Pulse 82 08/04/2018 5:45 PM UNDERGRADUATE INTERN Temperature - - Respiratory Rate - - Oxygen Saturation - - Inhaled Oxygen Concentration - - Weight 105.3 kg (232 lb 3.2 oz) 019 5:45 PM UNDERGRADUATE INTERN Height - - Body Mass Index 36.37 08/04/2018 5:15 PM UNDERGRADUATE INTERN documented in this encounter Progress Notes * Yasemin Churchill MD - 08/04/2018 5:00 PM CST Visit #/CC: Seen for Weight Management Program follow up. Interval History: Doing well; weight is down 4 lb since last visit; 15 lb (6%) since starting program. Happy with program and progress. Has had some difficulty with family -- they don't understand program and are trying to police her . Has had some diarrhea on days when she has more/mostly shakes. Not hungry. Eating out is difficult -- family likes to go out for [place]. Eating out less. Current Diet: Per RD. Knowing what to eat has always been the hardest thing for her so she finds using replacements very helpful. Knows she needs to drink more water. Weight Loss Medications: none Physical Activity: same No Known Allergies No current outpatient prescriptions on file. No [...] Negative for depression and suicidal ideas. BP 132/78 Pulse 82 Wt 105.3 kg (232 lb 3.2 oz) BMI 36.37 kg/m?? Physical Exam Constitutional: No distress. Pulmonary/Chest: Effort normal. Neurological: She is alert. Psychiatric: She has a normal mood and affect. Vitals reviewed. Assessment and Plan: Weight loss counseling, encounter for Continue plan per Weight Management Program; calorie restriction, meal replacements per RD. Continue food diary. Metabolic and nutritional disorder Labs Class 2 obesity due to excess calories without serious comorbidity with body mass index (BMI) of 37.0 to 37.9 in adult Obesity is improving with lifestyle modifications. Behavioral treatment: WMP. Diet interventions: per RD. Regular aerobic exercise program discussed. RGRADUATE INTERN documented in this encounter Miscellaneous Notes * Assessment & Plan Note - Yasemin Churchill MD - 08/09/2018 11:59 AM UNDERGRADUATE INTERN Associated Problem(s): Class 3 severe obesity due to excess calories without serious comorbidity with body mass index (BMI) of 40.0 to 44.9 in adult (HCC) Obesity is improving with lifestyle modifications. Behavioral treatment: WMP. Diet interventions: per RD. Regular aerobic exercise program discussed. RGRADUATE INTERN * Assessment & Plan Note - Yasemin Churchill MD - 08/09/2018 11:59 AM UNDERGRADUATE INTERN Associated Problem(s): Metabolic and nutritional disorder (Resolved 02/04/2022) Labs RGRADUATE INTERN * Assessment & Plan Note - Yasemin Churchill MD - 08/09/2018 11:58 AM UNDERGRADUATE INTERN Associated Problem(s): Weight loss counseling, encounter for (Resolved 02/04/2022) Continue plan per Weight Management Program; calorie restriction, meal replacements per RD. Continue food diary. RGRADUATE INTERN documented in this encounter Plan of Treatment Not on file documented as of this encounter Results * TSH (09/02/2018 10:57 AM UNDERGRADUATE INTERN) Thyroid Stimulating Hormone 3.95 0.30 - 4.20 mcIUnit/mL [facility] Blood specimen (specimen) 09/02/2018 10:57 AM UNDERGRADUATE INTERN 09/02/2018 11:04 AM UNDERGRADUATE INTERN Narrative [facility] - 09/02/2018 11:48 AM UNDERGRADUATE INTERN Yasemin Churchill MD LAB BLOOD ORDERABLES Fin al Result [facility] [place] [address] * T4, free (09/02/2018 10:57 AM UNDERGRADUATE INTERN) Free T4 1.00 0.90 - 1.70 ng/dL [facility] Blood specimen (specimen) 09/02/2018 10:57 AM UNDERGRADUATE INTERN 09/02/2018 11:04 AM UNDERGRADUATE INTERN Narrative [facility] - 09/02/2018 11:48 AM UNDERGRADUATE INTERN us Yasemin Churchill MD LAB BLOOD ORDERABLES Fin al Result [facility] Department [place] [address] * (ABNORMAL) Lipid panel (09/02/2018 10:57 AM UNDERGRADUATE INTERN) Cholesterol 201(H) 30 - 199 mg/dL [facility] Comment: Interpretive Data Ages < or [...] revised on 2018. Triglycerides 203(H) <=149 mg/dL [facility] Comment: Interpretive Data Ages < or [...] on 2018. HDL 54 >=40 mg/dL [facility] Comment: Interpretive Data Ages < or [...] on 2018. LDL, calculated 106 <=129 mg/dL [facility] Comment: Interpretive Data Ages < or [...] revised on 2018. Non-HDL Cholesterol 147 mg/dL [facility] Comment: Interpretive Data Ages < or [...] last revised on 2018. Chol/HDL ratio 4 [facility] Blood specimen (specimen) 09/02/2018 10:57 AM UNDERGRADUATE INTERN 09/02/2018 11:04 AM UNDERGRADUATE INTERN Narrative [facility] - 09/02/2018 11:49 AM UNDERGRADUATE INTERN Yasemin Churchill MD LAB BLOOD ORDERABLES Fin al Result [facility] [place] [address] * Hemoglobin A1c (09/02/2018 10:57 AM UNDERGRADUATE INTERN) [facility] Hgb A1C 5.2 4.0 - 5.6 % [facility] Estimated Average Glucose 103 mg/dL [facility] Comment: The ADA recommends reporting an estimated Average Glucose (eAG) with all Hemoglobin A1c results using the equation derived from a study of 507 normal and diabetic adults. ??Minority populations were underrepresented and children were not included. ?? (Diabetes Care 31:8591-9315, 2008). ??The eAG is not equivalent to a fasting glucose. Blood specimen (specimen) 09/02/2018 10:57 AM UNDERGRADUATE INTERN 09/02/2018 11:04 AM UNDERGRADUATE INTERN Narrative [facility] - 09/02/2018 11:28 AM UNDERGRADUATE INTERN us Yasemin Churchill MD LAB BLOOD ORDERABLES Fin al Result [facility] [place] [address] * Comprehensive metabolic panel (09/02/2018 10:57 AM UNDERGRADUATE INTERN) Sodium 139 135 - 145 mmol/L [facility] Potassium, pl 4.4 3.3 - 4.9 mmol/L [facility] Chloride 105 97 - 110 mmol/L [facility] CO2 31 22 - 32 mmol/L [facility] Anion gap 3 2 - 15 mmol/L [facility] BUN 19 8 - 25 mg/dL [facility] Creatinine 0.93 0.60 - 1.10 mg/dL [facility] Glucose 89 70 - 199 mg/dL [facility] Comment: Interpretive Data Fasting glucose >/= [...] 2017. Calcium 9.6 8.5 - 10.3 mg/dL [facility] Bilirubin, total 0.6 0.1 - 1.2 mg/dL [facility] Protein, pl 7.5 6.5 - 8.5 g/dL [facility] Albumin 4.5 3.5 - 5.0 g/dL [facility] Alk phos 78 40 - 130 Units/L [facility] ALT 23 7 - 45 Units/L [facility] AST 19 10 - 45 Units/L [facility] Blood specimen (specimen) 09/02/2018 10:57 AM UNDERGRADUATE INTERN 09/02/2018 11:04 AM UNDERGRADUATE INTERN Narrative [facility] - 09/02/2018 11:48 AM UNDERGRADUATE INTERN Yasemin Churchill MD LAB BLOOD ORDERABLES Fin al Result Performing Organization Address [facility] de Phone Number [facility] [place] [address] * CBC without differential (09/02/2018 10:57 AM UNDERGRADUATE INTERN) WBC 8.1 3.8 - 9.9 K/cumm [facility] Hgb 12.2 11.9 - 15.5 g/dL [facility] Hct 37.6 35.6 - 45.5 % [facility] Plt 318 150 - 400 K/cumm [facility] MPV 9.7 9.1 - 12.3 fL [facility] RBC 4.14 3.90 - 5.20 M/cumm [facility] MCV 90.8 81.3 - 96.4 fL [facility] MCH 29.5 27.1 - 33.3 pg [facility] MCHC 32.4 32.3 - 35.7 g/dL [facility] RDW CV 12.9 11.1 - 14.9 % [facility] RDW SD 43.2 35.7 - 48.1 fL [facility] NRBC abs 0.00 0.00 - 0.01 K/cumm [facility] Blood specimen (specimen) 09/02/2018 10:57 AM UNDERGRADUATE INTERN 09/02/2018 11:04 AM UNDERGRADUATE INTERN Narrative [facility] - 09/02/2018 11:19 AM UNDERGRADUATE INTERN us Yasemin Churchill MD LAB BLOOD ORDERABLES Fin al Result Performing Organization Address [facility] [[email or web address]] Co de Phone Number [facility] Department of [facility] [place] [address] documented in this encounter Visit Diagnoses Diagnosis Class 2 obesity due to excess calories without serious comorbidity with body mass index (BMI) of 37.0 to 37.9 in adult- Primary Weight loss counseling, encounter for Metabolic and nutritional disorder Class 2 obesity due to excess calories without serious comorbidity with body mass index (BMI) of 37.0 to 37.9 in adult Metabolic and nutritional disorder documented in this encounter Care Teams Oracle Data Warehouse Developer Relationship Specialty Start Date End Date Darnell Peters MD [address] [place] [address] PCP - General 08/04/17 10/23/20 documented as of this encounter
--- OUTSIDE RECORDS SUMMARY | 2024-07-24 20:00 | XMS_ITS | Encounter Summary ---
Author Organization [facility] Address [address] [place] [address] Phone Care Team Providers Care Dish Machine Operator Name Role Phone Darnell Peters MD Primary Care Provider [phone]- [phone] Reason for Visit * Reason Comments Obesity Encounter Details Date Type Department Care Team (Late st Contact Info) Description 07/14/2018 6:30 PM [employer] Clinical Support [facility] Diabetes and Nutrition Services [address] [place] [address] [address] [place] [address] Muna Villalobos, ADMINISTRATIVE ASSISTANT OFFICE MANAGER Social History Tobacco Use Types Packs/Day Years Used Date Smoking Tobacco: Never Assessed Comments No Sex and Gender Information Value Date Recorded Sex Assigned at Not on file Legal Sex Female 8:57 AM [employer] Gender Identity Not on file Sexual Orientation Not on file documented as of this encounter Last Filed Vital Signs Vital Sign Reading Time Taken Comments Blood Pressure 112/78 07/15/2018 10:46 AM [employer] Pulse - - Temperature - - Respiratory Rate - - Oxygen Saturation - - Inhaled Oxygen Concentration - - Weight 107.5 kg (236 lb 14.4 oz) 2017 10:46 AM [employer] Height 170.2 cm (5' 7 ) 07/15/2018 10:4 6 AM [employer] Body Mass Index 37.1 07/15/2018 10:46 AM [employer] documented in this encounter Plan of Treatment Not on file documented as of this encounter Visit Diagnoses Not on filedocumented in this encounter Care Teams Dish Machine Operator Relationship Specialty Start Date End Date Darnell Peters MD [address] [place] [address] PCP - General 08/04/17 10/23/20 documented as of this encounter
--- OUTSIDE RECORDS SUMMARY | 2024-07-24 20:00 | XMS_ITS | Encounter Summary ---
Author Organization [facility] Facility Care Team Providers Care Division Sergeant Name Role Phone Unavailable Primary Care Provider Unavailabl e Encounter Details Date Type Department Care Team (Latest Contact Info) Description 05/10/2014 9:52 AM CDT - 05/10/2014 1:29 PM CDT Hospital Encounter [facility] Reno Beckford MD [address] [place] [address] Contusion of scalp, face, or neck, excluding eyes; Open wound of face; Concussion; Need for prophylactic vaccination with tetanus-diphtheria (Td); Encounter for long-term (current) use of other medications; Fall from other slipping, tripping, or stumbling; Place of occurrence, street and highway; Activities involving walking, marching and hiking; Other external cause of injury or poisoning Social History Tobacco Use Types Packs/Day Years Used Date Smoking Tobacco: Never Assessed Comments Unknown Sex and Gender Information Value Date Recorded Sex Assigned at Not on file Legal Sex Female 8:57 AM TOOL CHECKER Gender Identity Not on file Sexual Orientation Not on file documented as of this encounter Plan of Treatment Not on file documented as of this encounter Procedures Procedure Name Priority Date/Time Associated Diagnosis Comments CT SINUS WO CONTRAST Routine 05/10/2014 10:[address] HEAD WO CONTRAST Routine 05/10/2014 1 0:55 AM CDT documented in this encounter Results * CT Head WO Contrast (05/10/2014 10:55 AM CDT) Anatomical Region Laterality Modality Head and Neck N/A Computed Tomogra phy 05/10/2014 10:5 5 AM CDT Narrative 05/10/2014 7:18 PM CDT WYATT ESQUIVEL M.D. TIMOTEO BRYAN M.D. FINAL REPORT The radiology attending physician has personally reviewed this study, and has reviewed and/or edited this written report and agrees with it. ACC# ??Date Time ??Exam [id number] May 10, 2014 10:55:[id number] Head or Brain w/o cont [id number] May 10, 2014 10:55:[id number] Maxillofacial w/o cont ACC# ??Date Time ??Exam [id number] May 10, 2014 10:55:[address] Head or Brain w/o cont [id number] May 10, 2014 10:55:[address] Maxillofacial w/o cont EXAMINATION: ?? Noncontrast head CT and noncontrast maxillofacial CT with reconstructions. HISTORY: 43-year-old female status post fall with abrasion and swelling to the left inferior orbit and bridge of nose. TECHNIQUE: Noncontrast CT of the brain was performed with axial images acquired from skull base to vertex. Noncontrast high resolution CT of the maxillofacial region was performed in the axial plane. Sagittal and coronal reconstructions were performed by the technologist and sent to the workstation for review. COMPARISON: None available. FINDINGS: BRAIN: ?? On the axial slices, there are no acute intra or extra-axial fluid collections. Ventricles are of normal size, shape, and morphology. No mass effect or midline shift is present. The kohli-white matter differentiation is normal. there is chronic sinus mucosal thickening. No fractures are identified. MAXILLOFACIAL CT: There are no acute fractures. The airway is normal. ??Within the maxilla and midface, no areas of bony erosion or fractures are identified. ??There is chronic mucosal thickening within the sinuses. The osteomeatal units are obstructed bilaterally. The nasal septum is deviated leftward. The nasal bone is normal without fractures. The mandible is normal without fractures. The orbits are normal. Limited view of the frontal lobes is normal. The limited views of the base of the skull and the temporal bones are normal. Limited views show that the cervical spine is in the normal anatomic alignment. Visualized vertebral bodies are normal height without compression fractures. The craniocervical junction is normal. ?? IMPRESSION: 1. No acute intracranial process. 2. No maxillofacial fractures. Chronic sinus mucosal thickening. ?? Requested By: TESHA ALEJANDRE M.D. Dictated By: ?? TIMOTEO BRYAN M.D. ??on May 10 2014 12:31P This document has been electronically signed by: WYATT ESQUIVEL M.D. on May 10 2014 ??7:18P [id number] Procedure Note Provider, MD Matheus - 11/18/2016 WYATT ESQUIVEL M.D. TIMOTEO BRYAN M.D. FINAL REPORT The radiology attending physician has personally reviewed this study, and has reviewed and/or edited this written report and agrees with it. ACC# Date Time Exam [id number] May 10, 2014 10:55:[id number] Head or Brain w/o cont [id number] May 10, 2014 10:55:[id number] Maxillofacial w/o cont ACC# Date Time Exam [id number] May 10, 2014 10:55:[address] Head or Brain w/o cont [id number] May 10, 2014 10:55:[id number] Maxillofacial w/o cont EXAMINATION: Noncontrast head CT and noncontrast maxillofacial CT with reconstructions. HISTORY: 43-year-old female status post fall with abrasion and swelling to the left inferior orbit and bridge of nose. TECHNIQUE: Noncontrast CT of the brain was performed with axial images acquired from skull base to vertex. Noncontrast high resolution CT of the maxillofacial region was performed in the axial plane. Sagittal and coronal reconstructions were performed by the technologist and sent to the workstation for review. COMPARISON: None available. FINDINGS: BRAIN: On the axial slices, there are no acute intra or extra-axial fluid collections. Ventricles are of normal size, shape, and morphology. No mass effect or midline shift is present. The kohli-white matter differentiation is normal. there is chronic sinus mucosal thickening. No fractures are identified. MAXILLOFACIAL CT: There are no acute fractures. The airway is normal. Within the maxilla and midface, no areas of bony erosion or fractures are identified. There is chronic mucosal thickening within the sinuses. The osteomeatal units are obstructed bilaterally. The nasal septum is deviated leftward. The nasal bone is normal without fractures. The mandible is normal without fractures. The orbits are normal. Limited view of the frontal lobes is normal. The limited views of the base of the skull and the temporal bones are normal. Limited views show that the cervical spine is in the normal anatomic alignment. Visualized vertebral bodies are normal height without compression fractures. The craniocervical junction is normal. IMPRESSION: 1. No acute intracranial process. 2. No maxillofacial fractures. Chronic sinus mucosal thickening. Requested By: TESHA ALEJANDRE M.D. Dictated By: TIMOTEO BRYAN M.D. on May 10 2014 12:31P This document has been electronically signed by: WYATT ESQUIVEL M.D. on May 10 2014 7:18P [id number] us Historical Provider MD KELLY CT PROCEDURES Final R esult * CT Sinus (05/10/2014 10:55 AM CDT) Anatomical Region Laterality Modality Head and Neck N/A Computed Tomogra phy 05/10/2014 10:5 5 AM CDT Narrative 05/10/2014 7:18 PM CDT WYATT ESQUIVEL M.D. TIMOTEO BRYAN M.D. FINAL REPORT The radiology attending physician has personally reviewed this study, and has reviewed and/or edited this written report and agrees with it. ACC# ??Date Time ??Exam [id number] May 10, 2014 10:55:[address] Head or Brain w/o cont [id number] May 10, 2014 10:55:[id number] Maxillofacial w/o cont ACC# ??Date Time ??Exam [id number] May 10, 2014 10:55:[id number] Head or Brain w/o cont [id number] May 10, 2014 10:55:[id number] Maxillofacial w/o cont EXAMINATION: ?? Noncontrast head CT and noncontrast maxillofacial CT with reconstructions. HISTORY: 43-year-old female status post fall with abrasion and swelling to the left inferior orbit and bridge of nose. TECHNIQUE: Noncontrast CT of the brain was performed with axial images acquired from skull base to vertex. Noncontrast high resolution CT of the maxillofacial region was performed in the axial plane. Sagittal and coronal reconstructions were performed by the technologist and sent to the workstation for review. COMPARISON: None available. FINDINGS: BRAIN: ?? On the axial slices, there are no acute intra or extra-axial fluid collections. Ventricles are of normal size, shape, and morphology. No mass effect or midline shift is present. The kohli-white matter differentiation is normal. there is chronic sinus mucosal thickening. No fractures are identified. MAXILLOFACIAL CT: There are no acute fractures. The airway is normal. ??Within the maxilla and midface, no areas of bony erosion or fractures are identified. ??There is chronic mucosal thickening within the sinuses. The osteomeatal units are obstructed bilaterally. The nasal septum is deviated leftward. The nasal bone is normal without fractures. The mandible is normal without fractures. The orbits are normal. Limited view of the frontal lobes is normal. The limited views of the base of the skull and the temporal bones are normal. Limited views show that the cervical spine is in the normal anatomic alignment. Visualized vertebral bodies are normal height without compression fractures. The craniocervical junction is normal. ?? IMPRESSION: 1. No acute intracranial process. 2. No maxillofacial fractures. Chronic sinus mucosal thickening. ?? Requested By: TESHA ALEJANDRE M.D. Dictated By: ?? TIMOTEO BRYAN M.D. ??on May 10 2014 12:31P This document has been electronically signed by: WYATT ESQUIVEL M.D. on May 10 2014 ??7:18P [id number] Procedure Note Provider, MD Matheus - 11/18/2016 Lorene AMBRIZ M.D. FINAL REPORT The radiology attending physician has personally reviewed this study, and has reviewed and/or edited this written report and agrees with it. ACC# Date Time Exam [id number] May 10, 2014 10:55:[address] Head or Brain w/o cont [id number] May 10, 2014 10:55:[address] Maxillofacial w/o cont ACC# Date Time Exam [id number] May 10, 2014 10:55:[address] Head or Brain w/o cont [id number] May 10, 2014 10:55:[id number] Maxillofacial w/o cont EXAMINATION: Noncontrast head CT and noncontrast maxillofacial CT with reconstructions. HISTORY: 43-year-old female status post fall with abrasion and swelling to the left inferior orbit and bridge of nose. TECHNIQUE: Noncontrast CT of the brain was performed with axial images acquired from skull base to vertex. Noncontrast high resolution CT of the maxillofacial region was performed in the axial plane. Sagittal and coronal reconstructions were performed by the technologist and sent to the workstation for review. COMPARISON: None available. FINDINGS: BRAIN: On the axial slices, there are no acute intra or extra-axial fluid collections. Ventricles are of normal size, shape, and morphology. No mass effect or midline shift is present. The kohli-white matter differentiation is normal. there is chronic sinus mucosal thickening. No fractures are identified. MAXILLOFACIAL CT: There are no acute fractures. The airway is normal. Within the maxilla and midface, no areas of bony erosion or fractures are identified. There is chronic mucosal thickening within the sinuses. The osteomeatal units are obstructed bilaterally. The nasal septum is deviated leftward. The nasal bone is normal without fractures. The mandible is normal without fractures. The orbits are normal. Limited view of the frontal lobes is normal. The limited views of the base of the skull and the temporal bones are normal. Limited views show that the cervical spine is in the normal anatomic alignment. Visualized vertebral bodies are normal height without compression fractures. The craniocervical junction is normal. IMPRESSION: 1. No acute intracranial process. 2. No maxillofacial fractures. Chronic sinus mucosal thickening. Requested By: TESHA ALEJANDRE M.D. Dictated By: TIMOTEO BRYAN M.D. on May 10 2014 12:31P This document has been electronically signed by: WYATT ESQUIVEL M.D. on May 10 2014 7:18P [id number] Historical Provider MD KELLY CT PROCEDURES Final R esult documented in this encounter Visit Diagnoses Diagnosis Contusion of scalp, face, or neck, excluding eyes Open wound of face Open wound of face, unspecified site, without mention of complication Concussion Unspecified concussion Need for prophylactic vaccination with tetanus-diphtheria (Td) Encounter for long-term (current) use of other medications Fall from other slipping, tripping, or stumbling Place of occurrence, street and highway Activities involving walking, marching and hiking Other external cause of injury or poisoning documented in this encounter
--- OUTSIDE RECORDS SUMMARY | 2024-07-24 20:00 | XMS_ITS | Encounter Summary ---
Author Organization [facility] Facility Care Team Providers Care Insole Beveler Name Role Phone Unavailable Primary Care Provider Unavailabl e Encounter Details Date Type Department Care Team (Late st Contact Info) Description 08/01/2010 8:00 AM CALL OR CONTACT CENTRE OPERATOR - 08/06/2010 12:01 AM CALL OR CONTACT CENTRE OPERATOR Hospital Encounter [facility] Arlet Jimenez MD [address] [place] [address] Social History Tobacco Use Types Packs/Day Years Used Date Smoking Tobacco: Never Assessed Comments Unknown Sex and Gender Information Value Date Recorded Sex Assigned at Not on file Legal Sex Female 8:57 AM CALL OR CONTACT CENTRE OPERATOR Gender Identity Not on file Sexual Orientation Not on file documented as of this encounter Plan of Treatment Not on file documented as of this encounter Visit Diagnoses Not on filedocumented in this encounter
== END 2024-07-17 13:56 | disposition home or self-care (01) ==
PROVIDERS: Emergency Provider Emergency Medicine
DX: B34.9 Viral infection, unspecified (principal); Z20.822 Contact with and (suspected) exposure to COVID-19
CPT/HCPCS: 71045; 87637; 87651; 99283